=== PATIENT | male | born 1935 | race Caucasian/White ===

== ENCOUNTER 2016-10-22 08:29 | Outpatient (RCR) | payer MEDICARE, OTHER ==
--- OUTSIDE RECORDS SUMMARY | 2016-10-01 08:26 | XMS REPORT ---
Author Author Dayan Kowalski Organization [facility] Address [address] [place], [place] [id number] Care Team Providers Care Food Checker Name Role Phone Ailyn Kowalski PCP Unavailable Allergies and Adverse Reactions Name Reaction Notes NO KNOWN DRUG ALLERGIES Plan of Treatment Not available. 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 Vital Signs Date Time BP-Sys(mm[Hg] BP-Claudette(mm[Hg]) HR(bpm) RR(rpm) Temp WT HT HC BMI BSA BMI Percentile O2 Sat(%) 07/16/2016 9:10:00 AM 128 mmHg 72 mmHg 62 bpm 18 rpm 99 F 175 lbs 74 in 22.47 kg/m2 2.04 m2 97 % 01/02/2016 11:32:00 AM 136 mmHg 78 mmHg 66 bpm 18 rpm 98 F 175 lbs 74 in 22.4684 kg/m 2.0358 m 97 % Social History Name Description Comments Tobacco Former smoker denies alcohol use Caffeine Current every day Exercises regularly History of Procedures Date Ordered Description Order Status 01/02/2016 4:56 PM URINALYSIS AUTO W/O SCOPE Reviewed 01/03/2016 8:59 AM URINALYSIS AUTO W/O SCOPE Reviewed 06/27/2016 12:00 AM ASSAY OF PSA TOTAL Reviewed 07/16/2016 9:39 AM URINALYSIS AUTO W/O SCOPE Reviewed Results Summary Data and Description Results 01/02/2016 4:56 PM Clarity Ur CLEAR Color Ur ------ Glucose Ur-sCnc -VE Bilirub Ur Ql Strip -VE Ketones Ur Ql Strip -VE Sp Gr Ur Qn 1020 Hgb Ur Ql Strip -VE pH Ur-LsCnc 6.0 Prot Ur Ql Strip -VE Urobilinogen Ur-mCnc -VE Nitrite Ur Ql Strip - VE WBC Est Ur Ql Strip -VE 07/16/2016 9:39 AM Clarity Ur CLEAR Color Ur -------- Glucose Ur-sCnc -VE Bilirub Ur Ql Strip -VE Ketones Ur Ql Strip -VE Sp Gr Ur Qn 1015 Hgb Ur Ql Strip -VE pH Ur-LsCnc 5.0 Prot Ur Ql Strip -VE Urobilinogen Ur-mCnc -VE Nitrite Ur Ql Strip -VE WBC Est Ur Ql Strip -VE History Of Immunizations Not available. 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
[~2016-10-22 08:29] MED LIST: FLAX100031 PO; OMEP20CA6 PO; VIT1CAPS14 PO
== END 2016-11-11 11:48 | disposition home or self-care (01) ==
PROVIDERS: ATTEND Orthopaedic Surgery
DX: M25.552 Pain in left hip (principal)

== ENCOUNTER 2017-02-13 13:43 | Outpatient (RCR) | payer MEDICARE, OTHER ==
[2017-02-16] MEDS ORDERED: CEFD300C3 PO (16:05)
[2017-02-17] MEDS ORDERED: OMEP20CA12 PO (12:57)
[2017-02-17] MEDS ORDERED: HYDR-3730 PO (18:08)
[2017-02-17] MEDS ORDERED: LEVO500T2 PO (18:08)
[2017-02-18] MEDS ORDERED: CIPR-225 PO (09:26)
== END 2017-04-14 12:02 | disposition home or self-care (01) ==
PROVIDERS: ATTEND Family Medicine
DX: M53.3 Sacrococcygeal disorders, not elsewhere classified (principal)

== ENCOUNTER 2017-02-16 12:31 | Emergency (ER) | payer MEDICARE, OTHER ==
[~2017-02-16] VITALS: Ht 188 cm; Wt 80.3 kg
[2017-02-16 13:05] LABS: BASOPHILS % (AUTO) 0 % (0-10); EOSINOPHILS % (AUTO) 0 % (0-10); LYMPHOCYTES # (AUTO) 0.7 X 10^3 (1.0-4.0); LYMPHOCYTES % (AUTO) 6 % (12-44); MEAN CORPUSCULAR HEMOGLOBIN 30 PG (25-34); MEAN CORPUSCULAR HGB CONC 34 G/DL (32-36); MEAN CORPUSCULAR VOLUME 91 FL (80-99); MEAN PLATELET VOLUME 9.3 FL (7.4-10.4); MONOCYTES # (AUTO) 0.7 X 10^3 (0.0-1.0); MONOCYTES % (AUTO) 7 % (0-12); NEUTROPHILS # (AUTO) 9.8 X 10^3 (1.8-7.8); NEUTROPHILS % (AUTO) 87 % (42-75); PLATELET COUNT 190 10^3/uL (130-400); RED CELL DISTRIBUTION WIDTH 12.4 % (10.0-14.5); WHITE BLOOD COUNT 11.3 10^3/uL (4.3-11.0)
--- NOTE | 2017-02-16 13:06 | ED Abdominal Pain ---
General Stated Complaint: ABD PAIN Source of Information: Patient Exam Limitations: No Limitations History of Present Illness Time Seen By Provider: 13:03 Initial Comments The patient is an 81-year-old white male who has had several intervals of abdominal pain. The first of these was apparently November 2015. He then had other episodes a month ago or thereabouts and had workup in [place]. This apparently included a CT scan. The thought by Dr. Thurston his personal physician was that this may represent gallbladder disease. 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 The pain seems to lie in the right upper quadrant. There is no radiation to the shoulder or shoulder blade. He vomited once this morning. He is now over the pain. Severity/Quality: Moderate, Sharp, Stabbing Location: RUQ, Epigastric Radiation: No Radiation Allergies and Home Medications Allergies Coded Allergies: No Known Drug Allergies (Unverified , 12/06/15) Home Medications Flaxseed Oil 1,000 Mg Capsule, 1,000 MG PO BID, (Reported) Omeprazole 20 Mg Capsule.dr, 20 MG PO BID, (Reported) Vit C/Lynne AC/Lut/Copper/Znox 1 Each Capsule, 1 CAP PO BID, (Reported) Past Bhsohmf-Gpbece-Ybgvoj Hx Patient Social History Recent Foreign Travel: No Contact w/Someone Who Travel: No Surgeries HX Surgeries: Yes (hernia repair) Surgeries: Abdominal, Appendectomy, Orthopedic, Tonsillectomy Respiratory Hx Respiratory Disorders: No Cardiovascular Hx Cardiac Disorders: No Neurological Hx Neurological Disorders: No Reproductive System Hx Reproductive Disorders: No Genitourinary Hx Genitourinary Disorders: No Gastrointestinal Hx Gastrointestinal Disorders: Yes Gastrointestinal Disorders: Gastroesophageal Reflux Musculoskeletal Hx Musculoskeletal Disorders: No Endocrine Hx Endocrine Disorders: No HEENT HX ENT Disorders: Yes Hearing Impairment: Hard of Hearing Cancer Hx Cancer: No Psychosocial Hx Psychiatric Problems: No Integumentary HX Skin/Integumentary Disorder: No Blood Transfusions Hx Blood Disorders: No Family Medical History Significant Family History: No Pertinent Family Hx Physical Exam Vital Signs VS - Last 72 Hours, by Label 02/16/17 12:50 Temp 98.2 Pulse 52 Resp 18 B/P (MAP) 145/80 Pulse Ox 97 O2 Delivery Room Air Capillary Refill : General Appearance: WD/WN, no apparent distress HEENT: normal ENT inspection Neck: full range of motion Respiratory: chest non-tender, lungs clear, normal breath sounds, no respiratory distress, no accessory muscle use Cardiovascular: normal peripheral pulses, regular rate, rhythm, no edema, no gallop, no JVD, no murmur Gastrointestinal: other (tender to deep palpation over the area of the gallbladder.) Extremities: normal range of motion, non-tender, normal inspection, no pedal edema, no calf tenderness, normal capillary refill, pelvis stable Back: normal inspection, no CVA tenderness 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, no motor/sensory deficits, alert, normal mood/affect, oriented x 3 Skin: normal color, warm/dry Progress/Results/Core Measures Results/Orders Lab Results Laboratory Tests Test 02/16/17 12:55 Range/Units White Blood Count 11.3 H 4.3-11.0 10^3/uL Red Blood Count 4.70 4.35-5.85 10^6/uL Hemoglobin 14.3 13.3-17.7 G/DL Hematocrit 43 40-54 % Mean Corpuscular Volume 91 80-99 FL Mean Corpuscular Hemoglobin 30 25-34 PG Mean Corpuscular Hemoglobin Concent 34 32-36 G/DL Red Cell Distribution Width 12.4 10.0-14.5 % Platelet Count 190 130-400 10^3/uL Mean Platelet Volume 9.3 7.4-10.4 FL Neutrophils (%) (Auto) 87 H 42-75 % Lymphocytes (%) (Auto) 6 L 12-44 % Monocytes (%) (Auto) 7 0-12 % Eosinophils (%) (Auto) 0 0-10 % Basophils (%) (Auto) 0 0-10 % Neutrophils # (Auto) 9.8 H 1.8-7.8 X 10^3 Lymphocytes # (Auto) 0.7 L 1.0-4.0 X 10^3 Monocytes # (Auto) 0.7 0.0-1.0 X 10^3 Eosinophils # (Auto) 0.0 0.0-0.3 10^3/uL Basophils # (Auto) 0.0 0.0-0.1 10^3/uL Neutrophils % (Manual) 86 % Lymphocytes % (Manual) 3 % Monocytes % (Manual) 5 % Eosinophils % (Manual) 0 % Basophils % (Manual) 0 % Band Neutrophils 6 % Blood Morphology Comment NORMAL Sodium Level 137 135-145 MMOL/L Potassium Level 3.8 3.6-5.0 MMOL/L Chloride Level 105 98-107 MMOL/L Carbon Dioxide Level 22 21-32 MMOL/L Anion Gap 10 5-14 MMOL/L Blood Urea Nitrogen 17 7-18 MG/DL Creatinine 0.91 0.60-1.30 MG/DL Estimat Glomerular Filtration Rate > 60 BUN/Creatinine Ratio 19 Glucose Level 160 H 70-105 MG/DL Calcium Level 9.0 8.5-10.1 MG/DL Total Bilirubin 0.5 0.1-1.0 MG/DL Aspartate Amino Transf (AST/SGOT) 17 5-34 U/L Alanine Aminotransferase (ALT/SGPT) 19 0-55 U/L Alkaline Phosphatase 47 40-136 U/L Total Protein 6.6 6.4-8.2 G/DL Albumin 4.0 3.2-4.5 G/DL Lipase 20 8-78 U/L My Orders Orders - STEFANY KHALIL MD Cbc With Automated Diff (02/16/17 12:36) Comprehensive Metabolic Panel (02/16/17 12:36) Ua Culture If Indicated (02/16/17 12:36) Manual Differential (02/16/17 12:55) Lipase (02/16/17 13:07) Ns Iv 1000 Ml (Sodium Chloride 0.9%) (02/16/17 13:15) Ondansetron Injection (Zofran Injectio (02/16/17 13:15) Fentanyl Injection (Sublimaze Injection (02/16/17 13:15) Us Gallbladder [id number] (02/16/17 13:29) Medications Given in ED Current Medications Medications Dose Ordered Sig/Rodolfo Route Start Time Stop Time Status Last Admin Dose Admin Fentanyl Citrate 25 mcg Q1H PRN IVP 02/16/17 13:15 02/16/17 13:27 25 MCG Ondansetron HCl 8 mg ONCE ONCE IVP 02/16/17 13:15 02/16/17 13:16 DC 02/16/17 13:27 8 MG Vital Signs/I&O Vital Sign - Last 12Hours 02/16/17 12:50 Temp 98.2 Pulse 52 Resp 18 B/P (MAP) 145/80 Pulse Ox 97 O2 Delivery Room Air Departure Communication Progress Notes Sonogram report was positive for stones. [address] Munguia surgeon on-call. He recommended oral antibiotics , pain relief and clear liquid diet he will see him tomorrow to arrange Impression Impression: Primary Impression: acute cholecystitis Disposition: HOME, SELF-CARE Condition: Stable/Unchanged Departure-Patient Inst. Decision time for Depature: 15:58 Referrals: BARRY THURSTON MD (PCP/Family) Primary Care Physician Patient Instructions: Gallstones (DC) Add. Discharge Instructions: Take only clear liquid diet until after you have seen Dr. Munguia tomorrow. Call his office at [phone] in the morning to schedule an appointment for tomorrow afternoon. Take Omnicef twice daily as directed Take Lortab as directed if necessary for pain You have the 5 mg hydrocodone at home. This is perfect and you can take 1 every 4-6 hours as needed for pain Scripts Cefdinir (Cefdinir) 300 Mg Capsule 300 MG PO twice a day, #6 CAP Prov: STEFANY KHALIL MD 02/16/17 STEFANY KHALIL MD Feb 16, 2017 13:06
[2017-02-16] MEDS ORDERED: ONDANSETRON 4 MG/2 ML (SDV) Z0FRAN IVP ONE (13:15)
[2017-02-16] MEDS ORDERED: NS IV 1000 ML 1,000 ML IV SCH (13:15)
[2017-02-16] MEDS ORDERED: fentaNYL INJECTION 100 MCG/2 ML AMP IVP PRN (13:15)
[2017-02-16 13:21] LABS: NEUTROPHILS % (MANUAL) 86 %
[2017-02-16 13:22] LABS: BAND NEUTROPHILS 6 %; BASOPHILS % (MANUAL) 0 %; EOSINOPHILS % (MANUAL) 0 %; LYMPHOCYTES % (MANUAL) 3 %
[2017-02-16 13:25] LABS: ALANINE AMINOTRANSFERASE 19 U/L (0-55); ANION GAP 10 MMOL/L (5-14); ASPARTATE AMINO TRANSFERASE 17 U/L (5-34); BILIRUBIN,TOTAL 0.5 MG/DL (0.1-1.0); BLOOD UREA NITROGEN 17 MG/DL (7-18); BUN/CREATININE RATIO 19; CARBON DIOXIDE 22 MMOL/L (21-32); CHLORIDE 105 MMOL/L (98-107); CREATININE SERUM 0.91 MG/DL (0.60-1.30); GFR ESTIMATED > 60; GLUCOSE 160 MG/DL (70-105); POTASSIUM 3.8 MMOL/L (3.6-5.0); SODIUM 137 MMOL/L (135-145); TOTAL PROTEIN 6.6 G/DL (6.4-8.2)
--- NOTE | 2017-02-16 15:31 | Diagnostic Imaging Report ---
PROCEDURE: US gallbladder. TECHNIQUE: Multiple real-time grayscale images were obtained over the right upper quadrant in various projections. INDICATION: Right upper quadrant abdominal pain. FINDINGS: Liver parenchyma is homogeneous with normal echotexture. There are several calculi in the gallbladder. Gallbladder wall is not thickened. Common duct is not dilated. Right kidney appears normal. Pancreas is obscured by bowel gas. There is no ascites. IMPRESSION: Cholelithiasis. Dictated by: Dictated on workstation # [id number]
[2017-02-16] MEDS ORDERED: CEFD300C3 PO ×2 (16:05)
[2017-02-16 16:26] VITALS: BP 145/80
[2017-02-17] MEDS ORDERED: OMEP20CA12 PO ×2 (12:57)
[2017-02-17] MEDS ORDERED: LEVO500T2 PO ×2 (18:08)
[2017-02-17] MEDS ORDERED: HYDR-3730 PO ×2 (18:08)
== END 2017-02-16 16:26 | disposition home or self-care (01) ==
LOC: EDUNIT# 12:31 → ER 12:33
DX: K80.00 Calculus of gallbladder with acute cholecystitis without obstruction (principal)
CPT/HCPCS: 36415; 76705; 80053; 83690; 85007; 85027; 96361; 96374; 96375

== ENCOUNTER 2017-02-17 10:30 | Day surgery (SDC) | payer MEDICARE, OTHER ==
[~2017-02-17] VITALS: Ht 185.4 cm; Wt 78.3 kg
[~2017-02-17 10:30] MED LIST changes: +CEFD300C3 PO
[2017-02-17 10:50] VITALS: BP 112/67
[2017-02-17] MEDS ORDERED: ceFAZolin 1 GM/NS 50 ML IVPB IV ONE ×2 (11:00)
[2017-02-17] MEDS ORDERED: ONDANSETRON 4 MG/2 ML (SDV) Z0FRAN IV PRN (11:00)
[2017-02-17] MEDS ORDERED: CATHETER FLUSH 10 ML SYR IV PRN (11:00)
[2017-02-17] MEDS ORDERED: PIPERACILLIN/TAZOBACTAM 4.5 GM/NS100 ML IVPB IV NR ×2 (11:00)
[2017-02-17] MEDS ORDERED: LACTATED RINGERS 1,000 ML IV PRN (11:27)
[2017-02-17 12:00] VITALS: BP 99/63
[2017-02-17] MEDS: NS IV 1000 ML 1,000 ML IV SCH ×2 (12:07→21:11)
--- NOTE | 2017-02-17 12:54 | History & Physicial ---
History of Present Illness History of Present Illness Reason for visit/HPI This is an 81 year old male who was seen in the office this morning for complaints of RUQ abdominal pain. He was seen by us in November 2015 for idiopathic pancreatitis which resolved. Patient reports that he had a similar episode 3 weeks ago where he developed sharp RUQ abdominal pain as well as nausea and vomiting. He reports that this improved until yesterday when the pain was so severe that he presented to the ER and an Ultrasound was performed which showed gallstones. He reports that he was also having nausea and vomiting associated with the pain. He denied any diarrhea, constipation, reflux , as well as no fevers/chills. He then followed up with us this morning to pursue getting his gallbladder removed. Date of Admission I consulted on this patient on 02/17/17 12:49 Attending Physician Jordi Herr MD Admitting Physician Reema Neumann MD Consult Allergies and Home Medications Allergies Coded Allergies: No Known Drug Allergies (Unverified , 12/06/15) Home Medications Cefdinir 300 Mg Capsule, 300 MG PO twice a day, #6 Prescribed by: STEFANY KHALIL on 02/16/17 1605 Flaxseed Oil 1,000 Mg Capsule, 1,000 MG PO BID, (Reported) Omeprazole 20 Mg Capsule.dr, 20 MG PO BID, (Reported) Vit C/Lynne AC/Lut/Copper/Znox 1 Each Capsule, 1 CAP PO BID, (Reported) Past Hivduaq-Toctga-Wppfxg Hx Patient Social History Smoking Status: Former Smoker 2nd Hand Smoke Exposure: No Recent Foreign Travel: No Contact w/other who traveled: No Recent Hopitalizations: No Recent Infectious Disease Expo: No Surgeries HX Surgeries: Yes (hernia repair) Surgeries: Abdominal, Appendectomy, Orthopedic, Tonsillectomy Respiratory Hx Respiratory Disorders: No Cardiovascular Hx Cardiovascular Disorders: No Neurological Hx Neurological Disorders: No Reproductive System Hx Reproductive Disorders: No Genitourinary Hx Genitourinary Disorders: No Gastrointestinal Hx Gastrointestinal Disorders: Yes Gastrointestinal Disorders: Gastroesophageal Reflux Musculoskeletal Hx Musculoskeletal Disorders: No Endocrine Hx Endocrine Disorders: No HEENT HX ENT Disorders: Yes Hearing Impairment: Hard of Hearing Cancer Hx Cancer: No Psychosocial Hx Psychiatric Problems: No Integumentary HX Skin/Integumentary Disorder: No Blood Transfusions Hx Blood Disorders: No Family Medical History Significant Family History: No Pertinent Family Hx Family Hx: Cardiovascular disease 19 FATHER Dementia G8 SISTER Neoplasm 19 MOTHER (lymphoma) G8 SISTER (lymphoma) Constitutional: no symptoms reported EENTM: no symptoms reported Respiratory: no symptoms reported Cardiovascular: no symptoms reported Gastrointestinal: abdominal pain (RUQ), No constipation, No diarrhea, No heartburn, nausea, vomiting Genitourinary: no symptoms reported Musculoskeletal: no symptoms reported Skin: no symptoms reported Psychiatric/Neurological: No Symptoms Reported Physical Exam Vital Signs Capillary Refill : General Appearance: No Apparent Distress, WD/WN HEENT: PERRL/EOMI Neck: Full Range of Motion, Normal Inspection, Non Tender, Supple Respiratory: Chest Non Tender, Lungs Clear, Normal Breath Sounds, No Accessory Muscle Use, No Respiratory Distress Cardiovascular: Regular Rate, Rhythm, No Edema Gastrointestinal: Normal Bowel Sounds, No Organomegaly, No Pulsatile Mass, Soft , Tenderness (RUQ with palpation) Back: Normal Inspection, No CVA Tenderness, No Vertebral Tenderness Extremity: Normal Capillary Refill, Normal Inspection, Normal Range of Motion, Non Tender, No Calf Tenderness, No Pedal Edema Neurologic/Psychiatric: Alert, Oriented x3, Normal Mood/Affect Skin: Normal Color, Warm/Dry Assessment/Plan Assessment and Plan A 81 year old male with chronic calculus cholecystitis. IV fluids. IV pain and nausea medication. IV zosyn. NPO. Will schedule for Laparoscopic cholecystectomy today. Problems: Admission Diagnosis Chronic calculus cholecystitis Clinical Quality Measures DVT/VTE Risk/Contraindication: Risk Factor Score Per Nursin RFS Level Per Nursing on Admit: 2=Moderate Copy Copies To 1: JORDI HERR MD, DUSTIN L APRN Feb 17, 2017 12:54
[2017-02-17] MEDS ORDERED: OMEP20CA12 PO ×2 (12:57)
--- NOTE | 2017-02-17 13:02 | Progress Note-Pre Operative ---
Pre-Operative Progress Note H&P Reviewed The H&P was reviewed, patient examined and no changes noted. Date H&P Reviewed: Feb 17, 2017 Time H&P Reviewed: 13:01 Pre-Operative Diagnosis: Chronic Calculus Cholecystitis BROOKS PETERSON CUTTER HEAD SHARPENER Feb 17, 2017 13:02
[2017-02-17] MEDS ORDERED: BUP/EPI 0.5% 1:200,000 (SENSORCAINE) 30 ML VIAL ONE (13:57)
[2017-02-17] MEDS ORDERED: SUCCINYLCHOLINE INJ 100 MG/5 ML SYR ONE (14:30)
[2017-02-17] MEDS ORDERED: ONDANSETRON 4 MG/2 ML (SDV) Z0FRAN ONE (14:30)
[2017-02-17] MEDS ORDERED: LACTATED RINGERS 1,000 ML IV ONE ×2 (14:30→17:07)
[2017-02-17] MEDS ORDERED: proPOfol 200 MG/20 ML (DIPRIVAN) VIAL IV ONE (14:30)
[2017-02-17] MEDS ORDERED: ROCURONIUM 50 MG/5 ML (ZEMURON) VIAL IV ONE (14:30)
[2017-02-17] MEDS ORDERED: LIDOCAINE PF 2% 10 ML (XYLOCAINE) AMP ONE (14:30)
[2017-02-17] MEDS ORDERED: MIDAZOLAM 2 MG/2 ML (VERSED) VIAL ONE (14:31)
[2017-02-17] MEDS ORDERED: fentaNYL INJECTION 100 MCG/2 ML AMP ONE (14:31)
[2017-02-17] MEDS ORDERED: MEPERIDINE (DEMEROL) INJ 50 MG/ML ONE (15:32)
[2017-02-17] MEDS ORDERED: morphine INJ 10 MG/ML 1ML (SYR OR VIAL) ONE (15:32)
[2017-02-17] MEDS ORDERED: ceFAZolin INJECTION 1,000 MG in NS (IVPB) 50 ML IVP ONE (15:45)
[2017-02-17] MEDS: LACTATED RINGERS 1,000 ML IV SCH ×2 (15:45→17:15)
[2017-02-17] MEDS ORDERED: ceFAZolin 1,000 MG (ANCEF) VIAL ONE (16:49)
[2017-02-17] MEDS ORDERED: SEVOFLURANE (ULTANE) 15 ML INHAL SOLN ONE ×3 (16:54→20:09)
[2017-02-17] MEDS ORDERED: GLYCOPYRROLATE 0.2 MG/ML (ROBINUL) 2 ML VIAL ONE (17:53)
[2017-02-17] MEDS ORDERED: NEOSTIGMINE (BLOXIVERZ ) 1 MG/1ML 10 ML VIAL ONE (17:53)
--- NOTE | 2017-02-17 18:05 | Progress Note-Post Operative ---
Post-Operative Progess Note Surgeon (s)/Channeler Runner (s) Surgeon JORDI HERR MD Channeler Runner: ruperto robertson MORNING NANNY Pre-Operative Diagnosis Chronic Calculus Cholecystitis Post-Operative Diagnosis acute on chronic calculous cholecystitis. Post-Op Procedure Note Date of Procedure: Feb 17, 2017 Name of Procedure Performed: laparoscopic cholecystectomy Description of the Procedure: laparoscopic cholecystectomy Findings of the Procedure . Anesthesia Type GET Estimated blood loss (mL): minimal Specimen(s) collected/removed gallbladder JORDI HERR MD Feb 17, 2017 6:05 pm
[2017-02-17] MEDS ORDERED: HYDR-3730 PO ×2 (18:08)
[2017-02-17] MEDS ORDERED: LEVO500T2 PO ×2 (18:08)
--- NOTE | 2017-02-17 18:09 | Discharge Inst-Surgical ---
D/C Lap Instructions-CARMENZA New, Converted, or Re-Newed RX: RX on Chart Follow Up Appt in 2 weeks Activity as tolerated No driving for 24 hours No driving while on pain medications Incentive Spirometry use every 2 hours while awake Regular Diet Symptoms to Report: Fever over 101 degree F, Nausea/Vomiting Infection Signs and Symptoms to report: Increased redness, Foul odor of wound, Increased drainage Bathing instructions: May shower Operative Area Clean/Dry; Keep incision clean/dry If any problems/questions: Contact your physician or go to Emergency Room JORDI HERR MD Feb 17, 2017 6:09 pm
[2017-02-17] MEDS ORDERED: HYDROcodone/APAP 7.5 MG/325 MG (LORTAB, LORCET PLUS) TABLET PO PRN (18:15)
[2017-02-17] MEDS ORDERED: MEPERIDINE (DEMEROL) INJ 50 MG/ML IVP PRN (18:30)
[2017-02-17] MEDS ORDERED: morphine INJ 10 MG/ML 1ML (SYR OR VIAL) IVP PRN (18:30)
[2017-02-17] MEDS ORDERED: ONDANSETRON 4 MG/2 ML (SDV) Z0FRAN IVP PRN (18:30)
[2017-02-17] MEDS: fentaNYL INJECTION 100 MCG/2 ML AMP IV PRN (19:30)
[2017-02-17 19:47] VITALS: BP 124/81
[2017-02-17] MEDS: PIPERACILLIN/TAZOBACTAM 4.5 GM/NS100 ML IVPB IV SCH ×2 (20:26)
[2017-02-18] VITALS: BP 123/74
[2017-02-18] MEDS: fentaNYL INJECTION 100 MCG/2 ML AMP IV PRN (03:05)
[2017-02-18] MEDS: PIPERACILLIN/TAZOBACTAM 4.5 GM/NS100 ML IVPB IV SCH ×4 (03:05→08:00)
[2017-02-18 04:00] VITALS: BP 108/59
[2017-02-18 08:00] VITALS: BP 101/58
[2017-02-18] MEDS: NS IV 1000 ML 1,000 ML IV SCH (08:01)
[2017-02-18] MEDS ORDERED: PANTOPRAZOLE 40 MG/10 ML (PROTONIX) VIAL IV SCH (09:00)
[2017-02-18] MEDS ORDERED: CIPR-225 PO ×2 (09:26)
--- NOTE | 2017-02-18 13:05 | Anesthesia-General Post-Op ---
General Patient Condition Mental Status/LOC: Same as Preop Cardiovascular: Satisfactory Nausea/Vomiting: Absent Respiratory: Satisfactory Pain: Controlled Complications: Absent Post Op Complications Complications None Follow Up Care/Instructions Patient Instructions None needed. Anesthesia/Patient Condition Patient Condition Patient is doing well, no complaints, stable vital signs, no apparent adverse anesthesia problems. No complications reported per nursing. KATHRYN TOVAR CRNA Feb 18, 2017 13:04
[2017-02-18 13:30] VITALS: BP 101/58
--- NOTE | 2017-02-19 07:32 | OPERATIVE REPORT ---
DATE OF SERVICE: 02/17/2017 ATTENDING PRIMARY CARE PHYSICIAN: Reema Neumann MD PREOPERATIVE DIAGNOSIS: Symptomatic chronic calculous cholecystitis. POSTOPERATIVE DIAGNOSIS: Acute on chronic calculous cholecystitis. PROCEDURE PERFORMED: Laparoscopic cholecystectomy. SURGEON: Dr. Rogers SALESPERSON CHILDREN'S SHOES: WALLACE Ellison ANESTHESIA: General endotracheal. ESTIMATED BLOOD LOSS: Minimal. FINDINGS: Chronically inflamed gallbladder with omental adhesions. Acute inflammation of the appendix with multiple small gallstones. DISPOSITION: The patient tolerated procedure well. DESCRIPTION OF PROCEDURE: The patient is an 81-year-old male who has had a 2-week history of intermittent episodes of pain in the right upper abdominal quadrant with radiation towards the back. He is unsure if food makes this worse. This gentleman was seen in 11/2015 for pain, more in the epigastric region and was found to have an acute pancreatitis. Workup included CT scan as well as ultrasound which did not show any signs of choledocholithiasis or cholelithiasis. He also had a normal total bilirubin and only elevated pancreatic enzymes. He states that this pain is different. It is more in the right upper abdominal quadrant which has progressively worsened over time and is not persistent. An ultrasound was performed which did show inflammation of the gallbladder wall as well as multiple stones. The patient was brought to the operating room, laid supine on the table. After adequate IV pain and sedative medications and general endotracheal intubation, the abdomen was prepped and draped in standard surgical fashion. Marcaine, 0.5%, with epinephrine was then used to anesthetize the overlying skin in the left upper abdominal quadrant. A small transverse skin incision made using a 15-blade. An 0 silk suture was applied to the medial aspect of the incision for traction and a Veress needle inserted with a low opening pressure of 0 mmHg, and the abdomen was insufflated to 15 mmHg pressure. The Veress needle removed, then a 5 mm Xcel trocar placed followed by a 5 mm 45-degree angle laparoscope visualizing the peritoneal cavity. A four quadrant abdominal x-ray also was performed. There was fibrinopurulent exudative material on the gallbladder as well as extensive omental adhesions to the gallbladder consistent with acute on chronic cholecystitis. Under direct visualization, we then proceeded to place a supraumbilical 10 mm port after the skin and peritoneum were anesthetized using 0.5 Marcaine with epinephrine and a transverse skin incision made using a 15 blade. In a similar manner, a right upper abdominal quadrant 5 mm port was placed. The patient was then placed in reverse Trendelenburg position as well as laid right side up, left side down. The omental adhesions were taken off the fundus of the gallbladder, and the fundus retracted anteriorly and superiorly. We proceeded with dissection of the omentum, which is plastered to the fundus and body as well as the neck of the gallbladder using blunt dissection as well as electrocautery on the hook instrument. The hepatoduodenal ligament was identified and the hepatoduodenal ligament opened using electrocautery on the hook instrument as well as blunt dissection. The entire critical view of safety was identified including the triangle of Calot as well as the cystic duct and artery going into the gallbladder as well as the liver behind the proximal gallbladder. A timeout was then taken and the cystic duct and artery were then clipped proximally and distally and cut with EndoShears. The gallbladder was then dissected off of the liver bed using electrocautery and a hook instrument with visualization. Good hemostasis as well as no leaking ducts of lushka. The area was then copiously irrigated and suctioned out. The subphrenic spaces irrigated and suctioned as well. The gallbladder was removed through the 10 mm port site using an Endocatch bag. The 10 mm port site fascia and peritoneum were then closed under direct visualization using a Neno-Ree device and 0 Vicryl suture. The fascia and peritoneum with a 10 mm port were then closed under direct visualization using a Neno-Ree device and an 0 Vicryl suture. The abdomen was desufflated and the remaining ports removed. All skin incisions were closed using 4-0 Monocryl and running subcuticular stitches. Wounds were then cleaned and covered with Dermabond. The patient tolerated procedure well. We will admit him back to the floor and continue with two more IV doses of IV antibiotics as well as pain control with oral and IV pain medication. Once he is tolerating liquids and has good pain control with oral pain medication and is afebrile and ambulating well, we will discharge him home. Job ID: [id number] DocumentID: [id number] Dictated Date: 02/17/2017 17:59:17 Tapper Hand Date: 02/18/2017 21:16:42 Dictated By: MD ALVINA KINSEY
== END 2017-02-18 13:40 | disposition home or self-care (01) ==
LOC: 4THo 10:30 → 4TH 10:30 → 4THo 02-18 13:40
PROVIDERS: ATTEND Surgery Pediatric Surgery
DX: K80.10 Calculus of gallbladder with chronic cholecystitis without obstruction (principal); K21.9 Gastro-esophageal reflux disease without esophagitis; Z87.891 Personal history of nicotine dependence
CPT/HCPCS: 87081; 88304

== ENCOUNTER → 2017-09-15 | Outpatient (CLI) | payer MEDICARE, OTHER ==
[~2017-09-15] MED LIST changes: +CIPR-225 PO; +HYDR-3730 PO; +LEVO500T2 PO; +OMEP20CA12 PO
--- NOTE | 2017-09-15 13:32 | Diagnostic Imaging Report ---
PROCEDURE: MRI lumbar spine. TECHNIQUE: Multiplanar, multisequence MRI of the lumbar spine was performed without contrast. INDICATION: Back pain. FINDINGS: There is satisfactory alignment of the posterior spinal line. The vertebral body heights are preserved. There is disc desiccation at all levels with moderate disc height loss at L3/L4 and L4/L5 levels. No significant focal lesion is seen within the spine. There is, however, mild marrow edema along the endplates of L4/L5 and to lesser extent at L3/L4 compatible with Modic type 1 changes. The cauda equina and conus medullaris appear grossly unremarkable. T12/L1: There is a mild disc bulge. Minimal facet hypertrophy is seen. No spinal canal or foraminal stenosis is noted. L1/L2: There is a mild disc bulge and mild to moderate facet hypertrophy. No central canal, lateral recess or foraminal stenosis. L2/L3: There is a mild disc bulge and mild to moderate facet hypertrophy. No central canal stenosis. There is bilateral mild lateral recess stenosis. The foramina demonstrate no significant stenosis. L3/L4: There is a diffuse disc bulge and mild facet hypertrophy. No central canal stenosis. There is bilateral mild lateral recess stenosis. The foramina demonstrate mild stenosis, more prominent on the left side. L4/L5: There is a diffuse disc bulge and bilateral mild to moderate facet arthropathy. No central canal stenosis. There is bilateral moderate lateral recess stenosis abutting the descending L5 nerve roots. The foramina demonstrate mild to moderate stenosis on the right and moderate stenosis on the left side with a small osteophyte from the facet joint projecting into the left foramen abutting the nerve root seen. L5/S1: There is diffuse disc bulge and moderate facet hypertrophy. There is moderate lateral recess stenosis on the left and mild to moderate lateral recess stenosis on the right side. No central canal stenosis. The foramina demonstrate moderate stenosis on the left and mild stenosis on the right side. 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 No significant central canal stenosis at any level. 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 Other findings are described above. Dictated by: Dictated on workstation # [id number]
== END ==
LOC: RAD 11:23
PROVIDERS: ATTEND Physician Assistant
DX: M51.26 Other intervertebral disc displacement, lumbar region (principal); M51.36 Other intervertebral disc degeneration, lumbar region; M48.061 Spinal stenosis, lumbar region without neurogenic claudication
CPT/HCPCS: 72148

== ENCOUNTER 2017-10-15 09:15 | Outpatient (RCR) | payer MEDICARE, OTHER | END 2017-10-28 | disposition home or self-care (01) | PROVIDERS: ATTEND Orthopaedic Surgery | DX: M51.16 Intervertebral disc disorders with radiculopathy, lumbar region (principal) ==

== ENCOUNTER 2017-10-31 07:57 | Outpatient (RCR) | payer MEDICARE, OTHER ==
[2018-01-19] MEDS ORDERED: ONDA4TAB11 PO (15:10)
[2018-01-19] MEDS ORDERED: NAPR220C46 PO ×2 (15:10)
[2018-01-19] MEDS ORDERED: AMOX-358 PO (15:10)
[2018-01-19] MEDS ORDERED: MULT1TAB65 PO ×2 (15:10)
[2018-01-19] MEDS ORDERED: OMEP40CA36 PO (15:10)
[2018-01-19] MEDS ORDERED: OXYC-473 PO (15:10)
[2018-01-19] MEDS ORDERED: OMEP20CA12 PO ×2 (16:21)
== END 2018-01-26 16:13 | disposition home or self-care (01) ==
PROVIDERS: ATTEND Orthopaedic Surgery
DX: M51.16 Intervertebral disc disorders with radiculopathy, lumbar region (principal)

== ENCOUNTER 2018-01-19 11:51 | Inpatient (IN) | payer MEDICARE, OTHER ==
[~2018-01-19] VITALS: Ht 185.4 cm; Wt 78.3 kg
--- NOTE | 2018-01-19 14:45 | Physical Therapy Evaluation ---
PT Evaluation-General Medical Diagnosis Admission Date Jan 19, 2018 at 14:07 Medical Diagnosis: Weakness Onset Date: Jan 13, 2018 Therapy Diagnosis Therapy Diagnosis: generalized weakness/debility Height/Weight Height (Feet): 6 Height (Inches): 1.00 Weight (Pounds): 172 Weight (Ounces): 10.0 Precautions Precautions/Isolations: Standard Precautions Weight Bear Status Right Lower Extremity: Right Full Weight Bearing Left Lower Extremity: Left Full Weight Bearing Referral Physician: Crow Reason for Referral: Evaluation/Treatment Medical History Additional Medical History s/p cholecystectomy 1 yr ago Current History removal of remaining gallstones left in bile duct from surgery 1 yr ago Reviewed History: Yes Social History Home: Single Level Current Living Status: Spouse Entry Into Home: Stairs With Railing PT Steps Into Home: 3 Prior/Core FIM Prior Level of Function Functional [place] Measure 0=Not Assessed/NA 4=Minimal Assistance 1=Total Assistance 5=Supervision or Setup 2=Maximal Assistance 6=Modified [place] 3=Moderate Assistance 7=Complete [place] Bed Mobility: 7 Transfers (B,C,W/C) (FIM): 7 Gait: 7 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 He states he is very weak. Family present. Pain Numeric Pain Scale: 0-No Pain Location: No Pain Reported Objective Patient Orientation: Person, Time, Situation Problem Solving: Fair ROM/Strength ROM Lower Extremities bilateral LE WNL Strenght Lower Extremities right knee flexion/extension 3+/5; hip flexion 3+/5; DF/PF 3+/5; abd/add 3+/5 left knee flexion/extension 3+/5; hip flexion 3+/5; DF/PF 3+/5; abd/add 3+/5 Integumentary/Posture Integumentary refer to nursing notes Bowel Incontinence: No Bladder Incontinence: No Posture kyphotic Neuromuscular (Tone, Coordination, Reflexes) diminished coordination due to weakness Sensory Vision: Wears Glasses Hearing: Hearing Aid/Aides Sensation Right Lower Extremit: Intact Sensation Left Lower Extremity: Intact Transfers Functional [place] Measure 0=Not Assessed/NA 4=Minimal Assistance 1=Total Assistance 5=Supervision or Setup 2=Maximal Assistance 6=Modified [place] 3=Moderate Assistance 7=Complete IndependenceIRFPAI Quality Coding Scale 6 Independent with activity with or without an assistive device 5 Patient requires set up or clean up by helper. Patient completes activity by themselves 4 Supervision or touching assist (CGA). [place] provide cues , steadying assist 3 The helper provides less than half the effort to complete the activity 2 The helper provides more than half the effort to complete the activity 1 Dependent. The helper does all the effort to complete an activity 7 Patient refused to complete or attempt activity 9 The patient did not perform the activity before the current illness or injury 88 Not attempted due to Medical conditions or safety concerns Transfers (B, C, W/C) (FIM): 4 Scootin Rollin Roll Left to Right (QC): 5 Supine to/from Sit: 5 Sit to/from Stand: 4 Sit to Lying (QC): 5 Lying to Sitting/Side of Bed(Q: 5 Sit to Stand (QC): 4 Chair/Cmq-sj-Bknqz Xfer(QC): 4 Car Transfer (QC): 4 PT cotreat with OT secondary to patient fatigue level from travel and overall medical status. PT focused on lower body, transfers, balance while OT address ADL's and upper body mobility. Gait Does the Patient Walk?: Yes Mode of Locomotion: Walk Anticipated Mode of Locomotion: Walk Gait (FIM): 4 Distance (FIM): 3=150 ft Walk 10 feet (QC): 4 Walk 50 ft with 2 Turns(QC): 4 Walk 150 ft (QC): 4 Walking 10ft/uneven surface-QC: 4 Distance: 200' x 4 Gait Level of Assist: 4 Gait Persons Needed: 1 Gait Assistive Device: FWW Comments/Gait Description very slow, steady gait sequence with sitting recovery periods due to fatigue/ weakness Wheelchair Training Does the Pt Use a Wheelchair?: No Stairs Stairs (FIM): 1 #of Steps: 1 Level of Assist: 4 1 Step (curb) (QC): 4 4 Steps (QC): 88 Assistive Device: Walker 12 Steps (QC): 88 Balance Sitting Static: Fair Sitting Dynamic: Fair Standing Static: Fair Standing Dynamic: Fair Treatment PT cotreat with OT with PT focus on dynamic and static balance in sit and stand and ambulating on uneven terrain, while OT address hand placement for transfers , upper body alignment and ADL's. Assessment/Needs 82 y.o. male, will benefit from skilled PT to address functional strength and mobility to improve current LOF and to safely return to home at maximum LOF. Patient is limited due to weakness/debility requiring skilled therapy to ensure maximum recovery. Rehab Potential: Good PT Usp Goals Usp Goals PT Efficiency Manager Goals Time Frame: Feb 20, 2018 Transfers (B,C,W/C) (FIM): 6 Sit to Lying (QC): 6 Lying-Sitting on Side/Bed(QC): 6 Sit to Stand (QC): 6 Rollin Roll Left to Right (QC): 6 Chair/Xek-kp-Ajmva Xfer(QC): 6 Car Transfer (QC): 6 Does the Patient Walk: Yes Gait (FIM): 7 Gait distance (FIM): 3=150 ft Distance: 300' Walk 10 feet (QC): 6 Walk 10ft-Uneven Surface(QC): 6 Walk 50ft with 2 Turns (QC): 6 Walk 150 ft (QC): 6 Gait Level of Assist: 7 Gait Assistive Device: None, FWW Stairs (FIM): 5 # of Steps: 12 1 Step (curb) (QC): 5 4 Steps (QC): 5 12 Steps (QC): 5 Stairs Level Of Assist: 5 Picking up an Object (QC): 5 PT Plan Problem List Problem List: Activity Tolerance, Functional Strength, Safety, Balance, Gait, Transfer Treatment/Plan Treatment Plan: Continue Plan of Care Treatment Plan: Bed Mobility, Concurrent Therapy, Education, Functional Activity Heath, Functional Strength, Group Therapy, Gait, Safety, Therapeutic Exercise, Transfers Treatment Duration: Jan 13, 2018 Frequency: At least 5 of 7 days/Wk (IRF) Estimated Hrs Per Day: 1.5 hours per day Patient and/or Family Agrees t: Yes Safety Risks/Education Patient Education: Safety Issues Teaching Recipient: Patient, Family Teaching Methods: Discussion Response to Teaching: Verbalize Understanding Discharge Recommendations Therapy D/C Recommendations: Home w/ Family Support, Physical Therapy Home Care Time/GCodes Time In: 1410 Time Out: 1445 Total Billed Treatment Time: 25 (with OT eval [id number]) Total Billed Treatment 1 visit EVModC 10 min (9512-1059) FA 15 min (cotreat with OT 1430 -1445) JESSI KONG PT Jan 19, 2018 14:45
[2018-01-19] MEDS ORDERED: INFLUENZA TRIvalent 2017-2018 0.5 ML/45 MCG SYR IM ONE (15:00)
[2018-01-19] MEDS ORDERED: ONDA4TAB11 PO (15:10)
[2018-01-19] MEDS ORDERED: OMEP40CA36 PO (15:10)
[2018-01-19] MEDS ORDERED: NAPR220C46 PO ×2 (15:10)
[2018-01-19] MEDS ORDERED: AMOX-358 PO (15:10)
[2018-01-19] MEDS ORDERED: MULT1TAB65 PO ×2 (15:10)
[2018-01-19] MEDS ORDERED: OXYC-473 PO (15:10)
--- NOTE | 2018-01-19 15:37 | ST Cognitive Linguistic Eval ---
Speech Evaluation-General Medical Diagnosis Acute Pancreatis Onset Date: Jan 13, 2018 Therapy Diagnosis Therapy Diagnosis: Cognitive Linguistic Skills WNL Precautions Precautions/Isolations: Standard Precautions Referral Referring Physician: Dr. Victorino Maria Reason for Referral: Evaluation/Treatment Cognitive Evaluation Medical History Reviewed History: Yes Social History Current Living Status: Spouse Speech PLF-Current Status Prior Level of Function The patient denied prior challenges with his speech, language, or cognition stating, "I take care of Do at home." Do is the patient's . Subjective The patient was seated in a chair upon entrance. The patient greeted the clinician appropriately and was agreeable to participation in the cognitive evaluation. The patient was extremely pleasant and participated fully throughout the session. Language Eval: Auditory Comprehends Simple Yes/No Ques: Functional Indent/Objects Multiple Brown: Functional Ident/Pics in Multiple Brown: Functional Follows 1-Step Commands: Functional Follows Complex Directions: Functional Follows General Conversations: Functional The patient participated in several informal conversations and consistently responded appropriately to questions poised by the clinician. Language Eval: Verbal Language Completes Spontaneous Greeting: Functional Produces Auto, Serial Info: Functional Imitates Simple Words/Phrases: Functional Word Finding: Functional Requests Basic Needs: Functional States Basic Personal Info: Functional Expresses Complex Ideas: Functional Cognitive Patient Orientation The patient is independently oriented to month, day of week, date, and year. Per patient, "I wouldn't have known any of that last week, that's how sick I was !" Objective Cognitive Domain Attention: WNL Memory: WNL Problem Solving: Functional Objective Impression The patient demonstrated cognitive linguistic skills within normal limits and appropriate for safe completion of ADL's. Communication/Social Cognition Comprehension: 6 Expression: 6 Social Interaction: 6 Problem Solvin Memory: 6 Speech Patient Assess Expression of Ideas/Wants: Expression (4) Understanding [place] Content: Understands (4) Brief Interview-Mental Status: Yes Repetition of Three Words: Three (3) Temporal Orientation: Year: Correct (3) Temporal Orientation: Month: Accurate within 5 days(2) Temporal Orientation: Day: Correct (1) Recall : Wear to say "Sock": Yes, no cue required (2) Recall : Color: Yes, no cue required (2) Recall : Bed: Yes,after cueing (1) Speech-Plan Treatment Plan Speech Therapy Treatment Plan: Discontinue ST Evaluation, only. Frequency: Modified Program (IRF) Estimated Hrs Per Day: Other Rehab Potential: Good Safety Risks/Education Teaching Recipient: Patient Teaching Methods: Discussion Response to Teaching: Verbalize Understanding Education Topics Provided: Plan of Care, Results Time Speech Therapy Time In: 15:00 Speech Therapy Time Out: 15:20 Total Billed Time: 20 Billed Treatment Time 1, JOSE ESTRADA Jan 19, 2018 15:37
--- NOTE | 2018-01-19 16:18 | Physical Therapy Daily Note ---
PT Daily Note-Current Subjective Patient just complete with ST and agrees to continue with PT. Pain Numeric Pain Scale: 0-No Pain Location: No Pain Reported Mental Status Patient Orientation: Normal For Age Transfers Functional [place] Measure 0=Not Assessed/NA 4=Minimal Assistance 1=Total Assistance 5=Supervision or Setup 2=Maximal Assistance 6=Modified [place] 3=Moderate Assistance 7=Complete IndependenceIRFPAI Quality Coding Scale 6 Independent with activity with or without an assistive device 5 Patient requires set up or clean up by helper. Patient completes activity by themselves 4 Supervision or touching assist (CGA). [place] provide cues , steadying assist 3 The helper provides less than half the effort to complete the activity 2 The helper provides more than half the effort to complete the activity 1 Dependent. The helper does all the effort to complete an activity 7 Patient refused to complete or attempt activity 9 The patient did not perform the activity before the current illness or injury 88 Not attempted due to Medical conditions or safety concerns Transfers (B, C, W/C) (FIM): 4 Scootin Sit to/from Stand: 4 Sit to Stand (QC): 4 Car Transfer (QC): 4 Weight Bearing Right Lower Extremity: Right Full Weight Bearing Left Lower Extremity: Left Full Weight Bearing Gait Training Does the Patient Walk?: Yes Gait (FIM): 4 Distance (FIM): 3=150 ft Distance: 150' x 2 Walk 10 feet (QC): 4 Walk 50 ft with 2 Turns(QC): 4 Walk 150 ft (QC): 4 Gait Level of Assist: 4 Gait Assistive Device: FWW good body placement in FWW with improved stride length Exercises NuStep Minutes: 20 NuStep Workload: 2 Assessment PT and OT cotreat due to patient fatigue level due to travel and medical status. Patient tolerated exercise and functional mobility with use of FWW (PT focus). OT address upper body strengthening and ADL's during dynamic and static balance exercise to address core strengthening by PT. PT Mcfp Goals [employer] Goals PT Mcfp Goals Time Frame: Feb 20, 2018 Transfers (B,C,W/C) (FIM): 6 Sit to Lying (QC): 6 Lying-Sitting on Side/Bed(QC): 6 Sit to Stand (QC): 6 Rollin Roll Left to Right (QC): 6 Chair/Smq-sn-Pyrjz Xfer(QC): 6 Car Transfer (QC): 6 Does the Patient Walk: Yes Gait (FIM): 7 Gait distance (FIM): 3=150 ft Distance: 300' Walk 10 feet (QC): 6 Walk 10ft-Uneven Surface(QC): 6 Walk 50ft with 2 Turns (QC): 6 Walk 150 ft (QC): 6 Gait Level of Assist: 7 Gait Assistive Device: None, FWW Stairs (FIM): 5 # of Steps: 12 1 Step (curb) (QC): 5 4 Steps (QC): 5 12 Steps (QC): 5 Stairs Level Of Assist: 5 Picking up an Object (QC): 5 PT Plan Treatment/Plan Treatment Plan: Continue Plan of Care Treatment Plan: Bed Mobility, Concurrent Therapy, Education, Functional Activity Heath, Functional Strength, Group Therapy, Gait, Safety, Therapeutic Exercise, Transfers Treatment Duration: Jan 13, 2018 Frequency: At least 5 of 7 days/Wk (IRF) Estimated Hrs Per Day: 1.5 hours per day Patient and/or Family Agrees t: Yes Time/GCodes Time In: 1520 Time Out: 1605 Total Billed Treatment Time: 45 Total Billed Treatment 1 visit GT 8 min EX x 2 37 min ([id number] 7 min PT; [id number] cotreat with OT) JESSI KONG PT Jan 19, 2018 16:18
[2018-01-19] MEDS ORDERED: OMEP20CA12 PO ×2 (16:21)
--- NOTE | 2018-01-19 16:40 | Occupational Therapy Eval ---
OT Evaluation-General/PLF Medical Diagnosis Admission Date Jan 19, 2018 at 14:07 Medical Diagnosis: Weakness/atelectais Onset Date: Jan 13, 2018 Therapy Diagnosis Therapy Diagnosis: Decreased ADL skills Height/Weight Height (Feet): 6 Height (Inches): 1.00 Weight (Pounds): 172 Weight (Ounces): 10.0 Precautions Precautions/Isolations: Standard Precautions Weight Bear Status Weight Bearing Restriction: Weight Bearing/Tolerated Referral Physician: Crow Referral Reason: Activity Tolerance, Self Care, Evaluation/Treatment, Strengthening/ROM Medical History Pertinent Medical History: GERD Additional Medical History Gallbladder removal, pancreatitis, Macular degeneration. Current History Pt. became increasingly weak at home. Had series of stones removed. Reviewed History: Yes Social History Home: Single Level Current Living Status: Spouse Entry Into Home: Stairs With Railing Steps Into Home: 3 ADL-Prior Level of Function ADL PLOF Comments Pt. states that he was independent previous to this hospitalization. DME/Equipment: Bath Chair, Tub/Shower DME/Equipment Comments Pt. states that he has a walker but does not use it. Occupation: [employer] Current Status Subjective Pt. does not report pain, just weakness. States, "I'm as weak as a kitten." Appearance Pt. is agreeable to treatment. Pt. states that he has a shower at [facility] [place] previous to coming to this hospital. Mental Status/Objective Patient Orientation: Person, Place Current Glasses/Contacts: Yes Hearing Aids: Yes Hand Dominance: Right Upper Extremity ROM WFL Upper Extremity Strength Pt. demonstrates approximately 3/5 bilateral UE strength throughout. ADL-Treatment Functional [place] Measure 0=Not Assessed/NA 4=Minimal Assistance 1=Total Assistance 5=Supervision or Setup 2=Maximal Assistance 6=Modified [place] 3=Moderate Assistance 7=Complete IndependenceIRFPAI Quality Coding Scale 6 Independent with activity with or without an assistive device 5 Patient requires set up or clean up by helper. Patient completes activity by themselves 4 Supervision or touching assist (CGA). [place] provide cues , steadying assist 3 The helper provides less than half the effort to complete the activity 2 The helper provides more than half the effort to complete the activity 1 Dependent. The helper does all the effort to complete an activity 7 Patient refused to complete or attempt activity 9 The patient did not perform the activity before the current illness or injury 88 Not attempted due to Medical conditions or safety concerns Lower Body Dressing (FIM): 5 (Pt. demonstrates ability to doff/don slippers and socks with SBA. Pt. already fully dressed and bathed from [facility] Lower Body Dressing (QC): 4 On/Off Footwear (QC): 4 Transfers (B, C, W/C) (FIM): 4 (CGA to transfer and ambulate with walker.) Other Treatments PT and OT co-treated due to pt. fatigue level and transfer to this facility from [facility]. PT focused on mobility and LE strength training while OT facilitated ADL training, safety awareness, and UE strengthening. Pt. tolerated 17 minutes on armbike at min resistance and slow steady pace to increase overall UE strength. Pt. verbalized understanding of safety precautions and calling for help before getting out of bed. OT/PT educated pt. on rehab stay and goals. Pt. states that he would like to return home. Education OT Patient Education: Correct positioning, Exercise program, Modified ADL techniques, Progress toward Goal/Update tx plan, Purpose of tx/functional activities, Reviewed precautions, Rehab process, Transfer techniques Teaching Recipient: Patient Teaching Methods: Demonstration, Discussion Response to Teaching: Verbalize Understanding, Return Demonstration OT Short Term Goals Short Term Goals Time Frame: Jan 26, 2018 Eating(FIM): 5 Grooming(FIM): 5 Bathing(FIM): 4 Upper Body Dressing(FIM): 5 Lower Body Dressing(FIM): 5 Toileting(FIM): 5 Transfers (B,C,W/C) (FIM): 5 Toilet/Commode Transfer(FIM): 5 Shower Transfer(FIM): 4 Additional Short Term Goals: 1-Demonstrate ADL Tasks, 2-Verbalize Understanding , 3-ImproveStrength/Heath 1=Demonstrate adherence to instructed precautions during ADL tasks. 2=Patient will verbalize/demonstrate understanding of assistive devices/ modifications for ADL. 3=Patient will improve strength/tolerance for activity to enable patient to perform ADL's. OT Care Home Goals Care Home Goals Time Frame: Feb 02, 2018 Eating (FIM): 6 Eating (QC): 6 Groomin Oral Hygiene (QC): 6 Bathing(FIM): 5 Shower/Bathe Self (QC): 5 Upper Body Dressing(FIM): 6 Upper Body Dressing (QC): 6 Lower Body Dressing(FIM): 6 Lower Body Dressing (QC): 6 On/Off Footwear (QC): 6 Toileting(FIM): 6 Toileting Hygiene (QC): 6 Transfers (B,C,W/C) (FIM): 6 Toilet/Commode Transfer(FIM): 6 Toilet/Commode Transfer (QC): 6 Shower Transfer(FIM): 5 Additional Goals: 1-Demonstrate ADL Tasks, 2-Verbalize Understanding, 3- ImproveStrength/Heath 1=Demonstrate adherence to instructed precautions during ADL tasks. 2=Patient will verbalize/demonstrate understanding of assistive devices/ modifications for ADL. 3=Patient will improve strength/tolerance for activity to enable patient to perform ADL's. OT Education/Plan Problem List/Assessment Assessment: Decreased Activ Tolerance, Decreased UE Strength, Dependent Transfers, Impaired Funct Balance, Impaired I ADL's, Impaired Self-Care Skills Discharge Recommendations Plan/Recommendations: Continue POC Therapy D/C Recommendations: Home w/ Family Support, Occupational Therapy Home Care, Scheduled Assistance Target Placement Home with spouse and family. Pt. would likely benefit from home health for Occupational therapy training. Treatment Plan/Plan of Care Treatment,Training & Education: Yes Patient would benefit from OT for education, treatment and training to promote independence in ADL's, mobility, safety and/or upper extremity function for ADL' s. Plan of Care: ADL Retraining, Functional Mobility, UE Funct Exercise/Act Treatment Duration: Feb 02, 2018 Frequency: At least 5 of 7 days/Wk (IRF) Estimated Hrs Per Day: 1.5 hours per day Agreement: Yes Rehab Potential: Good Time/GCodes Start Time: 14:20 Stop Time: 16:25 Total Time Billed (hr/min): 90 Billed Treatment Time 1570-9542 1, EVM x 10minutes OT eval only [id number] ADL x 30minutes 3972-1915 Ex x 20minutes, FA x 30minutes ORLANDO MELARA OT Jan 19, 2018 16:40
[2018-01-19 18:00] VITALS: BP 128/74
[2018-01-19] MEDS: NAPROXEN 250 MG (NAPROSYN) TABLET PO SCH (21:49)
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
[2018-01-19] MEDS: AUGMENTIN 875 MG TAB (AMOXICILLIN/CLAVULANATE) PO SCH (23:55)
[2018-01-20 06:00] VITALS: BP 147/78
[2018-01-20] MEDS: PANTOPRAZOLE 40 MG (PROTONIX) TAB PO SCH (06:29)
[2018-01-20] MEDS: MULTIVIT W/MINERALS TAB (THERAGRAN M) PO SCH (06:30)
[2018-01-20] MEDS: AUGMENTIN 875 MG TAB (AMOXICILLIN/CLAVULANATE) PO SCH ×2 (08:34→16:47)
[2018-01-20] MEDS: NAPROXEN 250 MG (NAPROSYN) TABLET PO SCH ×2 (08:35→20:32)
--- NOTE | 2018-01-20 09:21 | PM&R Post Admission Assessment ---
Post Admission Physician Asses The preadmission screen agrees with the post admission assessment that the patient is a good candidate for inpatient rehabilitation. The patient will have a comprehensive program of inpatient rehabilitation with a goal of maximizing level of functional independence prior to discharge home with spouse. The patient will have PT/OT ninety minutes per day, each discipline, five days a week for gait, strengthening, conditioning, balance, ADLs, any patient/family/caregiver training as necessary. Speech therapy to do cognitive assessment and treat as indicated. Rehabilitation nursing to assist with bowel, bladder, skin, medication administration, pain management. Event Planning Manager to assist with discharge planning, community reentry. SCD's for DVT prophylaxis.Nutritional consult re low fat diet that the patients GI Physician has requested s/p ERCP He appears to be well motivated to participate in three hours of therapy a day. He should be able to tolerate three hours of therapy a day from a medical standpoint. He should benefit from the three hours of therapy a day. He has a reasonable discharge plan, reasonable discharge rehabilitation goals and a supportive family. He has various comorbidities that need to be closely monitored with medications and treatments adjusted on a daily basis as needed. These include: recurrent Gall stone with Blockage s/p Choecystectomy now s/p ERCP GERD Barriers to discharge for this patient who had been independent prior to this are for him to be modified independent to supervision for ADLs and mobility skills prior to discharge home with spouse, so as to lessen the burden of the caregivers. 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 Fall 2. Fracture 3. DVT 4. Pulmonary embolism 5. recurrent blocakage 6. Skin breakdown 7. Contractures 8. Poorly controlled pain 9. Urinary retention 10. UTI 11. Respiratory infection 12. Aspiration Estimated Length of Stay: 14 days Prognosis: Rehab prognosis appears good for goal of discharge home with spouse modified independent to supervision for ADLs and mobility skills. REDDY STERN MD Jan 20, 2018 09:21
--- NOTE | 2018-01-20 09:38 | PM & R (SOAP) Progress Note ---
Subjective Time Seen by Provider: 08:05 Subjective/Events-last exam Patient was seen in his room this AM Concerned about lack of appetite and need to be on lowfat diet s/p ERCP as per his GI Physicians orders-Diet changed and Nutritional consult ordered.The patient is min assist for transfers Review of Systems General: Fatigue, Appetite Neurological: Weakness Objective Exam Last Set of Vital Signs Vital Signs Date Time Temp Pulse Resp B/P (MAP) Pulse Ox O2 Delivery O2 Flow Rate FiO2 01/20/18 06:00 97.5 60 16 147/78 (101) 93 Room Air Capillary Refill : I&O Intake and Output 01/20/18 00:00 Intake Total 150 ml Output Total 400 ml Balance -250 ml Intake Oral 150 ml Output Urine Total 400 ml # Voids 1 Daily Weight Change No General: Alert, Oriented X3, Cooperative, No Acute Distress HEENT: Atraumatic, PERRLA, EOMI, Mucous Memb Moist/[place] Neck: Supple, No JVD Lungs: Clear to Auscultation Heart: Regular Rate Abdomen: Soft, No Tenderness Extremities: No Edema Neuro: Other (Generalized weakness presbycusis) Assessment/Plan Assessment general debil s/p ERCP for choledolithiasis with obstruction S/P cholecystectomy earlier this year Presbycusis Plan Continue PT/OT Change diet to Heart healthy (LOW FAT) Consult Filler And Trimmer Monitor PO intake and daytime somnolence Team Conference Tomorrow 01-21-18 REDDY STERN MD Jan 20, 2018 09:38
--- NOTE | 2018-01-20 11:14 | Occupational Ther Daily Note ---
OT Current Status-Daily Note Subjective Pt agreeable to treatment this am. No c/o pain. Mental Status/Objective Functional [place] Measure 0=Not Assessed/NA 4=Minimal Assistance 1=Total Assistance 5=Supervision or Setup 2=Maximal Assistance 6=Modified [place] 3=Moderate Assistance 7=Complete [place] ADL-Treatment Pt in restroom when therapist arrives. Pt able to complete toileting hygiene and clothing management with SBA. Sit to stand from toilet with SBA. Pt requests shower this morning. [place] clothing with SBA. Transfer to shower bench in walk in shower with SBA. Pt able to wash/dry all areas with SBA and increased time. Pt shaved with set up while in shower. Don pullover shirt with set up. Pt donned underwear and pants with SBA for standing balance during pant hike. Don slip on shoes with set up. Pt stood at sink to complete grooming tasks. Pt brushed teeth and combed hair with SBA. Increased time for ADL tasks. Functional [place] Measure 0=Not Assessed/NA 4=Minimal Assistance 1=Total Assistance 5=Supervision or Setup 2=Maximal Assistance 6=Modified [place] 3=Moderate Assistance 7=Complete IndependenceIRFPAI Quality Coding Scale 6 Independent with activity with or without an assistive device 5 Patient requires set up or clean up by helper. Patient completes activity by themselves 4 Supervision or touching assist (CGA). [place] provide cues , steadying assist 3 The helper provides less than half the effort to complete the activity 2 The helper provides more than half the effort to complete the activity 1 Dependent. The helper does all the effort to complete an activity 7 Patient refused to complete or attempt activity 9 The patient did not perform the activity before the current illness or injury 88 Not attempted due to Medical conditions or safety concerns Grooming (FIM): 5 Oral Hygiene (QC): 4 Bathing (FIM): 5 Shower/Bathe Self (QC): 4 Upper Body (FIM): 5 Upper Body Dressing (QC): 5 Lower Body Dressing (FIM): 5 Lower Body Dressing (QC): 4 On/Off Footwear (QC): 5 Toileting (FIM): 5 Toileting Hygiene (QC): 4 Toilet/Commode Transfer (FIM): 5 Toilet Transfer (QC): 4 Shower Transfer(FIM): 5 Other Treatment Pt completed bilateral UE exercises to increase strength needed for ADLs and transfers. Pt performed 3 exercises x15 reps with moderate resistance (red) theraband. Brief rest breaks between exercises. Pt sitting in chair with needs met after session. OT Short Term Goals Short Term Goals Time Frame: Jan 26, 2018 Eating(FIM): 5 Grooming(FIM): 5 Bathing(FIM): 4 Upper Body Dressing(FIM): 5 Lower Body Dressing(FIM): 5 Toileting(FIM): 5 Transfers (B,C,W/C) (FIM): 5 Toilet/Commode Transfer(FIM): 5 Shower Transfer(FIM): 4 Additional Short Term Goals: 1-Demonstrate ADL Tasks, 2-Verbalize Understanding , 3-ImproveStrength/Heath 1=Demonstrate adherence to instructed precautions during ADL tasks. 2=Patient will verbalize/demonstrate understanding of assistive devices/ modifications for ADL. 3=Patient will improve strength/tolerance for activity to enable patient to perform ADL's. OT Senior Care Goals Senior Care Goals Time Frame: Feb 02, 2018 Eating (FIM): 6 Eating (QC): 6 Groomin Oral Hygiene (QC): 6 Bathing(FIM): 5 Shower/Bathe Self (QC): 5 Upper Body Dressing(FIM): 6 Upper Body Dressing (QC): 6 Lower Body Dressing(FIM): 6 Lower Body Dressing (QC): 6 On/Off Footwear (QC): 6 Toileting(FIM): 6 Toileting Hygiene (QC): 6 Transfers (B,C,W/C) (FIM): 6 Toilet/Commode Transfer(FIM): 6 Toilet/Commode Transfer (QC): 6 Shower Transfer(FIM): 5 Additional Goals: 1-Demonstrate ADL Tasks, 2-Verbalize Understanding, 3- ImproveStrength/Heath 1=Demonstrate adherence to instructed precautions during ADL tasks. 2=Patient will verbalize/demonstrate understanding of assistive devices/ modifications for ADL. 3=Patient will improve strength/tolerance for activity to enable patient to perform ADL's. OT Education/Plan Discharge Recommendations Plan/Recommendations: Continue POC Treatment Plan/Plan of Care Patient would benefit from OT for education, treatment and training to promote independence in ADL's, mobility, safety and/or upper extremity function for ADL' s. Plan of Care: ADL Retraining, Functional Mobility, UE Funct Exercise/Act Treatment Duration: Feb 02, 2018 Frequency: At least 5 of 7 days/Wk (IRF) Estimated Hrs Per Day: 1.5 hours per day Agreement: Yes Rehab Potential: Good Time/GCodes Start Time: 09:00 Stop Time: 10:15 Total Time Billed (hr/min): 75 Billed Treatment Time 1 visit, ADLx4(60minutes), EX(15minutes) JOSE PARTIDA OT Jan 20, 2018 11:14
--- NOTE | 2018-01-20 11:27 | Physical Therapy Daily Note ---
PT Daily Note-Current Subjective Pt sitting in recliner upon arrival. Pt agrees to PT. Pt reports "I need to get stronger so I can take care of my ". Pain Location: No Pain Reported Mental Status Patient Orientation: Person, Place, Time, Situation Transfers Functional [place] Measure 0=Not Assessed/NA 4=Minimal Assistance 1=Total Assistance 5=Supervision or Setup 2=Maximal Assistance 6=Modified [place] 3=Moderate Assistance 7=Complete IndependenceIRFPAI Quality Coding Scale 6 Independent with activity with or without an assistive device 5 Patient requires set up or clean up by helper. Patient completes activity by themselves 4 Supervision or touching assist (CGA). [place] provide cues , steadying assist 3 The helper provides less than half the effort to complete the activity 2 The helper provides more than half the effort to complete the activity 1 Dependent. The helper does all the effort to complete an activity 7 Patient refused to complete or attempt activity 9 The patient did not perform the activity before the current illness or injury 88 Not attempted due to Medical conditions or safety concerns Scootin Sit to/from Stand: 6 Sit to Lying (QC): 6 Sit to Stand (QC): 6 Car Transfer (QC): 6 Weight Bearing Right Lower Extremity: Right Full Weight Bearing Left Lower Extremity: Left Full Weight Bearing Gait Training Does the Patient Walk?: Yes Distance (FIM): 3=150 ft Distance: 200' Walk 10 feet (QC): 6 Walk 50 ft with 2 Turns(QC): 6 Walk 150 ft (QC): 6 Gait Level of Assist: 6 Gait Persons Needed: 1 Gait Assistive Device: FWW Pt has slow but steady gait, no LOB. Pt wants to push self and doesn't fatigue easily. Wheelchair Training Does the Pt Use a Wheelchair?: No Exercises Supine Ex: Ankle pumps, Quad Set, Glut sets, Heel Slides, Straight leg raise, Hip abd/add Supine Reps: 20 NuStep Minutes: 20 NuStep Workload: 3 Treatments Pt transfers from recliner to standing using FWW at Mod I. Pt ambulates in hallway using FWW at Mod I. Pt completes Supine Ex on mat followed by NuStep for 20m at Workload 3. Pt completes car transfer and returns to room to rest Supine in bed at end of tx with all needs met. Assessment Pt continues to get stronger and balance improves. PT Short Term Goals Short Term Goals Transfers (B,C,W/C) (FIM): 5 PT Health And Safety Instructor Goals Health And Safety Instructor Goals PT Skilled Nursing Goals Time Frame: Feb 20, 2018 Transfers (B,C,W/C) (FIM): 6 Sit to Lying (QC): 6 Lying-Sitting on Side/Bed(QC): 6 Sit to Stand (QC): 6 Rollin Roll Left to Right (QC): 6 Chair/[id number]-[id number] Xfer(QC): 6 Car Transfer (QC): 6 Does the Patient Walk: Yes Gait (FIM): 7 Gait distance (FIM): 3=150 ft Distance: 300' Walk 10 feet (QC): 6 Walk 10ft-Uneven Surface(QC): 6 Walk 50ft with 2 Turns (QC): 6 Walk 150 ft (QC): 6 Gait Level of Assist: 7 Gait Assistive Device: None, FWW Stairs (FIM): 5 # of Steps: 12 1 Step (curb) (QC): 5 4 Steps (QC): 5 12 Steps (QC): 5 Stairs Level Of Assist: 5 Picking up an Object (QC): 5 PT Plan Problem List Problem List: Activity Tolerance Treatment/Plan Treatment Plan: Continue Plan of Care Treatment Plan: Bed Mobility, Concurrent Therapy, Education, Functional Activity Heath, Functional Strength, Group Therapy, Gait, Safety, Therapeutic Exercise, Transfers Treatment Duration: Jan 13, 2018 Frequency: At least 5 of 7 days/Wk (IRF) Estimated Hrs Per Day: 1.5 hours per day Patient and/or Family Agrees t: Yes Safety Risks/Education Patient Education: Gait Training, Transfer Techniques, Correct Positioning, Safety Issues Teaching Recipient: Patient Teaching Methods: Discussion Response to Teaching: Verbalize Understanding Time/GCodes Time In: 1015 Time Out: 1115 Total Billed Treatment Time: 60 Total Billed Treatment 1, GT (15m), EX x2 (30m) & FA (15m) MYKE CONTRERAS PTA Jan 20, 2018 11:27
--- NOTE | 2018-01-20 13:15 | Occupational Ther Daily Note ---
OT Current Status-Daily Note Subjective Pt in bed, agrees to treatment. Mental Status/Objective Functional [place] Measure 0=Not Assessed/NA 4=Minimal Assistance 1=Total Assistance 5=Supervision or Setup 2=Maximal Assistance 6=Modified [place] 3=Moderate Assistance 7=Complete [place] ADL-Treatment Functional [place] Measure 0=Not Assessed/NA 4=Minimal Assistance 1=Total Assistance 5=Supervision or Setup 2=Maximal Assistance 6=Modified [place] 3=Moderate Assistance 7=Complete IndependenceIRFPAI Quality Coding Scale 6 Independent with activity with or without an assistive device 5 Patient requires set up or clean up by helper. Patient completes activity by themselves 4 Supervision or touching assist (CGA). [place] provide cues , steadying assist 3 The helper provides less than half the effort to complete the activity 2 The helper provides more than half the effort to complete the activity 1 Dependent. The helper does all the effort to complete an activity 7 Patient refused to complete or attempt activity 9 The patient did not perform the activity before the current illness or injury 88 Not attempted due to Medical conditions or safety concerns Other Treatment Pt supine to sit with supervision. Don shoes with set up. Sit to stand with supervision. Gait to therapy gym with FWW. Arm bike [id number] to increase overall strength and activity tolerance needed for functional tasks. Pt completed activity with minimal resistance and steady pace. No rest breaks needed. Pt returned to room, sitting in chair with needs met after session. OT Short Term Goals Short Term Goals Time Frame: Jan 26, 2018 Eating(FIM): 5 Grooming(FIM): 5 Bathing(FIM): 4 Upper Body Dressing(FIM): 5 Lower Body Dressing(FIM): 5 Toileting(FIM): 5 Transfers (B,C,W/C) (FIM): 5 Toilet/Commode Transfer(FIM): 5 Shower Transfer(FIM): 4 Additional Short Term Goals: 1-Demonstrate ADL Tasks, 2-Verbalize Understanding , 3-ImproveStrength/Heath 1=Demonstrate adherence to instructed precautions during ADL tasks. 2=Patient will verbalize/demonstrate understanding of assistive devices/ modifications for ADL. 3=Patient will improve strength/tolerance for activity to enable patient to perform ADL's. OT Wool Shearer Goals [place] Goals Time Frame: Feb 02, 2018 Eating (FIM): 6 Eating (QC): 6 Groomin Oral Hygiene (QC): 6 Bathing(FIM): 5 Shower/Bathe Self (QC): 5 Upper Body Dressing(FIM): 6 Upper Body Dressing (QC): 6 Lower Body Dressing(FIM): 6 Lower Body Dressing (QC): 6 On/Off Footwear (QC): 6 Toileting(FIM): 6 Toileting Hygiene (QC): 6 Transfers (B,C,W/C) (FIM): 6 Toilet/Commode Transfer(FIM): 6 Toilet/Commode Transfer (QC): 6 Shower Transfer(FIM): 5 Additional Goals: 1-Demonstrate ADL Tasks, 2-Verbalize Understanding, 3- ImproveStrength/Heath 1=Demonstrate adherence to instructed precautions during ADL tasks. 2=Patient will verbalize/demonstrate understanding of assistive devices/ modifications for ADL. 3=Patient will improve strength/tolerance for activity to enable patient to perform ADL's. OT Education/Plan Discharge Recommendations Plan/Recommendations: Continue POC Treatment Plan/Plan of Care Patient would benefit from OT for education, treatment and training to promote independence in ADL's, mobility, safety and/or upper extremity function for ADL' s. Plan of Care: ADL Retraining, Functional Mobility, UE Funct Exercise/Act Treatment Duration: Feb 02, 2018 Frequency: At least 5 of 7 days/Wk (IRF) Estimated Hrs Per Day: 1.5 hours per day Agreement: Yes Rehab Potential: Good Time/GCodes Start Time: 11:45 Stop Time: 12:00 Total Time Billed (hr/min): 15 Billed Treatment Time 1 visit, EX(15minutes) JOSE PARTIDA OT Jan 20, 2018 13:15
--- NOTE | 2018-01-20 15:05 | Physical Therapy Daily Note ---
PT Daily Note-Current Subjective Patient reports he is feeling much better and his appetite is back. Pain Numeric Pain Scale: 0-No Pain Location: No Pain Reported Mental Status Patient Orientation: Normal For Age Transfers Functional [place] Measure 0=Not Assessed/NA 4=Minimal Assistance 1=Total Assistance 5=Supervision or Setup 2=Maximal Assistance 6=Modified [place] 3=Moderate Assistance 7=Complete IndependenceIRFPAI Quality Coding Scale 6 Independent with activity with or without an assistive device 5 Patient requires set up or clean up by helper. Patient completes activity by themselves 4 Supervision or touching assist (CGA). [place] provide cues , steadying assist 3 The helper provides less than half the effort to complete the activity 2 The helper provides more than half the effort to complete the activity 1 Dependent. The helper does all the effort to complete an activity 7 Patient refused to complete or attempt activity 9 The patient did not perform the activity before the current illness or injury 88 Not attempted due to Medical conditions or safety concerns Transfers (B, C, W/C) (FIM): 5 Scootin Rollin Roll Left to Right (QC): 5 Supine to/from Sit: 6 Sit to/from Stand: 5 Sit to Lying (QC): 5 Sit to Stand (QC): 5 Chair/[id number]-kn-Ltvrc Xfer(QC): 5 Bed to/from Chair: 5 Weight Bearing Right Lower Extremity: Right Full Weight Bearing Left Lower Extremity: Left Full Weight Bearing Gait Training Does the Patient Walk?: Yes Gait (FIM): 5 Distance (FIM): 3=150 ft Distance: 250' x 2 Walk 10 feet (QC): 5 Walk 50 ft with 2 Turns(QC): 5 Walk 150 ft (QC): 5 Gait Level of Assist: 5 Gait Assistive Device: FWW Patient ambulated with and without assistive device with steady, improved gait sequence. Exercises Standing: Heel/toe raises, Mini squats, Retro gait, Side steps, Unilateral stance Standing Reps: 15 (2 sets) Assessment Balance training with sidestepping, grape[place] and retro gait with PRESIDENT AND CMO. Patient improving with treatment plan. PT Short Term Goals Short Term Goals Transfers (B,C,W/C) (FIM): 5 PT Alf Goals Alf Goals PT Alf Goals Time Frame: Feb 20, 2018 Transfers (B,C,W/C) (FIM): 6 Sit to Lying (QC): 6 Lying-Sitting on Side/Bed(QC): 6 Sit to Stand (QC): 6 Rollin Roll Left to Right (QC): 6 Chair/Uqk-wc-Ievvj Xfer(QC): 6 Car Transfer (QC): 6 Does the Patient Walk: Yes Gait (FIM): 7 Gait distance (FIM): 3=150 ft Distance: 300' Walk 10 feet (QC): 6 Walk 10ft-Uneven Surface(QC): 6 Walk 50ft with 2 Turns (QC): 6 Walk 150 ft (QC): 6 Gait Level of Assist: 7 Gait Assistive Device: None, FWW Stairs (FIM): 5 # of Steps: 12 1 Step (curb) (QC): 5 4 Steps (QC): 5 12 Steps (QC): 5 Stairs Level Of Assist: 5 Picking up an Object (QC): 5 PT Plan Treatment/Plan Treatment Plan: Continue Plan of Care Treatment Plan: Bed Mobility, Concurrent Therapy, Education, Functional Activity Heath, Functional Strength, Group Therapy, Gait, Safety, Therapeutic Exercise, Transfers Treatment Duration: Jan 13, 2018 Frequency: At least 5 of 7 days/Wk (IRF) Estimated Hrs Per Day: 1.5 hours per day Patient and/or Family Agrees t: Yes Time/GCodes Time In: 1400 Time Out: 1430 Total Billed Treatment Time: 30 Total Billed Treatment 1 visit EX x 2 30 min JESSI KONG PT Jan 20, 2018 15:05
[2018-01-20 17:37] VITALS: BP 126/73
[2018-01-21 05:14] VITALS: BP 142/80
[2018-01-21] MEDS: AUGMENTIN 875 MG TAB (AMOXICILLIN/CLAVULANATE) PO SCH ×2 (06:05→17:18)
[2018-01-21] MEDS: PANTOPRAZOLE 40 MG (PROTONIX) TAB PO SCH (06:05)
[2018-01-21] MEDS: MULTIVIT W/MINERALS TAB (THERAGRAN M) PO SCH (06:05)
[2018-01-21 06:15] LABS: HEMOGLOBIN 13.2 G/DL (13.3-17.7); RED BLOOD COUNT 4.19 10^6/uL (4.35-5.85); RED CELL DISTRIBUTION WIDTH 13.4 % (10.0-14.5); WHITE BLOOD COUNT 7.4 10^3/uL (4.3-11.0)
[2018-01-21 06:41] LABS: ALANINE AMINOTRANSFERASE 120 U/L (0-55); ALBUMIN 3.3 GM/DL (3.2-4.5); ALKALINE PHOSPHATASE 85 U/L (40-136); BILIRUBIN,TOTAL 1.5 MG/DL (0.1-1.0); BUN/CREATININE RATIO 16; CALCIUM 8.7 MG/DL (8.5-10.1); CARBON DIOXIDE 23 MMOL/L (21-32); CHLORIDE 109 MMOL/L (98-107); CREATININE SERUM 0.79 MG/DL (0.60-1.30); GFR ESTIMATED > 60; GLUCOSE 96 MG/DL (70-105); POTASSIUM 4.1 MMOL/L (3.6-5.0); SODIUM 138 MMOL/L (135-145); TOTAL PROTEIN 5.6 GM/DL (6.4-8.2)
[2018-01-21] MEDS: NAPROXEN 250 MG (NAPROSYN) TABLET PO SCH ×2 (08:45→20:21)
--- NOTE | 2018-01-21 09:31 | PM & R (SOAP) Progress Note ---
Subjective Time Seen by Provider: 09:25 Subjective/Events-last exam Patient was seen in his room this AM Patient SBA for transfers Discussed case with RN Labs noted Objective Exam Last Set of Vital Signs Vital Signs Date Time Temp Pulse Resp B/P (MAP) Pulse Ox O2 Delivery O2 Flow Rate FiO2 01/21/18 05:14 97.5 65 18 142/80 (100) 97 Room Air Capillary Refill : I&O Intake and Output 01/21/18 00:00 Intake Total 1240 ml Output Total 1725 ml Balance -485 ml Intake Oral 1240 ml Output Urine Total 1725 ml # Voids 3 # Bowel Movements 1 General: Alert, Oriented X3, Cooperative, No Acute Distress HEENT: Atraumatic, PERRLA, EOMI, Mucous Memb Moist/[place] Neck: Supple, No JVD Lungs: Clear to Auscultation Heart: Regular Rate Abdomen: Soft, No Tenderness Extremities: No Edema Neuro: Other (Generalized weakness presbycusis) Results Lab Laboratory Tests 01/21/18 06:06: White Blood Count 7.4, Red Blood Count 4.19L, Hemoglobin 13.2L, Hematocrit 38L, Mean Corpuscular Volume 91, Mean Corpuscular Hemoglobin 32, Mean Corpuscular Hemoglobin Concent 35, Red Cell Distribution Width 13.4, Platelet Count 193, Mean Platelet Volume 10.0, Sodium Level 138, Potassium Level 4.1, Chloride Level 109H, Carbon Dioxide Level 23, Anion Gap 6, Blood Urea Nitrogen 13, Creatinine 0.79, Estimat Glomerular Filtration Rate > 60, BUN/Creatinine Ratio 16, Glucose Level 96, Calcium Level 8.7, Total Bilirubin 1.5H, Aspartate Amino Transf (AST/SGOT) 63H, Alanine Aminotransferase (ALT/SGPT) 120H, Alkaline Phosphatase 85, Total Protein 5.6L, Albumin 3.3, Thyroid Stimulating Hormone ( TSH) 1.55 Assessment/Plan Assessment general debil s/p ERCP for choledolithiasis with obstruction S/P cholecystectomy earlier this year Presbycusis Transaminitis s/p procedure and obstruction -trend Plan Continue PT/OT Change diet to Heart healthy (LOW FAT) Consult Icu Rn Monitor PO intake and daytime somnolence Team Conference later today -See report for full functional update and POC and ELOs Dr Huynh consulted as per daughters rrquest REDDY STERN MD Jan 21, 2018 09:31
--- NOTE | 2018-01-21 11:19 | Physical Therapy Daily Note ---
PT Daily Note-Current Subjective Pt laying supine in bed upon arrival. Pt agrees to PT since "I have to get better to take care of my ". Pain Location: No Pain Reported Mental Status Patient Orientation: Person, Place, Time, Situation Transfers Functional [place] Measure 0=Not Assessed/NA 4=Minimal Assistance 1=Total Assistance 5=Supervision or Setup 2=Maximal Assistance 6=Modified [place] 3=Moderate Assistance 7=Complete IndependenceIRFPAI Quality Coding Scale 6 Independent with activity with or without an assistive device 5 Patient requires set up or clean up by helper. Patient completes activity by themselves 4 Supervision or touching assist (CGA). [place] provide cues , steadying assist 3 The helper provides less than half the effort to complete the activity 2 The helper provides more than half the effort to complete the activity 1 Dependent. The helper does all the effort to complete an activity 7 Patient refused to complete or attempt activity 9 The patient did not perform the activity before the current illness or injury 88 Not attempted due to Medical conditions or safety concerns Scootin Rollin Roll Left to Right (QC): 6 Supine to/from Sit: 6 Sit to/from Stand: 6 Sit to Lying (QC): 6 Sit to Stand (QC): 6 Chair/Dsc-pj-Hokqa Xfer(QC): 6 Bed to/from Chair: 6 Weight Bearing Right Lower Extremity: Right Full Weight Bearing Left Lower Extremity: Left Full Weight Bearing Gait Training Does the Patient Walk?: Yes Distance (FIM): 3=150 ft Distance: 300' Walk 10 feet (QC): 6 Walk 50 ft with 2 Turns(QC): 6 Walk 150 ft (QC): 6 Gait Level of Assist: 6 Gait Persons Needed: 1 Gait Assistive Device: FWW Pt walks with a steady gait, no LOB. Pt has occasional shuffling of L foot especially as pt fatigues during ambulation. Wheelchair Training Does the Pt Use a Wheelchair?: No Exercises Supine Ex: Ankle pumps, Quad Set, Heel Slides, Straight leg raise, Hip abd/add Supine Reps: 20 Seated Therapy Exercises: Ankle pumps, Long arc quads, Hip flexion, Kicking activity Seated Reps: 15 Assessment Current Status: Good Progress Pt continues to get stronger and more independent with all tasks everyday. PT Short Term Goals Short Term Goals Transfers (B,C,W/C) (FIM): 5 PT Snf Goals Forklift Technician Goals PT Forklift Technician Goals Time Frame: Feb 20, 2018 Transfers (B,C,W/C) (FIM): 6 Sit to Lying (QC): 6 Lying-Sitting on Side/Bed(QC): 6 Sit to Stand (QC): 6 Rollin Roll Left to Right (QC): 6 Chair/Xcd-rq-Chbel Xfer(QC): 6 Car Transfer (QC): 6 Does the Patient Walk: Yes Gait (FIM): 7 Gait distance (FIM): 3=150 ft Distance: SEE PT GOALS Walk 10 feet (QC): 6 Walk 10ft-Uneven Surface(QC): 6 Walk 50ft with 2 Turns (QC): 6 Walk 150 ft (QC): 6 Gait Level of Assist: 7 Gait Assistive Device: None, FWW Stairs (FIM): 5 # of Steps: 12 1 Step (curb) (QC): 5 4 Steps (QC): 5 12 Steps (QC): 5 Stairs Level Of Assist: 5 Picking up an Object (QC): 5 PT Plan Problem List Problem List: Activity Tolerance Treatment/Plan Treatment Plan: Continue Plan of Care Treatment Plan: Bed Mobility, Concurrent Therapy, Education, Functional Activity Heath, Functional Strength, Group Therapy, Gait, Safety, Therapeutic Exercise, Transfers Treatment Duration: Jan 13, 2018 Frequency: At least 5 of 7 days/Wk (IRF) Estimated Hrs Per Day: 1.5 hours per day Patient and/or Family Agrees t: Yes Safety Risks/Education Patient Education: Gait Training, Correct Positioning, Safety Issues Teaching Recipient: Patient Teaching Methods: Discussion Response to Teaching: Verbalize Understanding Time/GCodes Time In: 945 Time Out: 1045 Total Billed Treatment Time: 60 Total Billed Treatment 1, GT x2 (30m) & EX x2 (30m) MYKE CONTRERAS SECURITY ROVER Jan 21, 2018 11:19
--- NOTE | 2018-01-21 11:25 | Occupational Ther Daily Note ---
OT Current Status-Daily Note Subjective Pt in bed, agrees to treatment. Mental Status/Objective Functional [place] Measure 0=Not Assessed/NA 4=Minimal Assistance 1=Total Assistance 5=Supervision or Setup 2=Maximal Assistance 6=Modified [place] 3=Moderate Assistance 7=Complete [place] ADL-Treatment Pt supine to sit with modified independence. Sit to stand with modified independence. Gait to restroom with FWW. Pt transferred to toilet with modified independence using grab bar. Pt able to complete toileting hygiene and clothing modified independence. Pt requests shower this morning. [place] clothing without assistance. Transfer to walk in shower with bench with supervision. Pt able to wash/dry all areas after set up assist to turn water on. Don undershirt and snap shirt with set up. Pt donned underwear and pants with set up. No LOB noted during standing for pant hike. Don socks with set up. Pt stood at sink to brush teeth and comb hair with modified independence. Functional [place] Measure 0=Not Assessed/NA 4=Minimal Assistance 1=Total Assistance 5=Supervision or Setup 2=Maximal Assistance 6=Modified [place] 3=Moderate Assistance 7=Complete IndependenceIRFPAI Quality Coding Scale 6 Independent with activity with or without an assistive device 5 Patient requires set up or clean up by helper. Patient completes activity by themselves 4 Supervision or touching assist (CGA). [place] provide cues , steadying assist 3 The helper provides less than half the effort to complete the activity 2 The helper provides more than half the effort to complete the activity 1 Dependent. The helper does all the effort to complete an activity 7 Patient refused to complete or attempt activity 9 The patient did not perform the activity before the current illness or injury 88 Not attempted due to Medical conditions or safety concerns Grooming (FIM): 6 Oral Hygiene (QC): 6 Bathing (FIM): 5 Shower/Bathe Self (QC): 5 Upper Body (FIM): 5 Upper Body Dressing (QC): 5 Lower Body Dressing (FIM): 5 Lower Body Dressing (QC): 5 On/Off Footwear (QC): 5 Toilet/Commode Transfer (FIM): 6 Toilet Transfer (QC): 6 Shower Transfer(FIM): 5 Other Treatment Pt completed bilateral UE exercises to increase strength needed for ADLs and transfers. Pt performed four exercises x15 reps with moderate resistance (red) theraband. Pt fatigues with activity and requires rest breaks between exercises. Pt sitting in chair with needs met after session. OT Short Term Goals Short Term Goals Time Frame: Jan 26, 2018 Eating(FIM): 5 Grooming(FIM): 5 Bathing(FIM): 4 Upper Body Dressing(FIM): 5 Lower Body Dressing(FIM): 5 Toileting(FIM): 5 Transfers (B,C,W/C) (FIM): 5 Toilet/Commode Transfer(FIM): 5 Shower Transfer(FIM): 4 Additional Short Term Goals: 1-Demonstrate ADL Tasks, 2-Verbalize Understanding , 3-ImproveStrength/Heath 1=Demonstrate adherence to instructed precautions during ADL tasks. 2=Patient will verbalize/demonstrate understanding of assistive devices/ modifications for ADL. 3=Patient will improve strength/tolerance for activity to enable patient to perform ADL's. OT Application Development Consultant Goals Application Development Consultant Goals Time Frame: Feb 02, 2018 Eating (FIM): 6 Eating (QC): 6 Groomin Oral Hygiene (QC): 6 Bathing(FIM): 5 Shower/Bathe Self (QC): 5 Upper Body Dressing(FIM): 6 Upper Body Dressing (QC): 6 Lower Body Dressing(FIM): 6 Lower Body Dressing (QC): 6 On/Off Footwear (QC): 6 Toileting(FIM): 6 Toileting Hygiene (QC): 6 Transfers (B,C,W/C) (FIM): 6 Toilet/Commode Transfer(FIM): 6 Toilet/Commode Transfer (QC): 6 Shower Transfer(FIM): 5 Additional Goals: 1-Demonstrate ADL Tasks, 2-Verbalize Understanding, 3- ImproveStrength/Heath 1=Demonstrate adherence to instructed precautions during ADL tasks. 2=Patient will verbalize/demonstrate understanding of assistive devices/ modifications for ADL. 3=Patient will improve strength/tolerance for activity to enable patient to perform ADL's. OT Education/Plan Discharge Recommendations Plan/Recommendations: Continue POC Treatment Plan/Plan of Care Patient would benefit from OT for education, treatment and training to promote independence in ADL's, mobility, safety and/or upper extremity function for ADL' s. Plan of Care: ADL Retraining, Functional Mobility, UE Funct Exercise/Act Treatment Duration: Feb 02, 2018 Frequency: At least 5 of 7 days/Wk (IRF) Estimated Hrs Per Day: 1.5 hours per day Agreement: Yes Rehab Potential: Good Time/GCodes Start Time: 08:00 Stop Time: 09:00 Total Time Billed (hr/min): 60 Billed Treatment Time 1 visit, ADLx3(45minutes), [id number]) JOSE PARTIDA OT Jan 21, 2018 11:25
--- NOTE | 2018-01-21 15:03 | Therapy Group Daily Note ---
Therapy Daily Group Note Exercises LE Seated Exercise, UE Exercise Other/Notes Pt ambulated with FWW to therapy gym for OT/PT group. Group consisted of introductions (name, place living, favorite place), socialization, seated UE/LE exercises and peer interaction activity with Jeopardy format. Pt was able to introduce self and actively listened to peers while they introduced themselves. Pt contributed to surrounding conversations and interacted appropriately with peers. Pt was able to answer trivia questions during peer interaction activity. Light resistance theraband exercises completed for UE/LE. After therapy, pt ambulated with FWW to room. All needs met in room. Start Time: 13:05 Stop Time: 14:10 Total Billed Treatment Time: 65 Total Billed Treatment 1-GRP SINTIA SANDRA Jan 21, 2018 15:03
[2018-01-21 17:27] VITALS: BP 106/60
[2018-01-22 05:09] VITALS: BP 127/75
[2018-01-22] MEDS: MULTIVIT W/MINERALS TAB (THERAGRAN M) PO SCH (06:11)
[2018-01-22] MEDS: PANTOPRAZOLE 40 MG (PROTONIX) TAB PO SCH (06:11)
[2018-01-22] MEDS: AUGMENTIN 875 MG TAB (AMOXICILLIN/CLAVULANATE) PO SCH ×2 (06:11→17:24)
--- NOTE | 2018-01-22 09:09 | PM & R (SOAP) Progress Note ---
Subjective Time Seen by Provider: 08:15 Subjective/Events-last exam Patient was seen in his room this AM Patient doing much better Patient modified Independent for transfers Objective Exam Last Set of Vital Signs Vital Signs Date Time Temp Pulse Resp B/P (MAP) Pulse Ox O2 Delivery O2 Flow Rate FiO2 01/22/18 05:09 97.3 61 18 127/75 (92) 95 Room Air Capillary Refill : I&O Intake and Output 01/22/18 00:00 Intake Total 1550 ml Output Total 1250 ml Balance 300 ml Intake Oral 1550 ml Output Urine Total 1250 ml # Voids 3 General: Alert, Oriented X3, Cooperative, No Acute Distress HEENT: Atraumatic, PERRLA, EOMI, Mucous Memb Moist/[place] Neck: Supple, No JVD Lungs: Clear to Auscultation Heart: Regular Rate Abdomen: Soft, No Tenderness Extremities: No Edema Neuro: Other (Generalized weakness presbycusis) Results Lab Laboratory Tests 01/21/18 06:06: White Blood Count 7.4, Red Blood Count 4.19L, Hemoglobin 13.2L, Hematocrit 38L, Mean Corpuscular Volume 91, Mean Corpuscular Hemoglobin 32, Mean Corpuscular Hemoglobin Concent 35, Red Cell Distribution Width 13.4, Platelet Count 193, Mean Platelet Volume 10.0, Sodium Level 138, Potassium Level 4.1, Chloride Level 109H, Carbon Dioxide Level 23, Anion Gap 6, Blood Urea Nitrogen 13, Creatinine 0.79, Estimat Glomerular Filtration Rate > 60, BUN/Creatinine Ratio 16, Glucose Level 96, Calcium Level 8.7, Total Bilirubin 1.5H, Aspartate Amino Transf (AST/SGOT) 63H, Alanine Aminotransferase (ALT/SGPT) 120H, Alkaline Phosphatase 85, Total Protein 5.6L, Albumin 3.3, Thyroid Stimulating Hormone ( TSH) 1.55 Assessment/Plan Assessment general debil s/p ERCP for choledolithiasis with obstruction S/P cholecystectomy earlier this year Presbycusis Transaminitis s/p procedure and obstruction -trend Plan Continue PT/OT Change diet to Heart healthy (LOW FAT) Consult Custom Harvester-done Monitor PO intake and daytime somnolence-all better Team Conference held yesterday -See report for full functional update and POC and ELOs Dr Huynh consulted as per [facility] rrquest Discharge set for 01-26-18 REDDY STERN MD Jan 22, 2018 09:09
--- NOTE | 2018-01-22 09:44 | Occupational Ther Daily Note ---
OT Current Status-Daily Note Subjective Pt in bed, agrees to treatment. Mental Status/Objective Functional [place] Measure 0=Not Assessed/NA 4=Minimal Assistance 1=Total Assistance 5=Supervision or Setup 2=Maximal Assistance 6=Modified [place] 3=Moderate Assistance 7=Complete [place] ADL-Treatment Pt supine to sit with modified independence. Sit to stand with modified independence. Pt retrieved clothing from counter using FWW for balance. To restroom with FWW. Pt doffed clothing without assistance. Transfer to walk in shower with modified independence. Pt able to wash/dry all areas after set up assistance to adjust water temperature. Don pullover shirt with modified independence. Pt donned underwear and pants with modified independence. Stood with good balance during pant hike. Dons socks and shoes with modified independence while seated. Toilet transfer completed with modified independence. Pt able to complete toileting hygiene and clothing management with modified independence. Grooming tasks completed standing at sink. Pt brushed teeth and combed hair with modified independence. Pt takes occasional rest breaks during ADL tasks. Functional [place] Measure 0=Not Assessed/NA 4=Minimal Assistance 1=Total Assistance 5=Supervision or Setup 2=Maximal Assistance 6=Modified [place] 3=Moderate Assistance 7=Complete IndependenceIRFPAI Quality Coding Scale 6 Independent with activity with or without an assistive device 5 Patient requires set up or clean up by helper. Patient completes activity by themselves 4 Supervision or touching assist (CGA). [place] provide cues , steadying assist 3 The helper provides less than half the effort to complete the activity 2 The helper provides more than half the effort to complete the activity 1 Dependent. The helper does all the effort to complete an activity 7 Patient refused to complete or attempt activity 9 The patient did not perform the activity before the current illness or injury 88 Not attempted due to Medical conditions or safety concerns Grooming (FIM): 6 Oral Hygiene (QC): 6 Bathing (FIM): 5 Shower/Bathe Self (QC): 5 Upper Body (FIM): 6 Upper Body Dressing (QC): 6 Lower Body Dressing (FIM): 6 Lower Body Dressing (QC): 6 On/Off Footwear (QC): 6 Toileting (FIM): 6 Toileting Hygiene (QC): 6 Toilet/Commode Transfer (FIM): 6 Toilet Transfer (QC): 6 Shower Transfer(FIM): 6 Other Treatment Gait to therapy gym with FWW, no LOB noted. Arm bike [id number] to increase overall strength and activity tolerance needed for functional tasks. Pt completed task with moderate resistance and steady pace. No rest breaks needed. Bilateral UE exercises completed to increase strength for ADLs and transfers. Pt performed shoulder flexion, forward press, biceps curls, and wrist flex/ext x15 reps with 2# dowel leonel. Rest breaks between exercises. Pt completed fine motor task with nuts and bolts with 2# weights in place to increase strength and coordination/manipulation skills. Pt sitting in gym visiting with spouse after session, PHYSICAL THERAPY DIRECTOR present. OT Short Term Goals Short Term Goals Time Frame: Jan 26, 2018 Eating(FIM): 5 Grooming(FIM): 5 Bathing(FIM): 4 Upper Body Dressing(FIM): 5 Lower Body Dressing(FIM): 5 Toileting(FIM): 5 Transfers (B,C,W/C) (FIM): 5 Toilet/Commode Transfer(FIM): 5 Shower Transfer(FIM): 4 Additional Short Term Goals: 1-Demonstrate ADL Tasks, 2-Verbalize Understanding , 3-ImproveStrength/Heath 1=Demonstrate adherence to instructed precautions during ADL tasks. 2=Patient will verbalize/demonstrate understanding of assistive devices/ modifications for ADL. 3=Patient will improve strength/tolerance for activity to enable patient to perform ADL's. OT Gasoline Attendant Goals Gasoline Attendant Goals Time Frame: Feb 02, 2018 Eating (FIM): 6 Eating (QC): 6 Groomin Oral Hygiene (QC): 6 Bathing(FIM): 5 Shower/Bathe Self (QC): 5 Upper Body Dressing(FIM): 6 Upper Body Dressing (QC): 6 Lower Body Dressing(FIM): 6 Lower Body Dressing (QC): 6 On/Off Footwear (QC): 6 Toileting(FIM): 6 Toileting Hygiene (QC): 6 Transfers (B,C,W/C) (FIM): 6 Toilet/Commode Transfer(FIM): 6 Toilet/Commode Transfer (QC): 6 Shower Transfer(FIM): 5 Additional Goals: 1-Demonstrate ADL Tasks, 2-Verbalize Understanding, 3- ImproveStrength/Heath 1=Demonstrate adherence to instructed precautions during ADL tasks. 2=Patient will verbalize/demonstrate understanding of assistive devices/ modifications for ADL. 3=Patient will improve strength/tolerance for activity to enable patient to perform ADL's. OT Education/Plan Discharge Recommendations Plan/Recommendations: Continue POC Treatment Plan/Plan of Care Patient would benefit from OT for education, treatment and training to promote independence in ADL's, mobility, safety and/or upper extremity function for ADL' s. Plan of Care: ADL Retraining, Functional Mobility, UE Funct Exercise/Act Treatment Duration: Feb 02, 2018 Frequency: At least 5 of 7 days/Wk (IRF) Estimated Hrs Per Day: 1.5 hours per day Agreement: Yes Rehab Potential: Good Time/GCodes Start Time: 08:00 Stop Time: 09:30 Total Time Billed (hr/min): 90 Billed Treatment Time 1 visit, ADLx3(45minutes), EXx3(45minutes) JOSE PARTIDA OT Jan 22, 2018 09:44
[2018-01-22] MEDS: NAPROXEN 250 MG (NAPROSYN) TABLET PO SCH ×2 (09:53→19:22)
--- NOTE | 2018-01-22 10:52 | Physical Therapy Daily Note ---
PT Daily Note-Current Subjective Pt sitting at EOB upon arrival. Pt agrees to PT. Pt excited to discharge Friday. Pain Location: No Pain Reported Mental Status Patient Orientation: Person, Place, Time, Situation Transfers Functional [place] Measure 0=Not Assessed/NA 4=Minimal Assistance 1=Total Assistance 5=Supervision or Setup 2=Maximal Assistance 6=Modified [place] 3=Moderate Assistance 7=Complete IndependenceIRFPAI Quality Coding Scale 6 Independent with activity with or without an assistive device 5 Patient requires set up or clean up by helper. Patient completes activity by themselves 4 Supervision or touching assist (CGA). [place] provide cues , steadying assist 3 The helper provides less than half the effort to complete the activity 2 The helper provides more than half the effort to complete the activity 1 Dependent. The helper does all the effort to complete an activity 7 Patient refused to complete or attempt activity 9 The patient did not perform the activity before the current illness or injury 88 Not attempted due to Medical conditions or safety concerns Scootin Sit to/from Stand: 6 Sit to Stand (QC): 6 Weight Bearing Right Lower Extremity: Right Full Weight Bearing Left Lower Extremity: Left Full Weight Bearing Gait Training Does the Patient Walk?: Yes Distance (FIM): 3=150 ft Distance: 450' Walk 10 feet (QC): 6 Walk 50 ft with 2 Turns(QC): 6 Walk 150 ft (QC): 6 Gait Level of Assist: 6 Gait Persons Needed: 1 Gait Assistive Device: Cane Single Point Pt started ambulating using FWW then progressed to SPC. Pt feels comfortable with SPC and walks with normalized gait. Wheelchair Training Does the Pt Use a Wheelchair?: No Exercises Standing: Hamstring curls, 3 way Ex=Flex, Abd, Ext, Marching Standing Reps: 20 Treatments Pt transfers from EOB to standing using FWW at Mod I. Pt uses restroom before leaving for PT. Pt ambulates in hallway using FWW to start tx then switches to SPC at [facility]-Mod I. Pt completes Standing Ex at //bars. Pt again walks in hallway using SPC at [facility]-Mod I. Pt returns to room at end of tx with all needs met. Assessment Current Status: Good Progress Pt's balance has improved as well as mobility and transfers. PT Short Term Goals Short Term Goals Transfers (B,C,W/C) (FIM): 5 PT Gunsmith Apprentice Goals Gunsmith Apprentice Goals PT Gunsmith Apprentice Goals Time Frame: Feb 20, 2018 Transfers (B,C,W/C) (FIM): 6 Sit to Lying (QC): 6 Lying-Sitting on Side/Bed(QC): 6 Sit to Stand (QC): 6 Rollin Roll Left to Right (QC): 6 Chair/Tum-sb-Axlet Xfer(QC): 6 Car Transfer (QC): 6 Does the Patient Walk: Yes Gait (FIM): 7 Gait distance (FIM): 3=150 ft Distance: SEE PT GOALS Walk 10 feet (QC): 6 Walk 10ft-Uneven Surface(QC): 6 Walk 50ft with 2 Turns (QC): 6 Walk 150 ft (QC): 6 Gait Level of Assist: 7 Gait Assistive Device: None, FWW Stairs (FIM): 5 # of Steps: 12 1 Step (curb) (QC): 5 4 Steps (QC): 5 12 Steps (QC): 5 Stairs Level Of Assist: 5 Picking up an Object (QC): 5 PT Plan Problem List Problem List: Activity Tolerance Treatment/Plan Treatment Plan: Continue Plan of Care Treatment Plan: Bed Mobility, Concurrent Therapy, Education, Functional Activity Heath, Functional Strength, Group Therapy, Gait, Safety, Therapeutic Exercise, Transfers Treatment Duration: Jan 13, 2018 Frequency: At least 5 of 7 days/Wk (IRF) Estimated Hrs Per Day: 1.5 hours per day Patient and/or Family Agrees t: Yes Safety Risks/Education Patient Education: Gait Training, Correct Positioning, Safety Issues Teaching Recipient: Patient Teaching Methods: Discussion Response to Teaching: Verbalize Understanding Time/GCodes Time In: 945 Time Out: 1045 Total Billed Treatment Time: 60 Total Billed Treatment 1, GT x2 (30m), FA (15m) & EX (15m) MYKE CONTRERAS PTA Jan 22, 2018 10:52
--- NOTE | 2018-01-22 15:06 | Physical Therapy Daily Note ---
PT Daily Note-Current Subjective Agreeable to PT. Pt reports he wants to walk with the cane. Transfers Functional [place] Measure 0=Not Assessed/NA 4=Minimal Assistance 1=Total Assistance 5=Supervision or Setup 2=Maximal Assistance 6=Modified [place] 3=Moderate Assistance 7=Complete IndependenceIRFPAI Quality Coding Scale 6 Independent with activity with or without an assistive device 5 Patient requires set up or clean up by helper. Patient completes activity by themselves 4 Supervision or touching assist (CGA). [place] provide cues , steadying assist 3 The helper provides less than half the effort to complete the activity 2 The helper provides more than half the effort to complete the activity 1 Dependent. The helper does all the effort to complete an activity 7 Patient refused to complete or attempt activity 9 The patient did not perform the activity before the current illness or injury 88 Not attempted due to Medical conditions or safety concerns Transfers (B, C, W/C) (FIM): 6 Weight Bearing Right Lower Extremity: Right Full Weight Bearing Left Lower Extremity: Left Full Weight Bearing Gait Training Does the Patient Walk?: Yes Gait (FIM): 5 Distance (FIM): 3=150 ft Gait Assistive Device: Cane Single Point Pt ambulated x >1000 ft with cane with SBA in hospital and to include up/down a 30 ft slope x 2 reps to work on eccentric control during gait, functional balance on the slope and increasing functional activity tolerances. Stair Training Stair Training: Handrails/: 1 handrail Stairs (FIM): 5 #of Steps: 12 Stairs: Pattern: Reciprocal Pt tends to catch right foot as he fatigues, 1 LOB on stairs with self correct. Neuromuscular Functional dynamic balance with cane to include curb step, uneven surface, stepping over and weaving. Pt able to complete with SB-CGA. Assessment Current Status: Good Progress Working on higher level balance and safety. Pt does tend to catch his toes on the right as he fatigues. He is doing well with the cane but do recommend SBA at this time. PT Short Term Goals Short Term Goals Transfers (B,C,W/C) (FIM): 5 (met) PT Applications Chemist Goals Applications Chemist Goals PT Applications Chemist Goals Time Frame: Feb 20, 2018 Transfers (B,C,W/C) (FIM): 6 (medt) Sit to Lying (QC): 6 (met) Lying-Sitting on Side/Bed(QC): 6 (met) Sit to Stand (QC): 6 (met) Rollin (met) Roll Left to Right (QC): 6 Chair/Glb-bw-Hqwzy Xfer(QC): 6 (met) Car Transfer (QC): 6 Does the Patient Walk: Yes Gait (FIM): 7 Gait distance (FIM): 3=150 ft Distance: SEE PT GOALS Walk 10 feet (QC): 6 Walk 10ft-Uneven Surface(QC): 6 Walk 50ft with 2 Turns (QC): 6 Walk 150 ft (QC): 6 Gait Level of Assist: 7 Gait Assistive Device: None, FWW Stairs (FIM): 5 # of Steps: 12 1 Step (curb) (QC): 5 4 Steps (QC): 5 12 Steps (QC): 5 Stairs Level Of Assist: 5 Picking up an Object (QC): 5 PT Plan Problem List Problem List: Activity Tolerance, Functional Strength, Safety, Balance Treatment/Plan Treatment Plan: Continue Plan of Care Treatment Plan: Bed Mobility, Concurrent Therapy, Education, Functional Activity Heath, Functional Strength, Group Therapy, Gait, Safety, Therapeutic Exercise, Transfers Treatment Duration: Jan 13, 2018 Frequency: At least 5 of 7 days/Wk (IRF) Estimated Hrs Per Day: 1.5 hours per day Patient and/or Family Agrees t: Yes Safety Risks/Education Patient Education: Transfer Techniques, Safety Issues Teaching Recipient: Patient Teaching Methods: Discussion Response to Teaching: Verbalize Understanding Time/GCodes Time In: 1400 Time Out: 1430 Total Billed Treatment Time: 30 Total Billed Treatment visit NM 10 GT 20 SINTIA SPEARS PT Jan 22, 2018 15:06
--- NOTE | 2018-01-22 15:48 | Individualized Plan of Care ---
Individualized Plan of Care Rehab Nursing IPOC Order Admission Date Jan 19, 2018 at 14:07 Current Orders Orders Ambulate TID (01/19/18 14:53) Sequential Compression Device 08,20 (01/19/18 14:53) Dvt/Vte Risk - Notifiy Physici 08 (01/19/18 14:53) Influenza Trivalent [id number] (Afluria (01/19/18 15:00) Patient Visit (01/19/18 ) Pt Eval Moderate Complexity (01/19/18 ) Functional Activities, Ea 15 (01/19/18 ) Patient Visit (01/19/18 ) Speech Sound Lang Comp (01/19/18 ) Admission Order(Inpt,Obs,Sdc) (01/19/18 15:28) Code/Resuscitation (01/19/18 15:28) Initiate Admission Nursing Pro .admission (01/19/18 15:28) Isolation Central Supply Req (01/19/18 15:28) Physical Therapy Rehab Orders (01/19/18 15:28) Occupational Therapy Rehab Ord (01/19/18 15:28) Speech Therapy Rehab Orders (01/19/18 15:28) Patient Visit (01/19/18 ) Exercise Therap, Ea 15 Min (01/19/18 ) Gait Training, Ea 15 Min (01/19/18 ) Special Room Service Request (01/19/18 16:41) Vital Signs: Routine (Ord) 08,16,00 (01/19/18 20:54) Customer Service Dispatcher-Inpt Rehab (01/19/18 20:54) Rehab Nursing Orders-Ipoc (01/19/18 20:54) Turn And Reposition Q2HR (01/19/18 20:54) Intake & Output 06,14,22 (01/19/18 20:54) Weekly Weight (Lbs) WEEK (01/19/18 20:54) Therapeutic Multivitamin Tab (Vitamins, (01/20/18 07:00) Naproxen Tablet (Naprosyn Tablet) (01/19/18 21:00) Pantoprazole Tablet (Protonix Tablet) (01/20/18 07:00) Oxycodone Immediate Rel Tablet (Oxyir Ta (01/19/18 21:00) Amoxicillin/Clavulanate Tablet (Augmenti (01/19/18 22:03) Heart Healthy (01/20/18 Lunch) Dietary Consult (01/20/18 09:10) Consult Physician (01/20/18 09:57) Patient Visit (01/20/18 ) Gait Training, Ea 15 Min (01/20/18 ) Exercise Therap, Ea 15 Min (01/20/18 ) Functional Activities, Ea 15 (01/20/18 ) Patient Visit (01/20/18 ) Exercise Therap, Ea 15 Min (01/20/18 ) Cbc No Diff (01/21/18 05:00) Comprehensive Metabolic Panel (01/21/18 05:00) Thyroid Stimulating Hormone (01/21/18 05:00) Patient Visit (01/21/18 ) Gait Training, Ea 15 Min (01/21/18 ) Exercise Therap, Ea 15 Min (01/21/18 ) Patient Visit (01/22/18 ) Ex Neuromuscular, Ea 15 Min (01/22/18 ) Gait Training, Ea 15 Min (01/22/18 ) Patient Visit (01/22/18 ) Gait Training, Ea 15 Min (01/22/18 ) Exercise Therap, Ea 15 Min (01/22/18 ) Functional Activities, Ea 15 (01/22/18 ) Rehab Nursing Orders: Diseage Management, Edu in Press Rel Techn, Hydration Management, Nutrition Management, Pain Management Other Nursing Orders: Monitor for post procedure constipation and urinary retention PT IPOC Problem List: Activity Tolerance, Functional Strength, Safety, Balance Treatment Plan: Continue Plan of Care Bed Mobility, Concurrent Therapy, Education, Functional Activity Heath, Functional Strength, Group Therapy, Gait, Safety, Therapeutic Exercise, Transfers Treatment Duration: Jan 13, 2018 Frequency: At least 5 of 7 days/Wk (IRF) Estimated Hrs Per Day: 1.5 hours per day OT IPOC Problems: Decreased Activ Tolerance, Decreased UE Strength, Dependent Transfers , Impaired Funct Balance, Impaired I ADL's, Impaired Self-Care Skills OT Treatment, Training and Edu: Yes Plan of Care: ADL Retraining, Functional Mobility, UE Funct Exercise/Act Treatment Duration: Feb 02, 2018 Frequency: At least 5 of 7 days/Wk (IRF) Estimated Hrs Per Day: 1.[address] IPOC Speech Therapy Treatment Plan: Discontinue ST Treatment Duration: Jan 22, 2018 Frequency: Modified Program (IRF) Estimated Hrs Per Day: Other Customer Service Dispatcher/Case Mgmt Customer Service Dispatcher/Case Managemen: Discharge Planning, Patient/Family Counseling Physician IPOC Medical Issues being managed closely and that require the 24 hour availability of a physician: Postprocdure fatique Somnolence Decreased appetite Medical Issues: Bowel/Bladder Function, DVT Prophylaxis, Falls Precautions, Infection Protection, Pain Management, Other (List) (as per above) Brief Synthesis of Preadmission Screen, Post-Admission Evaluation, and Therapy Evaluations: 82 yo male s/p ERCP due to post cholecystectomy remaining stone causing obstruction.Has general debil and easy faique and loack of appetite s/p procedure done at OSH all now improving rapidly 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
[2018-01-22 18:00] VITALS: BP 133/72
[2018-01-23 04:41] VITALS: BP 119/69
[2018-01-23] MEDS: PANTOPRAZOLE 40 MG (PROTONIX) TAB PO SCH (06:16)
[2018-01-23] MEDS: MULTIVIT W/MINERALS TAB (THERAGRAN M) PO SCH (06:16)
[2018-01-23] MEDS: AUGMENTIN 875 MG TAB (AMOXICILLIN/CLAVULANATE) PO SCH ×2 (06:16→17:39)
[2018-01-23] MEDS: NAPROXEN 250 MG (NAPROSYN) TABLET PO SCH ×2 (08:32→20:46)
--- NOTE | 2018-01-23 09:49 | PM & R (SOAP) Progress Note ---
Subjective Time Seen by Provider: 09:30 Subjective/Events-last exam Patient was seen in his rrom this AM Patient Modified Independent for transfers Current meds reviewed. Objective Exam Last Set of Vital Signs Vital Signs Date Time Temp Pulse Resp B/P (MAP) Pulse Ox O2 Delivery O2 Flow Rate FiO2 01/23/18 09:00 Room Air 01/23/18 04:41 98.3 53 18 119/69 (86) 97 Capillary Refill : I&O Intake and Output 01/23/18 00:00 Intake Total 1575 ml Output Total 850 ml Balance 725 ml Intake Oral 1575 ml Output Urine Total 850 ml # Voids 4 General: Alert, Oriented X3, Cooperative, No Acute Distress HEENT: Atraumatic, PERRLA, EOMI, Mucous Memb Moist/[place] Neck: Supple, No JVD Lungs: Clear to Auscultation Heart: Regular Rate Abdomen: Soft, No Tenderness Extremities: No Edema Neuro: Other (Generalized weakness presbycusis) Results Lab Laboratory Tests 01/21/18 06:06: White Blood Count 7.4, Red Blood Count 4.19L, Hemoglobin 13.2L, Hematocrit 38L, Mean Corpuscular Volume 91, Mean Corpuscular Hemoglobin 32, Mean Corpuscular Hemoglobin Concent 35, Red Cell Distribution Width 13.4, Platelet Count 193, Mean Platelet Volume 10.0, Sodium Level 138, Potassium Level 4.1, Chloride Level 109H, Carbon Dioxide Level 23, Anion Gap 6, Blood Urea Nitrogen 13, Creatinine 0.79, Estimat Glomerular Filtration Rate > 60, BUN/Creatinine Ratio 16, Glucose Level 96, Calcium Level 8.7, Total Bilirubin 1.5H, Aspartate Amino Transf (AST/SGOT) 63H, Alanine Aminotransferase (ALT/SGPT) 120H, Alkaline Phosphatase 85, Total Protein 5.6L, Albumin 3.3, Thyroid Stimulating Hormone ( TSH) 1.55 Assessment/Plan Assessment general debil s/p ERCP for choledolithiasis with obstruction S/P cholecystectomy earlier this year Presbycusis Transaminitis s/p procedure and obstruction -trend Plan Continue PT/OT Change diet to Heart healthy (LOW FAT) Consult Video Operator-done Monitor PO intake and daytime somnolence-all better Team Conference held 01-21-18 -See report for full functional update and POC and ELOs Dr Huynh consulted as per daughters request Discharge remians set for 4-2-18 REDDY STERN MD Jan 23, 2018 09:49
--- NOTE | 2018-01-23 11:46 | Occupational Ther Daily Note ---
OT Current Status-Daily Note Subjective Pt in bed, agrees to treatment. No c/o pain. Mental Status/Objective Functional [place] Measure 0=Not Assessed/NA 4=Minimal Assistance 1=Total Assistance 5=Supervision or Setup 2=Maximal Assistance 6=Modified [place] 3=Moderate Assistance 7=Complete [place] ADL-Treatment Pt states he has already showered and dressed this morning. Supine to sit with modified independence. Sit to stand with modified independence. Gait to restroom with FWW. Pt completed toilet transfer with modified independence. Toileting hygiene and clothing management with modified independence. Washed hands without assistance. Functional [place] Measure 0=Not Assessed/NA 4=Minimal Assistance 1=Total Assistance 5=Supervision or Setup 2=Maximal Assistance 6=Modified [place] 3=Moderate Assistance 7=Complete IndependenceIRFPAI Quality Coding Scale 6 Independent with activity with or without an assistive device 5 Patient requires set up or clean up by helper. Patient completes activity by themselves 4 Supervision or touching assist (CGA). [place] provide cues , steadying assist 3 The helper provides less than half the effort to complete the activity 2 The helper provides more than half the effort to complete the activity 1 Dependent. The helper does all the effort to complete an activity 7 Patient refused to complete or attempt activity 9 The patient did not perform the activity before the current illness or injury 88 Not attempted due to Medical conditions or safety concerns Toileting (FIM): 6 Toileting Hygiene (QC): 6 Toilet/Commode Transfer (FIM): 6 Toilet Transfer (QC): 6 Other Treatment Gait to therapy gym with cane, no LOB noted. ARm bike [id number] to increase overall strength and activity tolerance needed for functional tasks. Pt completed activity with moderate resistance and steady pace. One rest break taken during task. Pt completed bilateral UE exercises to increase strength for ADLs and transfers. Pt performed shoulder flexion, abduction, biceps curls, and triceps extension exercises x15 reps with 2# weight. Rest breaks between exercises. Graded clothespin activity with bilateral hands with 2# weights in place to increase UE strength and regulatory associate/pinch strength. Pt completed putty activity with bilateral hands to increase strength and coordination/ manipulation skills. Pt able to remove small beads from putty with increased time. Pt returned to room, in bed with needs met after session. OT Short Term Goals Short Term Goals Time Frame: Jan 26, 2018 Eating(FIM): 5 Grooming(FIM): 5 Bathing(FIM): 4 Upper Body Dressing(FIM): 5 Lower Body Dressing(FIM): 5 Toileting(FIM): 5 Transfers (B,C,W/C) (FIM): 5 (met) Toilet/Commode Transfer(FIM): 5 Shower Transfer(FIM): 4 Additional Short Term Goals: 1-Demonstrate ADL Tasks, 2-Verbalize Understanding , 3-ImproveStrength/Heath 1=Demonstrate adherence to instructed precautions during ADL tasks. 2=Patient will verbalize/demonstrate understanding of assistive devices/ modifications for ADL. 3=Patient will improve strength/tolerance for activity to enable patient to perform ADL's. OT Mcfp Goals Seo Analyst Goals Time Frame: Feb 02, 2018 Eating (FIM): 6 Eating (QC): 6 Groomin Oral Hygiene (QC): 6 Bathing(FIM): 5 Shower/Bathe Self (QC): 5 Upper Body Dressing(FIM): 6 Upper Body Dressing (QC): 6 Lower Body Dressing(FIM): 6 Lower Body Dressing (QC): 6 On/Off Footwear (QC): 6 Toileting(FIM): 6 Toileting Hygiene (QC): 6 Transfers (B,C,W/C) (FIM): 6 Toilet/Commode Transfer(FIM): 6 Toilet/Commode Transfer (QC): 6 Shower Transfer(FIM): 5 Additional Goals: 1-Demonstrate ADL Tasks, 2-Verbalize Understanding, 3- ImproveStrength/Heath 1=Demonstrate adherence to instructed precautions during ADL tasks. 2=Patient will verbalize/demonstrate understanding of assistive devices/ modifications for ADL. 3=Patient will improve strength/tolerance for activity to enable patient to perform ADL's. OT Education/Plan Discharge Recommendations Plan/Recommendations: Continue POC Treatment Plan/Plan of Care Patient would benefit from OT for education, treatment and training to promote independence in ADL's, mobility, safety and/or upper extremity function for ADL' s. Plan of Care: ADL Retraining, Functional Mobility, UE Funct Exercise/Act Treatment Duration: Feb 02, 2018 Frequency: At least 5 of 7 days/Wk (IRF) Estimated Hrs Per Day: 1.5 hours per day Agreement: Yes Rehab Potential: Good Time/GCodes Start Time: 08:00 Stop Time: 09:00 Total Time Billed (hr/min): 60 Billed Treatment Time 1 visit, ADL(10minutes), EXx3(50minutes) JOSE PARTIDA OT Jan 23, 2018 11:46
--- NOTE | 2018-01-23 11:57 | Progress Note ---
Subjective Date Seen by Provider: Jan 23, 2018 Time Seen by Provider: 11:00 Subjective/Events-last exam PT UP IN HALLWAY WITH PHYSICAL THERAPY, AMBULATING DOWN HALLWAY TO [facility]ER CENTER. HE REPORTS THAT HE IS FEELING GOOD AND READY FOR HOME. Review of Systems General: Fatigue, Malaise HEENT: No Head Aches Pulmonary: No Dyspnea, No Cough Cardiovascular: No: Chest Pain Gastrointestinal: No: Nausea, Abdominal Pain Neurological: Weakness, No: Confusion Objective Exam Last Set of Vital Signs Vital Signs Date Time Temp Pulse Resp B/P (MAP) Pulse Ox O2 Delivery O2 Flow Rate FiO2 01/23/18 09:00 Room Air 01/23/18 04:41 98.3 53 18 119/69 (86) 97 Capillary Refill : I&O Intake and Output 01/23/18 00:00 Intake Total 1575 ml Output Total 850 ml Balance 725 ml Intake Oral 1575 ml Output Urine Total 850 ml # Voids 4 General: Alert, Oriented X3, Cooperative, No Acute Distress HEENT: Atraumatic, PERRLA, EOMI, Mucous Memb Moist/[place] Neck: Supple, No JVD Lungs: Clear to Auscultation Heart: Regular Rate Abdomen: Soft, No Tenderness Extremities: No Edema Neuro: Other (Generalized weakness presbycusis) Psych/Mental Status: Mental Status NL, Mood NL Assessment/Plan Assessment/Plan Assess & Plan/Chief Complaint GENERALIZED WEAKNESS ESOPHAGEAL REFLUX PT ADMITTED TO INPT REHAB - STARTED WITH PT/OT/STRENGTHENING - CONTINUE TO MONITOR SYMPTOMS. GERD - CONTINUE WITH PPI ANTICIPATE ABOUT 5-7 DAYS OF INPT REHAB - THEN PT TO GO HOME WITH OUTPT THERAPY FOR FURTHER STRENGTHENING. - DISCHARGE TO HOME ON FRIDAY Clinical Quality Measures DVT/VTE Risk/Contraindication: Risk Factor Score Per Nursin RFS Level Per Nursing on Admit: 2=Moderate EVE DRIVER MD Jan 23, 2018 11:57
--- NOTE | 2018-01-23 12:10 | Physical Therapy Daily Note ---
PT Daily Note-Current Subjective Pt L sidelying in bed upon arrival. Pt agrees to PT. Mental Status Patient Orientation: Person, Place, Time, Situation Transfers Functional [place] Measure 0=Not Assessed/NA 4=Minimal Assistance 1=Total Assistance 5=Supervision or Setup 2=Maximal Assistance 6=Modified [place] 3=Moderate Assistance 7=Complete IndependenceIRFPAI Quality Coding Scale 6 Independent with activity with or without an assistive device 5 Patient requires set up or clean up by helper. Patient completes activity by themselves 4 Supervision or touching assist (CGA). [place] provide cues , steadying assist 3 The helper provides less than half the effort to complete the activity 2 The helper provides more than half the effort to complete the activity 1 Dependent. The helper does all the effort to complete an activity 7 Patient refused to complete or attempt activity 9 The patient did not perform the activity before the current illness or injury 88 Not attempted due to Medical conditions or safety concerns Scootin Rollin Roll Left to Right (QC): 6 Supine to/from Sit: 6 Sit to/from Stand: 6 Sit to Lying (QC): 6 Sit to Stand (QC): 6 Weight Bearing Right Lower Extremity: Right Full Weight Bearing Left Lower Extremity: Left Full Weight Bearing Gait Training Does the Patient Walk?: Yes Distance (FIM): 3=150 ft Distance: 500+' Walk 10 feet (QC): 6 Walk 50 ft with 2 Turns(QC): 6 Walk 150 ft (QC): 6 Gait Level of Assist: 6 Gait Persons Needed: 1 Gait Assistive Device: Cane Single Point Wheelchair Training Does the Pt Use a Wheelchair?: No Exercises NuStep Minutes: 15 NuStep Workload: 7 Treatments Pt transfers using SPC at Mod I. Pt ambulates in hallway and walks ramp for added practice using SPC at Mod I. Pt uses NuStep for 15m at Workload 7. Pt returns to room to use restroom and rest Supine in bed at end of tx with all needs met. Assessment Current Status: Good Progress Pt reports discomfort in L hip that has been ongoing but demonstrates weakness when ambulating. Pt has been treated for this condition but pt is slightly concerned that L hip gives out occasionally but without warning. PT Short Term Goals Short Term Goals Transfers (B,C,W/C) (FIM): 5 (met) PT Group Home Goals Group Home Goals PT Power System Electrical Engineer Goals Time Frame: Feb 20, 2018 Transfers (B,C,W/C) (FIM): 6 (medt) Sit to Lying (QC): 6 (met) Lying-Sitting on Side/Bed(QC): 6 (met) Sit to Stand (QC): 6 (met) Rollin (met) Roll Left to Right (QC): 6 Chair/Rst-rs-Ixyax Xfer(QC): 6 (met) Car Transfer (QC): 6 Does the Patient Walk: Yes Gait (FIM): 7 Gait distance (FIM): 3=150 ft Distance: SEE PT GOALS Walk 10 feet (QC): 6 Walk 10ft-Uneven Surface(QC): 6 Walk 50ft with 2 Turns (QC): 6 Walk 150 ft (QC): 6 Gait Level of Assist: 7 Gait Assistive Device: None, FWW Stairs (FIM): 5 # of Steps: 12 1 Step (curb) (QC): 5 4 Steps (QC): 5 12 Steps (QC): 5 Stairs Level Of Assist: 5 Picking up an Object (QC): 5 PT Plan Problem List Problem List: Activity Tolerance Treatment/Plan Treatment Plan: Continue Plan of Care Treatment Plan: Bed Mobility, Concurrent Therapy, Education, Functional Activity Heath, Functional Strength, Group Therapy, Gait, Safety, Therapeutic Exercise, Transfers Treatment Duration: Jan 13, 2018 Frequency: At least 5 of 7 days/Wk (IRF) Estimated Hrs Per Day: 1.5 hours per day Patient and/or Family Agrees t: Yes Safety Risks/Education Patient Education: Gait Training, Correct Positioning, Safety Issues Teaching Recipient: Patient Teaching Methods: Discussion Response to Teaching: Verbalize Understanding Time/GCodes Time In: 945 Time Out: 1045 Total Billed Treatment Time: 60 Total Billed Treatment 1, GT x2 (30m), FA (15m) & EX (15m) MYKE CONTRERAS PTA Jan 23, 2018 12:10
--- NOTE | 2018-01-23 12:46 | Occupational Ther Daily Note ---
OT Current Status-Daily Note Subjective No pain reported. Appearance Pt. agrees to treatment with OT. Mental Status/Objective Patient Orientation: Person, Place Functional [place] Measure 0=Not Assessed/NA 4=Minimal Assistance 1=Total Assistance 5=Supervision or Setup 2=Maximal Assistance 6=Modified [place] 3=Moderate Assistance 7=Complete [place] ADL-Treatment Functional [place] Measure 0=Not Assessed/NA 4=Minimal Assistance 1=Total Assistance 5=Supervision or Setup 2=Maximal Assistance 6=Modified [place] 3=Moderate Assistance 7=Complete IndependenceIRFPAI Quality Coding Scale 6 Independent with activity with or without an assistive device 5 Patient requires set up or clean up by helper. Patient completes activity by themselves 4 Supervision or touching assist (CGA). [place] provide cues , steadying assist 3 The helper provides less than half the effort to complete the activity 2 The helper provides more than half the effort to complete the activity 1 Dependent. The helper does all the effort to complete an activity 7 Patient refused to complete or attempt activity 9 The patient did not perform the activity before the current illness or injury 88 Not attempted due to Medical conditions or safety concerns Transfers (B, C, W/C) (FIM): 6 (Mod I with cane to ambulate to therapy gym. Pt. able to lay down and sit back up on therapy mat. All needs met back in room.) Other Treatment Pt. agrees to OT. Agreed to ambulate down to therapy gym to work on core strength. Pt. states that sometimes he "walks funny" and asked OT to watch. It was noted that when pt. lost concentration during ambulation, and turned around while walking to talk with OT, he did side step a bit. Pt. educated on importance of keeping focus and walking in a straight line. In gym pt. laid on therapy mat. Worked on overall trunk strength and core support with various exercises. Performed leg lifts, bridges, glute squeezes, and crunches. Pt then sat on side of mat and performed ball work with holding ball in hands and facilitation of pelvic tilts, abdominal squeezes, and trunk rotation. Pt. states that he is going to buy a ball like this to work with at home. All needs met back in room. Education OT Patient Education: Correct positioning, Exercise program, Modified ADL techniques, Progress toward Goal/Update tx plan, Purpose of tx/functional activities, Reviewed precautions, Rehab process, Transfer techniques Teaching Recipient: Patient Teaching Methods: Demonstration, Discussion Response to Teaching: Verbalize Understanding, Return Demonstration OT Short Term Goals Short Term Goals Time Frame: Jan 26, 2018 Eating(FIM): 5 Grooming(FIM): 5 Bathing(FIM): 4 Upper Body Dressing(FIM): 5 Lower Body Dressing(FIM): 5 Toileting(FIM): 5 Transfers (B,C,W/C) (FIM): 5 (met) Toilet/Commode Transfer(FIM): 5 Shower Transfer(FIM): 4 Additional Short Term Goals: 1-Demonstrate ADL Tasks, 2-Verbalize Understanding , 3-ImproveStrength/Heath 1=Demonstrate adherence to instructed precautions during ADL tasks. 2=Patient will verbalize/demonstrate understanding of assistive devices/ modifications for ADL. 3=Patient will improve strength/tolerance for activity to enable patient to perform ADL's. OT Galvanometer Assembler Goals Galvanometer Assembler Goals Time Frame: Feb 02, 2018 Eating (FIM): 6 Eating (QC): 6 Groomin Oral Hygiene (QC): 6 Bathing(FIM): 5 Shower/Bathe Self (QC): 5 Upper Body Dressing(FIM): 6 Upper Body Dressing (QC): 6 Lower Body Dressing(FIM): 6 Lower Body Dressing (QC): 6 On/Off Footwear (QC): 6 Toileting(FIM): 6 Toileting Hygiene (QC): 6 Transfers (B,C,W/C) (FIM): 6 Toilet/Commode Transfer(FIM): 6 Toilet/Commode Transfer (QC): 6 Shower Transfer(FIM): 5 Additional Goals: 1-Demonstrate ADL Tasks, 2-Verbalize Understanding, 3- ImproveStrength/Heath 1=Demonstrate adherence to instructed precautions during ADL tasks. 2=Patient will verbalize/demonstrate understanding of assistive devices/ modifications for ADL. 3=Patient will improve strength/tolerance for activity to enable patient to perform ADL's. OT Education/Plan Problem List/Assessment Assessment: Decreased Activ Tolerance Discharge Recommendations Plan/Recommendations: Continue POC Therapy D/C Recommendations: Home w/ Family Support Treatment Plan/Plan of Care Treatment,Training & Education: Yes Patient would benefit from OT for education, treatment and training to promote independence in ADL's, mobility, safety and/or upper extremity function for ADL' s. Plan of Care: ADL Retraining, Functional Mobility, UE Funct Exercise/Act Treatment Duration: Feb 02, 2018 Frequency: At least 5 of 7 days/Wk (IRF) Estimated Hrs Per Day: 1.5 hours per day Agreement: Yes Rehab Potential: Good Time/GCodes Start Time: 10:55 Stop Time: 11:25 Total Time Billed (hr/min): 30 Billed Treatment Time 1, FA x 2 ORLANDO MELARA OT Jan 23, 2018 12:46
--- NOTE | 2018-01-23 14:51 | Consultation ---
History of Present Illness History of Present Illness Patient Consulted On(james/time) 01/21/18 190 Date Seen by Provider: Jan 21, 2018 Time Seen by Provider: 19:00 Reason for Visit: WEAKNESS AFTER BILIARY OBSTRUCTION History of Present Illness PT IS AN 82 Y/O MALE WHO IS KNOWN TO ME HIS IS A PATIENT IN MY CLINIC. HE WAS ADMITTED TO THE [facility] - DIAGNOSED WITH BILIARY OBSTRUCTION - HAD REMOVAL OF THE OBSTRUCTING BILIARY STONE AND HE WAS DISCHARGED FROM THE HOSPITAL IN [facility]. Allergies and Home Medications Allergies Coded Allergies: No Known Drug Allergies (Unverified , 12/06/15) Home Medications Multivitamin 1 Each Tablet, 1 EACH PO DAILY, (Reported) Naproxen Sodium 220 Mg Capsule, 440 MG PO BID, (Reported) Omeprazole 20 Mg Capsule.dr, 20 MG PO DAILY, (Reported) Patient Home Medication List Home Medication List Reviewed: Yes Past Gndfgut-Xbyius-Nhpyqt Hx Patient Social History Alcohol Use: Denies Use Recreational Drug Use: No Smoking Status: Former Smoker Former Smoker, Quit: Feb 17, 1957 2nd Hand Smoke Exposure: No Recent Foreign Travel: No Contact w/Someone Who Travel: No Recent Infectious Disease Expo: No Recent Hopitalizations: No Immunizations Up To Date PED Vaccines UTD: No Seasonal Allergies Seasonal Allergies: No Surgeries History of Surgeries: Yes (hernia repair) Surgeries: Abdominal, Appendectomy, Orthopedic, Tonsillectomy Respiratory History of Respiratory Disorde: No Cardiovascular History of Cardiac Disorders: No Neurological History of Neurological Disord: No Reproductive System Hx Reproductive Disorders: No Genitourinary History of Genitourinary Disor: No Gastrointestinal History of Gastrointestinal Di: Yes (Stone left after choley, ERCP done on 01/15) Gastrointestinal Disorders: Gastroesophageal Reflux, Gall Bladder Disease Musculoskeletal History of Musculoskeletal Dis: No Endocrine History of Endocrine Disorders: No HEENT History of HEENT Disorders: Yes HEENT Disorders: Macular Degeneration Hearing Impairment: Hard of Hearing, Hearing Aide Right, Hearing Aide Left Cancer History of Cancer: No Psychosocial History of Psychiatric Problem: No Integumentary History of Skin or Integumenta: No Blood Transfusions History of Blood Disorders: No Reviewed Nursing Assessment Reviewed/Agree w Nursing PMH: Yes Family Medical History Significant Family History: Cancer, Hypertension Family Medial History: Cardiovascular disease 19 FATHER Dementia G8 SISTER Neoplasm 19 MOTHER (lymphoma) G8 SISTER (lymphoma) Review of Systems-General Constitutional: No chills, No fever, weakness EENTM: No hoarseness, No throat pain Respiratory: No cough, No dyspnea on exertion, No short of breath Cardiovascular: No chest pain, No edema, No palpitations Gastrointestinal: No abdominal pain, No constipation, No diarrhea, No nausea, No vomiting Genitourinary: no symptoms reported Musculoskeletal: No back pain Skin: no symptoms reported Psychiatric/Neurological: Denies Anxiety, Weakness (BUT IT IS IMPROVING) All Other Systems Reviewed Negative Unless Noted: Yes Physical Exam-General Problems Physical Exam Vital Signs Vital Signs - First Documented 01/19/18 18:00 Temp 98.0 Pulse 76 Resp 18 B/P (MAP) 128/74 (92) Pulse Ox 97 O2 Delivery Room Air Capillary Refill : General Appearance: WD/WN, no apparent distress Eyes: Bilateral Eye Normal Inspection, Bilateral Eye PERRL, Bilateral Eye EOMI HEENT: PERRL/EOMI, pharynx normal Neck: non-tender, supple Respiratory: chest non-tender, lungs clear, normal breath sounds, no respiratory distress Cardiovascular: regular rate, rhythm Gastrointestinal: normal bowel sounds, non tender, soft, no organomegaly, no pulsatile mass Rectal: deferred Back: normal inspection Extremities: normal range of motion, normal capillary refill Neurologic/Psychiatric: per diem clerk II-XII nml as tested, no motor/sensory deficits, alert, normal mood/affect, oriented x 3 Skin: warm/dry Lymphatic: no adenopathy Assessment/Plan Assessment/Plan Admission Diagnosis/Plan GENERALIZED WEAKNESS ESOPHAGEAL REFLUX PT ADMITTED TO INPT REHAB - STARTED WITH PT/OT/STRENGTHENING - CONTINUE TO MONITOR SYMPTOMS. GERD - CONTINUE WITH PPI ANTICIPATE ABOUT 5-7 DAYS OF INPT REHAB - THEN PT TO GO HOME WITH OUTPT THERAPY FOR FURTHER STRENGTHENING. Admission Status: Inpatient Order (span 2 midnights) Reason for Inpatient Admission: INPATIENT REHAB FOR STRENGTHENING Clinical Quality Measures DVT/VTE Risk/Contraindication: Risk Factor Score Per Nursin RFS Level Per Nursing on Admit: 2=Moderate EVE DRIVER MD Jan 23, 2018 14:51
--- NOTE | 2018-01-23 14:58 | Physical Therapy Daily Note ---
PT Daily Note-Current Subjective Patient agrees to PT. Pain Numeric Pain Scale: 0-No Pain Location: No Pain Reported Mental Status Patient Orientation: Normal For Age Transfers Functional [place] Measure 0=Not Assessed/NA 4=Minimal Assistance 1=Total Assistance 5=Supervision or Setup 2=Maximal Assistance 6=Modified [place] 3=Moderate Assistance 7=Complete IndependenceIRFPAI Quality Coding Scale 6 Independent with activity with or without an assistive device 5 Patient requires set up or clean up by helper. Patient completes activity by themselves 4 Supervision or touching assist (CGA). [place] provide cues , steadying assist 3 The helper provides less than half the effort to complete the activity 2 The helper provides more than half the effort to complete the activity 1 Dependent. The helper does all the effort to complete an activity 7 Patient refused to complete or attempt activity 9 The patient did not perform the activity before the current illness or injury 88 Not attempted due to Medical conditions or safety concerns Transfers (B, C, W/C) (FIM): 6 Scootin Rollin Roll Left to Right (QC): 6 Supine to/from Sit: 6 Sit to/from Stand: 6 Sit to Lying (QC): 6 Sit to Stand (QC): 6 Chair/Fbq-me-Feayx Xfer(QC): 6 Bed to/from Chair: 6 Car Transfer (QC): 6 Weight Bearing Right Lower Extremity: Right Full Weight Bearing Left Lower Extremity: Left Full Weight Bearing Gait Training Does the Patient Walk?: Yes Gait (FIM): 6 Distance (FIM): 3=150 ft Distance: 250' x 4 Walk 10 feet (QC): 6 Walk 50 ft with 2 Turns(QC): 6 Walk 150 ft (QC): 6 Gait Level of Assist: 6 Gait Assistive Device: Cane Single Point safe and functional Exercises Standing: Heel/toe raises, 3 way Ex=Flex, Abd, Ext, Mini squats Standing Reps: 15 (3 sets) NuStep Minutes: 10 NuStep Workload: 5 (to increase strength and improve functional mobility) Assessment Current Status: Excellent Progress PT Short Term Goals Short Term Goals Transfers (B,C,W/C) (FIM): 5 (met) PT Soaker Soda Worker Goals Soaker Soda Worker Goals PT Prison Goals Time Frame: Feb 20, 2018 Transfers (B,C,W/C) (FIM): 6 (medt) Sit to Lying (QC): 6 (met) Lying-Sitting on Side/Bed(QC): 6 (met) Sit to Stand (QC): 6 (met) Rollin (met) Roll Left to Right (QC): 6 Chair/Osi-uh-Hctqu Xfer(QC): 6 (met) Car Transfer (QC): 6 Does the Patient Walk: Yes Gait (FIM): 7 Gait distance (FIM): 3=150 ft Distance: SEE PT GOALS Walk 10 feet (QC): 6 Walk 10ft-Uneven Surface(QC): 6 Walk 50ft with 2 Turns (QC): 6 Walk 150 ft (QC): 6 Gait Level of Assist: 7 Gait Assistive Device: None, FWW Stairs (FIM): 5 # of Steps: 12 1 Step (curb) (QC): 5 4 Steps (QC): 5 12 Steps (QC): 5 Stairs Level Of Assist: 5 Picking up an Object (QC): 5 PT Plan Treatment/Plan Treatment Plan: Continue Plan of Care Treatment Plan: Bed Mobility, Concurrent Therapy, Education, Functional Activity Heath, Functional Strength, Group Therapy, Gait, Safety, Therapeutic Exercise, Transfers Treatment Duration: Feb 20, 2018 Frequency: At least 5 of 7 days/Wk (IRF) Estimated Hrs Per Day: 1.5 hours per day Patient and/or Family Agrees t: Yes Time/GCodes Time In: 1420 Time Out: 1450 Total Billed Treatment Time: 30 Total Billed Treatment 1 visit EX x 2 30 min JESSI KONG PT Jan 23, 2018 14:58
[2018-01-23 17:30] VITALS: BP 111/73
[2018-01-24 06:00] VITALS: BP 96/65
[2018-01-24] MEDS: PANTOPRAZOLE 40 MG (PROTONIX) TAB PO SCH (06:16)
[2018-01-24] MEDS: MULTIVIT W/MINERALS TAB (THERAGRAN M) PO SCH (06:16)
[2018-01-24] MEDS: AUGMENTIN 875 MG TAB (AMOXICILLIN/CLAVULANATE) PO SCH ×2 (06:16→16:46)
[2018-01-24] MEDS: NAPROXEN 250 MG (NAPROSYN) TABLET PO SCH ×2 (08:02→20:29)
--- NOTE | 2018-01-24 12:15 | Physical Therapy Daily Note ---
PT Daily Note-Current Subjective Agreeable to PT. No complaints. Going on a home pass tomorrow. Mental Status Patient Orientation: Person, Place, Time, Situation Transfers Functional [place] Measure 0=Not Assessed/NA 4=Minimal Assistance 1=Total Assistance 5=Supervision or Setup 2=Maximal Assistance 6=Modified [place] 3=Moderate Assistance 7=Complete IndependenceIRFPAI Quality Coding Scale 6 Independent with activity with or without an assistive device 5 Patient requires set up or clean up by helper. Patient completes activity by themselves 4 Supervision or touching assist (CGA). [place] provide cues , steadying assist 3 The helper provides less than half the effort to complete the activity 2 The helper provides more than half the effort to complete the activity 1 Dependent. The helper does all the effort to complete an activity 7 Patient refused to complete or attempt activity 9 The patient did not perform the activity before the current illness or injury 88 Not attempted due to Medical conditions or safety concerns Transfers (B, C, W/C) (FIM): 6 Weight Bearing Right Lower Extremity: Right Full Weight Bearing Left Lower Extremity: Left Full Weight Bearing Gait Training Pt walked to from the therapy gym with cane mod indep. Exercises NuStep Minutes: 10 NuStep Workload: 5 (for LE strength and functional act tolerance) Neuromuscular High level balance training with cane with SBA for all to include varied surfaces, stepping over, weaving, curbs and stairs. Worked on this for 15 minutes. No noted LOB or safety concerns. Assessment Current Status: Good Progress Pt to discharge on Friday and making excellent progress. PT Short Term Goals Short Term Goals Transfers (B,C,W/C) (FIM): 5 (met) PT Assisted Goals Oil Heater Installer Goals PT Assisted Goals Time Frame: Feb 20, 2018 Transfers (B,C,W/C) (FIM): 6 (medt) Sit to Lying (QC): 6 (met) Lying-Sitting on Side/Bed(QC): 6 (met) Sit to Stand (QC): 6 (met) Rollin Roll Left to Right (QC): 6 Chair/Bml-zo-Zofwq Xfer(QC): 6 (met) Car Transfer (QC): 6 Does the Patient Walk: Yes Gait (FIM): 7 Gait distance (FIM): 3=150 ft Distance: SEE PT GOALS Walk 10 feet (QC): 6 Walk 10ft-Uneven Surface(QC): 6 Walk 50ft with 2 Turns (QC): 6 Walk 150 ft (QC): 6 Gait Level of Assist: 7 Gait Assistive Device: None, FWW Stairs (FIM): 5 # of Steps: 12 1 Step (curb) (QC): 5 4 Steps (QC): 5 12 Steps (QC): 5 Stairs Level Of Assist: 5 Picking up an Object (QC): 5 PT Plan Problem List Problem List: Activity Tolerance, Functional Strength, Safety, Balance, Gait Treatment/Plan Treatment Plan: Continue Plan of Care Treatment Plan: Bed Mobility, Concurrent Therapy, Education, Functional Activity Heath, Functional Strength, Group Therapy, Gait, Safety, Therapeutic Exercise, Transfers Treatment Duration: Feb 20, 2018 Frequency: At least 5 of 7 days/Wk (IRF) Estimated Hrs Per Day: 1.5 hours per day Patient and/or Family Agrees t: Yes Safety Risks/Education Patient Education: Safety Issues Teaching Recipient: Patient Teaching Methods: Discussion Response to Teaching: Reinforcement Needed Time/GCodes Time In: 1130 Time Out: 1155 Total Billed Treatment Time: 25 Total Billed Treatment visit EX 10 NM 15 SINTIA SPEARS PT Jan 24, 2018 12:15
--- NOTE | 2018-01-24 12:42 | Progress Note-Standard ---
Standard Progress Note Progress Notes/Assess & Plan Date Seen 01/24/18 Time Seen by Provider: 12:15 Assess & Plan/Chief Complaint Patient doing well Planning for discharge on Friday Denies any pain Bowel regimen adequate No fever, vital signs stable, pleasant, eating lunch with his Regular rate and rhythm, clear to all sedation bilaterally No edema Assessment: Severe debility GERD Osteoarthritis Plan: Maintain inpatient rehabilitation protocol Monitor closely for falls RYAN PINEDA DO Jan 24, 2018 12:42
[2018-01-24 16:39] LABS: BASOPHILS % (AUTO) 0 % (0-10); EOSINOPHILS # (AUTO) 0.2 10^3/uL (0.0-0.3); EOSINOPHILS % (AUTO) 2 % (0-10); HEMATOCRIT 41 % (40-54); HEMOGLOBIN 13.6 G/DL (13.3-17.7); LYMPHOCYTES # (AUTO) 2.5 X 10^3 (1.0-4.0); LYMPHOCYTES % (AUTO) 32 % (12-44); MEAN CORPUSCULAR HEMOGLOBIN 31 PG (25-34); MEAN CORPUSCULAR HGB CONC 33 G/DL (32-36); MEAN CORPUSCULAR VOLUME 93 FL (80-99); MEAN PLATELET VOLUME 9.5 FL (7.4-10.4); MONOCYTES # (AUTO) 0.8 X 10^3 (0.0-1.0); MONOCYTES % (AUTO) 10 % (0-12); NEUTROPHILS # (AUTO) 4.5 X 10^3 (1.8-7.8); NEUTROPHILS % (AUTO) 56 % (42-75); PLATELET COUNT 258 10^3/uL (130-400); RED BLOOD COUNT 4.38 10^6/uL (4.35-5.85); RED CELL DISTRIBUTION WIDTH 13.8 % (10.0-14.5); WHITE BLOOD COUNT 7.9 10^3/uL (4.3-11.0)
[2018-01-24 16:40] LABS: SMEAR SCAN COMMENT NO
[2018-01-24 17:00] LABS: ALANINE AMINOTRANSFERASE 107 U/L (0-55); ALBUMIN 3.6 GM/DL (3.2-4.5); ALKALINE PHOSPHATASE 90 U/L (40-136); BILIRUBIN,TOTAL 0.9 MG/DL (0.1-1.0); BUN/CREATININE RATIO 26; CALCIUM 8.7 MG/DL (8.5-10.1); CARBON DIOXIDE 23 MMOL/L (21-32); CHLORIDE 106 MMOL/L (98-107); CREATININE SERUM 0.88 MG/DL (0.60-1.30); GFR ESTIMATED > 60; GLUCOSE 122 MG/DL (70-105); POTASSIUM 4.5 MMOL/L (3.6-5.0); SODIUM 136 MMOL/L (135-145); TOTAL PROTEIN 5.7 GM/DL (6.4-8.2)
--- NOTE | 2018-01-24 17:03 | Diagnostic Imaging Report ---
EXAM: Abdomen/KUB 1view. INDICATION: Recent ERCP. Nausea and vomiting. COMPARISON: None. FINDINGS: Cholecystectomy clips. Moderate amount of stool throughout the colon. Nonspecific bowel gas pattern. No obvious free intraperitoneal air on this supine only exam. No acute osseous findings. IMPRESSION: No acute radiographic findings in the abdomen. Dictated by: Dictated on workstation # [id number]
[2018-01-24 17:05] LABS: BASOPHILS % (MANUAL) 2 %; EOSINOPHILS % (MANUAL) 2 %; LYMPHOCYTES % (MANUAL) 23 %; MONOCYTES % (MANUAL) 10 %; NEUTROPHILS % (MANUAL) 57 %; RBC MORPH NORMAL; REACTIVE LYMPHOCYTES 6 %
[2018-01-24 17:13] VITALS: BP 116/71
[2018-01-24] MEDS: FAMOTIDINE 20 MG (PEPCID) TABLET PO SCH (17:46)
[2018-01-25 06:07] VITALS: BP 105/67
[2018-01-25] MEDS: MULTIVIT W/MINERALS TAB (THERAGRAN M) PO SCH (06:39)
[2018-01-25] MEDS: PANTOPRAZOLE 40 MG (PROTONIX) TAB PO SCH (06:39)
[2018-01-25] MEDS: AUGMENTIN 875 MG TAB (AMOXICILLIN/CLAVULANATE) PO SCH ×2 (06:39→18:03)
[2018-01-25] MEDS: FAMOTIDINE 20 MG (PEPCID) TABLET PO SCH (08:14)
[2018-01-25] MEDS: NAPROXEN 250 MG (NAPROSYN) TABLET PO SCH ×2 (08:14→20:03)
--- NOTE | 2018-01-25 11:50 | Progress Note-Standard ---
Standard Progress Note Progress Notes/Assess & Plan Date Seen 01/25/18 Time Seen by Provider: 11:43 Assess & Plan/Chief Complaint Patient doing well Planning for discharge on Friday Denies any pain Bowel regimen adequate Had episode of RUQ abdominal pain yesterday and Dr Munguia evaluated the patient and it has resolved No fever, vital signs stable, pleasant, eating lunch with his Regular rate and rhythm, clear to all sedation bilaterally No edema Assessment: Severe debility GERD Osteoarthritis Plan: Maintain inpatient rehabilitation protocol Monitor closely for falls Labs Laboratory Tests 01/24/18 16:32 RYAN PINEDA DO Jan 25, 2018 11:49
--- NOTE | 2018-01-25 15:52 | Consultation ---
History of Present Illness History of Present Illness Patient Consulted On(james/time) 01/25/18 15:47 Date Seen by Provider: Jan 25, 2018 Time Seen by Provider: 10:47 Reason for Visit: WEAKNESS AFTER BILIARY OBSTRUCTION History of Present Illness consult requested by Dr. Moreno for epigastric abdominal pain. Patient is an 82 year old male who has had previous cholecystectomy in January of 2017. Patient then recently was having ruq abdominal pain, nausea and vomiting. Patient was found to have retained gallstones in the CBD and had to undergo ERCP at [facility] in [place]. Patient was sent to [facility] for rehab and had been making good progress. Yesterday evening patient began having epigastric abdominal pain again. He was getting nauseated as well. Patient pain was about a 3-4 out of 10. No radiation of pain. Patient had lab work performed and abdominal kub without any abnormality. Patient states this last a little over couple hours and his symptoms resolved. Patient was concerned for his symptoms were similar to when he had the retained gallstones. Denies any nausea vomiting fever sweats chills shortness of breath or chest pain. Allergies and Home Medications Allergies Coded Allergies: No Known Drug Allergies (Unverified , 12/06/15) Home Medications Multivitamin 1 Each Tablet, 1 EACH PO DAILY, (Reported) Naproxen Sodium 220 Mg Capsule, 440 MG PO BID, (Reported) Omeprazole 20 Mg Capsule.dr, 20 MG PO DAILY, (Reported) Patient Home Medication List Home Medication List Reviewed: Yes Past Qaseavw-Ksemtt-Hlulvz Hx Patient Social History Alcohol Use: Denies Use Recreational Drug Use: No Smoking Status: Former Smoker Former Smoker, Quit: Feb 17, 1957 2nd Hand Smoke Exposure: No Recent Foreign Travel: No Contact w/Someone Who Travel: No Recent Infectious Disease Expo: No Recent Hopitalizations: No Physical Abuse Screen: No Sexual Abuse: No Immunizations Up To Date PED Vaccines UTD: No Seasonal Allergies Seasonal Allergies: No Surgeries History of Surgeries: Yes (hernia repair) Surgeries: Abdominal, Appendectomy, Gallbladder, Orthopedic, Tonsillectomy Respiratory History of Respiratory Disorde: No Cardiovascular History of Cardiac Disorders: No Neurological History of Neurological Disord: No Reproductive System Hx Reproductive Disorders: No Genitourinary History of Genitourinary Disor: No Gastrointestinal History of Gastrointestinal Di: Yes (Stone left after choley, ERCP done on 01/15) Gastrointestinal Disorders: Gastroesophageal Reflux, Gall Bladder Disease Musculoskeletal History of Musculoskeletal Dis: No Endocrine History of Endocrine Disorders: No HEENT History of HEENT Disorders: Yes HEENT Disorders: Macular Degeneration Hearing Impairment: Hard of Hearing, Hearing Aide Right, Hearing Aide Left Cancer History of Cancer: No Psychosocial History of Psychiatric Problem: No Integumentary History of Skin or Integumenta: No Blood Transfusions History of Blood Disorders: No Reviewed Nursing Assessment Reviewed/Agree w Nursing PMH: Yes Family Medical History Significant Family History: Cancer, Hypertension Family Medial History: Cardiovascular disease 19 FATHER Dementia G8 SISTER Neoplasm 19 MOTHER (lymphoma) G8 SISTER (lymphoma) Review of Systems-General Constitutional: no symptoms reported EENTM: no symptoms reported Cardiovascular: no symptoms reported Gastrointestinal: see HPI Genitourinary: no symptoms reported Musculoskeletal: no symptoms reported Skin: no symptoms reported Psychiatric/Neurological: No Symptoms Reported Physical Exam-General Problems Physical Exam Vital Signs Vital Signs - First Documented 01/19/18 18:00 Temp 98.0 Pulse 76 Resp 18 B/P (MAP) 128/74 (92) Pulse Ox 97 O2 Delivery Room Air Capillary Refill : General Appearance: no apparent distress HEENT: PERRL/EOMI, normal ENT inspection Neck: non-tender Respiratory: chest non-tender, no respiratory distress, no accessory muscle use Cardiovascular: regular rate, rhythm Gastrointestinal: non tender, soft, no organomegaly, no pulsatile mass Rectal: deferred Back: normal inspection, no CVA tenderness, no vertebral tenderness Extremities: normal range of motion, non-tender, normal inspection Neurologic/Psychiatric: hand lens polisher II-XII nml as tested, no motor/sensory deficits, alert, normal mood/affect, oriented x 3 Skin: normal color, warm/dry Lymphatic: no adenopathy Data Review Labs Laboratory Tests 01/24/18 16:32: White Blood Count 7.9, Red Blood Count 4.38, Hemoglobin 13.6, Hematocrit 41, Mean Corpuscular Volume 93, Mean Corpuscular Hemoglobin 31, Mean Corpuscular Hemoglobin Concent 33, Red Cell Distribution Width 13.8, Platelet Count 258, Mean Platelet Volume 9.5, Neutrophils (%) (Auto) 56, Lymphocytes (%) (Auto) 32, Monocytes (%) (Auto) 10, Eosinophils (%) (Auto) 2, Basophils (%) (Auto) 0, Neutrophils # (Auto) 4.5, Lymphocytes # (Auto) 2.5, Monocytes # (Auto) 0.8, Eosinophils # (Auto) 0.2, Basophils # (Auto) 0.0, Neutrophils % (Manual) 57, Lymphocytes % (Manual) 23, Monocytes % (Manual) 10, Eosinophils % (Manual) 2, Basophils % (Manual) 2, Reactive Lymphocytes 6, Blood Morphology Comment NORMAL , Sodium Level 136, Potassium Level 4.5, Chloride Level 106, Carbon Dioxide Level 23, Anion Gap 7, Blood Urea Nitrogen 23H, Creatinine 0.88, Estimat Glomerular Filtration Rate > 60, BUN/Creatinine Ratio 26, Glucose Level 122H, Calcium Level 8.7, Total Bilirubin 0.9, Aspartate Amino Transf (AST/SGOT) 46H, Alanine Aminotransferase (ALT/SGPT) 107H, Alkaline Phosphatase 90, Total Protein 5.7L, Albumin 3.6, Smear Scan NO Assessment/Plan Assessment/Plan Assessment/Plan GENERALIZED WEAKNESS EPIGASTRIC ABDOMINAL PAIN NAUSEA S/P ERCP with lithotripsy of CBD retained stone ESOPHAGEAL REFLUX PATIENT DOING WELL TODAY. ADDED PEPCID YESTERDAY AND HAD IMPROVEMENT, CAN USE ONCE DISCHARGED ON A PRN BASIS. SYMPTOMS OF EPIGASTRIC ABDOMINAL PAIN RESOLVED NO NEW COMPLAINTS, DIET TOLERATES Clinical Quality Measures DVT/VTE Risk/Contraindication: Risk Factor Score Per Nursin RFS Level Per Nursing on Admit: 2=Moderate TERESA MORALES DO Jan 25, 2018 15:52
[2018-01-25 18:05] VITALS: BP 124/75
[2018-01-26 05:09] VITALS: BP 117/75
[2018-01-26] MEDS: MULTIVIT W/MINERALS TAB (THERAGRAN M) PO SCH (06:41)
[2018-01-26] MEDS: PANTOPRAZOLE 40 MG (PROTONIX) TAB PO SCH (06:41)
[2018-01-26] MEDS: AUGMENTIN 875 MG TAB (AMOXICILLIN/CLAVULANATE) PO SCH (06:41)
[2018-01-26] MEDS: FAMOTIDINE 20 MG (PEPCID) TABLET PO SCH (08:26)
[2018-01-26] MEDS: NAPROXEN 250 MG (NAPROSYN) TABLET PO SCH (08:26)
--- NOTE | 2018-01-26 09:49 | D/C HH Face to Face Order ---
D/C Face to Face Orders Instructions for Patient Patient Instructions/FollowUp: Dr. Piedad Neumann Physician to follow Patient: Dr. Neumann Discharge Diet for Home: Cardiac Diet (Heart Healthy) Patient Data-Allergies,Ht & Wt Patient Allergies: Coded Allergies: No Known Drug Allergies (Unverified , 12/06/15) Height (Feet): 6 Height (Inches): 1.00 Weight (Pounds): 172 Weight (Ounces): 10.0 Home Health Need/Face to Face Date of Face to Face: Jan 26, 2018 Clinical Findings: Generalized weakness and fatigue I have seen Pt [id number]: Yes Discharged To: Home Diagnosis/Conditions: Debility post gallstone removal Problems/Diagnosis/Condition: Patient is Homebound due to: Muscle weakness Homebound Status Due to the above stated illness, injury or surgical procedure (medical condition or diagnosis) and associated clinical findings, the patient is homebound because of his/her inability to leave home except with aid of a supportive device and/or person AND leaving the home requires a considerable and taxing effort or is medically contraindicated. Pt req the following assistanc: [facility] Nursing Orders Home Health Services Order: Nursing Services, Kitchenhand-Evaluate & Treat, Physical Therapy-Evaluate & Treat RN for evaluation and monitoring of symptoms for retained gallstones Therapy Orders Therapy Orders: OT (must have SN or PT order), Physical Therapy Therapy Specific Orders: Eval assistive deivces, Teach enviro modifications/ safety, Gait training, Increase strength/endurance Certify Stmt I certify that this patient is under my care and that I, a nurse practitioner or a physician; a assistant women's rowing coach working with me, had a face to face encounter that - meets the physician face to face encounter requirements with this patient as dated. I personally scribed for REDDY STERN MD ([email or web address]) on 01/26/18 at 09:49. Electronically submitted by Alison Chung ([id number]). I personally scribed for REDDY STERN MD ([email or web address]) on 01/26/18 at 09:53. Electronically submitted by Alison Chung ([id number]). REDDY STERN MD Jan 26, 2018 09:49
--- NOTE | 2018-01-26 11:02 | Occupational Ther Daily Note ---
OT Current Status-Daily Note Subjective No pain reported. Appearance Pt. in bed fully dressed. States that he has already showered on his own. Mental Status/Objective Patient Orientation: Person, Place Functional [place] Measure 0=Not Assessed/NA 4=Minimal Assistance 1=Total Assistance 5=Supervision or Setup 2=Maximal Assistance 6=Modified [place] 3=Moderate Assistance 7=Complete [place] ADL-Treatment Functional [place] Measure 0=Not Assessed/NA 4=Minimal Assistance 1=Total Assistance 5=Supervision or Setup 2=Maximal Assistance 6=Modified [place] 3=Moderate Assistance 7=Complete IndependenceIRFPAI Quality Coding Scale 6 Independent with activity with or without an assistive device 5 Patient requires set up or clean up by helper. Patient completes activity by themselves 4 Supervision or touching assist (CGA). [place] provide cues , steadying assist 3 The helper provides less than half the effort to complete the activity 2 The helper provides more than half the effort to complete the activity 1 Dependent. The helper does all the effort to complete an activity 7 Patient refused to complete or attempt activity 9 The patient did not perform the activity before the current illness or injury 88 Not attempted due to Medical conditions or safety concerns Bathing (FIM): 6 (Pt. showered himself previous to OT coming in.) Shower/Bathe Self (QC): 6 Upper Body (FIM): 6 (per pt.) Upper Body Dressing (QC): 6 Lower Body Dressing (FIM): 6 (per pt.) Lower Body Dressing (QC): 6 On/Off Footwear (QC): 6 Transfers (B, C, W/C) (FIM): 6 (Mod I with cane.) Toilet/Commode Transfer (FIM): 6 Toilet Transfer (QC): 6 Other Treatment Pt. and OT talked about pt. continuing with strengthening at home and with wellness program. Pt. receptive to this. Pt. has already bathed and dressed self this morning with shower chair and grab bars. All needs met overall. Pt. states that he is ready to discharge. Education OT Patient Education: Progress toward Goal/Update tx plan, Purpose of tx/ functional activities, Reviewed precautions, Rehab process, Transfer techniques Teaching Recipient: Patient Teaching Methods: Demonstration Response to Teaching: Verbalize Understanding, Return Demonstration OT Short Term Goals Short Term Goals Time Frame: Jan 26, 2018 Eating(FIM): 5 Grooming(FIM): 5 Bathing(FIM): 4 Upper Body Dressing(FIM): 5 Lower Body Dressing(FIM): 5 Toileting(FIM): 5 Transfers (B,C,W/C) (FIM): 5 (met) Toilet/Commode Transfer(FIM): 5 Shower Transfer(FIM): 4 Additional Short Term Goals: 1-Demonstrate ADL Tasks, 2-Verbalize Understanding , 3-ImproveStrength/Heath 1=Demonstrate adherence to instructed precautions during ADL tasks. 2=Patient will verbalize/demonstrate understanding of assistive devices/ modifications for ADL. 3=Patient will improve strength/tolerance for activity to enable patient to perform ADL's. OT Custodial Goals Custodial Goals Time Frame: Feb 02, 2018 Eating (FIM): 6 Eating (QC): 6 Groomin Oral Hygiene (QC): 6 Bathing(FIM): 5 Shower/Bathe Self (QC): 5 Upper Body Dressing(FIM): 6 Upper Body Dressing (QC): 6 Lower Body Dressing(FIM): 6 Lower Body Dressing (QC): 6 On/Off Footwear (QC): 6 Toileting(FIM): 6 Toileting Hygiene (QC): 6 Transfers (B,C,W/C) (FIM): 6 Toilet/Commode Transfer(FIM): 6 Toilet/Commode Transfer (QC): 6 Shower Transfer(FIM): 5 Additional Goals: 1-Demonstrate ADL Tasks, 2-Verbalize Understanding, 3- ImproveStrength/Heath 1=Demonstrate adherence to instructed precautions during ADL tasks. 2=Patient will verbalize/demonstrate understanding of assistive devices/ modifications for ADL. 3=Patient will improve strength/tolerance for activity to enable patient to perform ADL's. OT Education/Plan Discharge Recommendations Plan/Recommendations: Discharge/Goals Met Therapy D/C Recommendations: Home w/ Family Support Treatment Plan/Plan of Care Treatment,Training & Education: Yes Patient would benefit from OT for education, treatment and training to promote independence in ADL's, mobility, safety and/or upper extremity function for ADL' s. Plan of Care: ADL Retraining, Functional Mobility, UE Funct Exercise/Act Treatment Duration: Feb 02, 2018 Frequency: At least 5 of 7 days/Wk (IRF) Estimated Hrs Per Day: 1.5 hours per day Agreement: Yes Rehab Potential: Good Time/GCodes Start Time: 09:30 Stop Time: 09:45 Total Time Billed (hr/min): 15 Billed Treatment Time 1, ADL x 15minutes ORLANDO MELARA OT Jan 26, 2018 11:02
--- NOTE | 2018-01-26 11:09 | Therapy Team Discharge Summary ---
Therapy Discharge Summary Discharge Recommendations Date of Discharge 01-26-18 Therapy D/C Recommendations: Home w/ Family Support Occupational Therapy Pt. has been seen by occupational therapy to increase overall strength and independence. Pt. discharging today. Pt. has met all goals. Discharge with family support. No equipment needed. No further OT warranted at this time. Decreased Activ Tolerance PT Sales Review Clerk Goals Residential Goals PT Residential Goals Time Frame: Feb 20, 2018 Transfers (B,C,W/C) (FIM): 6 (medt) Roll Left to Right (QC): 6 Sit to Lying (QC): 6 (met) Lying-Sitting on Side/Bed(QC): 6 (met) Sit to Stand (QC): 6 (met) Chair/Rlt-ft-Titeg Xfer(QC): 6 (met) Car Transfer (QC): 6 Does the Patient Walk: Yes Gait (FIM): 7 Gait distance (FIM): 3=150 ft Distance: SEE PT GOALS Walk 10 feet (QC): 6 Walk 10ft-Uneven Surface(QC): 6 Walk 50ft with 2 Turns (QC): 6 Walk 150 ft (QC): 6 Gait Level of Assist: 7 Gait Assistive Device: None, FWW Stairs (FIM): 5 # of Steps: 12 1 Step (curb) (QC): 5 4 Steps (QC): 5 12 Steps (QC): 5 Stairs Level Of Assist: 5 Picking up an Object (QC): 5 OT Residential Goals Residential Goals Time Frame: Feb 02, 2018 Eating (FIM): 6 (met) Eating (QC): 6 (met) Oral Hygiene (QC): 6 (met) Grooming(FIM): 6 (met) Bathing(FIM): 5 (met) Shower/Bathe Self (QC): 5 (met) Upper Body Dressing(FIM): 6 (met) Upper Body Dressing (QC): 6 (met) Lower Body Dressing(FIM): 6 (met) Lower Body Dressing (QC): 6 (met) On/Off Footwear (QC): 6 (met) Toileting(FIM): 6 (met) Toileting Hygiene (QC): 6 (met) Transfers (B,C,W/C) (FIM): 6 (met) Toilet/Commode Transfer(FIM): 6 (met) Toilet/Commode Transfer (QC): 6 (met) Shower Transfer(FIM): 5 (met) Additional Goals: 1-Demonstrate ADL Tasks, 2-Verbalize Understanding, 3- ImproveStrength/Heath 1=Demonstrate adherence to instructed precautions during ADL tasks. 2=Patient will verbalize/demonstrate understanding of assistive devices/ modifications for ADL. 3=Patient will improve strength/tolerance for activity to enable patient to perform ADL's. ORLANDO MELARA OT Jan 26, 2018 11:08
--- NOTE | 2018-01-26 11:09 | Physical Therapy Daily Note ---
PT Daily Note-Current Subjective Patient in bed pre tx, agrees to PT, no complaints of pain. Patient is leaving this facility today and will need to be [facility]ed and discharged. Appearance Patient sitting EOB post tx with nurse call, phone, tray, all needs met. Mental Status Patient Orientation: Person, Place, Situation Transfers Functional [place] Measure 0=Not Assessed/NA 4=Minimal Assistance 1=Total Assistance 5=Supervision or Setup 2=Maximal Assistance 6=Modified [place] 3=Moderate Assistance 7=Complete IndependenceIRFPAI Quality Coding Scale 6 Independent with activity with or without an assistive device 5 Patient requires set up or clean up by helper. Patient completes activity by themselves 4 Supervision or touching assist (CGA). [place] provide cues , steadying assist 3 The helper provides less than half the effort to complete the activity 2 The helper provides more than half the effort to complete the activity 1 Dependent. The helper does all the effort to complete an activity 7 Patient refused to complete or attempt activity 9 The patient did not perform the activity before the current illness or injury 88 Not attempted due to Medical conditions or safety concerns Transfers (B, C, W/C) (FIM): 6 Scootin Rollin Roll Left to Right (QC): 6 Supine to/from Sit: 6 Sit to/from Stand: 6 Sit to Lying (QC): 6 Sit to Stand (QC): 6 Chair/Mou-wa-Fsfmg Xfer(QC): 6 Bed to/from Chair: 6 Car Transfer (QC): 6 Patient performs bed mobility and transfers with mod I. Car transfer mod I. Weight Bearing Right Lower Extremity: Right Full Weight Bearing Left Lower Extremity: Left Full Weight Bearing Gait Training Gait (FIM): 6 Distance: 300', 150' Walk 10 feet (QC): 6 Walk 50 ft with 2 Turns(QC): 6 Walk 150 ft (QC): 6 Walking 10ft/uneven surface-QC: 6 Gait Assistive Device: Walker Center-Hold Patient can ambulate 300' with a single point cane with mod I, including 50' with at least 2 turns of 90 degrees and 10' over an uneven surface. Wheelchair Training Does the Pt Use a Wheelchair?: No Stair Training Stair Training: Handrails/: 1 handrail Stairs (FIM): 6 #of Steps: 12 1 Step (curb) (QC): 6 4 Steps (QC): 6 12 Steps (QC): 6 Stairs: Pattern: Reciprocal Level of Assist: 6 Patient can go up and down 12 steps using 1 handrail and a single point cane with mod I. Balance Picking up an Object (QC): 6 Treatments bed mobility and transfers, ambulation, stair training Assessment Current Status: Fair Progress Patient is mod I with mobility using a single point cane. PT Short Term Goals Short Term Goals Transfers (B,C,W/C) (FIM): 5 (met) PT Data Conversion Developer Goals Data Conversion Developer Goals PT Care Home Goals Time Frame: Feb 20, 2018 Transfers (B,C,W/C) (FIM): 6 (medt) Sit to Lying (QC): 6 (met) Lying-Sitting on Side/Bed(QC): 6 (met) Sit to Stand (QC): 6 (met) Rollin (met) Roll Left to Right (QC): 6 (met) Chair/Nqp-av-Aoisg Xfer(QC): 6 (met) Car Transfer (QC): 6 (met) Does the Patient Walk: Yes Gait (FIM): 7 Gait distance (FIM): 3=150 ft Distance: SEE PT GOALS Walk 10 feet (QC): 6 (met) Walk 10ft-Uneven Surface(QC): 6 (met) Walk 50ft with 2 Turns (QC): 6 (met) Walk 150 ft (QC): 6 (met) Gait Level of Assist: 7 Gait Assistive Device: None, FWW Stairs (FIM): 5 (met) # of Steps: 12 (met) 1 Step (curb) (QC): 5 (met) 4 Steps (QC): 5 (met) 12 Steps (QC): 5 (met) Stairs Level Of Assist: 5 (met) Picking up an Object (QC): 5 (met) PT Plan Problem List Problem List: Activity Tolerance, Functional Strength, Safety, Balance, Gait, Transfer Treatment/Plan Treatment Plan: Discontinue PT Treatment Plan: Bed Mobility, Concurrent Therapy, Education, Functional Activity Heath, Functional Strength, Group Therapy, Gait, Safety, Therapeutic Exercise, Transfers Treatment Duration: Feb 20, 2018 Frequency: At least 5 of 7 days/Wk (IRF) Estimated Hrs Per Day: 1.5 hours per day Patient and/or Family Agrees t: Yes Safety Risks/Education Patient Education: Gait Training, Transfer Techniques, Steps, Correct Positioning, Safety Issues Teaching Recipient: Patient Teaching Methods: Demonstration, Discussion Response to Teaching: Reinforcement Needed Time/GCodes Time In: 1045 Time Out: 1100 Total Billed Treatment Time: 15 Total Billed Treatment 1 visit GT 15' NEELAM COLE PT Jan 26, 2018 11:09
--- NOTE | 2018-01-26 11:14 | Therapy Team Discharge Summary ---
Therapy Discharge Summary Discharge Recommendations Date of Discharge Therapy D/C Recommendations: Home w/ Family Support Physical Therapy Patient came to rehab with weakness as his diagnosis. Upon admission patient performed bed mobility with SBA, transfers with CGA/[place], car transfer with CGA/ [place], ambulated 200' with a rolling walker with CGA/[place] (including 50' with at least 2 turns of 90 degrees and 10' over an uneven surface), and can go up and down 1 step using a rolling walker with CGA/[place]. Patient has been performing bed mobility and transfer training, balance and endurance training, functional strengthening, stair training, gait training, and education. Patient has made good progress and has met all of his manager long term care goals except for ambulation. Now , patient performs bed mobility and transfers with mod I, car transfer mod I, ambulates 300' with a single point cane with mod I (including 50' with at least 2 turns of 90 degrees and 10' over an uneven surface), can fiber picker an object from the floor with mod I, and can go up and down 12 steps using 1 handrail and a single point cane with mod I. Patient is discharging from this facility today and will be discharged from PT at this time. Occupational Therapy Decreased Activ Tolerance PT Mon[place]yper Goals Mon[place]yper Goals PT [place] Goals Time Frame: Feb 20, 2018 Transfers (B,C,W/C) (FIM): 6 (medt) Roll Left to Right (QC): 6 (met) Sit to Lying (QC): 6 (met) Lying-Sitting on Side/Bed(QC): 6 (met) Sit to Stand (QC): 6 (met) Chair/Pdg-ad-Dgemw Xfer(QC): 6 (met) Car Transfer (QC): 6 (met) Does the Patient Walk: Yes Gait (FIM): 7 Gait distance (FIM): 3=150 ft Distance: SEE PT GOALS Walk 10 feet (QC): 6 (met) Walk 10ft-Uneven Surface(QC): 6 (met) Walk 50ft with 2 Turns (QC): 6 (met) Walk 150 ft (QC): 6 (met) Gait Level of Assist: 7 Gait Assistive Device: None, FWW Stairs (FIM): 5 (met) # of Steps: 12 (met) 1 Step (curb) (QC): 5 (met) 4 Steps (QC): 5 (met) 12 Steps (QC): 5 (met) Stairs Level Of Assist: 5 (met) Picking up an Object (QC): 5 (met) OT Jail Goals [place] Goals Time Frame: Feb 02, 2018 Eating (FIM): 6 (met) Eating (QC): 6 (met) Oral Hygiene (QC): 6 (met) Grooming(FIM): 6 (met) Bathing(FIM): 5 (met) Shower/Bathe Self (QC): 5 (met) Upper Body Dressing(FIM): 6 (met) Upper Body Dressing (QC): 6 (met) Lower Body Dressing(FIM): 6 (met) Lower Body Dressing (QC): 6 (met) On/Off Footwear (QC): 6 (met) Toileting(FIM): 6 (met) Toileting Hygiene (QC): 6 (met) Transfers (B,C,W/C) (FIM): 6 (met) Toilet/Commode Transfer(FIM): 6 (met) Toilet/Commode Transfer (QC): 6 (met) Shower Transfer(FIM): 5 (met) Additional Goals: 1-Demonstrate ADL Tasks, 2-Verbalize Understanding, 3- ImproveStrength/Heath 1=Demonstrate adherence to instructed precautions during ADL tasks. 2=Patient will verbalize/demonstrate understanding of assistive devices/ modifications for ADL. 3=Patient will improve strength/tolerance for activity to enable patient to perform ADL's. NEELAM COLE PT Jan 26, 2018 11:14
[2018-01-26 14:16] VITALS: BP 117/75
--- NOTE | 2018-01-26 17:27 | PM & R (SOAP) Progress Note ---
Subjective Time Seen by Provider: 12:00 Subjective/Events-last exam Patient discharged to home today with f/u with PCP and HHC Has progressed well Appreciate Dr Varela note and orders Objective Exam Last Set of Vital Signs Vital Signs Date Time Temp Pulse Resp B/P (MAP) Pulse Ox O2 Delivery O2 Flow Rate FiO2 01/26/18 14:16 67 18 117/75 96 Room Air 01/26/18 05:09 96.8 Capillary Refill : I&O Intake and Output 01/26/18 00:00 Intake Total 400 ml Balance 400 ml Intake Oral 400 ml # Voids 3 General: Alert, Oriented X3, Cooperative, No Acute Distress HEENT: Atraumatic, PERRLA, EOMI, Mucous Memb Moist/[place] Neck: Supple, No JVD Lungs: Clear to Auscultation Heart: Regular Rate Abdomen: Soft, No Tenderness Extremities: No Edema Neuro: Other (Generalized weakness presbycusis) Psych/Mental Status: Mental Status NL, Mood NL Results Lab Laboratory Tests 01/24/18 16:32: White Blood Count 7.9, Red Blood Count 4.38, Hemoglobin 13.6, Hematocrit 41, Mean Corpuscular Volume 93, Mean Corpuscular Hemoglobin 31, Mean Corpuscular Hemoglobin Concent 33, Red Cell Distribution Width 13.8, Platelet Count 258, Mean Platelet Volume 9.5, Neutrophils (%) (Auto) 56, Lymphocytes (%) (Auto) 32, Monocytes (%) (Auto) 10, Eosinophils (%) (Auto) 2, Basophils (%) (Auto) 0, Neutrophils # (Auto) 4.5, Lymphocytes # (Auto) 2.5, Monocytes # (Auto) 0.8, Eosinophils # (Auto) 0.2, Basophils # (Auto) 0.0, Neutrophils % (Manual) 57, Lymphocytes % (Manual) 23, Monocytes % (Manual) 10, Eosinophils % (Manual) 2, Basophils % (Manual) 2, Reactive Lymphocytes 6, Blood Morphology Comment NORMAL , Sodium Level 136, Potassium Level 4.5, Chloride Level 106, Carbon Dioxide Level 23, Anion Gap 7, Blood Urea Nitrogen 23H, Creatinine 0.88, Estimat Glomerular Filtration Rate > 60, BUN/Creatinine Ratio 26, Glucose Level 122H, Calcium Level 8.7, Total Bilirubin 0.9, Aspartate Amino Transf (AST/SGOT) 46H, Alanine Aminotransferase (ALT/SGPT) 107H, Alkaline Phosphatase 90, Total Protein 5.7L, Albumin 3.6, Smear Scan NO Assessment/Plan Assessment general debil s/p ERCP for choledolithiasis with obstruction S/P cholecystectomy earlier this year Presbycusis Transaminitis s/p procedure and obstruction -trend Plan Patient discharged to home today with spouse and [facility] Curent labs noted LFTS trending downward F/U with PCP and GI See orders REDDY STERN MD Jan 26, 2018 17:27
== END 2018-01-26 18:01 | disposition home health service (06) | DRG 948 ==
PROVIDERS: ADMIT Physical Medicine & Rehabilitation; ATTEND Physical Medicine & Rehabilitation
DX: R53.1 Weakness (principal); R53.83 Other fatigue; Z48.815 Encounter for surgical aftercare following surgery on the digestive system; H91.13 Presbycusis, bilateral; R74.0 Nonspecific elevation of levels of transaminase and lactic acid dehydrogenase [LDH]; K21.9 Gastro-esophageal reflux disease without esophagitis; M19.90 Unspecified osteoarthritis, unspecified site; Z87.891 Personal history of nicotine dependence
CPT/HCPCS: 36415; 74018; 80053; 84443; 85007; 85027

== ENCOUNTER 2018-07-22 10:21 | Outpatient (RCR) | payer MEDICARE, OTHER ==
[~2018-07-22 10:21] MED LIST changes: +AMOX-358 PO; +MULT1TAB65 PO; +NAPR220C46 PO; +OMEP40CA36 PO; +ONDA4TAB11 PO; +OXYC-473 PO
== END 2018-07-27 07:39 | disposition home or self-care (01) ==
PROVIDERS: ATTEND Family Medicine
DX: R26.9 Unspecified abnormalities of gait and mobility (principal)

== ENCOUNTER 2018-08-04 08:18 | Outpatient (RCR) | payer MEDICARE, OTHER | END 2018-08-04 12:33 | disposition home or self-care (01) | PROVIDERS: ATTEND Family Medicine | DX: R26.9 Unspecified abnormalities of gait and mobility (principal) ==

== ENCOUNTER → 2019-03-24 | Outpatient (CLI) | payer MEDICARE, OTHER ==
[~2019-03-24] MED LIST changes: -NAPR220C46 PO; +NAPR220C61 PO
--- NOTE | 2019-03-24 12:21 | Diagnostic Imaging Report ---
PROCEDURE: US right lower extremity venous. TECHNIQUE: Multiple real-time grayscale images were obtained over the right lower extremity in various projections. Additional spectral analysis and color Doppler duplex images were also obtained. Date: March 24, 2019. Indication: 83-year-old male, right lower extremity pain. History of right knee arthroscopy one week ago. Comparison: None. Findings: The right common femoral vein, right superficial femoral vein, and right popliteal vein are all compressible with flow and response to augmentation. The visualized portions of the right greater saphenous vein and deep femoral vein are patent. The right posterior tibial and peroneal veins are patent. Impression: 1. Negative for right lower extremity deep venous thrombosis. Dictated by: Dictated on workstation # [id number]
== END ==
LOC: RAD 10:56
PROVIDERS: ATTEND Nurse Practitioner Family
DX: M79.604 Pain in right leg (principal); Z98.890 Other specified postprocedural states

== ENCOUNTER 2019-05-27 08:18 | Outpatient (RCR) | payer MEDICARE, OTHER ==
[~2019-05-27 08:18] MED LIST changes: -OMEP20CA12 PO; +OMEP20CA13 PO
== END 2019-06-01 14:48 | disposition home or self-care (01) ==
PROVIDERS: ATTEND Nurse Practitioner Family
DX: M17.11 Unilateral primary osteoarthritis, right knee (principal); Z98.890 Other specified postprocedural states

== ENCOUNTER 2020-01-05 13:54 | Outpatient (RCR) | payer MEDICARE, OTHER ==
[~2020-01-05 13:54] MED LIST changes: -OMEP20CA13 PO; +OMEP20CA18 PO; +OMEP40CA27 PO; -OMEP40CA36 PO
== END 2020-02-08 | disposition home or self-care (01) ==
PROVIDERS: ATTEND Family Medicine
DX: R53.1 Weakness (principal); R26.89 Other abnormalities of gait and mobility

== ENCOUNTER 2021-09-04 08:40 | Observation (INO) | payer MEDICARE, OTHER ==
[~2021-09-04] VITALS: Ht 182.9 cm; Wt 76.6 kg
[~2021-09-04 08:40] MED LIST changes: -MULT1TAB65 PO; +MULT1TAB66 PO; -OMEP40CA27 PO; +OMEP40CA6 PO
[2021-09-04 09:09] LABS: BASOPHILS % (AUTO) 1 % (0-10); EOSINOPHILS # (AUTO) 0.2 10^3/uL (0.0-0.3); EOSINOPHILS % (AUTO) 2 % (0-10); HEMATOCRIT 44 % (40-54); HEMOGLOBIN 14.8 g/dL (13.3-17.7); LYMPHOCYTES # (AUTO) 2.7 10^3/uL (1.0-4.0); LYMPHOCYTES % (AUTO) 32 % (12-44); MEAN CORPUSCULAR HEMOGLOBIN 31 pg (25-34); MEAN CORPUSCULAR HGB CONC 34 g/dL (32-36); MEAN CORPUSCULAR VOLUME 93 fL (80-99); MEAN PLATELET VOLUME 9.4 fL (9.0-12.2); MONOCYTES % (AUTO) 13 % (0-12); NEUTROPHILS # (AUTO) 4.4 10^3/uL (1.8-7.8); NEUTROPHILS % (AUTO) 52 % (42-75); PLATELET COUNT 214 10^3/uL (130-400); WHITE BLOOD COUNT 8.3 10^3/uL (4.3-11.0)
--- NOTE | 2021-09-04 09:12 | ED Chest Pain ---
General Chief Complaint: Chest Pain Stated Complaint: CP Source: patient, family Exam Limitations: no limitations History of Present Illness Date Seen by Provider: Sep 04, 2021 Time Seen by Provider: 08:50 Initial Comments Patient is an 85-year-old male who presents to the emergency department today with a chief complaint of substernal chest pain onset about 7:00 this morning as he was getting up to go about his daily chores. Patient states that he had pain that radiated into his left arm. He denies associated shortness of breath, nausea, sweating. He does state that he feels a little lightheaded and dizzy. He denies any recent illnesses such as fevers, chills, cough or congestion. No abdominal pain. He states he has "a little" discomfort at this time. Patient states that he has had this exertional chest pain coming and going for the last year since last winter. He attributed it to GERD, drinking coffee therefore he quit drinking coffee last winter but the symptoms have persisted. Today he came in because they lasted longer than normal. Patient has no prior history of hypertension or known coronary artery disease. He is not a diabetic. No recent changes in bowel or bladder. All other review of systems reviewed and negative except as stated. 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: No Allergies and Home Medications Allergies Coded Allergies: No Known Drug Allergies (Unverified , 12/06/15) Patient Home Medication List Home Medication List Reviewed: Yes Multivitamin (Daily Lynne) 1 Each Tablet, 1 EACH PO DAILY, (Reported) Entered as Reported by: EDUARD MCKEON on 01/19/18 1510 Omeprazole (Omeprazole) 20 Mg Capsule.dr, 20 MG PO DAILY, (Reported) Entered as Reported by: TANIA KULKARNI on 01/19/18 1621 Review of Systems Review of Systems Constitutional: see HPI EENTM: No Symptoms Reported Respiratory: No Symptoms Reported Cardiovascular: Chest Pain Gastrointestinal: No Symptoms Reported Genitourinary: No Symptoms Reported Musculoskeletal: no symptoms reported Skin: no symptoms reported Psychiatric/Neurological: Numbness (left arm) Endocrine: No Symptoms Reported All Other Systems Reviewed Negative Unless Noted: Yes Past Rujynfj-Gtdusr-Iwgbdv Hx Immunizations Up To Date PED Vaccines UTD: No Seasonal Allergies Seasonal Allergies: No Past Medical History Surgeries: Yes (hernia repair) Abdominal, Appendectomy, Gallbladder, Orthopedic, Tonsillectomy Respiratory: No Cardiac: No Neurological: No Reproductive Disorders: No Genitourinary: No Gastrointestinal: Yes (Stone left after choley, ERCP done on 01/15/18) Gastroesophageal Reflux, Gall Bladder Disease Musculoskeletal: No Endocrine: No HEENT: Yes Macular Degeneration Hearing Impairment: Hard of Hearing, Hearing Aide Right, Hearing Aide Left Cancer: No Psychosocial: No Integumentary: No Blood Disorders: No Family Medical History Cardiovascular disease 19 FATHER Dementia G8 SISTER Neoplasm 19 MOTHER (lymphoma) G8 SISTER (lymphoma) Cancer, Hypertension Physical Exam Vital Signs Vital Signs - First Documented 09/04/21 08:50 Temp 36.3 Pulse 56 Resp 18 B/P (MAP) 137/87 (104) Pulse Ox 97 Capillary Refill : Height, Weight, BMI Height: 6'1.00" Weight: 172lbs. 10.0oz. 78.700866sw; 22.8 BMI Method:Stated General Appearance: No Apparent Distress, WD/WN HEENT: PERRL/EOMI Neck: Normal Inspection Respiratory: Lungs Clear, Normal Breath Sounds, No Accessory Muscle Use, No Respiratory Distress Cardiovascular: Regular Rate, Rhythm Gastrointestinal: Normal Bowel Sounds, Non Tender, Soft Extremity: Normal Capillary Refill, Normal Inspection, Normal Range of Motion, No Pedal Edema Neurologic/Psychiatric: Alert, Oriented x3, No Motor/Sensory Deficits, Normal Mood/Affect Skin: Normal Color, Warm/Dry Progress/Results/Core Measures Results/Orders Lab Results Laboratory Tests Test 09/04/21 09:01 Range/Units White Blood Count 8.3 4.3-11.0 10^3/uL Red Blood Count 4.72 4.30-5.52 10^6/uL Hemoglobin 14.8 13.3-17.7 g/dL Hematocrit 44 40-54 % Mean Corpuscular Volume 93 80-99 fL Mean Corpuscular Hemoglobin 31 25-34 pg Mean Corpuscular Hemoglobin Concent 34 32-36 g/dL Red Cell Distribution Width 11.9 10.0-14.5 % Platelet Count 214 130-400 10^3/uL Mean Platelet Volume 9.4 9.0-12.2 fL Immature Granulocyte % (Auto) 1 % Neutrophils (%) (Auto) 52 42-75 % Lymphocytes (%) (Auto) 32 12-44 % Monocytes (%) (Auto) 13 H 0-12 % Eosinophils (%) (Auto) 2 0-10 % Basophils (%) (Auto) 1 0-10 % Neutrophils # (Auto) 4.4 1.8-7.8 10^3/uL Lymphocytes # (Auto) 2.7 1.0-4.0 10^3/uL Monocytes # (Auto) 1.0 0.0-1.0 10^3/uL Eosinophils # (Auto) 0.2 0.0-0.3 10^3/uL Basophils # (Auto) 0.0 0.0-0.1 10^3/uL Immature Granulocyte # (Auto) 0.1 0.0-0.1 10^3/uL Prothrombin Time 13.7 12.2-14.7 SEC INR Comment 1.0 0.8-1.4 Activated Partial Thromboplast Time 28 24-35 SEC Sodium Level 140 135-145 MMOL/L Potassium Level 4.4 3.6-5.0 MMOL/L Chloride Level 107 98-107 MMOL/L Carbon Dioxide Level 22 21-32 MMOL/L Anion Gap 11 5-14 MMOL/L Blood Urea Nitrogen 24 H 7-18 MG/DL Creatinine 0.90 0.60-1.30 MG/DL Estimat Glomerular Filtration Rate 80 BUN/Creatinine Ratio 27 Glucose Level 86 70-105 MG/DL Calcium Level 8.9 8.5-10.1 MG/DL Total Creatine Kinase 36 30-200 U/L Troponin I < 0.028 <0.028 NG/ML My Orders Orders - SHAYY HUBER MD Ed Iv/Invasive Line Start (09/04/21 09:02) Cbc With Automated Diff (09/04/21 09:02) Basic Metabolic Panel (09/04/21 09:02) Troponin I (09/04/21 09:02) Creatine Kinase (09/04/21:) Protime With Inr (09/04/21 09:02) Partial Thromboplastin Time (09/04/21 09:02) Ekg Tracing (09/04/21 09:02) Chest 1 View, Ap/Pa Only (09/04/21 09:) Aspirin Chewable Tablet (Baby Aspirin Ch (09/04/21 09:15) Ed Admission (Communication) (09/04/21 10:57) Medications Given in ED Vital Signs/I&O 09/04/21 08:50 Temp 36.3 Pulse 56 Resp 18 B/P (MAP) 137/87 (104) Pulse Ox 97 Admisison Planning May Need Admission (Planning): 10:02 Initial ECG Impression Date: Sep 04, 2021 Initial ECG Impression Time: 08:53 Initial ECG Rate: 06 Initial ECG Rhythm: Normal Sinus Initial ECG Intervals WA 149 QRS 144 QTc 420 Initial ECG Impression: Normal Comment right bundle branch block Diagnostic Imaging Diagonstic Imaging: Xray Plain Films/CT/US/NM/MRI: chest Comments [facility], [place] NAME: OLAYINKA ORTEGA [facility] REC#: [id number] PT STATUS: REG ER : 1935 PHYSICIAN: SHAYY HUBER MD ADMIT DATE: 09/04/21/ER Draft Date of Exam:09/04/21 CHEST 1 VIEW, AP/PA ONLY EXAMINATION: Portable erect AP chest at 9:17 AM INDICATION: Chest pain COMPARISON: 12/06/15. FINDINGS: The heart size is stable when compared to the prior exam. The lungs are clear. There is no evidence for failure, pneumonia or for a pleural effusion. The mediastinum is not widened. The osseous structures are intact. IMPRESSION: There is no evidence for active disease. Dictated on workstation # [id number] Dict: 09/04/21926 Trans: 09/04/21930 [facility] [id number] Interpreted by: NIKOLAS VICENTE MD Electronically signed by: Departure Communication (Admissions) Time/Spoke to Admitting Phy: 10:[address] Murdock Time/Spoke to Consulting Phy: 11:[address] Lara Impression Primary Impression: Unstable angina Disposition: ADMITTED INPATIENT Condition: Stable Admissions Decision to Admit Reason: Admit from ER (General) Decision to Admit/Date: Sep 04, 2021 Time/Decision to Admit Time: 11:02 Departure-Patient Inst. Referrals: BARRY THURSTON MD (PCP/Family) Primary Care Physician SHAYY HUBER MD Sep 04, 2021 09:11
[2021-09-04] MEDS ORDERED: ASPIRIN 81 MG CHEW (CHILDREN'S ASA) PO ONE (09:15)
[2021-09-04 09:21] LABS: CHLORIDE 107 MMOL/L (98-107); POTASSIUM 4.4 MMOL/L (3.6-5.0); SODIUM 140 MMOL/L (135-145)
[2021-09-04 09:22] LABS: PROTHROMBIN TIME PATIENT 13.7 SEC (12.2-14.7)
[2021-09-04 09:23] LABS: CALCIUM 8.9 MG/DL (8.5-10.1); GLUCOSE 86 MG/DL (70-105)
[2021-09-04 09:24] LABS: CARBON DIOXIDE 22 MMOL/L (21-32)
[2021-09-04 09:27] LABS: GFR ESTIMATED 80
[2021-09-04 09:28] LABS: BUN/CREATININE RATIO 27
[2021-09-04 09:30] LABS: CREATINE KINASE 36 U/L (30-200)
--- NOTE | 2021-09-04 09:32 | Diagnostic Imaging Report ---
EXAMINATION: Portable erect AP chest at 9:17 AM INDICATION: Chest pain COMPARISON: 12/06/15. FINDINGS: The heart size is stable when compared to the prior exam. The lungs are clear. There is no evidence for failure, pneumonia or for a pleural effusion. The mediastinum is not widened. The osseous structures are intact. IMPRESSION: There is no evidence for active disease. Dictated by: Dictated on workstation # [id number]
--- NOTE | 2021-09-04 11:11 | History & Physical-Hospitalist ---
History of Present Illness HPI/Chief Complaint Pt is an 85yoCM with a PMH of GERD who presented to the ER due to chest pain. He reports that he has been having intermittent chest pain for the past year. 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 Over the past year he has only been able to carry a half bucket of feed. He has had to limit due to chest pain. He reports that normally resolves with rest but this morning he woke up and was walking through his house and developed chest pain that did not resolve. He denies any radiation of pain though daughter who is at bedside states that he called her and said he was short of breath and had numbness radiating down his arm into his jaw. This is the worst his pain has been prompting him to seek evaluation in the emergency department. Source: patient Date Seen 09/04/21 Time Seen by a Provider: 11:04 Attending Physician Reema Diallo MD Referring Physician Date of Admission Home Medications & Allergies Home Medications Reviewed patient Home Medication Reconciliation performed by pharmacy medication reconciliations brain wave technician and/or nursing. Patients Allergies have been reviewed. Allergies Allergies Coded Allergies No Known Drug Allergies (Unverified12/06/15) Past Ajkmnxl-Gaguef-Grrbtc Hx Patient Social History Employed/Student: retired Tobacco Use?: No Smoking Status: Former Smoker Substance use?: No Alcohol Use?: No Pt feels they are or have been: No Immunizations Up To Date First/Initial COVID19 Vaccinat: JULY 2021 Tetanus Booster (TDap): Unknown PED Vaccines UTD: No Seasonal Allergies Seasonal Allergies: No Current Status Advance Directives: No Primary Language: South Korean Preferred Spoken Language: South Korean Past Medical History Surgeries: Abdominal, Appendectomy, Gallbladder, Orthopedic, Tonsillectomy Gastroesophageal Reflux, Gall Bladder Disease Macular Degeneration Hearing Impairment: Hard of Hearing, Hearing Aide Right, Hearing Aide Left Blood Disorders: No Family Medical History Reviewed Nursing Family Hx Cardiovascular disease 19 FATHER Dementia G8 SISTER Neoplasm 19 MOTHER (lymphoma) G8 SISTER (lymphoma) Cancer, Hypertension Review of Systems Constitutional: No chills, No fever EENTM: no symptoms reported Respiratory: No cough; dyspnea on exertion Cardiovascular: chest pain, edema (1 year ago, resolved when he quit drinking coffee); No Hx of Intervention, No palpitations, No syncope Gastrointestinal: No abdominal pain, No nausea, No vomiting Genitourinary: no symptoms reported Musculoskeletal: no symptoms reported Skin: no symptoms reported Psychiatric/Neurological: No Symptoms Reported Physical Exam Physical Exam Vital Signs Vital Signs - First Documented 09/04/21 08:50 Temp 36.3 Pulse 56 Resp 18 B/P (MAP) 137/87 (104) Pulse Ox 97 Capillary Refill : Less Than 3 Seconds Height, Weight, BMI Height: 6'1.00" Weight: 172lbs. 10.0oz. 78.183352pi; 23.00 BMI Method:Stated General Appearance: No Apparent Distress, WD/WN, Thin HEENT: PERRL/EOMI; No Scleral Icterus (L), No Scleral Icterus (R); Other (mask in place, obscuring oral exam) Neck: Normal Inspection, Supple Respiratory: Lungs Clear, No Accessory Muscle Use Cardiovascular: Regular Rate, Rhythm, No Murmur Gastrointestinal: Normal Bowel Sounds, Non Tender, Soft Extremity: Normal Capillary Refill, No Calf Tenderness, No Pedal Edema Neurologic/Psychiatric: Alert, Oriented x3, Normal Mood/Affect Skin: Normal Color, Warm/Dry Results Results/Procedures Labs Laboratory Tests 09/04/21 09:01 Patient resulted labs reviewed. Imaging: Reviewed Imaging Report Imaging [facility], [place] NAME: OLAYINKA ORTEGA [facility] REC#: [id number] PT STATUS: REG ER : 1935 PHYSICIAN: SHAYY HUBER MD ADMIT DATE: 09/04/21/ER Draft Date of Exam:09/04/21 CHEST 1 VIEW, AP/PA ONLY EXAMINATION: Portable erect AP chest at 9:17 AM INDICATION: Chest pain COMPARISON: 12/06/15. FINDINGS: The heart size is stable when compared to the prior exam. The lungs are clear. There is no evidence for failure, pneumonia or for a pleural effusion. The mediastinum is not widened. The osseous structures are intact. IMPRESSION: There is no evidence for active disease. Dictated on workstation # [id number] Dict: 09/04/2127 Trans: 09/04/21 0931 [facility] [id number] Interpreted by: NIKOLAS VICENTE MD Electronically signed by: Assessment/Plan Admission Diagnosis Chest pain Admission Status: Observation Reason for Inpatient Admission: see below Assessment and Plan Chest pain Concerning for angina based on symptoms EKG and troponin negative- trend Admit to observation for cardiac work up Telemetry Received ASA already, continue Cardiology consulted, appreciate recs Nitro prn chest pain DVT ppx; Lovenox Diagnosis/Problems Diagnosis/Problems (1) Chest pain Qualifiers: Chest pain type: unspecified Qualified Codes: R07.9 - Chest pain, unspecified Clinical Quality Measures AMI/AHF: ASA po Prior to arrival: FAITH Sandoval MD Sep 04, 2021 11:11
--- NOTE | 2021-09-04 11:42 | Consultation-Cardiology ---
HPI-Cardiology Cardiology Consultation: Date of Consultation 09/04/21 Time Seen by a Provider: 11:45 Date of Admission 09-04-21 Attending Physician Kelsie Murdock MD Admitting Physician Reema Neumann MD Consulting Physician Karine Lara MD HPI: Chief Complaint: Chest pain Mr. Jalloh is an 85 yr old male who is being admitted to ICU 6 from the ED with c/o CP. He reports he has had episodes of chest pain starting nearly a year ago. 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 He states he then began to have chest pain which would radiate across his chest and into his left arm causing numbness. No other associated symptoms. He states the discomfort would resolve after a few minutes of rest. He states he then reduced the amount in his feed buckets to half a bucket full. He reports this helped for awhile, but then he began to developed chest pressure once again. He reports he has it with any strenuous exertion or heavy lifting. He reports this morning he got up from bed and the chest pain started while walking across the floor. He states it radiated into his left arm with associated numbness. He states he rested, but the symptoms persisted longer than usual so he called his daughter. He denies any c/o SOB, palpitations, syncope, near syncope. He reports no recent leg swelling. No c/o n/v/d. No c/o fever or chills. He is currently pain free. Review of Systems-Cardiology Review of Systems Constitutional: No chills, No fever, No lightheadedness, No malaise Eyes: No vision change Ears/Nose/Throat: chronic hearing loss; No epistaxis, No recent hearing loss Respiratory: As described under HPI Cardiovascular: As described under HPI Gastrointestinal: constipation (occassional); No diarrhea, No nausea, No vomiting Genitourinary: No burning, No dysuria, No hematuria Musculoskeletal: joint pain (right knee) Skin: No rash on exposed areas, No ulcerations on exposed areas Psychiatric/Neurological: No anxiety, No depression, No seizure, No focal weakness, No syncope Hematologic: No bleeding abnormalities All Other Systems Reviewed Negative Unless Noted: Yes MIB-Siojzf-Kmwkzf Hx Patient Social History Employed/Student: retired Smoking Status: Former Smoker 2nd Hand Smoke Exposure: No Have you traveled recently?: No Alcohol Use?: No Pt feels they are or have been: No Past Medical History PMH As described under Assessment. Family Medical History Family Medical History: Reported family h/o father having carotid dz with stroke. He reports his brother had CAD. He reports his mother had lymphoma. Family History: 19 FATHER Cardiovascular disease 19 MOTHER Neoplasm (lymphoma) G8 SISTER Neoplasm (lymphoma) G8 SISTER Dementia Allergies and Home Medications Allergies Coded Allergies: No Known Drug Allergies (Unverified , 12/06/15) Patient Home Medication List Multivitamin (Daily Lynne) 1 Each Tablet, 1 EACH PO DAILY, (Reported) Entered as Reported by: EDUARD MCKEON on 01/19/18 1510 Omeprazole (Omeprazole) 20 Mg Capsule.dr, 20 MG PO DAILY, (Reported) Entered as Reported by: TANIA KULKARNI on 01/19/18 1621 Physical Exam-Cardiology Physical Exam Vital Signs/I&O 09/04/21 09/04/21 09/04/21 09/04/21 20:03 20:30 21:00 22:00 Pulse 56 58 61 Resp 19 21 B/P (MAP) 131/76 117/95 136/73 Pulse Ox 97 96 96 95 O2 Delivery Room Air Room Air Room Air Room Air 09/04/21 09/05/21 09/05/21 09/05/21 23:09 00:11 01:00 03:34 Pulse 68 60 Resp 20 B/P (MAP) 125/75 Pulse Ox 97 95 95 O2 Delivery Room Air Room Air Room Air 09/05/21 09/05/21 03:53 07:24 Pulse 75 Resp 20 B/P (MAP) 118/59 Pulse Ox 97 95 O2 Delivery Room Air Room Air 09/05/21 00:00 Intake Total 1100 ml Output Total 300 ml Balance 800 ml Capillary Refill : Less Than 3 Seconds Constitutional: AAO x 3, well-developed, well-nourished HEENT: PERRL, hard of hearing, oral hygience is good Neck: No carotid bruit; carotid pulses are 2 + bilaterally Respiratory: No accessory muscle use, No respiratory distress; chest expansion is symmetric, chest is bilaterally symmetric, lungs clear to auscultation Cardiovascular: regular rate-rhythm; No JVD; S1 and S2, systolic murmur Gastrointestinal: No tender; soft, round, audible bowel sounds Extremities: no lower extremity edema bilateral Neurologic/Psychiatric: grossly intact (moves all extremities) Skin: No rash on exposed areas, No ulcerations on exposed areas Data Review Labs Laboratory Tests 09/04/21 09:01: White Blood Count 8.3, Red Blood Count 4.72, Hemoglobin 14.8, Hematocrit 44, Mean Corpuscular Volume 93, Mean Corpuscular Hemoglobin 31, Mean Corpuscular Hemoglobin Concent 34, Red Cell Distribution Width 11.9, Platelet Count 214, Mean Platelet Volume 9.4, Immature Granulocyte % (Auto) 1, Neutrophils (%) (Auto) 52, Lymphocytes (%) (Auto) 32, Monocytes (%) (Auto) 13H, Eosinophils (%) (Auto) 2, Basophils (%) (Auto) 1, Neutrophils # (Auto) 4.4, Lymphocytes # (Auto) 2.7, Monocytes # (Auto) 1.0, Eosinophils # (Auto) 0.2, Basophils # (Auto) 0.0, Immature Granulocyte # (Auto) 0.1, Prothrombin Time 13.7, INR Comment 1.0, Activated Partial Thromboplast Time 28, Sodium Level 140, Potassium Level 4.4, Chloride Level 107, Carbon Dioxide Level 22, Anion Gap 11, Blood Urea Nitrogen 24H, Creatinine 0.90, Estimat Glomerular Filtration Rate 80, BUN/Creatinine Ratio 27, Glucose Level 86, Calcium Level 8.9, Total Creatine Kinase 36, Troponin I < 0.028 09/05/21 04:40: White Blood Count 9.4, Red Blood Count 4.42, Hemoglobin 14.0, Hematocrit 41, Mean Corpuscular Volume 93, Mean Corpuscular Hemoglobin 32, Mean Corpuscular Hemoglobin Concent 34, Red Cell Distribution Width 12.0, Platelet Count 174, Mean Platelet Volume 9.8, Immature Granulocyte % (Auto) 0, Neutrophils (%) (Auto) 75, Lymphocytes (%) (Auto) 14, Monocytes (%) (Auto) 9, Eosinophils (%) (Auto) 1, Basophils (%) (Auto) 0, Neutrophils # (Auto) 7.1, Lymphocytes # (Auto) 1.4, Monocytes # (Auto) 0.9, Eosinophils # (Auto) 0.1, Basophils # (Auto) 0.0, Immature Granulocyte # (Auto) 0.0, Sodium Level 134L, Potassium Level 4.3, Chloride Level 104, Carbon Dioxide Level 19L, Anion Gap 11, Blood Urea Nitrogen 17, Creatinine 0.77, Estimat Glomerular Filtration Rate 96, BUN/Creatinine Ratio 22, Glucose Level 104, Calcium Level 8.2L, Triglycerides Level 96, Cholesterol Level 127, LDL Cholesterol Direct 86, VLDL Cholesterol 19, HDL Cholesterol 42 Radiology NAME: OLAYINKA JALLOH MED REC#: [id number] PT STATUS: REG ER : 1935 PHYSICIAN: SHAYY HUBER MD ADMIT DATE: 09/04/21/ER Draft Date of Exam:09/04/21 CHEST 1 VIEW, AP/PA ONLY EXAMINATION: Portable erect AP chest at 9:17 AM INDICATION: Chest pain COMPARISON: 12/06/15. FINDINGS: The heart size is stable when compared to the prior exam. The lungs are clear. There is no evidence for failure, pneumonia or for a pleural effusion. The mediastinum is not widened. The osseous structures are intact. IMPRESSION: There is no evidence for active disease. Dictated on workstation # [id number] Dict: 09/04/21926 Trans: 09/04/21930 [facility] [id number] Interpreted by: NIKOLAS VICENTE MD Electronically signed by: ECG Impression ECG Initial ECG Rhythm: Normal Sinus A/P-Cardiology Assessment/Admission Diagnosis Progressive angina GERD Chronic QAWALANGIN Macular degneration Chronic right knee pain H/O cholecystectomy and umbilical hernia repair Family h/o CAD - father and brother Discussion and Recomendations Chest pain of undetermined etiology - symptoms suggestive of angina Symptoms suggestive of progressive angina. We advise cardiac cath. We have d iscussed the procedure, risks, benefits and potential complications of cardiac cath with possible ad hoc coronary intervention. He provides informed consent. Echocardiogram to eval structure and function ASA Not suitable candidate for BB d/t bradycardia Monitor lab closely Replace electrolytes as indicated We would like to thank medical services for this consult Further recs will be based on his hospital course Clinical Quality Measures AMI/AHF: ASA po Prior to arrival: ABHI Norman [facility] Sep 04, 2021 11:42
[2021-09-04] MEDS ORDERED: ONDANSETRON 4 MG/2 ML (SDV) Z0FRAN IVP PRN (11:45)
[2021-09-04] MEDS ORDERED: NITROGLYCERIN 0.4 MG SL TABS BTL 25'S SL PRN (11:45)
[2021-09-04] MEDS ORDERED: morphine INJ 4 MG/ML 1 ML (VIAL/SYRINGE) IV PRN (11:45)
[2021-09-04] MEDS ORDERED: PATIENT MAY USE OWN MEDS, ALL PO SCH ×2 (11:45→15:15)
[2021-09-04 11:56] VITALS: BP 135/78
[2021-09-04 12:00] VITALS: BP 151/77
[2021-09-04] MEDS ORDERED: LIDOCAINE 1% INJ 20 ML 20 ML VIAL ONE (13:26)
[2021-09-04] MEDS ORDERED: HEParin (CATH LAB) 2,000 ML IV ONE (13:26)
[2021-09-04] MEDS ORDERED: fentaNYL INJ 100 MCG/2 ML AMP ONE (13:32)
[2021-09-04] MEDS ORDERED: MIDAZOLAM 5 MG/5 ML (VERSED) VIAL ONE (13:32)
--- NOTE | 2021-09-04 13:41 | Consultation-Cardiology ---
HPI-Cardiology Cardiology Consultation: Date of Consultation 09/04/21 Time Seen by a Provider: 13:20 Date of Admission Attending Physician Kelsie Murdock MD Admitting Physician Reema Neumann MD Consulting Physician GALILEO GIBSON MD, MA, FACP, FACC, [facility], CCDS HPI: Chief Complaint: Chest pain Mr. Jalloh is an 85 yr old male who is being admitted to ICU 6 from the ED with c/o CP. He reports he has had episodes of chest pain starting nearly a year ago. 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 He states he then began to have chest pain which would radiate across his chest and into his left arm causing numbness. No other associated symptoms. He states the discomfort would resolve after a few minutes of rest. He states he then reduced the amount in his feed buckets to half a bucket full. He reports this helped for awhile, but then he began to developed chest pressure once again. He reports he has it with any strenuous exertion or heavy lifting. He reports this morning he got up from bed and the chest pain started while walking across the floor. He states it radiated into his left arm with associated numbness. He states he rested, but the symptoms persisted longer than usual so he called his daughter. He denies any c/o SOB, palpitations, syncope, near syncope. He reports no recent leg swelling. No c/o n/v/d. No c/o fever or chills. He is currently pain free. Review of Systems-Cardiology Review of Systems Constitutional: No chills, No fever, No lightheadedness, No malaise Eyes: No vision change Ears/Nose/Throat: chronic hearing loss; No epistaxis, No recent hearing loss Respiratory: As described under HPI Cardiovascular: As described under HPI Gastrointestinal: constipation (occassional); No diarrhea, No nausea, No vomiting Genitourinary: No burning, No dysuria, No hematuria Musculoskeletal: joint pain (right knee) Skin: No rash on exposed areas, No ulcerations on exposed areas Psychiatric/Neurological: No anxiety, No depression, No seizure, No focal weakness, No syncope Hematologic: No bleeding abnormalities All Other Systems Reviewed Negative Unless Noted: Yes [id number] Hx Patient Social History Employed/Student: retired Smoking Status: Former Smoker 2nd Hand Smoke Exposure: No Have you traveled recently?: No Alcohol Use?: No Pt feels they are or have been: No Past Medical History PMH As described under Assessment. Family Medical History Family Medical History: Reported family h/o father having carotid dz with stroke. He reports his brother had CAD. He reports his mother had lymphoma. Family History: Cardiovascular disease 19 FATHER Dementia G8 SISTER Neoplasm 19 MOTHER (lymphoma) G8 SISTER (lymphoma) Allergies and Home Medications Allergies Coded Allergies: No Known Drug Allergies (Unverified , 12/06/15) Patient Home Medication List Home Medication List Reviewed: Yes Multivitamin (Daily Ylnne) 1 Each Tablet, 1 EACH PO DAILY, (Reported) Entered as Reported by: EDUARD MCKEON on 01/19/18 1510 Omeprazole (Omeprazole) 20 Mg Capsule.dr, 20 MG PO DAILY, (Reported) Entered as Reported by: TANIA KULKARNI on 01/19/18 1621 Physical Exam-Cardiology Physical Exam Vital Signs/I&O 09/04/21 09/04/21 09/04/21 09/04/21 08:50 11:37 11:55 11:56 Temp 36.3 36.8 Pulse 56 54 53 56 Resp 18 16 18 B/P (MAP) 137/87 (104) 135/83 135/78 (97) Pulse Ox 97 97 99 O2 Delivery Room Air 09/04/21 09/04/21 09/04/21 12:00 12:13 12:47 Pulse 61 56 Resp 15 B/P (MAP) 151/77 (101) Pulse Ox 99 95 O2 Delivery Room Air Room Air Capillary Refill : Less Than 3 Seconds Constitutional: AAO x 3, well-developed, well-nourished HEENT: PERRL, hard of hearing, oral hygience is good Neck: No carotid bruit; carotid pulses are 2 + bilaterally Respiratory: No accessory muscle use, No respiratory distress; chest expansion is symmetric, chest is bilaterally symmetric, lungs clear to auscultation Cardiovascular: regular rate-rhythm; No JVD; S1 and S2, systolic murmur Gastrointestinal: No tender; soft, round, audible bowel sounds Extremities: no lower extremity edema bilateral Neurologic/Psychiatric: grossly intact (moves all extremities) Skin: No rash on exposed areas, No ulcerations on exposed areas Data Review Labs Laboratory Tests 09/04/21 09:01: White Blood Count 8.3, Red Blood Count 4.72, Hemoglobin 14.8, Hematocrit 44, Mean Corpuscular Volume 93, Mean Corpuscular Hemoglobin 31, Mean Corpuscular Hemoglobin Concent 34, Red Cell Distribution Width 11.9, Platelet Count 214, Mean Platelet Volume 9.4, Immature Granulocyte % (Auto) 1, Neutrophils (%) (Auto) 52, Lymphocytes (%) (Auto) 32, Monocytes (%) (Auto) 13H, Eosinophils (%) (Auto) 2, Basophils (%) (Auto) 1, Neutrophils # (Auto) 4.4, Lymphocytes # (Auto) 2.7, Monocytes # (Auto) 1.0, Eosinophils # (Auto) 0.2, Basophils # (Auto) 0.0, Immature Granulocyte # (Auto) 0.1, Prothrombin Time 13.7, INR Comment 1.0, Activated Partial Thromboplast Time 28, Sodium Level 140, Potassium Level 4.4, Chloride Level 107, Carbon Dioxide Level 22, Anion Gap 11, Blood Urea Nitrogen 24H, Creatinine 0.90, Estimat Glomerular Filtration Rate 80, BUN/Creatinine Ratio 27, Glucose Level 86, Calcium Level 8.9, Total Creatine Kinase 36, Troponin I < 0.028 A/P-Cardiology Assessment/Admission Diagnosis Unstable angina GERD Chronic [place] Macular degneration Chronic right knee pain H/O cholecystectomy and umbilical hernia repair Family h/o CAD - father and brother Discussion and Recomendations Chest pain of undetermined etiology - symptoms suggestive of angina Symptoms suggestive of progressive angina. We advise cardiac cath. We have discussed the procedure, risks, benefits and potential complications of cardiac cath with possible ad hoc coronary intervention. He provides informed consent. Echocardiogram to eval structure and function ASA Not suitable candidate for BB d/t bradycardia Monitor lab closely Replace electrolytes as indicated We would like to thank Medical services for this consult Further recs will be based on his hospital course Clinical Quality Measures AMI/AHF: ASA po Prior to arrival: GALILEO Del Valle MD FACP [facility] CCDS Sep 04, 2021 13:41
[2021-09-04] MEDS ORDERED: NS IV 1000 ML 1,000 ML ONE (13:50)
[2021-09-04] MEDS: NS IV 1000 ML 1,000 ML IV SCH ×4 (14:00→23:50)
[2021-09-04] MEDS ORDERED: EPTIFIBATIDE BOLUS 20 ML IV ONE (14:27)
[2021-09-04] MEDS ORDERED: HEParin 1000 UNIT/ML (10ML VIAL) FOR BOLUS ONE (14:27)
[2021-09-04] MEDS ORDERED: CLOPIDOGREL 300 MG (PLAVIX) TABLET PO ONE (15:04)
--- NOTE | 2021-09-04 15:19 | Cardiac Procedure Note-CS/ASA ---
Pre-Procedure Note Pre-Op Procedure Note H&P Reviewed The H&P was reviewed, patient examined and no changes noted. Date H&P Reviewed: Sep 04, 2021 Time H&P Reviewed: 14:00 Conscious Sedation Pre-Proced Time 14:00 ASA Score 3 For ASA 3 and 4: Consider anesthesia and medical clearance. Also, for patients with a history of failed moderate sedation consider anesthesia. Airway Lungs Heart ASA score ASA 1: a normal healthy patient ASA 2: a patient with a mild systemic disease (mid diabetes, controlled hypertension, obesity ASA 3: a patient with a severe systemic disease that limits activity (angina, COPD, prior Myocardial infarction) ASA 4: a patient with an incapacitating disease that is a constant threat to life (CHF, renal failure) ASA 5: a moribund patient not expected to survive 24 hrs. (ruptured aneurysm) ASA 6: a declared brain- patient whose organs are being harvested. For emergent operations, add the letter E after the classification Mallampati Classification Grade 2 Sedation Plan Analgesia, Amnesia, Plan communicated to team members, Discussed options with patient/fam, Discussed risks with patient/fam The patient is an appropriate candidate to undergo the planned procedure, sedation, and anesthesia. The patient immediately re-assessed prior to indication. GALILEO GIBSON MD FACP FAC CCDS Sep 04, 2021 15:19
[2021-09-04 15:30] VITALS: BP 166/77
[2021-09-04] MEDS ORDERED: amLODIPine 5 MG (NORVASC) TAB PO NR (15:45)
[2021-09-04] MEDS ORDERED: ATROPINE INJECTION 1 MG/10 ML SYR (ABBOTT) ONE (17:39)
--- NOTE | 2021-09-04 22:47 | CARDIAC CATHETERIZATION ---
DATE OF SERVICE: 09/04/2021 CARDIAC CATHETERIZATION AND CORONARY INTERVENTION REPORT The patient is an 85-year-old man who was admitted with unstable angina. Cardiac catheterization was carried out after having obtained informed consent for cardiac catheterization and possible ad hoc coronary intervention. DESCRIPTION OF PROCEDURE: He was brought to the cardiac catheterization laboratory. Right groin was prepared and draped in the usual sterile fashion. Lidocaine 1% was used for local anesthesia. Modified Seldinger technique was used to advance a 5-Bolivian sheath into the right femoral artery. A 5-Bolivian JL4 catheter was not resulting in good engagement. Torquing the catheter was difficult because of considerable tortuosity of the aortoiliac system. We exchanged the sheath over a long wire for a 6-Bolivian 45 cm sheath. We were then able to obtain angiography of the left coronary system with a 6-Bolivian JL3.5 catheter. This did not result in selective engagement, but provided good views of the left coronary system. We removed this catheter and then used a 5-Bolivian JR4 catheter to engage the right coronary artery. This was removed. We then used a 5-Bolivian pigtail catheter for left heart catheterization and left ventricular angiography. Subsequently, percutaneous intervention was carried out in the left anterior descending artery and it is described below. PERCUTANEOUS INTERVENTION TO THE LEFT ANTERIOR DESCENDING: We used a 6-Bolivian 3.75 EBU guide catheter to engage the left coronary system. We used a ChoICE extra support wire to cross the lesions in the mid and distal left anterior descending. We carried out balloon angioplasty of a 99% mid vessel stenosis with Trek 2.0 x 15 mm balloon. We also carried out balloon angioplasty of a distal 90% stenosis with the same balloon. The balloon was then removed and we then stented the distal lesion with star point 2.25 x 18 mm stent. This was deployed at 12 atmospheres. We stented the mid vessel lesion with star point 2.75 x 18 mm stent that was deployed at 19 atmospheres achieving a final stent lumen size of 3 mm diameter. Subsequent angiography revealed no significant residual stenosis at the sites of stent deployment. There is no stent overlap. There is a considerable segment of the left anterior descending between the distal part of the mid vessel stent and proximal part of the distal vessel stent. The very distal left anterior descending artery has approximately 50% stenosis that was not intervened on. At the end of the procedure, following removal of the angioplasty equipment, we exchanged the long sheath for a short 6-Bolivian sheath and sutured it in place to be removed on the floor. He tolerated the procedure well. HEMODYNAMICS: Left ventricular end-diastolic pressure following coronary angiography was 13 mmHg. There is no significant pressure gradient on pullback across the aortic valve. Ascending aortic pressure was 130/67 with a mean of 95 mmHg. CORONARY ANGIOGRAPHY: Diffuse coronary calcification is present and it involved all coronary vessels. Left main coronary artery does not exhibit significant obstructive disease. Left anterior descending artery had 99% mid vessel stenosis that was successfully stented with Starpoint 2.75 x 18 mm stent. The distal left anterior descending artery had 90% stenosis that was successfully stented with Starpoint 2.25 x 18 mm stent. The very distal left anterior descending artery has approximately 50% stenosis. The left circumflex and the right coronary arteries have diffuse mild to moderate plaque, but no significant focally obstructive coronary artery disease. LEFT VENTRICULAR ANGIOGRAPHY: Left ventricular angiography was carried out in the right anterior oblique projection. Global left ventricular systolic function is well preserved. Left ventricular ejection fraction is approximately 60%. CONCLUSIONS: 1. Coronary artery disease primarily consisting of 99% midvessel and 90% distal vessel stenosis in the left anterior descending. These were successfully stented with Starpoint 2.75 x 18 mm stent for the mid vessel and Starpoint 2.25 x 18 mm stent for the distal vessel. The rest of the coronary systems have diffuse moderate disease. 2. Left ventricular end-diastolic pressure 13 mmHg. 3. Well preserved global left ventricular systolic function with ejection fraction approximately 60%. DISCUSSION AND RECOMMENDATIONS: Dual antiplatelet therapy has been initiated and being continued. Statin therapy will be provided. Beta-neetu therapy will be provided if tolerated. He remains hospitalized for observation at this time. Job ID: [id number] DocumentID: [id number] Dictated Date: 09/04/2021 15:14:44 Commissions Analyst Date: 09/04/2021 22:01:39 Dictated By: GALILEO GIBSON MD, MA, FACP, FACC, MTDD
[2021-09-05 05:53] LABS: POTASSIUM 4.3 MMOL/L (3.6-5.0)
[2021-09-05 05:55] LABS: CALCIUM 8.2 MG/DL (8.5-10.1)
[2021-09-05 05:59] LABS: CREATININE SERUM 0.77 MG/DL (0.60-1.30)
[2021-09-05 07:05] LABS: BASOPHILS % (AUTO) 0 % (0-10); EOSINOPHILS # (AUTO) 0.1 10^3/uL (0.0-0.3); EOSINOPHILS % (AUTO) 1 % (0-10); HEMATOCRIT 41 % (40-54); LYMPHOCYTES # (AUTO) 1.4 10^3/uL (1.0-4.0); LYMPHOCYTES % (AUTO) 14 % (12-44); MEAN CORPUSCULAR HEMOGLOBIN 32 pg (25-34); MEAN CORPUSCULAR HGB CONC 34 g/dL (32-36); MEAN CORPUSCULAR VOLUME 93 fL (80-99); MEAN PLATELET VOLUME 9.8 fL (9.0-12.2); MONOCYTES # (AUTO) 0.9 10^3/uL (0.0-1.0); MONOCYTES % (AUTO) 9 % (0-12); NEUTROPHILS # (AUTO) 7.1 10^3/uL (1.8-7.8); NEUTROPHILS % (AUTO) 75 % (42-75); PLATELET COUNT 174 10^3/uL (130-400); WHITE BLOOD COUNT 9.4 10^3/uL (4.3-11.0)
[2021-09-05] MEDS ORDERED: ACETAMINOPHEN 325 MG TABLET PO PRN (07:45)
[2021-09-05] MEDS ORDERED: ATOR40TA PO (08:10)
[2021-09-05] MEDS ORDERED: AMLO-250 PO (08:10)
[2021-09-05] MEDS ORDERED: CLOP75TA28 PO (08:10)
[2021-09-05] MEDS ORDERED: ASPI81TA64 PO (08:10)
--- NOTE | 2021-09-05 08:54 | Discharge Inst-Simple/Standard ---
Discharge Inst-Standard Discharge Medications New, Converted or Re-Newed RX: Transmitted to Pharmacy Patient Instructions/Follow Up Plan of Care/Instructions/FU: Please continue to take your medications as written. Please follow up with your primary care doctor to follow up this hospital stay. Activity as Tolerated: Yes Discharge Diet: Cardiac Diet Return to The Hospital For: Chest pain, shortness of breath, abdominal pain, weakness, if you feel you are getting worse. FAITH EASTON MD Sep 05, 2021 08:53
[2021-09-05] MEDS ORDERED: ASPIRIN E.C. 81 MG (ECOTRIN) TAB PO SCH (09:00)
[2021-09-05] MEDS ORDERED: ASPIRIN 81 MG CHEW (CHILDREN'S ASA) PO SCH (09:00)
[2021-09-05] MEDS ORDERED: amLODIPine 5 MG (NORVASC) TAB PO SCH (09:00)
[2021-09-05] MEDS ORDERED: CLOPIDOGREL 75 MG (PLAVIX) TABLET PO SCH (09:00)
--- NOTE | 2021-09-05 09:00 | Progress Note - Cardiology ---
Cardiology SOAP Progress Note Subjective: Sitting up in the recliner at the bedside Family x2 at the bedside No c/o CP or SOB Objective: I&O/Vital Signs 09/04/21 09/04/21 09/04/21 09/05/21 21:00 22:00 23:09 00:11 Pulse 58 61 68 Resp 19 21 20 B/P (MAP) 117/95 136/73 125/75 Pulse Ox 96 95 97 95 O2 Delivery Room Air Room Air Room Air Room Air 09/05/21 09/05/21 09/05/21 09/05/21 01:00 03:34 03:53 07:24 Pulse 60 75 Resp 20 B/P (MAP) 118/59 Pulse Ox 95 97 95 O2 Delivery Room Air Room Air Room Air 09/05/21 07:49 Temp 36.3 09/05/21 00:00 Intake Total 1100 ml Output Total 300 ml Balance 800 ml Weight (Pounds): 172 Weight (Ounces): 10.0 Weight (Calculated Kilograms): [id number] Side: right Groin site without hematoma: Yes Condition: DP/PT pulses palpable, extremity w/d/p Bruising: mild bruising Constitutional: AAO x 3, well-developed, well-nourished Respiratory: No accessory muscle use, No respiratory distress; chest expansion is symmetric, chest is bilaterally symmetric, lungs clear to auscultation Cardiovascular: regular rate-rhythm; No JVD; S1 and S2, systolic murmur Gastrointestional: No tender; soft, round, audible bowel sounds Extremities: no lower extremity edema bilateral Neurologic/Psychiatric: grossly intact (moves all extremities) Skin: No rash on exposed areas, No ulcerations on exposed areas Results/Procedures: Labs Laboratory Tests 09/04/21 09:01: White Blood Count 8.3, Red Blood Count 4.72, Hemoglobin 14.8, Hematocrit 44, Mean Corpuscular Volume 93, Mean Corpuscular Hemoglobin 31, Mean Corpuscular Hemoglobin Concent 34, Red Cell Distribution Width 11.9, Platelet Count 214, Mean Platelet Volume 9.4, Immature Granulocyte % (Auto) 1, Neutrophils (%) (Auto) 52, Lymphocytes (%) (Auto) 32, Monocytes (%) (Auto) 13H, Eosinophils (%) (Auto) 2, Basophils (%) (Auto) 1, Neutrophils # (Auto) 4.4, Lymphocytes # (Auto) 2.7, Monocytes # (Auto) 1.0, Eosinophils # (Auto) 0.2, Basophils # (Auto) 0.0, Immature Granulocyte # (Auto) 0.1, Prothrombin Time 13.7, INR Comment 1.0, Activated Partial Thromboplast Time 28, Sodium Level 140, Potassium Level 4.4, Chloride Level 107, Carbon Dioxide Level 22, Anion Gap 11, Blood Urea Nitrogen 24H, Creatinine 0.90, Estimat Glomerular Filtration Rate 80, BUN/Creatinine Ratio 27, Glucose Level 86, Calcium Level 8.9, Total Creatine Kinase 36, Troponin I < 0.028 09/05/21 04:40: White Blood Count 9.4, Red Blood Count 4.42, Hemoglobin 14.0, Hematocrit 41, Mean Corpuscular Volume 93, Mean Corpuscular Hemoglobin 32, Mean Corpuscular Hemoglobin Concent 34, Red Cell Distribution Width 12.0, Platelet Count 174, Mean Platelet Volume 9.8, Immature Granulocyte % (Auto) 0, Neutrophils (%) (Auto) 75, Lymphocytes (%) (Auto) 14, Monocytes (%) (Auto) 9, Eosinophils (%) (Auto) 1, Basophils (%) (Auto) 0, Neutrophils # (Auto) 7.1, Lymphocytes # (Auto) 1.4, Monocytes # (Auto) 0.9, Eosinophils # (Auto) 0.1, Basophils # (Auto) 0.0, Immature Granulocyte # (Auto) 0.0, Sodium Level 134L, Potassium Level 4.3, Chloride Level 104, Carbon Dioxide Level 19L, Anion Gap 11, Blood Urea Nitrogen 17, Creatinine 0.77, Estimat Glomerular Filtration Rate 96, BUN/Creatinine Ratio 22, Glucose Level 104, Calcium Level 8.2L, Triglycerides Level 96, Cholesterol L evel 127, LDL Cholesterol Direct 86, VLDL Cholesterol 19, HDL Cholesterol 42 Laboratory Tests 09/04/21 09:01 09/05/21 04:40 A/P: Assessment: CAD - Cardiac cath of 09-04-21: Coronary artery disease primarily consisting of 99% midvessel and 90% distal vessel stenosis in the left anterior descending. These were successfully stented with star point 2.75 x 18 mm stent for the mid vessel and star point 2.25 x 18 mm stent for the distal vessel. The rest of the coronary systems have diffuse moderate disease. Left ventricular end-diastolic pressure 13 mmHg. Well preserved global left ventricular systolic function with ejection fraction approximately 60%. Unstable angina - resolved GERD Chronic [place] Macular degneration Chronic right knee pain H/O cholecystectomy and umbilical hernia repair Family h/o CAD - father and brother Plan: S/P cardiac cath with successful coronary intervention on 09-04-21 Ambulate in halls this morning Continue DAPT and statin Start low dose BB Stop amlodipine to allow BP room for BB Out pt f/u in a week Clinical Quality Measures AMI/AHF: ASA po Prior to arrival: ABHI Norman Sep 05, 2021 09:00
--- NOTE | 2021-09-05 09:00 | Discharge Summary ---
Diagnosis/Chief Complaint Date of Admission Sep 04, 2021 at 10:58 Date of Discharge Discharge Date: Sep 05, 2021 Admission Diagnosis Chest pain Primary Care Reema Thurston MD Discharge Diagnosis (1) Chest pain Discharge Summary Discharge Physical Exam Allergies: Coded Allergies: No Known Drug Allergies (Unverified , 12/06/15) Vitals & I&Os Vital Signs Date Time Temp Pulse Resp B/P (MAP) Pulse Ox O2 Delivery O2 Flow Rate FiO2 09/05/21 07:49 36.3 09/05/21 07:24 95 Room Air 09/05/21 03:53 75 20 118/59 General Appearance: No Apparent Distress, WD/WN Respiratory: Lungs Clear, No Respiratory Distress Cardiovascular: Regular Rate, Rhythm, No Murmur Neurologic/Psychiatric: Alert, Oriented x3 Hospital Course Patient is an 85-year-old male with past medical history of GERD who presented to the emergency department due to exertional chest pain. Symptoms were concerning for unstable angina and he was taken to the [facility] which revealed a 99% stenosis of the mid LAD and 90% distal stenosis. He underwent stent deployment and did very well. Echo revealed an EF of 60% with no valvular abnormalities. He was started on dual antiplatelet therapy and high intensity statin therapy. He was unable to tolerate beta-blockers due to bradycardia. He was discharged in stable improved condition to follow-up with his primary care doctor, Dr. Thurston. I did call and update Dr. Thurston regarding this hospital stay. Labs (last 24 hrs) Laboratory Tests 09/04/21 09:01: White Blood Count 8.3, Red Blood Count 4.72, Hemoglobin 14.8, Hematocrit 44, Mean Corpuscular Volume 93, Mean Corpuscular Hemoglobin 31, Mean Corpuscular Hemoglobin Concent 34, Red Cell Distribution Width 11.9, Platelet Count 214, Mean Platelet Volume 9.4, Immature Granulocyte % (Auto) 1, Neutrophils (%) (Auto) 52, Lymphocytes (%) (Auto) 32, Monocytes (%) (Auto) 13H, Eosinophils (%) (Auto) 2, Basophils (%) (Auto) 1, Neutrophils # (Auto) 4.4, Lymphocytes # (Auto) 2.7, Monocytes # (Auto) 1.0, Eosinophils # (Auto) 0.2, Basophils # (Auto) 0.0, Immature Granulocyte # (Auto) 0.1, Prothrombin Time 13.7, INR Comment 1.0, Activated Partial Thromboplast Time 28, Sodium Level 140, Potassium Level 4.4, Chloride Level 107, Carbon Dioxide Level 22, Anion Gap 11, Blood Urea Nitrogen 24H, Creatinine 0.90, Estimat Glomerular Filtration Rate 80, BUN/Creatinine Ratio 27, Glucose Level 86, Calcium Level 8.9, Total Creatine Kinase 36, Troponin I < 0.028 09/05/21 04:40: White Blood Count 9.4, Red Blood Count 4.42, Hemoglobin 14.0, Hematocrit 41, Mean Corpuscular Volume 93, Mean Corpuscular Hemoglobin 32, Mean Corpuscular Hemoglobin Concent 34, Red Cell Distribution Width 12.0, Platelet Count 174, Mean Platelet Volume 9.8, Immature Granulocyte % (Auto) 0, Neutrophils (%) (Auto) 75, Lymphocytes (%) (Auto) 14, Monocytes (%) (Auto) 9, Eosinophils (%) (Auto) 1, Basophils (%) (Auto) 0, Neutrophils # (Auto) 7.1, Lymphocytes # (Auto) 1.4, Monocytes # (Auto) 0.9, Eosinophils # (Auto) 0.1, Basophils # (Auto) 0.0, Immature Granulocyte # (Auto) 0.0, Sodium Level 134L, Potassium Level 4.3, Chloride Level 104, Carbon Dioxide Level 19L, Anion Gap 11, Blood Urea Nitrogen 17, Creatinine 0.77, Estimat Glomerular Filtration Rate 96, BUN/Creatinine Ratio 22, Glucose Level 104, Calcium Level 8.2L, Triglycerides Level 96, Cholesterol Level 127, LDL Cholesterol Direct 86, VLDL Cholesterol 19, HDL Cholesterol 42 Patient resulted labs reviewed. Pending Labs Laboratory Tests 09/05/21 04:40: White Blood Count 9.4, Red Blood Count 4.42, Hemoglobin 14.0, Hematocrit 41, Mean Corpuscular Volume 93, Mean Corpuscular Hemoglobin 32, Mean Corpuscular Hemoglobin Concent 34, Red Cell Distribution Width 12.0, Platelet Count 174, Mean Platelet Volume 9.8, Immature Granulocyte % (Auto) 0, Neutrophils (%) (Auto) 75, Lymphocytes (%) (Auto) 14, Monocytes (%) (Auto) 9, Eosinophils (%) (Auto) 1, Basophils (%) (Auto) 0, Neutrophils # (Auto) 7.1, Lymphocytes # (Auto) 1.4, Monocytes # (Auto) 0.9, Eosinophils # (Auto) 0.1, Basophils # (Auto) 0.0, Immature Granulocyte # (Auto) 0.0, Sodium Level 134, Potassium Level 4.3, Chloride Level 104, Carbon Dioxide Level 19, Anion Gap 11, Blood Urea Nitrogen 17, Creatinine 0.77, Estimat Glomerular Filtration Rate 96, BUN/Creatinine Ratio 22, Glucose Level 104, Calcium Level 8.2, Triglycerides Level 96, Cholesterol Level 127, LDL Cholesterol Direct 86, VLDL Cholesterol 19, HDL Cholesterol 42 Imaging: Reviewed Imaging Report Discussion & Recommendations Discharge Planning: >30 minutes discharge planning Discharge Home Medications: Active Scripts Active Children's Aspirin (Aspirin) 81 Mg Tab.chew 81 Mg PO DAILY Amlodipine Besylate 5 Mg Tablet 5 Mg PO DAILY Lipitor (Atorvastatin Calcium) 40 Mg Tablet 40 Mg PO HS Clopidogrel (Clopidogrel Bisulfate) 75 Mg Tablet 75 Mg PO DAILY Reported Omeprazole 20 Mg Capsule.dr 20 Mg PO DAILY Daily Lynne (Multivitamin) 1 Each Tablet 1 Each PO DAILY Instructions to patient/family Please see electronic discharge instructions given to patient. Clinical Quality Measures AMI/AHF: ASA po Prior to arrival: No Copy Copies To 1: REEMA THURSTON MD Problem Qualifiers (1) Chest pain: Chest pain type: unspecified Qualified Codes: R07.9 - Chest pain, unspecified FAITH EASTON MD Sep 05, 2021 09:00
[2021-09-05] MEDS ORDERED: meTOprolol TARTRATE 25 MG (LOPRESSOR) TABLET PO ONE (09:15)
[2021-09-05] MEDS ORDERED: METO-333 PO (10:15)
--- NOTE | 2021-09-05 12:24 | Progress Note - Cardiology ---
Cardiology SOAP Progress Note Subjective: No cp or palp or syncope Shortness of breath has improved No n/v/d Some gen weakness, improving Objective: I&O/Vital Signs 09/05/21 09/05/21 09/05/21 09/05/21 01:00 03:34 03:53 07:00 Pulse 60 75 53 Resp 20 B/P (MAP) 118/59 Pulse Ox 95 97 O2 Delivery Room Air Room Air 09/05/21 09/05/21 09/05/21 09/05/21 07:24 07:49 08:00 08:00 Temp 36.3 Pulse 51 Resp 25 B/P (MAP) 98/70 Pulse Ox 95 96 98 O2 Delivery Room Air Room Air Room Air 09/05/21 00:00 Intake Total 1100 ml Output Total 300 ml Balance 800 ml Weight (Pounds): 172 Weight (Ounces): 10.0 Weight (Calculated Kilograms): 78.820279 Side: right Groin site without hematoma: Yes Condition: DP/PT pulses palpable, extremity w/d/p Bruising: mild bruising Constitutional: AAO x 3, well-developed, well-nourished Respiratory: No accessory muscle use, No respiratory distress; chest expansion is symmetric, chest is bilaterally symmetric, lungs clear to auscultation Cardiovascular: regular rate-rhythm; No JVD; S1 and S2, systolic murmur Gastrointestional: No tender; soft, round, audible bowel sounds Extremities: no lower extremity edema bilateral Neurologic/Psychiatric: grossly intact (moves all extremities) Skin: No rash on exposed areas, No ulcerations on exposed areas Results/Procedures: Labs Laboratory Tests 09/05/21 04:40: White Blood Count 9.4, Red Blood Count 4.42, Hemoglobin 14.0, Hematocrit 41, Mean Corpuscular Volume 93, Mean Corpuscular Hemoglobin 32, Mean Corpuscular Hemoglobin Concent 34, Red Cell Distribution Width 12.0, Platelet Count 174, Mean Platelet Volume 9.8, Immature Granulocyte % (Auto) 0, Neutrophils (%) (Auto) 75, Lymphocytes (%) (Auto) 14, Monocytes (%) (Auto) 9, Eosinophils (%) (Auto) 1, Basophils (%) (Auto) 0, Neutrophils # (Auto) 7.1, Lymphocytes # (Auto) 1.4, Monocytes # (Auto) 0.9, Eosinophils # (Auto) 0.1, Basophils # (Auto) 0.0, Immature Granulocyte # (Auto) 0.0, Sodium Level 134L, Potassium Level 4.3, Chloride Level 104, Carbon Dioxide Level 19L, Anion Gap 11, Blood Urea Nitrogen 17, Creatinine 0.77, Estimat Glomerular Filtration Rate 96, BUN/Creatinine Ratio 22, Glucose Level 104, Calcium Level 8.2L, Triglycerides Level 96, Cholesterol Level 127, LDL Cholesterol Direct 86, VLDL Cholesterol 19, HDL Cholesterol 42 Laboratory Tests 09/04/21 09:01 09/05/21 04:40 A/P: Assessment: CAD - Cardiac cath of 09-04-21: Coronary artery disease primarily consisting of 99% midvessel and 90% distal vessel stenosis in the left anterior descending. These were successfully stented with star point 2.75 x 18 mm stent for the mid vessel and star point 2.25 x 18 mm stent for the distal vessel. The rest of the coronary systems have diffuse moderate disease. Left ventricular end-diastolic pressure 13 mmHg. Well preserved global left ventricular systolic function with ejection fraction approximately 60%. Unstable angina - resolved GERD Chronic [place] Macular degneration Chronic right knee pain H/O cholecystectomy and umbilical hernia repair Family h/o CAD - father and brother Plan: S/P cardiac cath with successful coronary intervention on 09-04-21 Ambulate in halls this morning Continue DAPT and statin Start low dose BB Stop amlodipine to allow BP room for BB Out pt f/u in a week I discussed the findings of cath and the interventions undertaken in detail with the patient and his family. Questions answered in detail Compliance advised with meds and with outpt f/u Clinical Quality Measures AMI/AHF: ASA po Prior to arrival: GALILEO Del Valle MD FACP FAC CCDS Sep 05, 2021 12:24
[2021-09-05] MEDS ORDERED: meTOprolol TARTRATE 25 MG (LOPRESSOR) TABLET PO SCH (21:00)
== END 2021-09-05 11:25 | disposition home or self-care (01) ==
LOC: EDUNIT# 08:40 → ER 08:42 → ICU 10:58
PROVIDERS: ADMIT Family Medicine; ATTEND Family Medicine
DX: I25.110 Atherosclerotic heart disease of native coronary artery with unstable angina pectoris (principal); K21.9 Gastro-esophageal reflux disease without esophagitis; H35.30 Unspecified macular degeneration; G89.29 Other chronic pain; M25.561 Pain in right knee; H91.90 Unspecified hearing loss, unspecified ear; I45.10 Unspecified right bundle-branch block; Z79.899 Other long term (current) drug therapy; Z87.891 Personal history of nicotine dependence; Z90.49 Acquired absence of other specified parts of digestive tract
CPT/HCPCS: 71045; 80048 ×2; 80061; 82550; 84484; 85025 ×2; 85610; 85730; 93005 ×2; 93306; 93458; 99284; C1725; C1769; C1874; C1887; C1894 ×3; C9600; 36415

== ENCOUNTER 2021-10-17 10:12 | Outpatient (RCR) | payer MEDICARE, OTHER ==
[~2021-10-17 10:12] MED LIST changes: +AMLO-250 PO; +ASPI81TA64 PO; +ATOR40TA PO; +CLOP75TA28 PO; +METO-333 PO
== END 2021-10-26 | disposition home or self-care (01) ==
PROVIDERS: ATTEND Orthopaedic Surgery
DX: M17.11 Unilateral primary osteoarthritis, right knee (principal)

== ENCOUNTER 2021-11-20 12:49 | Outpatient (RCR) | payer MEDICARE, OTHER | END 2021-11-26 | disposition home or self-care (01) | PROVIDERS: ATTEND Orthopaedic Surgery | DX: M17.11 Unilateral primary osteoarthritis, right knee (principal) ==

== ENCOUNTER 2022-05-27 14:42 | Emergency (ER) | payer MEDICARE, OTHER ==
[~2022-05-27] VITALS: Ht 187.9 cm; Wt 77.0 kg
[~2022-05-27 14:42] MED LIST changes: +CEPH500T PO; +PANT40TA52 PO; +TMSL.4C PO
[2022-05-27] MEDS ORDERED: NS IV 500 ML 500 ML IV SCH (15:00)
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
[2022-05-27 15:23] LABS: BASOPHILS % (AUTO) 0 % (0-10); EOSINOPHILS # (AUTO) 0.1 10^3/uL (0.0-0.3); EOSINOPHILS % (AUTO) 1 % (0-10); HEMATOCRIT 41 % (40-54); HEMOGLOBIN 13.6 g/dL (13.3-17.7); LYMPHOCYTES # (AUTO) 0.8 X 10^3 (1.0-4.0); LYMPHOCYTES % (AUTO) 10 % (12-44); MEAN CORPUSCULAR HEMOGLOBIN 31 pg (25-34); MEAN CORPUSCULAR HGB CONC 33 g/dL (32-36); MEAN CORPUSCULAR VOLUME 92 fL (80-99); MEAN PLATELET VOLUME 9.1 fL (9.0-12.2); MONOCYTES # (AUTO) 0.9 X 10^3 (0.0-1.0); MONOCYTES % (AUTO) 11 % (0-12); NEUTROPHILS # (AUTO) 6.2 X 10^3 (1.8-7.8); NEUTROPHILS % (AUTO) 78 % (42-75); PLATELET COUNT 151 10^3/uL (130-400)
[2022-05-27 15:42] LABS: BILIRUBIN,URINE NEGATIVE (NEGATIVE); CLARITY,URINE CLEAR; COLOR,URINE YELLOW; GLUCOSE, URINE (UA) NEGATIVE (NEGATIVE); KETONES,URINE TRACE (NEGATIVE); LEUKOCYTE ESTERASE ,URINE NEGATIVE (NEGATIVE); NITRITE,URINE NEGATIVE (NEGATIVE); PH,URINE 6.5 (5-9); PROTEIN,URINE NEGATIVE (NEGATIVE)
[2022-05-27 15:50] LABS: BACTERIA,URINE NEGATIVE /HPF
[2022-05-27 15:51] LABS: AMORPHOUS SEDIMENT,UR RARE AMOR URATES /LPF
[2022-05-27 15:52] LABS: BUN/CREATININE RATIO 16; CALCIUM 9.1 MG/DL (8.5-10.1); CARBON DIOXIDE 23 MMOL/L (21-32); CHLORIDE 103 MMOL/L (98-107); CREATININE SERUM 0.93 MG/DL (0.60-1.30); GFR ESTIMATED 80; GLUCOSE 100 MG/DL (70-105); POTASSIUM 4.1 MMOL/L (3.6-5.0); SODIUM 137 MMOL/L (135-145)
[2022-05-27 17:05] VITALS: BP 123/73
== END 2022-05-27 17:04 | disposition other institution (70) ==
LOC: EDUNIT# 14:42 → ER 14:43
DX: R53.1 Weakness (principal); R31.29 Other microscopic hematuria; Z86.16 Personal history of COVID-19; Z86.79 Personal history of other diseases of the circulatory system; Z95.811 Presence of heart assist device; Z95.5 Presence of coronary angioplasty implant and graft
CPT/HCPCS: 36415; 80048; 81000; 84484; 85025; 93005

== ENCOUNTER 2022-05-27 16:21 | Inpatient (IN) | payer MEDICARE, OTHER ==
[~2022-05-27] VITALS: Ht 188 cm; Wt 76.5 kg
[2022-05-27] MEDS ORDERED: LOPERAMIDE 2 MG (IMODIUM) TABLET PO PRN (17:15)
[2022-05-27] MEDS ORDERED: ALPRAZolam 0.25 MG (XANAX) TAB PO PRN (17:15)
[2022-05-27] MEDS ORDERED: MELATONIN 3 MG TABLET PO PRN (17:15)
[2022-05-27] MEDS ORDERED: BISACODYL 10 MG SUPP (DULCOLAX) PR PRN (17:15)
[2022-05-27] MEDS ORDERED: DOCUSATE SODIUM 100 MG (COLACE) CAP PO PRN (17:15)
[2022-05-27] MEDS ORDERED: FLEET ENEMA ADULT 1 EA BTL PR PRN (17:15)
[2022-05-27] MEDS ORDERED: CALCIUM CARBONATE 500 MG (TUMS) TAB.CHEW PO PRN (17:15)
[2022-05-27] MEDS ORDERED: guaiFENesin/CODEINE (ROBITUSSIN AC) 10ML UDC PO PRN (17:15)
[2022-05-27] MEDS ORDERED: ONDANSETRON 4 MG (ZOFRAN) ORAL DISSOLVE TAB PO PRN (17:15)
[2022-05-27] MEDS ORDERED: LACTULOSE SYRUP 10GM/15ML (ENULOSE) 30ML UDC PO PRN (17:15)
[2022-05-27] MEDS ORDERED: diphenhydrAMINE 25 MG TAB (BENADRYL) PO PRN (17:15)
[2022-05-27 17:37] VITALS: BP 127/68
--- NOTE | 2022-05-27 18:45 | PM&R Post Admission Assessment ---
PM&R Date of Visit: May 27, 2022 Time of Visit: 19:00 History of Present Illness Chief complaint: Debility History of present illness: This is an 86-year-old male known to inpatient rehab from prior admission who presents from the ER upon request patient and family due to severe weakness of his legs and unable to ambulate. 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 Upon exam there is no evidence of any type of neurologic deficit but generalized weakness is noted. The decision was made to admit to inpatient rehab for aggressive therapy in order to return back to independent living. Prior level of functioning is living independently without use of assistive devices. Daughters at the bed side. Past Fafbiat-Xoesbq-Lqmpnw Hx Past Med/Social Hx: Reviewed Nursing Past Med/Soc Hx, Reviewed and Corrections made Patient Social History Marrital Status: Employed/Student: retired Alcohol Use: Denies Use Smoking Status: Former Smoker Former Smoker, Quit: Feb 17, 1957 2nd Hand Smoke Exposure: No Recent Hopitalizations: No Immunizations Up To Date Pediatric: No Seasonal Allergies Seasonal Allergies: No Past Medical History Surgeries: Abdominal, Appendectomy, Gallbladder, Orthopedic, Tonsillectomy Cardiac: Coronary Artery Disease Reproductive: No Gastrointestinal: Gastroesophageal Reflux, Gall Bladder Disease HEENT: Macular Degeneration Hearing Impairment: Hard of Hearing, Hearing Aide Right, Hearing Aide Left History of Blood Disorders: No Family History Cardiovascular disease 19 FATHER Dementia G8 SISTER Neoplasm 19 MOTHER (lymphoma) G8 SISTER (lymphoma) Cancer, Hypertension Occupation: [employer] PM&R Allergy/Meds/Data Review Allergies Coded Allergies: No Known Drug Allergies (Unverified , 12/06/15) Home Medications Scheduled Aspirin (Children's Aspirin), 81 MG PO DAILY Atorvastatin Calcium (Lipitor), 40 MG PO HS Cephalexin (Cephalexin), 500 MG PO BID Clopidogrel Bisulfate (Clopidogrel), 75 MG PO DAILY Metoprolol Tartrate (Metoprolol Tartrate), 12.5 MG PO BID Multivitamin (Daily Lynne), 1 EACH PO DAILY, (Reported) Pantoprazole Sodium (Pantoprazole Sodium), 40 MG PO DAILY, (Reported) Tamsulosin HCl (Flomax), 0.4 MG PO DAILY@1800 Current Medications Current Medications Reviewed Review of Systems Constitutional: see HPI, dizziness, malaise, weakness EENTM: no symptoms reported Respiratory: no symptoms reported Cardiovascular: no symptoms reported Gastrointestinal: no symptoms reported Genitourinary: no symptoms reported Musculoskeletal: no symptoms reported Skin: no symptoms reported Psychiatric/Neurological: No Symptoms Reported All Other Systems Reviewed Negative Unless Noted: Yes Physical Exam Physical Exam Vital Signs Vital Signs - First Documented 05/27/22 17:37 Temp 37.6 Pulse 79 Resp 18 B/P (MAP) 127/68 (87) Pulse Ox 94 O2 Delivery Room Air Capillary Refill : Height, Weight, BMI Height: 6'1.00" Weight: 172lbs. 10.0oz. 78.199045yg; 21.78 BMI Method:Stated General Appearance: No Apparent Distress, WD/WN, Chronically ill Eyes: Bilateral Eye Normal Inspection, Bilateral Eye PERRL HEENT: PERRL/EOMI, Normal ENT Inspection, Pharynx Normal Neck: Full Range of Motion, Normal Inspection, Non Tender, Supple, Carotid Bruit Respiratory: Chest Non Tender, Lungs Clear, Normal Breath Sounds, No Accessory Muscle Use, No Respiratory Distress Cardiovascular: Regular Rate, Rhythm, No Edema, No Gallop, No JVD, No Murmur, Normal Peripheral Pulses Gastrointestinal: Normal Bowel Sounds, No Organomegaly, No Pulsatile Mass, Non Tender, Soft Back: Normal Inspection, No CVA Tenderness, No Vertebral Tenderness Extremity: Normal Capillary Refill, Normal Inspection, Normal Range of Motion, Non Tender, No Calf Tenderness, No Pedal Edema Neurologic/Psychiatric: Alert, Oriented x3, Normal Mood/Affect, 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-XII Norm as Tested, Abnormal Gait, Motor Weakness (legs 3/5 arms 4/5) Skin: Normal Color, Warm/Dry Lymphatic: No Adenopathy PM&R Medical Assessment & Plan REHAB/MEDICAL ASSESSMENT AND PLAN: REHAB IMPAIRMENT GROUP: Debility ETIOLOGIC DIAGNOSIS: Debility The comorbidities that impact the patients function and/or functional outcome by: advanced age, lives alone, CAD, fall at home REHAB PLAN: The patient is being admitted to our comprehensive inpatient rehabilitation facility and can tolerate the intensity of service consisting of at least: 180 minutes of therapy a day, 5 out of 7 days a week Rehab treatment will consist of: PT OT will focus on regaining function in order to regain independence in order to return back to independent living with use of assistive devices The patient/family has a good understanding of our discharge process and will benefit from an interdisciplinary inpatient rehabilitation program. The patient has potential to make improvement and is in need of at least two of the following multidisciplinary therapies including but not limited to physical, occupational, speech, and prosthetics and orthotics. Additionally the patient will need services from respiratory, nutritional services, wound care, psychology, etc. (Customize this to each patient). Given the patients complex condition and risk of further medical complications, rehabilitation services cannot be safely or effectively provided at a lower level of care such as a snf facility. BARRIERS TO DISCHARGE: Lives alone and falls ESTIMATED LOS: 7 days DISPOSITION: Home alone RELEVANT CHANGES SINCE PREADMISSION SCREENING: I have compared the patients medical and functional status at the time of the preadmission screening and there are: no changes PROGNOSIS: Good REHABILITATION GOALS: 1. PT OT will focus on regaining function in order to regain independence in order to return back to independent living with use of assistive devices All the above goals were reviewed with the patient and he/she is in agreement. By signing this document, I acknowledge that I have personally performed a full physical examination on this patient within 24 hours of admission to this inpatient rehabilitation facility and have determined the patient to be able to tolerate the above course of treatment at an intensive level for a reasonable period of time. I will be completing a detailed individualized Plan of Care for this patient by day #4 of the patients stay based upon the Preadmission Screen, the Post-Admission Evaluation, and the therapy evaluations. Admission Dx/Comorbidities: (1) Debility Status: Acute ICD Codes: R53.81 - Other malaise (2) Generalized weakness Status: Acute ICD Codes: R53.1 - Weakness (3) Weakness generalized Status: Acute ICD Codes: R53.1 - Weakness (4) CAD (coronary artery disease) ICD Codes: I25.10 - Atherosclerotic heart disease of [place] coronary artery without angina pectoris Assessment/Plan Assessment and Plan Assess & Plan/Chief Complaint Assessment: Debility CAD Prior UTI Fall at home Advanced age Plan: IRF protocol Monitor pain Home RYAN Durán DO May 27, 2022 18:45
[2022-05-27] MEDS: SENNA W/DOCUSATE (SENOKOT S) TABLET PO SCH (19:48)
[2022-05-27] MEDS: polyethylene glycoL POWDER 17 GM (MIRALAX) PACK PO SCH (19:48)
[2022-05-27] MEDS: DOCUSATE SODIUM 100 MG (COLACE) CAP PO SCH (19:48)
[2022-05-27 20:00] VITALS: BP 103/58
[2022-05-28 05:40] LABS: BASOPHILS % (AUTO) 0 % (0-10); EOSINOPHILS % (AUTO) 0 % (0-10); HEMATOCRIT 39 % (40-54); HEMOGLOBIN 13.1 g/dL (13.3-17.7); LYMPHOCYTES # (AUTO) 1.1 10^3/uL (1.0-4.0); LYMPHOCYTES % (AUTO) 16 % (12-44); MEAN CORPUSCULAR HEMOGLOBIN 31 pg (25-34); MEAN CORPUSCULAR HGB CONC 34 g/dL (32-36); MEAN CORPUSCULAR VOLUME 92 fL (80-99); MEAN PLATELET VOLUME 9.2 fL (9.0-12.2); MONOCYTES % (AUTO) 14 % (0-12); NEUTROPHILS # (AUTO) 4.7 10^3/uL (1.8-7.8); NEUTROPHILS % (AUTO) 69 % (42-75); PLATELET COUNT 149 10^3/uL (130-400); WHITE BLOOD COUNT 6.9 10^3/uL (4.3-11.0)
[2022-05-28 05:46] LABS: ALBUMIN 3.6 GM/DL (3.2-4.5)
[2022-05-28 05:47] LABS: POTASSIUM 4.2 MMOL/L (3.6-5.0)
[2022-05-28 05:48] LABS: CALCIUM 8.6 MG/DL (8.5-10.1)
[2022-05-28 05:49] LABS: TOTAL PROTEIN 5.9 GM/DL (6.4-8.2)
[2022-05-28 05:53] LABS: CREATININE SERUM 0.84 MG/DL (0.60-1.30)
[2022-05-28 07:36] VITALS: BP 130/72
[2022-05-28] MEDS: CLOPIDOGREL 75 MG (PLAVIX) TABLET PO SCH (07:53)
[2022-05-28] MEDS: DOCUSATE SODIUM 100 MG (COLACE) CAP PO SCH ×2 (07:53→19:56)
[2022-05-28] MEDS: polyethylene glycoL POWDER 17 GM (MIRALAX) PACK PO SCH ×2 (07:53→19:56)
[2022-05-28] MEDS: ASPIRIN 81 MG CHEW (CHILDREN'S ASA) PO SCH (07:53)
[2022-05-28] MEDS: PANTOPRAZOLE 40 MG (PROTONIX) TAB PO SCH (07:53)
[2022-05-28] MEDS: SENNA W/DOCUSATE (SENOKOT S) TABLET PO SCH ×2 (07:54→19:56)
--- NOTE | 2022-05-28 09:04 | Occupational Therapy Eval ---
OT Evaluation-General/PLF Medical Diagnosis Admission Date May 27, 2022 at 16:57 Medical Diagnosis: Debility Onset Date: May 27, 2022 Therapy Diagnosis Therapy Diagnosis: reduced adl status Height/Weight Height (Feet): 6 Height (Inches): 1.00 Weight (Pounds): 172 Weight (Ounces): 10.0 Precautions Precautions/Isolations: Fall Prevention, Standard Precautions Referral Physician: Tiffanie Referral Reason: Evaluation/Treatment Medical History Pertinent Medical History: CAD, GERD, Macular Degenertion Current History Pt presented to ER with c/o severe weakness and inability to ambulate. Per patient, he lives alone in a 2 story home. He does not use the 2nd floor; all needs met on main level. He was indep with adls and was able to do some light cooking and laundry. His daughter assists with grocery shopping and he has a assisted living housekeeper 2x/month for cleaning. He uses a walking stick or cane during the day and a walker only at night. 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 Reviewed History: Yes Social History Home: Multilevel Current Living Status: Alone ADL-Prior Level of Function SCALE: Activities may be completed with or without assistive devices. 5-Eogidtibqp-ouhiroy completes the activity by him/herself with no assistance from a helper. 5-Set-up or Clean-up Assistance-helper sets up or cleans up; patient completes activity. [place] assists only prior to or following the activity. 4-Supervision or Touching Assistance-helper provides verbal cues and/or touching/steadying and/or contact guard assistance as patient completes activity. Assistance may be provided throughout the activity or intermittently. 3-Partial/Moderate Assistance-helper does LESS THAN HALF the effort. [place] lifts, holds or supports trunk or limbs, but provides less than half the effort. 2-Substantial/Maximal Assistance-helper does MORE THAN HALF the effort. [place] lifts or holds trunk or limbs and provides more than half the effort. 0-Lvezuvrxf-pdemhg does ALL the effort. Patient does none of the effort to complete the activity. Or, the assistance of 2 or more helpers is required for the patient to complete the activity. If activity was not attempted, code reason: 7-Patient Refused. 9-Not Applicable-not attempted and the patient did not perform the activity before the current illness, exacerbation or injury. 10-Not Attempted due to Environmental Limitations-(lack of equipment, weather restraints, etc.). 88-Not Attempted due to Medical Conditions or Safety Concerns. Self Care: Independent Functional Cognition: Independent DME/Equipment: Bath Chair, Grab Bars, Tub/Shower Drive Self: Yes OT Current Status Subjective Pt reports chronic pain in R hip and L knee, rates pain as 1/10. Pt believes that he will be going home today. He reports that no communication on expectations of rehab were explained to him. Co-treat with PT secondary to poor mobility, high fall risk, limited activity tolerance, poor standing tolerance and due to need of 2 skilled clinicians to progress indep and safety with adls and functional transfers. Appearance Pt left sitting in w/c with physical therapy present at OT departure. 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 Sponge bath and dressing tasks performed seated on EOB. Fair sitting balance. Occasional retropulsion and listing L, needing verbal and tactile cues to correct. Poor multitasking skills, requires several cues to continue through task. Max a x2 to stand from low bed and main tain balance as he removed unilateral UE support to wash pedro luis area and buttocks. As fatigue increases, pt sinks further into flexion. Poor standing tolerance. He was able to reach down to ankle in sitting, requires assist to wash feet. Mod a to don button up shirt as pt needed assist to bring shirt around back of torso and thread LUE. Pt reports that he usually rests his foot on bed frame, thus OT placed stool under foot to help in reducing reach. Pt still unable to comlete task and required Max a to thread BLE's into underwear and pants secondary to impaired flexibility, balance, and endurance. Dependent to don socks/shoes secondary to fatigue. Other Treatments Initially, pt requires max a x2 to stand from low surface. With bed height increased, pt able to stand with min-mod a x1. poor standing tolerance and posture, several cues to adjust. As session continued, pt able to stand from w/c height with mod a x1. He ambulated within gym (see physical therapy note for distance amount) with min-mod a and use of walker. Awkward gait as pt initially walking on toes with shuffling type gait. Post cues, he takes overly large steps. Slight knee buckling notable in L knee during gait. While standing in parallel bars, pt reached in all planes with BUE's (alternating one hand on bar at a time). With fatigue, pt begins to sink further into flexion. Cues on upright posture. Able to self correct but unable to sustain throughout activity. Pt only able to tolerate standing for ~1-2 minutes before needing to sit and rest. Education OT Patient Education: Correct positioning, Energy conservation, Modified ADL techniques, Progress toward Goal/Update tx plan, Purpose of tx/functional activities, Reviewed precautions, Rehab process, Safety issues, Transfer techniques, W/C management Teaching Recipient: Patient, Family Teaching Methods: Demonstration, Discussion Response to Teaching: Verbalize Understanding, Return Demonstration, Reinforcement Needed OT Short Term Goals Short Term Goals Time Frame: Jun 07, 2022 Eatin Oral hygiene: 5 Toileting hygiene: 3 Shower/bathe self: 3 Upper body dressin Lower body dressin Putting on/taking off footwear: 3 OT Alf Goals Night Guard Goals Time Frame: Jun 21, 2022 Eating (QC): 6 Oral Hygiene (QC): 6 Toileting Hygiene (QC): 6 Shower/Bathe Self (QC): 5 Upper Body Dressing (QC): 5 Lower Body Dressing (QC): 5 On/Off Footwear (QC): 5 1=Demonstrate adherence to instructed precautions during ADL tasks. 2=Patient will verbalize/demonstrate understanding of assistive devices/modifications for ADL. 3=Patient will improve strength/tolerance for activity to enable patient to perform ADL's. OT Education/Plan Problem List/Assessment Assessment: Decreased Activ Tolerance, Decreased Safety Aware, Decreased UE Strength, Dependent Transfers, Impaired Bed Mobility, Impaired Cognition, Impaired Funct Balance, Impaired I ADL's, Impaired Self-Care Skills Discharge Recommendations Plan/Recommendations: Continue POC Therapy Discharge Recommendati: Post Acute OT Treatment Plan/Plan of Care Treatment,Training & Education: Yes Patient would benefit from OT for education, treatment and training to promote independence in ADL's, mobility, safety and/or upper extremity function for ADL's. Plan of Care: ADL Retraining, Cognitive Retraining, Functional Mobility, Group Exercise/Act as Ind, UE Funct Exercise/Act Treatment Duration: Jun 21, 2022 Frequency: At least 5 of 7 days/Wk (IRF) Estimated Hrs Per Day: 1.5 hours per day (75-90 min/day) Agreement: Yes Rehab Potential: Fair Time/GCodes Start Time: 07:40 Stop Time: 09:05 Total Time Billed (hr/min): 75 Billed Treatment Time 1 visit EVM (20 min) ADL x3 (40 min) FA (15 min) OT eval: 3304-5920 (20 min) PT eval: 3725-0848 Co-treat: 2255-6807 (55 min) Cate Walls OT May 28, 2022 09:04
--- NOTE | 2022-05-28 09:11 | Physical Therapy Evaluation ---
PT Evaluation-General Medical Diagnosis Admission Date May 27, 2022 at 16:57 Medical Diagnosis: debility Onset Date: Jun 04, 2022 Therapy Diagnosis Therapy Diagnosis: impaired mobility, endurance, balance, strength Height/Weight Height (Feet): 6 Height (Inches): 1.00 Weight (Pounds): 172 Weight (Ounces): 10.0 Precautions Precautions/Isolations: Fall Prevention, Standard Precautions Referral Physician: Devika Moreno DO Reason for Referral: Evaluation/Treatment Medical History Pertinent Medical History: CAD, GERD, Macular Degenertion Additional Medical History Past Medical History Surgeries: Abdominal, Appendectomy, Gallbladder, Orthopedic, Tonsillectomy Cardiac: Coronary Artery Disease Reproductive: No Gastrointestinal: Gastroesophageal Reflux, Gall Bladder Disease HEENT: Macular Degeneration Hearing Impairment: Hard of Hearing, Hearing Aide Right, Hearing Aide Left History of Blood Disorders: No Reviewed History: Yes Social History Home: Multilevel (doesn't go upstairs) Current Living Status: Alone Entry Into Home: Stairs With Railing PT Steps Into Home: 2 Prior Prior Level of Function SCALE: Activities may be completed with or without assistive devices. 0-Ukzupxyenm-myvsdpb completes the activity by him/herself with no assistance from a helper. 5-Set-up or Clean-up Assistance-helper sets up or cleans up; patient completes activity. [place] assists only prior to or following the activity. 4-Supervision or Touching Assistance-helper provides verbal cues and/or touching/steadying and/or contact guard assistance as patient completes activity. Assistance may be provided throughout the activity or intermittently. 3-Partial/Moderate Assistance-helper does LESS THAN HALF the effort. [place] lifts, holds or supports trunk or limbs, but provides less than half the effort. 2-Substantial/Maximal Assistance-helper does MORE THAN HALF the effort. [place] lifts or holds trunk or limbs and provides more than half the effort. 2-Zinwdxnlu-azpvaa does ALL the effort. Patient does none of the effort to complete the activity. Or, the assistance of 2 or more helpers is required for the patient to complete the activity. If activity was not attempted, code reason: 7-Patient Refused. 9-Not Applicable-not attempted and the patient did not perform the activity before the current illness, exacerbation or injury. 10-Not Attempted due to Environmental Limitations-(lack of equipment, weather restraints, etc.). 88-Not Attempted due to Medical Conditions or Safety Concerns. Bed Mobility: 6 Transfers (B,C,W/C): 6 Gait: 6 Stairs: 6 Indoor Mobility (Ambulation): Independent Stairs: Independent uses a SPC and uses a walker only at night PT Evaluation-Current Subjective Patient in bed pre tx, agrees to PT, has unrated pain in left hip. Will be co- treating with OT due to poor patient mobility, strength, endurance, severe debil ity, coordinate UE and LE with activity, safety and reduce risk of falls. Pt/Family Goals to be independent at home Objective Patient Orientation: Person, Place, Situation ROM/Strength ROM Lower Extremities WNL Strength Lower Extremities grossly 4+/5 BLE Neuromuscular (Tone, Coordination, Reflexes) Patient seems to have intact peripheral vision but has difficulty tracking in general due to lack of attention. Sensory Vision: Hearing: Impaired Sensation Right Lower Extremit: Intact Sensation Left Lower Extremity: Intact Transfers Roll Left & Right (QC): 6 Sit to Lying (QC): 4 Lying to Sitting/Side of Bed(Q: 4 Sit to Stand (QC): 3 Chair/Mzu-id-Fopvo Xfer(QC): 3 Toilet Transfer (QC): 3 Car Transfer (QC): 3 Patient performs rolling with independence, supine <-> sit SBA, sit <-> stand and transfers mod assist, car transfer mod assist. Needs cues for positioning and safety, patient retropulsive with standing almost all the time Gait Does the Patient Walk?: Yes Mode of Locomotion: Walk Anticipated Mode of Locomotion: Walk Walk 10 feet (QC): 3 Walk 50 ft with 2 Turns(QC): 88 Walk 150 ft (QC): 88 Walking 10ft/uneven surface-QC: 88 Distance: 15' Gait Assistive Device: FWW Comments/Gait Description Patient can ambulate 15' with a rolling walker with min assist, WC follow, patient has a slumped posture, flexed at the knees and hips, poor foot clearance, tends to lean forward and bear weight on toes, almost parkinson's- like. Wheelchair Training Wheel 50 ft with 2 turns (QC): 3 Wheel 150 ft (QC): 3 Stairs 1 Step (curb) (QC): 88 4 Steps (QC): 88 12 Steps (QC): 88 Balance Sitting Static: Fair Sitting Dynamic: Fair Standing Static: Poor Standing Dynamic: Poor Picking up an Object (QC): 88 Treatment Standing in parallel bars reaching for cones, dressing bathing. PT performed bed mobility and transfers, ambulation, WC mobility, standing and positioning during reaching activity and dressing and bathing, OT performed dressing, bathing, reaching activity, UE positioning and safety during activity. Assessment/Needs Patient in restroom post tx on toilet for BM, instructed to call nurse when done. Patient has impaired mobility, strength, endurance, balance. Patient's BP was 111/64 pre tx, HR was 74 bpm. Rehab Potential: Fair PT Short Term Goals Short Term Goals Time Frame: Jun 04, 2022 Roll Left & Right: 6 Sit to lyin Lying to sitting on side of be: 6 Sit to stand: 3 Chair/xaj-un-xwcdf transfer: 4 (CGA) Walk 10 feet: 4 (CGA) Walk 50 feet with two turns: 4 (CGA) PT Sas Developer Goals Sas Developer Goals PT Alf Goals Time Frame: Jun 18, 2022 Roll Left & Right (QC): 6 Sit to Lying (QC): 6 Lying-Sitting on Side/Bed(QC): 6 Sit to Stand (QC): 4 (SBA) Chair/Htw-xu-Htdea Xfer(QC): 4 (SBA) Toilet Transfer (QC): 4 (SBA) Car Transfer (QC): 4 (SBA) Does the Patient Walk: Yes Walk 10 feet (QC): 4 (SBA) Walk 50ft with 2 Turns (QC): 4 (SBA) Walk 150 ft (QC): 4 (SBA) Walking 10ft on Uneven Surface: 4 (SBA) 1 Step (curb) (QC): 4 (CGA) 4 Steps (QC): 4 (CGA) 12 Steps (QC): 88 Picking up an Object (QC): 4 (SBA with manager math) Wheel 50 feet with 2 turns (QC: 9 Wheel 150 feet: 9 PT Plan Problem List Problem List: Activity Tolerance, Functional Strength, Safety, Balance, Gait, Transfer, Bed Mobility, ROM Treatment/Plan Treatment Plan: Continue Plan of Care Treatment Plan: Bed Mobility, Education, Functional Activity Heath, Functional Strength, Group Therapy, Gait, Safety, Therapeutic Exercise, Transfers Treatment Duration: Jun 18, 2022 Frequency: At least 5 of 7 days/Wk (IRF) Estimated Hrs Per Day: 1.5 hours per day Patient and/or Family Agrees t: Yes Safety Risks/Education Patient Education: Gait Training, Transfer Techniques, Correct Positioning, Safety Issues Teaching Recipient: Patient Teaching Methods: Demonstration, Discussion Response to Teaching: Reinforcement Needed Discharge Recommendations Plan Patient will perform bed mobility and transfer training, balance and endurance training, functional strengthening, stair training, gait training, and education, to improve functional mobility and independence at home. Therapy Discharge Recommendati: Scheduled Assistance, Home & Family, Post Acute PT Time/GCodes Time In: 799 Time Out: 814 Total Billed Treatment Time: 75 Total Billed Treatment 1 visit EVM 10' FA 65' PT eval from [id number], co-treated from [id number] NEELAM COLE PT May 28, 2022 09:11
--- NOTE | 2022-05-28 10:13 | ST Cognitive Linguistic Eval ---
Speech Evaluation-General Medical Diagnosis Debility Onset Date: May 27, 2022 Therapy Diagnosis Therapy Diagnosis: Suspected Mild Cognitive Impairment, Age Appropriate Precautions Precautions: Fall Precautions/Isolations: Fall Prevention, Standard Precautions Referral Referring Physician: Dr. Moreno Reason for Referral: Evaluation/Treatment Medical History Pertinent Medical History: CAD, GERD, Macular Degenertion Current History The patient is an 86 year-old male with a past medical history significant for C AD, gastroesophageal reflux, macular degeneration, and hard of hearing (bilateral hearing aides), who presented to inpatient rehabilitation with a diagnosis of debility. Reviewed History: Yes Social History Current Living Status: Alone Speech PLF-Current Status Prior Level of Function The patient denied recent changes or concerns to his cognition, speech, language, or swallowing. 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 The patient greeted the clinician appropriately and was agreeable to participation in the cognitive linguistic assessment. The patient appears hard of hearing (and this information was confirmed with the prior chart review). The patient requires elevated volume for comprehension and often requires repetition of instructions. Additionally, frequent redirection is provided as the patient will discuss tangential topics with the clinician. Language Eval: Auditory Comprehends Simple Yes/No Ques: Functional Indent/Objects Multiple Brown: Functional Ident/Pics in Multiple Brown: Functional Follows 1-Step Commands: Functional (With provided repetition.) Follows General Conversations: Functional (With repetition (hearing deficit versus attention). ) Language Eval: Verbal Language Completes Spontaneous Greeting: Functional Produces Auto, Serial Info: Functional Imitates Simple Words/Phrases: Functional Word Finding: Functional Requests Basic Needs: Functional States Basic Personal Info: Functional Language Evaluation: Reading Follows Simple Written Direct: Functional Language Evaluation: Writing Writes to Simple Dictation: Functional Cognitive Patient Orientation The patient was oriented to self, location, month, day of the week, date and year. Per patient, "Yes, today's voting day. I need to be out voting!" Objective Cognitive Domain Attention: Moderate Memory: Mild Problem Solving: Functional Composite Severity Rating: Mild Clock Drawing Severity Rating: WNL Objective Formal/Standardized Tests [facility] Mental Status Examination (UMS) Results The patient demonstrated a result of +27/30 on the SLUMS correlating to a result of "normal" neurocognitive function per the provided scoring protocol. Oral Motor/Speech Production The patient does not display dysarthria or apraxia of speech at this time. The patient remains 100% intelligible in known and unknown contexts. Impression The patient demonstrated intact neurocognitive skills per SLUMS (cognitive screen). Regardless of the patient's score within normal limits, speech pathology suspected possible deficits in the areas of memory and attention, as frequent redirection and cueing was required throughout the assessment. Per patient, he is currently functioning at his cognitive baseline. The clinician provided information regarding speech pathology services and possible goals which could be addressed. At this time, the patient politely stated, "I would like to focus on my physical strength." The patient states he would like to discharge today. 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 Treatment Plan Speech Therapy Treatment Plan: Discontinue ST (Per patient request.) Treatment Duration: May 28, 2022 Frequency: 1 time per week Estimated Hrs Per Day: .5 hour per day Rehab Potential: Fair Safety Risks/Education Teaching Recipient: Patient Teaching Methods: Discussion Response to Teaching: Reinforcement Needed Education Topics Provided: Results of SLUMS, Discussion of Skilled Speech Pathology Services Discharge Recommendations Intermittent Supervision, Home & Family Time Speech Therapy Time In: 09:32 Speech Therapy Time Out: 10:02 Total Billed Time: 30 Billed Treatment Time 1, CHELSEA TAY [facility]IZ[facility] ST May 28, 2022 10:12
--- NOTE | 2022-05-28 12:47 | Progress Note ---
JEMAL BEAN 05/28/22 1247: Progress Note SUBJECTIVE CC: Generalized weakness HPI: Hiral Jalloh (Martin) admitted on 05/27/2022 with an admitting diagnosis of Debility. The patient was brought to the ER by family because of generalized weakness. Prior to this episode the patient lives at home independently with only the use of a walking stick. Patient has stated he has the goal of working on his balance so he can get back home to work. The daughter of the patient claims that these generalized weakness episodes happen once or twice a year whenever he gets sick, and says that one day he will be completely healthy and then he will become weak very suddenly. The patient currently is in no pain, and said the only thing that hurts him is left hip pain from a bull running into him several years ago. PMH: Acute Pancreatitis CAD Unstable Angina Chest pain UTI leading to Sepsis Debility Weakness Hospitalized in October for Covid Stent placement in August of 2021 GERD Gallbladder Disease ERCP in December of 2017 for stone in gallbladder Macular Degeneration Bilateral hearing loss, uses hearing aids PSH: Abdominal hernia repair Appendectomy Cholecystectomy Orthopedic Tonsillectomy ALL: No known drug allergy. No seasonal allergies. MEDS: Tamsulosin HCL 0.4mg daily @ 1800 Protonix Tablet 40mg daily PO Plavix tablet 75mg daily PO Baby aspirin 81mg daily PO Lipitor tablet 40mg HS PO SH: No alcohol, tobacco, or substance abuse FH: Father had cardiovascular disease. Mother had lymphoma. Sister has a history of lymphoma and HTN ROS: No nausea or vomiting. No constipation. Last stool was yesterday. OBJECTIVE Exam: Vitals: Temp- 37.4C. BP 130/72. Pulse 65. RR 16. O2 93 on RA Cardiovascular: Normal rate and rhythm. No murmurs, rubs, or gallops Pulmonary: Clear to auscultation bilaterally. No use of accessory muscles to breath Abdominal: Patient did not endorse any nausea or vomiting. No pain to palpation of all quadrants. Patient did have voluntary guarding to the epigastric area upon initial palpation. When palpated a second time no guarding was appreciated. Labs/Imaging Hgb- 13.1 Hct- 39 RBC- 4.22 CO2- 20 Total Protein- 5.9 ASSESMENT AND PLAN Generalized Weakness Work daily with PT Ensure patient is eating enough food- claimed to have no appetite in the ER CAD and Unstable Angina Continue plavix, lipitor, and aspirin therapy Obtain EKG UTI Leading to Sepsis Monitor temperature Obtain UA if temperature is elevated Continue to monitor for progress before determining discharge date DEVIKA PINEDA DO 05/28/222055: Supervisory-Addendum Brief Verification & Attestation Participated in pt care: history, MDM, physical Personally performed: exam, history, MDM, supervision of care Care discussed with: Medical Student Procedures: n/a Results interpretation: Verified all documentation Verification and Attestation of Medical Student E/M Service A medical student performed and documented this service in my presence. I reviewed and verified all information documented by the medical student and made modifications to such information, when appropriate. I personally performed the physical exam and medical decision making. Devika Pineda, May 28, 2022,20:56 JEMAL BEAN May 28, 2022 12:47 DEVIKA PINEDA DO May 28, 2022 20:56
[2022-05-28] MEDS: TAMSULOSIN 0.4 MG (FLOMAX) CAP PO SCH (17:38)
[2022-05-28 20:00] VITALS: BP 109/60
--- NOTE | 2022-05-28 20:41 | PM&R Progress Note ---
Subjective HPI/CC On Admission Date Seen by Provider: May 28, 2022 Time Seen by Provider: 10:00 Subjective/Events-last exam 05/28/2022: Doing better No test result confirms an infection This appears to be a gradual decline in function due to advanced age No falls No pain Increased strength in legs noted Review of Systems General: Fatigue, Malaise Musculoskeletal: leg pain Objective Exam Vital Signs Vital Signs Date Time Temp Pulse Resp B/P (MAP) Pulse Ox O2 Delivery O2 Flow Rate FiO2 05/28/22 09:00 Room Air 05/28/22 07:36 37.4 65 16 130/72 (91) 93 Capillary Refill : General Appearance: No Apparent Distress, WD/WN, Chronically ill HEENT: PERRL/EOMI, Normal ENT Inspection, Pharynx Normal Neck: Full Range of Motion, Normal Inspection, Non Tender, Supple, Carotid Bruit Respiratory: Chest Non Tender, Lungs Clear, Normal Breath Sounds, No Accessory Muscle Use, No Respiratory Distress Cardiovascular: Regular Rate, Rhythm, No Edema, No Gallop, No JVD, No Murmur, Normal Peripheral Pulses Gastrointestinal: Normal Bowel Sounds, No Organomegaly, No Pulsatile Mass, Non Tender, Soft Back: Normal Inspection, No CVA Tenderness, No Vertebral Tenderness Extremity: Normal Capillary Refill, Normal Inspection, Normal Range of Motion, Non Tender, No Calf Tenderness, No Pedal Edema Neurologic/Psychiatric: Alert, Oriented x3, Normal Mood/Affect, lead cargoman II-XII Norm as Tested, Abnormal Gait, Motor Weakness (legs 3/5 arms 4/5) Skin: Normal Color, Warm/Dry Lymphatic: No Adenopathy Results/Procedures Lab Laboratory Tests 05/28/22 05:21 Patient resulted labs reviewed. FIM Transfers Therapy Code Descriptions/Definitions Functional [place] Measure: 0=Not Assessed/NA 4=Minimal Assistance 1=Total Assistance 5=Supervision or Setup 2=Maximal Assistance 6=Modified [place] 3=Moderate Assistance 7=Complete IndependenceSCALE: Activities may be completed with or without assistive devices. 6-Dlsixarmgt-rkhkueu completes the activity by him/herself with no assistance from a helper. 5-Set-up or Clean-up Assistance-helper sets up or cleans up; patient completes activity. [place] assists only prior to or following the activity. 4-Supervision or Touching Assistance-helper provides verbal cues and/or touching/steadying and/or contact guard assistance as patient completes activity. Assistance may be provided throughout the activity or intermittently. 3-Partial/Moderate Assistance-helper does LESS THAN HALF the effort. [place] lifts, holds or supports trunk or limbs, but provides less than half the effort. 2-Substantial/Maximal Assistance-helper does MORE THAN HALF the effort. [place] lifts or holds trunk or limbs and provides more than half the effort. 6-Qfdscsyum-shtcvk does ALL the effort. Patient does none of the effort to complete the activity. Or, the assistance of 2 or more helpers is required for the patient to complete the activity. If activity was not attempted, code reason: 7-Patient Refused. 9-Not Applicable-not attempted and the patient did not perform the activity before the current illness, exacerbation or injury. 10-Not Attempted due to Environmental Limitations-(lack of equipment, weather restraints, etc.). 88-Not Attempted due to Medical Conditions or Safety Concerns. Roll Left to Right (QC): 6 Sit to Lying (QC): 4 Sit to Stand (QC): 3 Chair/Qjn-rs-Domqe Xfer(QC): 3 Car Transfer (QC): 3 Gait Training Does the Patient Walk?: Yes Walk 10 feet (QC): 3 Walk 50 ft with 2 Turns(QC): 88 Walk 150 ft (QC): 88 Walking 10ft/uneven surface-QC: 88 Gait Assistive Device: FWW Wheelchair Training Does the Pt Use a Wheelchair?: No Wheel 50 ft with 2 turns (QC): 3 Wheel 150 ft (QC): 3 Stair Training 1 Step (curb) (QC): 88 4 Steps (QC): 88 12 Steps (QC): 88 Balance Picking up an Object (QC): 88 ADL-Treatment Eating (QC): 5 Oral Hygiene (QC): 4 (per clinical judgement at seated level) Shower/Bathe Self (QC): 1 Upper Body Dressing (QC): 3 (mod) Lower Body Dressing (QC): 1 On/Off Footwear (QC): 1 Toileting Hygiene (QC): 2 Assessment/Plan Assessment and Plan Assess & Plan/Chief Complaint Assessment: Debility CAD Prior UTI Fall at home Advanced age Plan: IRF protocol Monitor pain Home meds 05/28/2022: Continue therapy Increase ambulation (1) Debility Status: Acute (2) Generalized weakness Status: Acute (3) Weakness generalized Status: Acute (4) CAD (coronary artery disease) RYAN PINEDA DO May 28, 2022 20:41
--- NOTE | 2022-05-28 20:46 | Individualized Plan of Care ---
Individualized Plan of Care Rehab Nursing IPOC Order Admission Date May 27, 2022 at 16:57 Current Orders Orders Admission Order(Inpt,Obs,Sdc) (05/27/22 17:11) Vital Signs: Per Unit Policy ( 08,16,00 (05/27/22 17:11) Benjamin Cassidy (05/27/22 17:11) Sequential Compression Device (05/27/22 17:11) Transcription-Inpt Rehab Con (05/27/22 17:11) Rehab Nursing Orders-Ipoc (05/27/22 17:11) Physical Therapy Rehab Orders (05/27/22 17:11) Occupational Therapy Rehab Ord (05/27/22 17:11) Speech Therapy Rehab Orders (05/27/22 17:11) Cbc With Automated Diff (05/28/22 06:00) Comprehensive Metabolic Panel (05/28/22 06:00) Precautions (Aru) (05/27/22 17:11) Weekly Weight WEEK (05/27/22 17:11) Rehab-Intensity Of Therapy (05/27/22 17:11) Initiate Admission Nursing Pro .admission (05/27/22 17:11) Alprazolam Tablet (Xanax Tablet) (05/27/22 17:15) Calcium Carbonate Chew Tablet (Antacid C (05/27/22 17:15) Diphenhydramine Tablet (Benadryl Tablet) (05/27/22 17:15) Docusate Sodium Capsule (Colace Capsule) (05/27/22 21:00) Docusate Sodium Capsule (Colace Capsule) (05/27/22 17:15) Bisacodyl Suppository (Dulcolax Supposit (05/27/22 17:15) Lactulose Oral Solution (Enulose Oral So (05/27/22 17:15) Na Phos/Na Biphos Enema (Fleet Enema Gerald (05/27/22 17:15) Guaifenesin/Codeine Syrup (Robitussin Ac (05/27/22 17:15) Loperamide Tablet (Imodium Tablet) (05/27/22 17:15) Melatonin Tablet (Melatonin Tablet) (05/27/22 17:15) Polyethylene Glycol Powder Pkt (Miralax (05/27/22 21:00) Ondansetron Oral Dissolve Tab (Zofran (05/27/22 17:15) Senna S Tablet (Senokot S Tablet) (05/27/22 21:00) Acetaminophen Tablet/Caplet (Tylenol T (05/27/22 17:15) Code/Resuscitation (05/27/22 17:12) Ambulate 08,12,20 (05/27/22 17:12) Sequential Compression Device ONCE (05/27/22 17:12) Initiate Admission Nursing Pro .admission (05/27/22 17:12) Isolation Central Supply Req (05/27/22 17:12) General/Regular (05/27/22 Dinner) Aspirin Chewable Tablet (Baby Aspirin Ch (05/28/22 09:00) Atorvastatin Tablet (Lipitor Tablet) (05/27/22 21:00) Clopidogrel Tablet (Plavix Tablet) (05/28/22 09:00) Pantoprazole Tablet (Protonix Tablet) (05/28/22 09:00) Tamsulosin Capsule (Flomax Capsule) (05/28/22 18:00) Procalcitonin (Pct) (05/28/22 05:59) Patient Visit (05/28/22 ) Speech Sound Lang Comp (05/28/22 ) Treat. Speech/Lang/Voice (05/28/22 ) Patient Visit (05/28/22 ) Pt Eval Moderate Complexity (05/28/22 ) Functional Activities, Ea 15 (05/28/22 ) Rehab Nursing Orders: Ongoing Assess. of Cognitive Status, Ongoing Assess. of Function Status, Bladder Management, Bladder Scan, Bladder Training, Bowel Management, Bowel Training, Disease Management & Educaiton, DVT Prophylaxis, Fall Prevention, Fluid/Electrolyte/Nutrition Mgmt, Infection Prevention, Medication Management & Education, Management of Risks & Complications, Nutrition Management, Pain Management, Patient/Family Support, Safety Management Intensity of Therapy to be met Patient to be seen: Min.3h per day/5 of 7d PT IPOC Problem List: Activity Tolerance, Functional Strength, Safety, Balance, Gait, Transfer, Bed Mobility, ROM Treatment Plan: Continue Plan of Care Bed Mobility, Education, Functional Activity Heath, Functional Strength, Group Therapy, Gait, Safety, Therapeutic Exercise, Transfers Treatment Duration: Jun 18, 2022 Frequency: At least 5 of 7 days/Wk (IRF) Estimated Hrs Per Day: 1.5 hours per day OT IPOC Problems: Decreased Activ Tolerance, Decreased Safety Aware, Decreased UE Strength, Dependent Transfers, Impaired Bed Mobility, Impaired Cognition, Impaired Funct Balance, Impaired I ADL's, Impaired Self-Care Skills OT Treatment, Training and Edu: Yes Plan of Care: ADL Retraining, Cognitive Retraining, Functional Mobility, Group Exercise/Act as Ind, UE Funct Exercise/Act Treatment Duration: Jun 21, 2022 Frequency: At least 5 of 7 days/Wk (IRF) Estimated Hrs Per Day: 1.5 hours per day (75-90 min/day) ST IPOC Speech Therapy Treatment Plan: Discontinue ST (Per patient request.) Treatment Duration: May 28, 2022 Frequency: 1 time per week Estimated Hrs Per Day: .5 hour per day Transcription/Case Mgmt Transcription/Case Managemen: Discharge Planning Dietitian/Camera Machinist Dietitian/Camera Machinist to monitor nutritional status and make changes and/or recommendations as needed and work with speech pathology on dietary upgrades as the occur. Physician IPOC Medical Issues being managed closely and that require the 24 hour availability of a physician: Recent fall with subsequent leg weakness in an advanced age patient will require close monitoring for any decompensation and work on gaining strength Medical Issues: Bowel/Bladder Function, DVT Prophylaxis, Falls Precautions, Fluid/Electrolyte/Nutrition Balance, Infection Protection, Pain Management, Weight Bearing Precautions Brief Synthesis of Preadmission Screen, Post-Admission Evaluation, and Therapy Evaluations: PT OT will focus on regaining function in order to return back to independent living while gaining strength and increased use of assistive devices Medical Prognosis: Good Anticipated Length of Stay: 7 days RYAN PINEDA DO May 28, 2022 20:46
--- NOTE | 2022-05-29 06:06 | PM&R Progress Note ---
Subjective HPI/CC On Admission Date Seen by Provider: May 29, 2022 Time Seen by Provider: 09:00 Subjective/Events-last exam 05/29/2022: Doing better No pain Legs are improved No falls BM+ 05/28/2022: Doing better No test result confirms an infection This appears to be a gradual decline in function due to advanced age No falls No pain Increased strength in legs noted Review of Systems General: Fatigue, Malaise Objective Exam Vital Signs Vital Signs Date Time Temp Pulse Resp B/P (MAP) Pulse Ox O2 Delivery O2 Flow Rate FiO2 05/29/22 09:01 Room Air 05/29/22 07:40 36.9 84 16 96/63 (23) 92 Capillary Refill : General Appearance: No Apparent Distress, WD/WN, Chronically ill HEENT: PERRL/EOMI, Normal ENT Inspection, Pharynx Normal Neck: Full Range of Motion, Normal Inspection, Non Tender, Supple, Carotid Bruit Respiratory: Chest Non Tender, Lungs Clear, Normal Breath Sounds, No Accessory Muscle Use, No Respiratory Distress Cardiovascular: Regular Rate, Rhythm, No Edema, No Gallop, No JVD, No Murmur, Normal Peripheral Pulses Gastrointestinal: Normal Bowel Sounds, No Organomegaly, No Pulsatile Mass, Non Tender, Soft Back: Normal Inspection, No CVA Tenderness, No Vertebral Tenderness Extremity: Normal Capillary Refill, Normal Inspection, Normal Range of Motion, Non Tender, No Calf Tenderness, No Pedal Edema Neurologic/Psychiatric: Alert, Oriented x3, Normal Mood/Affect, cleaning custodian II-XII Norm as Tested, Abnormal Gait, Motor Weakness (legs 3/5 arms 4/5) Skin: Normal Color, Warm/Dry Lymphatic: No Adenopathy Results/Procedures Lab Patient resulted labs reviewed. FIM Transfers Therapy Code Descriptions/Definitions Functional [place] Measure: 0=Not Assessed/NA 4=Minimal Assistance 1=Total Assistance 5=Supervision or Setup 2=Maximal Assistance 6=Modified [place] 3=Moderate Assistance 7=Complete IndependenceSCALE: Activities may be completed with or without assistive devices. 4-Gxfekvlwqn-hfmjtwd completes the activity by him/herself with no assistance from a helper. 5-Set-up or Clean-up Assistance-helper sets up or cleans up; patient completes activity. [place] assists only prior to or following the activity. 4-Supervision or Touching Assistance-helper provides verbal cues and/or touching/steadying and/or contact guard assistance as patient completes activity. Assistance may be provided throughout the activity or intermittently. 3-Partial/Moderate Assistance-helper does LESS THAN HALF the effort. [place] lifts, holds or supports trunk or limbs, but provides less than half the effort. 2-Substantial/Maximal Assistance-helper does MORE THAN HALF the effort. [place] l ifts or holds trunk or limbs and provides more than half the effort. 5-Xufxqwmmx-wcadjx does ALL the effort. Patient does none of the effort to complete the activity. Or, the assistance of 2 or more helpers is required for the patient to complete the activity. If activity was not attempted, code reason: 7-Patient Refused. 9-Not Applicable-not attempted and the patient did not perform the activity before the current illness, exacerbation or injury. 10-Not Attempted due to Environmental Limitations-(lack of equipment, weather restraints, etc.). 88-Not Attempted due to Medical Conditions or Safety Concerns. Roll Left to Right (QC): 6 Sit to Lying (QC): 4 Sit to Stand (QC): 3 Chair/Mou-ab-Eyhpx Xfer(QC): 3 Car Transfer (QC): 3 Gait Training Does the Patient Walk?: Yes Walk 10 feet (QC): 3 Walk 50 ft with 2 Turns(QC): 88 Walk 150 ft (QC): 88 Walking 10ft/uneven surface-QC: 88 Gait Assistive Device: FWW Wheelchair Training Does the Pt Use a Wheelchair?: No Wheel 50 ft with 2 turns (QC): 3 Wheel 150 ft (QC): 3 Stair Training 1 Step (curb) (QC): 88 4 Steps (QC): 88 12 Steps (QC): 88 Balance Picking up an Object (QC): 88 ADL-Treatment Eating (QC): 5 Oral Hygiene (QC): 4 (per clinical judgement at seated level) Shower/Bathe Self (QC): 1 Upper Body Dressing (QC): 3 (mod) Lower Body Dressing (QC): 1 On/Off Footwear (QC): 1 Toileting Hygiene (QC): 2 Assessment/Plan Assessment and Plan Assess & Plan/Chief Complaint Assessment: Debility CAD Prior UTI Fall at home Advanced age Plan: IRF protocol Monitor pain Home meds 05/28/2022: Continue therapy Increase ambulation 05/29/2022: Monitor weakness Improved status (1) Debility Status: Acute (2) Generalized weakness Status: Acute (3) Weakness generalized Status: Acute (4) CAD (coronary artery disease) RYAN PINEDA DO May 29, 2022 06:06
[2022-05-29 07:40] VITALS: BP 96/63
[2022-05-29] MEDS: ASPIRIN 81 MG CHEW (CHILDREN'S ASA) PO SCH (07:55)
[2022-05-29] MEDS: PANTOPRAZOLE 40 MG (PROTONIX) TAB PO SCH (07:55)
[2022-05-29] MEDS: CLOPIDOGREL 75 MG (PLAVIX) TABLET PO SCH (07:55)
[2022-05-29] MEDS: DOCUSATE SODIUM 100 MG (COLACE) CAP PO SCH ×2 (07:58→19:22)
[2022-05-29] MEDS: SENNA W/DOCUSATE (SENOKOT S) TABLET PO SCH ×2 (07:59→19:22)
[2022-05-29] MEDS: polyethylene glycoL POWDER 17 GM (MIRALAX) PACK PO SCH ×2 (07:59→19:22)
--- NOTE | 2022-05-29 09:17 | Occupational Ther Daily Note ---
OT Current Status-Daily Note Subjective Pt really wanting to go home. Denies pain Co-treat with PT for part of treatment ([id number]) secondary to impaired mobility, high fall risk, decreased endurance and due to need of 2 skilled clinicians to progress indep and safety with adls and functional mobility Appearance Pt left sitting on side of therapy mat with physical therapy present at OT departure. Mental Status/Objective Patient Orientation: Person, Place ADL-Treatment Therapy Code Descriptions/Definitions Functional [place] Measure: 0=Not Assessed/NA 4=Minimal Assistance 1=Total Assistance 5=Supervision or Setup 2=Maximal Assistance 6=Modified [place] 3=Moderate Assistance 7=Complete IndependenceSCALE: Activities may be completed with or without assistive devices. 3-Lofioszidl-hohwvsz completes the activity by him/herself with no assistance from a helper. 5-Set-up or Clean-up Assistance-helper sets up or cleans up; patient completes activity. [place] assists only prior to or following the activity. 4-Supervision or Touching Assistance-helper provides verbal cues and/or touching/steadying and/or contact guard assistance as patient completes activity. Assistance may be provided throughout the activity or intermittently. 3-Partial/Moderate Assistance-helper does LESS THAN HALF the effort. [place] lifts, holds or supports trunk or limbs, but provides less than half the effort. 2-Substantial/Maximal Assistance-helper does MORE THAN HALF the effort. [place] lifts or holds trunk or limbs and provides more than half the effort. 1-Imvvitopa-scgnwo does ALL the effort. Patient does none of the effort to complete the activity. Or, the assistance of 2 or more helpers is required for the patient to complete the activity. If activity was not attempted, code reason: 7-Patient Refused. 9-Not Applicable-not attempted and the patient did not perform the activity before the current illness, exacerbation or injury. 10-Not Attempted due to Environmental Limitations-(lack of equipment, weather restraints, etc.). 88-Not Attempted due to Medical Conditions or Safety Concerns. Eating (QC): 6 Oral Hygiene (QC): 6 (at seated level) Shower/Bathe Self (QC): 4 Upper Body Dressing (QC): 3 Lower Body Dressing (QC): 4 On/Off Footwear: 4 (depedent with zhane hose, SBA to don shoes) Toileting Hygiene (QC): 4 Toilet Transfer (QC): 4 Great improvements seen in transfers, gait, and functional adls this date. Shower performed; majority completed in sitting. Close supervision for safety as he stood to wash pedro luis area/buttocks. Feet washed by placing washcloth on floor and rubbing foot against soapy cloth. Improved tolerance notable during task this session. Clothing donned seated in w/c. Daughter assists with bringing button up shirt around back of torso and threading LUE through sleeve. OT educated daughter and patient on compensatory techniques such as buttoning shirt first and donning overhead like a T-shirt. Will attempt next session. Improved reach exhibited when threading BLE's into underwear/pants. CGA for safety as he stood to pull clothing up to waist. Grooming tasks (shaving, oral care, face washing, hair combing) performed at w/c level. Significant time to complete but no physical assistance required. Pt is forgetful and will often repeat statements made throughout treatment. Other Treatment Pt ambulated to therapy gym with CGA-Min a and use of walker. Improved gait notable but does continue to need cues for posture as Pt has tendency to sink knees into flexion with prolonged standing. Pt completed multiple sit<>stands without use of UE's to push off from with SBA-CGA. He was able to demonstrate ability to get into quadraped and tall kneeling with focus on improving strength, balance, and skills needed to get up from the floor if a fall occurs. Great improvements with all functional task when compared to previous date. Education OT Patient Education: Correct positioning, Energy conservation, Modified ADL techniques, Progress toward Goal/Update tx plan, Purpose of tx/functional activities, Rehab process, Safety issues, Transfer techniques, W/C management Teaching Recipient: Patient, Family Teaching Methods: Demonstration, Discussion Response to Teaching: Verbalize Understanding, Return Demonstration, Reinforcement Needed OT Short Term Goals Short Term Goals Time Frame: Jun 07, 2022 Eatin Oral hygiene: 5 Toileting hygiene: 3 Shower/bathe self: 3 Upper body dressin Lower body dressin Putting on/taking off footwear: 3 OT Balance Truing Inspector Goals Custodial Goals Time Frame: Jun 21, 2022 Eating (QC): 6 Oral Hygiene (QC): 6 Toileting Hygiene (QC): 6 Shower/Bathe Self (QC): 5 Upper Body Dressing (QC): 5 Lower Body Dressing (QC): 5 On/Off Footwear (QC): 5 1=Demonstrate adherence to instructed precautions during ADL tasks. 2=Patient will verbalize/demonstrate understanding of assistive devices/modifications for ADL. 3=Patient will improve strength/tolerance for activity to enable patient to perform ADL's. OT Education/Plan Problem List/Assessment Assessment: Decreased Safety Aware, Decreased UE Strength, Impaired Cognition, Impaired Funct Balance, Impaired I ADL's, Impaired Self-Care Skills Discharge Recommendations Plan/Recommendations: Continue POC Treatment Plan/Plan of Care Treatment,Training & Education: Yes Patient would benefit from OT for education, treatment and training to promote independence in ADL's, mobility, safety and/or upper extremity function for ADL's. Plan of Care: ADL Retraining, Cognitive Retraining, Functional Mobility, Group Exercise/Act as Ind, UE Funct Exercise/Act Treatment Duration: Jun 21, 2022 Frequency: At least 5 of 7 days/Wk (IRF) Estimated Hrs Per Day: 1.5 hours per day (75-90 min/day) Agreement: Yes Rehab Potential: Fair Time/GCodes Start Time: 07:40 Stop Time: 09:10 Total Time Billed (hr/min): 90 Billed Treatment Time 1 visit ADL x5 (70 min) FA (20 min) Cate Walls OT May 29, 2022 09:17
--- NOTE | 2022-05-29 09:32 | Physical Therapy Daily Note ---
PT Daily Note-Current Subjective Pt. agreeable to OT PT co Rx. Pt. shares his history of falls as well as this recent episode of weakness etc. Dtr present and also shares. Pain Location: No Pain Reported Mental Status Patient Orientation: Normal For Age Transfers SCALE: Activities may be completed with or without assistive devices. 9-Vrcgwinhai-qbnklmg completes the activity by him/herself with no assistance from a helper. 5-Set-up or Clean-up Assistance-helper sets up or cleans up; patient completes activity. [place] assists only prior to or following the activity. 4-Supervision or Touching Assistance-helper provides verbal cues and/or touching/steadying and/or contact guard assistance as patient completes activity. Assistance may be provided throughout the activity or intermittently. 3-Partial/Moderate Assistance-helper does LESS THAN HALF the effort. [place] lifts, holds or supports trunk or limbs, but provides less than half the effort. 2-Substantial/Maximal Assistance-helper does MORE THAN HALF the effort. [place] lifts or holds trunk or limbs and provides more than half the effort. 5-Dzkeztibk-lbvutk does ALL the effort. Patient does none of the effort to complete the activity. Or, the assistance of 2 or more helpers is required for the patient to complete the activity. If activity was not attempted, code reason: 7-Patient Refused. 9-Not Applicable-not attempted and the patient did not perform the activity before the current illness, exacerbation or injury. 10-Not Attempted due to Environmental Limitations-(lack of equipment, weather restraints, etc.). 88-Not Attempted due to Medical Conditions or Safety Concerns. Roll Left & Right (QC): 6 Sit to Lying (QC): 6 Lying to Sitting/Side of Bed(Q: 6 Sit to Stand (QC): 6 Chair/Vod-ub-Eolsw Xfer(QC): 5 Toilet Transfer (QC): 6 emphasis this Rx on safe approach to chair and bed as pt. turns many steps ahead of destination and walks backwards to chair. good progress with TRFs Gait Training Does the Patient Walk?: Yes Walk 10 feet (QC): 4 Walk 50 ft with 2 Turns(QC): 4 Walk 150 ft (QC): 4 Gait Persons Needed: 1 Gait Assistive Device: Cane Single Point pt. ambulated 150 ft with FWW CGA, 25 ft at handrail in cummings CGA, 50 ft and 165 ft with SPC CGA, no LOB , pt. likes to use walking stick in right hand, we may have family bring this, good even step length and good heel strike noted, pt giving full effort Wheelchair Training Does the Pt Use a Wheelchair?: Yes Wheel 50 ft with 2 turns (QC): 5 Wheel 150 ft (QC): 5 Type of Wheelchair: Manual Exercises Supine Ex: Bridging, Rolling, Straight leg raise, Hip abd/add Supine Reps: 10 Treatments PT OT co Rx secondary to pts recent history of extreme weakness and debility. pt. today demonstrating great progress. Pt was seen for showering, dressing, shave at sink all with good balance , no incident, gait with FWW, gait at rail, and ultimately gait with SPC as he progressed well. nueromuscular balance challenges derived from JERRY as well as other testing and challenges with no LOB , in quadruped indep, in tall kneeling with balance challenges and perturbatio ns , no LOB, Assessment Current Status: Good Progress Co Rx will not be needed after this Rx as pt. has made significant progress in strength and balance PT Short Term Goals Short Term Goals Time Frame: Jun 04, 2022 Roll Left & Right: 6 Sit to lyin Lying to sitting on side of be: 6 Sit to stand: 3 Chair/fcp-qf-yzfdz transfer: 4 (CGA) Walk 10 feet: 4 (CGA) Walk 50 feet with two turns: 4 (CGA) PT Retirement Goals Retirement Goals PT Retirement Goals Time Frame: Jun 18, 2022 Roll Left & Right (QC): 6 Sit to Lying (QC): 6 Lying-Sitting on Side/Bed(QC): 6 Sit to Stand (QC): 4 (SBA) Chair/Hdv-oz-Umyce Xfer(QC): 4 (SBA) Toilet Transfer (QC): 4 (SBA) Car Transfer (QC): 4 (SBA) Does the Patient Walk: Yes Walk 10 feet (QC): 4 (SBA) Walk 50ft with 2 Turns (QC): 4 (SBA) Walk 150 ft (QC): 4 (SBA) Walking 10ft on Uneven Surface: 4 (SBA) 1 Step (curb) (QC): 4 (CGA) 4 Steps (QC): 4 (CGA) 12 Steps (QC): 88 Picking up an Object (QC): 4 (SBA with mid level project manager) Wheel 50 feet with 2 turns (QC: 9 Wheel 150 feet: 9 PT Plan Treatment/Plan Treatment Plan: Continue Plan of Care Treatment Plan: Bed Mobility, Education, Functional Activity Heath, Functional Strength, Group Therapy, Gait, Safety, Therapeutic Exercise, Transfers Treatment Duration: Jun 18, 2022 Frequency: At least 5 of 7 days/Wk (IRF) Estimated Hrs Per Day: 1.5 hours per day Patient and/or Family Agrees t: Yes Safety Risks/Education Patient Education: Gait Training, Transfer Techniques, Correct Positioning, Disease Process, Safety Issues Teaching Recipient: Patient Teaching Methods: Demonstration, Discussion Response to Teaching: Verbalize Understanding, Return Demonstration, Reinforcement Needed Time/GCodes Time In: 800 Time Out: 930 Total Billed Treatment Time: 90 Total Billed Treatment 1,GT25m,FA45m,NM20m DOTTY HICKMAN FLOOR SWEEPER May 29, 2022 09:32
[2022-05-29] MEDS: TAMSULOSIN 0.4 MG (FLOMAX) CAP PO SCH (18:25)
[2022-05-29 20:03] VITALS: BP 128/58
--- NOTE | 2022-05-30 05:48 | PM&R Progress Note ---
Subjective HPI/CC On Admission Date Seen by Provider: May 30, 2022 Subjective/Events-last exam 05/30/2022: Doing well Improved leg strength No falls 05/29/2022: Doing better No pain Legs are improved No falls BM+ 05/28/2022: Doing better No test result confirms an infection This appears to be a gradual decline in function due to advanced age No falls No pain Increased strength in legs noted Review of Systems General: Fatigue, Malaise Objective Exam Vital Signs Vital Signs Date Time Temp Pulse Resp B/P (MAP) Pulse Ox O2 Delivery O2 Flow Rate FiO2 05/30/22 08:33 Room Air 05/30/22 07:54 36.9 81 16 102/62 (75) 93 Capillary Refill : General Appearance: No Apparent Distress, WD/WN, Chronically ill HEENT: PERRL/EOMI, Normal ENT Inspection, Pharynx Normal Neck: Full Range of Motion, Normal Inspection, Non Tender, Supple, Carotid Bruit Respiratory: Chest Non Tender, Lungs Clear, Normal Breath Sounds, No Accessory Muscle Use, No Respiratory Distress Cardiovascular: Regular Rate, Rhythm, No Edema, No Gallop, No JVD, No Murmur, Normal Peripheral Pulses Gastrointestinal: Normal Bowel Sounds, No Organomegaly, No Pulsatile Mass, Non Tender, Soft Back: Normal Inspection, No CVA Tenderness, No Vertebral Tenderness Extremity: Normal Capillary Refill, Normal Inspection, Normal Range of Motion, Non Tender, No Calf Tenderness, No Pedal Edema Neurologic/Psychiatric: Alert, Oriented x3, Normal Mood/Affect, rendering equipment tender II-XII Norm as Tested, Abnormal Gait, Motor Weakness (legs 3/5 arms 4/5) Skin: Normal Color, Warm/Dry Lymphatic: No Adenopathy Results/Procedures Lab Patient resulted labs reviewed. FIM Transfers Therapy Code Descriptions/Definitions Functional [place] Measure: 0=Not Assessed/NA 4=Minimal Assistance 1=Total Assistance 5=Supervision or Setup 2=Maximal Assistance 6=Modified [place] 3=Moderate Assistance 7=Complete IndependenceSCALE: Activities may be completed with or without assistive devices. 6-Rszejblriu-voabjsr completes the activity by him/herself with no assistance from a helper. 5-Set-up or Clean-up Assistance-helper sets up or cleans up; patient completes activity. [place] assists only prior to or following the activity. 4-Supervision or Touching Assistance-helper provides verbal cues and/or touching /steadying and/or contact guard assistance as patient completes activity. Assistance may be provided throughout the activity or intermittently. 3-Partial/Moderate Assistance-helper does LESS THAN HALF the effort. [place] lifts, holds or supports trunk or limbs, but provides less than half the effort. 2-Substantial/Maximal Assistance-helper does MORE THAN HALF the effort. [place] lifts or holds trunk or limbs and provides more than half the effort. 1-Qjsyyivzc-ztaieb does ALL the effort. Patient does none of the effort to complete the activity. Or, the assistance of 2 or more helpers is required for the patient to complete the activity. If activity was not attempted, code reason: 7-Patient Refused. 9-Not Applicable-not attempted and the patient did not perform the activity before the current illness, exacerbation or injury. 10-Not Attempted due to Environmental Limitations-(lack of equipment, weather restraints, etc.). 88-Not Attempted due to Medical Conditions or Safety Concerns. Roll Left to Right (QC): 6 Sit to Lying (QC): 6 Sit to Stand (QC): 6 Chair/Ktk-px-Mcwqr Xfer(QC): 5 Car Transfer (QC): 3 Gait Training Does the Patient Walk?: Yes Walk 10 feet (QC): 4 Walk 50 ft with 2 Turns(QC): 4 Walk 150 ft (QC): 4 Walking 10ft/uneven surface-QC: 88 Gait Persons Needed: 1 Gait Assistive Device: Cane Single Point Wheelchair Training Does the Pt Use a Wheelchair?: Yes Wheel 50 ft with 2 turns (QC): 5 Wheel 150 ft (QC): 5 Type of Wheelchair: Manual Stair Training 1 Step (curb) (QC): 88 4 Steps (QC): 88 12 Steps (QC): 88 Balance Picking up an Object (QC): 88 ADL-Treatment Eating (QC): 6 Oral Hygiene (QC): 6 (at seated level) Shower/Bathe Self (QC): 4 Upper Body Dressing (QC): 3 Lower Body Dressing (QC): 4 On/Off Footwear (QC): 4 (depedent with zhane hose, SBA to don shoes) Toileting Hygiene (QC): 4 Toilet Transfer (QC): 4 Assessment/Plan Assessment and Plan Assess & Plan/Chief Complaint Assessment: Debility CAD Prior UTI Fall at home Advanced age Plan: IRF protocol Monitor pain Home meds 05/28/2022: Continue therapy Increase ambulation 05/29/2022: Monitor weakness Improved status 05/30/2022: Improved (1) Debility Status: Acute (2) Generalized weakness Status: Acute (3) Weakness generalized Status: Acute (4) CAD (coronary artery disease) RYAN PINEDA DO May 30, 2022 05:48
[2022-05-30 07:54] VITALS: BP 102/62
[2022-05-30] MEDS: CLOPIDOGREL 75 MG (PLAVIX) TABLET PO SCH (08:35)
[2022-05-30] MEDS: polyethylene glycoL POWDER 17 GM (MIRALAX) PACK PO SCH ×2 (08:36→20:33)
[2022-05-30] MEDS: PANTOPRAZOLE 40 MG (PROTONIX) TAB PO SCH (08:36)
[2022-05-30] MEDS: DOCUSATE SODIUM 100 MG (COLACE) CAP PO SCH ×2 (08:36→20:34)
[2022-05-30] MEDS: ASPIRIN 81 MG CHEW (CHILDREN'S ASA) PO SCH (08:36)
[2022-05-30] MEDS: SENNA W/DOCUSATE (SENOKOT S) TABLET PO SCH ×2 (08:36→20:32)
--- NOTE | 2022-05-30 09:21 | Occupational Ther Daily Note ---
OT Current Status-Daily Note Subjective Pt denies pain. Very talkative, requires cues to continue through task as pt is easily distracted. Appearance Pt left sitting in recliner, all needs within reach, physical therapist walking into room. Mental Status/Objective Patient Orientation: Person, Place, Situation ADL-Treatment Therapy Code Descriptions/Definitions Functional [place] Measure: 0=Not Assessed/NA 4=Minimal Assistance 1=Total Assistance 5=Supervision or Setup 2=Maximal Assistance 6=Modified [place] 3=Moderate Assistance 7=Complete IndependenceSCALE: Activities may be completed with or without assistive devices. 8-Pnnrwxrspb-viexqyl completes the activity by him/herself with no assistance from a helper. 5-Set-up or Clean-up Assistance-helper sets up or cleans up; patient completes activity. [place] assists only prior to or following the activity. 4-Supervision or Touching Assistance-helper provides verbal cues and/or touching/steadying and/or contact guard assistance as patient completes activity. Assistance may be provided throughout the activity or intermittently. 3-Partial/Moderate Assistance-helper does LESS THAN HALF the effort. [place] lifts, holds or supports trunk or limbs, but provides less than half the effort. 2-Substantial/Maximal Assistance-helper does MORE THAN HALF the effort. [place] lifts or holds trunk or limbs and provides more than half the effort. 1-Szzjcyvoa-yaqspb does ALL the effort. Patient does none of the effort to complete the activity. Or, the assistance of 2 or more helpers is required for the patient to complete the activity. If activity was not attempted, code reason: 7-Patient Refused. 9-Not Applicable-not attempted and the patient did not perform the activity before the current illness, exacerbation or injury. 10-Not Attempted due to Environmental Limitations-(lack of equipment, weather restraints, etc.). 88-Not Attempted due to Medical Conditions or Safety Concerns. Eating (QC): 6 Oral Hygiene (QC): 4 (at standing level) Upper Body Dressing (QC): 5 Lower Body Dressing (QC): 5 On/Off Footwear: 5 Toileting Hygiene (QC): 6 Toilet Transfer (QC): 4 Pt ambulated to/from bathroom with SBA-CGA and use of walker. He stood to complete grooming tasks and partial sponge bath (Upper body and pedro luis area only). Close supervision and intermittent cues for upright posture, especially with prolonged standing. He sat to don clothing. Able to don overhead shirt and button up shirt without assistance this date. Supervision for balance safety as he stood to pull LB clothing up to waist. No unsteadiness exhibited. Pt is very talkative and often gets distracted, poor multitasking skills. Several reminders to continue through activity. Other Treatment Pt's interests ([place]) drove selection of activity. Activity performed 1/2 in standing and 1/2 in sitting. Focus on improving standing posture, balance, functional reaching, attention, memory and problem solving skills needed for functional tasks. OT had Pt explain directions to therapist. Pt having difficulty expressing rules, thus needing therapist/patient to return to written instructions for clarification. Mod cues for posture as standing time increases. No LOB when reaching slightly out of ANDRE. Education OT Patient Education: Correct positioning, Energy conservation, Modified ADL techniques, Progress toward Goal/Update tx plan, Purpose of tx/functional activities, Safety issues Teaching Recipient: Patient, Family Teaching Methods: Demonstration, Discussion Response to Teaching: Verbalize Understanding, Return Demonstration, Reinforcement Needed OT Short Term Goals Short Term Goals Time Frame: Jun 07, 2022 Eatin Oral hygiene: 5 Toileting hygiene: 3 Shower/bathe self: 3 Upper body dressin Lower body dressin Putting on/taking off footwear: 3 OT Alf Goals Refinery Operator Assistant Goals Time Frame: Jun 21, 2022 Eating (QC): 6 Oral Hygiene (QC): 6 Toileting Hygiene (QC): 6 Shower/Bathe Self (QC): 5 Upper Body Dressing (QC): 5 Lower Body Dressing (QC): 5 On/Off Footwear (QC): 5 1=Demonstrate adherence to instructed precautions during ADL tasks. 2=Patient will verbalize/demonstrate understanding of assistive devices/modifications for ADL. 3=Patient will improve strength/tolerance for activity to enable patient to perform ADL's. OT Education/Plan Problem List/Assessment Assessment: Decreased Activ Tolerance, Decreased Safety Aware, Decreased UE Strength, Impaired Cognition, Impaired Funct Balance, Impaired I ADL's, Impaired Self-Care Skills Discharge Recommendations Plan/Recommendations: Continue POC Treatment Plan/Plan of Care Treatment,Training & Education: Yes Patient would benefit from OT for education, treatment and training to promote independence in ADL's, mobility, safety and/or upper extremity function for ADL's. Plan of Care: ADL Retraining, Cognitive Retraining, Functional Mobility, Group Exercise/Act as Ind, UE Funct Exercise/Act Treatment Duration: Jun 21, 2022 Frequency: At least 5 of 7 days/Wk (IRF) Estimated Hrs Per Day: 1.5 hours per day (75-90 min/day) Agreement: Yes Rehab Potential: Fair Time/GCodes Start Time: 07:30 Stop Time: 09:00 Total Time Billed (hr/min): 90 Billed Treatment Time 1 visit ADL x4 (55 min) FA x2 (35 min) Cate Walls OT May 30, 2022 09:21
--- NOTE | 2022-05-30 10:04 | Physical Therapy Daily Note ---
PT Daily Note-Current Subjective Pt. agrees to Rx, Pt. has the boots on he usually wears at home and has the walking stick he like to use as well. Pt. c/o his right knee is hurting and notices this whle he is walking Pain Numeric Pain Scale: 4 Location: Right Location Body Site: Knee Pain Description: Stabbing Mental Status Patient Orientation: Normal For Age Transfers SCALE: Activities may be completed with or without assistive devices. 5-Rtltfkzpvh-zjfhtnk completes the activity by him/herself with no assistance from a helper. 5-Set-up or Clean-up Assistance-helper sets up or cleans up; patient completes activity. [place] assists only prior to or following the activity. 4-Supervision or Touching Assistance-helper provides verbal cues and/or touching/steadying and/or contact guard assistance as patient completes activity. Assistance may be provided throughout the activity or intermittently. 3-Partial/Moderate Assistance-helper does LESS THAN HALF the effort. [place] lifts, holds or supports trunk or limbs, but provides less than half the effort. 2-Substantial/Maximal Assistance-helper does MORE THAN HALF the effort. [place] lifts or holds trunk or limbs and provides more than half the effort. 4-Mjfpujqxe-inkqco does ALL the effort. Patient does none of the effort to complete the activity. Or, the assistance of 2 or more helpers is required for the patient to complete the activity. If activity was not attempted, code reason: 7-Patient Refused. 9-Not Applicable-not attempted and the patient did not perform the activity before the current illness, exacerbation or injury. 10-Not Attempted due to Environmental Limitations-(lack of equipment, weather restraints, etc.). 88-Not Attempted due to Medical Conditions or Safety Concerns. Roll Left & Right (QC): 6 Sit to Lying (QC): 6 Lying to Sitting/Side of Bed(Q: 6 Sit to Stand (QC): 6 Chair/Pmu-zh-Jkkci Xfer(QC): 6 Gait Training Does the Patient Walk?: Yes Walk 10 feet (QC): 4 Walk 50 ft with 2 Turns(QC): 4 Walk 150 ft (QC): 4 Gait Persons Needed: 1 Gait Assistive Device: Cane Single Point (tall walking stick) pt. ambulated with walking stick he has used at home , stick approx 5 ft 10 in, experimented using it in left hand as pts right knee is weak and painful at times, pt could not coordinate this comfortably and switched back Exercises NuStep Minutes: 8 NuStep Workload: 2 Neuromuscular balance challenges in stance for altern step in place at stairs with and without holding rail. 360 turns, twists etc Assessment Current Status: Good Progress PT Short Term Goals Short Term Goals Time Frame: Jun 04, 2022 Roll Left & Right: 6 Sit to lyin Lying to sitting on side of be: 6 Sit to stand: 3 Chair/hmr-ev-gcfts transfer: 4 (CGA) Walk 10 feet: 4 (CGA) Walk 50 feet with two turns: 4 (CGA) PT Fpc Goals [place]asc[place] Molder Goals PT Mascara Molder Goals Time Frame: Jun 18, 2022 Roll Left & Right (QC): 6 Sit to Lying (QC): 6 Lying-Sitting on Side/Bed(QC): 6 Sit to Stand (QC): 4 (SBA) Chair/Gzg-gf-Nxyfe Xfer(QC): 4 (SBA) Toilet Transfer (QC): 4 (SBA) Car Transfer (QC): 4 (SBA) Does the Patient Walk: Yes Walk 10 feet (QC): 4 (SBA) Walk 50ft with 2 Turns (QC): 4 (SBA) Walk 150 ft (QC): 4 (SBA) Walking 10ft on Uneven Surface: 4 (SBA) 1 Step (curb) (QC): 4 (CGA) 4 Steps (QC): 4 (CGA) 12 Steps (QC): 88 Picking up an Object (QC): 4 (SBA with range rider) Wheel 50 feet with 2 turns (QC: 9 Wheel 150 feet: 9 PT Plan Treatment/Plan Treatment Plan: Continue Plan of Care Treatment Plan: Bed Mobility, Education, Functional Activity Heath, Functional Strength, Group Therapy, Gait, Safety, Therapeutic Exercise, Transfers Treatment Duration: Jun 18, 2022 Frequency: At least 5 of 7 days/Wk (IRF) Estimated Hrs Per Day: 1.5 hours per day Patient and/or Family Agrees t: Yes Safety Risks/Education Patient Education: Gait Training, Correct Positioning, Disease Process, Safety Issues Teaching Recipient: Patient Teaching Methods: Demonstration, Discussion Response to Teaching: Verbalize Understanding, Return Demonstration, Reinforce ment Needed Time/GCodes Time In: 915 Time Out: 1000 Total Billed Treatment Time: 45 Total Billed Treatment 1,NM15m,GT15m,EX15m DOTTY HICKMAN KILN DRAWER May 30, 2022 10:04
--- NOTE | 2022-05-30 12:09 | Physical Therapy Daily Note ---
PT Daily Note-Current Subjective Pt. agrees to Rx. " I just want to go home" " you want to know what my biggest fear is? I just dont ever want to go to a jail". Pt. states at end of Rx that he feels his legs getting tired and needs to rest "they need to be stronger" Pain Location: No Pain Reported Mental Status Patient Orientation: Normal For Age Transfers SCALE: Activities may be completed with or without assistive devices. 9-Nqbyzkugfv-kzcaxgt completes the activity by him/herself with no assistance from a helper. 5-Set-up or Clean-up Assistance-helper sets up or cleans up; patient completes activity. [place] assists only prior to or following the activity. 4-Supervision or Touching Assistance-helper provides verbal cues and/or touching/steadying and/or contact guard assistance as patient completes activity. Assistance may be provided throughout the activity or intermittently. 3-Partial/Moderate Assistance-helper does LESS THAN HALF the effort. [place] lifts, holds or supports trunk or limbs, but provides less than half the effort. 2-Substantial/Maximal Assistance-helper does MORE THAN HALF the effort. [place] lifts or holds trunk or limbs and provides more than half the effort. 0-Uuibkusxn-qsatwc does ALL the effort. Patient does none of the effort to complete the activity. Or, the assistance of 2 or more helpers is required for the patient to complete the activity. If activity was not attempted, code reason: 7-Patient Refused. 9-Not Applicable-not attempted and the patient did not perform the activity before the current illness, exacerbation or injury. 10-Not Attempted due to Environmental Limitations-(lack of equipment, weather restraints, etc.). 88-Not Attempted due to Medical Conditions or Safety Concerns. Roll Left & Right (QC): 6 Sit to Lying (QC): 6 Lying to Sitting/Side of Bed(Q: 6 Sit to Stand (QC): 6 Chair/Dyf-bn-Mnfdg Xfer(QC): 6 Toilet Transfer (QC): 6 worked again on safe approach to chair as pt turns and backs in crouched position a few feet from the chair Gait Training Does the Patient Walk?: Yes Gait Assistive Device: Cane Single Point (tall walking stick) 250 ft x 2 with stick, CGA, no LOB, side step left and right and retro approx 20 ft x2 ea, no LOB, very slow CGA Exercises Seated Therapy Exercises: Ankle pumps, Sit to stand, Long arc quads, Shoulder Abd, Hip abd/add Seated Reps: 15 Treatments gait, TRFs, safety Assessment Current Status: Good Progress PT Short Term Goals Short Term Goals Time Frame: Jun 04, 2022 Roll Left & Right: 6 Sit to lyin Lying to sitting on side of be: 6 Sit to stand: 3 Chair/ytc-fn-qphmu transfer: 4 (CGA) Walk 10 feet: 4 (CGA) Walk 50 feet with two turns: 4 (CGA) PT Structural Steel Detailer Goals Structural Steel Detailer Goals PT Structural Steel Detailer Goals Time Frame: Jun 18, 2022 Roll Left & Right (QC): 6 Sit to Lying (QC): 6 Lying-Sitting on Side/Bed(QC): 6 Sit to Stand (QC): 4 (SBA) Chair/Ygq-ok-Pizub Xfer(QC): 4 (SBA) Toilet Transfer (QC): 4 (SBA) Car Transfer (QC): 4 (SBA) Does the Patient Walk: Yes Walk 10 feet (QC): 4 (SBA) Walk 50ft with 2 Turns (QC): 4 (SBA) Walk 150 ft (QC): 4 (SBA) Walking 10ft on Uneven Surface: 4 (SBA) 1 Step (curb) (QC): 4 (CGA) 4 Steps (QC): 4 (CGA) 12 Steps (QC): 88 Picking up an Object (QC): 4 (SBA with fisher trot line) Wheel 50 feet with 2 turns (QC: 9 Wheel 150 feet: 9 PT Plan Treatment/Plan Treatment Plan: Continue Plan of Care Treatment Plan: Bed Mobility, Education, Functional Activity Heath, Functional Strength, Group Therapy, Gait, Safety, Therapeutic Exercise, Transfers Treatment Duration: Jun 18, 2022 Frequency: At least 5 of 7 days/Wk (IRF) Estimated Hrs Per Day: 1.5 hours per day Patient and/or Family Agrees t: Yes Safety Risks/Education Patient Education: Gait Training, Transfer Techniques, Correct Positioning, Disease Process, Safety Issues Teaching Recipient: Patient Teaching Methods: Demonstration, Discussion Response to Teaching: Verbalize Understanding, Return Demonstration, Reinforcement Needed Time/GCodes Time In: 1130 Time Out: 1215 Total Billed Treatment Time: 45 Total Billed Treatment 1,FA20m,GT25m LUEBBER, DOTTY A COST RECOVERY TECHNICIAN May 30, 2022 12:09
[2022-05-30] MEDS: TAMSULOSIN 0.4 MG (FLOMAX) CAP PO SCH (17:02)
[2022-05-30 20:12] VITALS: BP 126/69
--- NOTE | 2022-05-31 06:35 | PM&R Progress Note ---
Subjective HPI/CC On Admission Date Seen by Provider: May 31, 2022 Time Seen by Provider: 12:30 Subjective/Events-last exam 05/31/2022: Pt is doing really well Family wants a day pass tomorrow to celebrate the fourth year of his passing Overall functioning very well 05/30/2022: Doing well Improved leg strength No falls 05/29/2022: Doing better No pain Legs are improved No falls BM+ 05/28/2022: Doing better No test result confirms an infection This appears to be a gradual decline in function due to advanced age No falls No pain Increased strength in legs noted Review of Systems General: Fatigue, Malaise Objective Exam Vital Signs Vital Signs Date Time Temp Pulse Resp B/P (MAP) Pulse Ox O2 Delivery O2 Flow Rate FiO2 05/31/22 09:14 Room Air 05/31/22 07:46 37.2 83 16 113/64 (80) 95 Capillary Refill : General Appearance: No Apparent Distress, WD/WN, Chronically ill HEENT: PERRL/EOMI, Normal ENT Inspection, Pharynx Normal Neck: Full Range of Motion, Normal Inspection, Non Tender, Supple, Carotid Bruit Respiratory: Chest Non Tender, Lungs Clear, Normal Breath Sounds, No Accessory Muscle Use, No Respiratory Distress Cardiovascular: Regular Rate, Rhythm, No Edema, No Gallop, No JVD, No Murmur, Normal Peripheral Pulses Gastrointestinal: Normal Bowel Sounds, No Organomegaly, No Pulsatile Mass, Non Tender, Soft Back: Normal Inspection, No CVA Tenderness, No Vertebral Tenderness Extremity: Normal Capillary Refill, Normal Inspection, Normal Range of Motion, Non Tender, No Calf Tenderness, No Pedal Edema Neurologic/Psychiatric: Alert, Oriented x3, Normal Mood/Affect, bread jockey II-XII Norm as Tested, Abnormal Gait, Motor Weakness (legs 3/5 arms 4/5) Skin: Normal Color, Warm/Dry Lymphatic: No Adenopathy Results/Procedures Lab Patient resulted labs reviewed. FIM Transfers Therapy Code Descriptions/Definitions Functional [place] Measure: 0=Not Assessed/NA 4=Minimal Assistance 1=Total Assistance 5=Supervision or Setup 2=Maximal Assistance 6=Modified [place] 3=Moderate Assistance 7=Complete IndependenceSCALE: Activities may be completed with or without assistive devices. 2-Vueidjwgqt-jrvjxsp completes the activity by him/herself with no assistance from a helper. 5-Set-up or Clean-up Assistance-helper sets up or cleans up; patient completes activity. [place] assists only prior to or following the activity. 4-Supervision or Touching Assistance-helper provides verbal cues and/or touching/steadying and/or contact guard assistance as patient completes activity. Assistance may be provided throughout the activity or intermittently. 3-Partial/Moderate Assistance-helper does LESS THAN HALF the effort. [place] lifts, holds or supports trunk or limbs, but provides less than half the effort. 2-Substantial/Maximal Assistance-helper does MORE THAN HALF the effort. [place] lifts or holds trunk or limbs and provides more than half the effort. 4-Bhkcsdrsj-djffob does ALL the effort. Patient does none of the effort to complete the activity. Or, the assistance of 2 or more helpers is required for the patient to complete the activity. If activity was not attempted, code reason: 7-Patient Refused. 9-Not Applicable-not attempted and the patient did not perform the activity before the current illness, exacerbation or injury. 10-Not Attempted due to Environmental Limitations-(lack of equipment, weather restraints, etc.). 88-Not Attempted due to Medical Conditions or Safety Concerns. Roll Left to Right (QC): 6 Sit to Lying (QC): 6 Sit to Stand (QC): 6 Chair/Bqs-br-Hlkfg Xfer(QC): 6 Car Transfer (QC): 3 Gait Training Does the Patient Walk?: Yes Walk 10 feet (QC): 4 Walk 50 ft with 2 Turns(QC): 4 Walk 150 ft (QC): 4 Walking 10ft/uneven surface-QC: 88 Gait Persons Needed: 1 Gait Assistive Device: Cane Single Point (tall walking stick) Wheelchair Training Does the Pt Use a Wheelchair?: Yes Wheel 50 ft with 2 turns (QC): 5 Wheel 150 ft (QC): 5 Type of Wheelchair: Manual Stair Training 1 Step (curb) (QC): 88 4 Steps (QC): 88 12 Steps (QC): 88 Balance Picking up an Object (QC): 88 ADL-Treatment Eating (QC): 6 Oral Hygiene (QC): 4 (at standing level) Shower/Bathe Self (QC): 4 Upper Body Dressing (QC): 5 Lower Body Dressing (QC): 5 On/Off Footwear (QC): 5 Toileting Hygiene (QC): 6 Toilet Transfer (QC): 4 Assessment/Plan Assessment and Plan Assess & Plan/Chief Complaint Assessment: Debility CAD Prior UTI Fall at home Advanced age Plan: IRF protocol Monitor pain Home meds 05/28/2022: Continue therapy Increase ambulation 05/29/2022: Monitor weakness Improved status 05/30/2022: Improved 05/31/2022: Continue aggressive therapy (1) Debility Status: Acute (2) Generalized weakness Status: Acute (3) Weakness generalized Status: Acute (4) CAD (coronary artery disease) RYAN PINEDA DO May 31, 2022 06:34
[2022-05-31 07:46] VITALS: BP 113/64
[2022-05-31] MEDS: ASPIRIN 81 MG CHEW (CHILDREN'S ASA) PO SCH (09:20)
[2022-05-31] MEDS: CLOPIDOGREL 75 MG (PLAVIX) TABLET PO SCH (09:20)
[2022-05-31] MEDS: DOCUSATE SODIUM 100 MG (COLACE) CAP PO SCH ×2 (09:20→20:16)
[2022-05-31] MEDS: SENNA W/DOCUSATE (SENOKOT S) TABLET PO SCH ×2 (09:20→20:16)
[2022-05-31] MEDS: PANTOPRAZOLE 40 MG (PROTONIX) TAB PO SCH (09:20)
[2022-05-31] MEDS: polyethylene glycoL POWDER 17 GM (MIRALAX) PACK PO SCH ×2 (09:20→20:17)
--- NOTE | 2022-05-31 10:03 | Occupational Ther Daily Note ---
OT Current Status-Daily Note Subjective Pt reports increased fatigue this session when compared to previous date. Appearance Pt returned to sitting in chair, all needs within reach at OT departure. Mental Status/Objective Patient Orientation: Person, Place ADL-Treatment Therapy Code Descriptions/Definitions Functional [place] Measure: 0=Not Assessed/NA 4=Minimal Assistance 1=Total Assistance 5=Supervision or Setup 2=Maximal Assistance 6=Modified [place] 3=Moderate Assistance 7=Complete IndependenceSCALE: Activities may be completed with or without assistive devices. 7-Pnnnyucezl-clqronf completes the activity by him/herself with no assistance from a helper. 5-Set-up or Clean-up Assistance-helper sets up or cleans up; patient completes activity. [place] assists only prior to or following the activity. 4-Supervision or Touching Assistance-helper provides verbal cues and/or touching/steadying and/or contact guard assistance as patient completes activity. Assistance may be provided throughout the activity or intermittently. 3-Partial/Moderate Assistance-helper does LESS THAN HALF the effort. [place] lifts, holds or supports trunk or limbs, but provides less than half the effort. 2-Substantial/Maximal Assistance-helper does MORE THAN HALF the effort. [place] lifts or holds trunk or limbs and provides more than half the effort. 0-[place]-meqlzg does ALL the effort. Patient does none of the effort to complete the activity. Or, the assistance of 2 or more helpers is required for the patient to complete the activity. If activity was not attempted, code reason: 7-Patient Refused. 9-Not Applicable-not attempted and the patient did not perform the activity before the current illness, exacerbation or injury. 10-Not Attempted due to Environmental Limitations-(lack of equipment, weather restraints, etc.). 88-Not Attempted due to Medical Conditions or Safety Concerns. Shower/Bathe Self (QC): 4 Upper Body Dressing (QC): 5 Lower Body Dressing (QC): 5 On/Off Footwear: 5 Toileting Hygiene (QC): 6 Toilet Transfer (QC): 4 Shower completed, majority completed in sitting. Supervision for safety as he stood to wash pedro luis area/buttocks, no unsteadiness observed. Pt able to reach all body parts without assistance. Post shower, he reports fatigue and requests to defer grooming activities. Clothing donned seated in chair. Extra time and effort exhibited when bringing button up shirt around back of torso, but no assist needed. Reminder that if pt is feeling more fatigued or having increased difficulty, he can don shirt overhead like a t-shirt. Dependent to don zhane hose, pt able to don socks/shoes post set up. Slight increase in rest breaks needed this date due to increased fatigue. Education OT Patient Education: Energy conservation, Modified ADL techniques, Progress toward Goal/Update tx plan, Purpose of tx/functional activities, Safety issues, Transfer techniques Teaching Recipient: Patient Teaching Methods: Demonstration, Discussion Response to Teaching: Verbalize Understanding, Return Demonstration, Reinforcement Needed OT Short Term Goals Short Term Goals Time Frame: Jun 07, 2022 Eatin Oral hygiene: 5 Toileting hygiene: 3 Shower/bathe self: 3 Upper body dressin Lower body dressin Putting on/taking off footwear: 3 OT Puppy Sitter Goals Puppy Sitter Goals Time Frame: Jun 21, 2022 Eating (QC): 6 Oral Hygiene (QC): 6 Toileting Hygiene (QC): 6 Shower/Bathe Self (QC): 5 Upper Body Dressing (QC): 5 Lower Body Dressing (QC): 5 On/Off Footwear (QC): 5 1=Demonstrate adherence to instructed precautions during ADL tasks. 2=Patient will verbalize/demonstrate understanding of assistive devices/modifications for ADL. 3=Patient will improve strength/tolerance for activity to enable patient to perform ADL's. OT Education/Plan Problem List/Assessment Assessment: Decreased Activ Tolerance, Decreased Safety Aware, Decreased UE Strength, Impaired Cognition, Impaired Funct Balance, Impaired I ADL's, Impaired Self-Care Skills Discharge Recommendations Plan/Recommendations: Continue POC Treatment Plan/Plan of Care Treatment,Training & Education: Yes Patient would benefit from OT for education, treatment and training to promote independence in ADL's, mobility, safety and/or upper extremity function for ADL's. Plan of Care: ADL Retraining, Cognitive Retraining, Functional Mobility, Group Exercise/Act as Ind, UE Funct Exercise/Act Treatment Duration: Jun 21, 2022 Frequency: At least 5 of 7 days/Wk (IRF) Estimated Hrs Per Day: 1.5 hours per day (75-90 min/day) Agreement: Yes Rehab Potential: Fair Time/GCodes Start Time: 08:10 Stop Time: 09:00 Total Time Billed (hr/min): 50 Billed Treatment Time 1 visit ADL x3 (50 min) Cate Walls OT May 31, 2022 10:03
--- NOTE | 2022-05-31 10:04 | Physical Therapy Daily Note ---
PT Daily Note-Current Subjective Pt. agrees to Rx, states "you know my grand daughter pointed out that I have lost muscle...what do I do about that" as pt. uses dumb bells while sitting in recliner Pain Location: No Pain Reported Mental Status Patient Orientation: Normal For Age Transfers SCALE: Activities may be completed with or without assistive devices. 5-Vdcjzjuzyr-rhvdhio completes the activity by him/herself with no assistance from a helper. 5-Set-up or Clean-up Assistance-helper sets up or cleans up; patient completes activity. [place] assists only prior to or following the activity. 4-Supervision or Touching Assistance-helper provides verbal cues and/or touching/steadying and/or contact guard assistance as patient completes activity. Assistance may be provided throughout the activity or intermittently. 3-Partial/Moderate Assistance-helper does LESS THAN HALF the effort. [place] lifts, holds or supports trunk or limbs, but provides less than half the effort. 2-Substantial/Maximal Assistance-helper does MORE THAN HALF the effort. [place] lifts or holds trunk or limbs and provides more than half the effort. 5-Cvmaecjpg-mroxqk does ALL the effort. Patient does none of the effort to complete the activity. Or, the assistance of 2 or more helpers is required for the patient to complete the activity. If activity was not attempted, code reason: 7-Patient Refused. 9-Not Applicable-not attempted and the patient did not perform the activity before the current illness, exacerbation or injury. 10-Not Attempted due to Environmental Limitations-(lack of equipment, weather restraints, etc.). 88-Not Attempted due to Medical Conditions or Safety Concerns. Roll Left & Right (QC): 6 Sit to Lying (QC): 6 Lying to Sitting/Side of Bed(Q: 6 Sit to Stand (QC): 6 Chair/Vwz-mx-Hgrzx Xfer(QC): 6 pt. TRFd x 2 from sitting to floor to sidelying to quadruped and crawled to mat table TRFing to sitting on table indep Gait Training Does the Patient Walk?: Yes Walk 10 feet (QC): 4 Walk 50 ft with 2 Turns(QC): 4 Walk 150 ft (QC): 4 Walking 10ft/uneven surface-QC: 4 Gait Persons Needed: 1 Gait Assistive Device: FWW FWW 500ft, 200 ft CGA to SBA Stair Training Stair Training: Handrails/: 2 handrails #of Steps: 8 4 Steps (QC): 4 12 Steps (QC): 4 Stairs: Pattern: Reciprocal Exercises NuStep Minutes: 10 NuStep Workload: 2 Treatments gait with FWW and review of walking stick vs FWW in case he was weaker and using it in the house etc for safety Assessment Current Status: Good Progress pt. demonstrated safe use of FWW , no LOB, SBA and safe floor TRFs x 2 trials PT Short Term Goals Short Term Goals Time Frame: Jun 04, 2022 Roll Left & Right: 6 Sit to lyin Lying to sitting on side of be: 6 Sit to stand: 3 Chair/vtn-nz-xeobk transfer: 4 (CGA) Walk 10 feet: 4 (CGA) Walk 50 feet with two turns: 4 (CGA) PT Prison Goals Prison Goals PT Prison Goals Time Frame: Jun 18, 2022 Roll Left & Right (QC): 6 Sit to Lying (QC): 6 Lying-Sitting on Side/Bed(QC): 6 Sit to Stand (QC): 4 (SBA) Chair/Mxc-zr-Vsmcm Xfer(QC): 4 (SBA) Toilet Transfer (QC): 4 (SBA) Car Transfer (QC): 4 (SBA) Does the Patient Walk: Yes Walk 10 feet (QC): 4 (SBA) Walk 50ft with 2 Turns (QC): 4 (SBA) Walk 150 ft (QC): 4 (SBA) Walking 10ft on Uneven Surface: 4 (SBA) 1 Step (curb) (QC): 4 (CGA) 4 Steps (QC): 4 (CGA) 12 Steps (QC): 88 Picking up an Object (QC): 4 (SBA with chip washer) Wheel 50 feet with 2 turns (QC: 9 Wheel 150 feet: 9 PT Plan Treatment/Plan Treatment Plan: Continue Plan of Care Treatment Plan: Bed Mobility, Education, Functional Activity Heath, Functional Strength, Group Therapy, Gait, Safety, Therapeutic Exercise, Transfers Treatment Duration: Jun 18, 2022 Frequency: At least 5 of 7 days/Wk (IRF) Estimated Hrs Per Day: 1.5 hours per day Patient and/or Family Agrees t: Yes Safety Risks/Education Patient Education: Gait Training, Transfer Techniques, Steps, Correct Positioning, Disease Process, Safety Issues Teaching Recipient: Patient Teaching Methods: Demonstration, Discussion Response to Teaching: Verbalize Understanding, Return Demonstration, Reinforcement Needed Time/GCodes Time In: 900 Time Out: 1000 Total Billed Treatment Time: 60 Total Billed Treatment 1,FA25m,EX15m,GT20m DOTTY HICKMAN JIGSAWYER May 31, 2022 10:04
--- NOTE | 2022-05-31 10:39 | Occupational Ther Daily Note ---
OT Current Status-Daily Note Subjective Pt appears to be feeling more energized than when seen earlier this am. Appearance Pt left sitting in chair, all needs within reach. ADL-Treatment Therapy Code Descriptions/Definitions Functional [place] Measure: 0=Not Assessed/NA 4=Minimal Assistance 1=Total Assistance 5=Supervision or Setup 2=Maximal Assistance 6=Modified [place] 3=Moderate Assistance 7=Complete IndependenceSCALE: Activities may be completed with or without assistive devices. 6-Pcgjjghblh-tgzzvao completes the activity by him/herself with no assistance from a helper. 5-Set-up or Clean-up Assistance-helper sets up or cleans up; patient completes activity. [place] assists only prior to or following the activity. 4-Supervision or Touching Assistance-helper provides verbal cues and/or touching/steadying and/or contact guard assistance as patient completes activity. Assistance may be provided throughout the activity or intermittently. 3-Partial/Moderate Assistance-helper does LESS THAN HALF the effort. [place] lifts, holds or supports trunk or limbs, but provides less than half the effort. 2-Substantial/Maximal Assistance-helper does MORE THAN HALF the effort. [place] lifts or holds trunk or limbs and provides more than half the effort. 2-Hqxavcdzg-ykumsr does ALL the effort. Patient does none of the effort to complete the activity. Or, the assistance of 2 or more helpers is required for the patient to complete the activity. If activity was not attempted, code reason: 7-Patient Refused. 9-Not Applicable-not attempted and the patient did not perform the activity before the current illness, exacerbation or injury. 10-Not Attempted due to Environmental Limitations-(lack of equipment, weather restraints, etc.). 88-Not Attempted due to Medical Conditions or Safety Concerns. Other Treatment Pt's daughter brought in 5# dumbbells that she wanted him to learn exercises for. Goal to increase strength and endurance needed for functional tasks. Pt unable to tolerate 5#'s at this time, thus all exercises performed with 3#'. He was able to complete all movements through full range. Min visual cues for improved technique. Short rests breaks needed. 1x10 all planes. Education OT Patient Education: Correct positioning, Exercise program, Purpose of tx/functional activities, Safety issues Teaching Recipient: Patient Teaching Methods: Demonstration, Discussion Response to Teaching: Verbalize Understanding, Return Demonstration, Reinforcement Needed OT Short Term Goals Short Term Goals Time Frame: Jun 07, 2022 Eatin Oral hygiene: 5 Toileting hygiene: 3 Shower/bathe self: 3 Upper body dressin Lower body dressin Putting on/taking off footwear: 3 OT Fpc Goals Fpc Goals Time Frame: Jun 21, 2022 Eating (QC): 6 Oral Hygiene (QC): 6 Toileting Hygiene (QC): 6 Shower/Bathe Self (QC): 5 Upper Body Dressing (QC): 5 Lower Body Dressing (QC): 5 On/Off Footwear (QC): 5 1=Demonstrate adherence to instructed precautions during ADL tasks. 2=Patient will verbalize/demonstrate understanding of assistive devices/modifications for ADL. 3=Patient will improve strength/tolerance for activity to enable patient to perform ADL's. OT Education/Plan Problem List/Assessment Assessment: Decreased Activ Tolerance, Decreased Safety Aware, Decreased UE Strength, Impaired Cognition, Impaired Funct Balance, Impaired I ADL's, Impaired Self-Care Skills Discharge Recommendations Plan/Recommendations: Continue POC Treatment Plan/Plan of Care Treatment,Training & Education: Yes Patient would benefit from OT for education, treatment and training to promote independence in ADL's, mobility, safety and/or upper extremity function for ADL's. Plan of Care: ADL Retraining, Cognitive Retraining, Functional Mobility, Group Exercise/Act as Ind, UE Funct Exercise/Act Treatment Duration: Jun 21, 2022 Frequency: At least 5 of 7 days/Wk (IRF) Estimated Hrs Per Day: 1.5 hours per day (75-90 min/day) Agreement: Yes Rehab Potential: Fair Time/GCodes Start Time: 10:18 Stop Time: 10:35 Total Time Billed (hr/min): 17 Billed Treatment Time 1 visit EX Cate Walls OT May 31, 2022 10:39
--- NOTE | 2022-05-31 14:32 | Therapy Group Daily Note ---
Therapy Daily Group Note Patient Education Topic Home Safety Exercises Sit to/from Stand Session Ratio (pt:therapist): 4:1 Goal of Session: Education on ARU Expectations, Home Safety Strategies Goal Met for this Session: Yes Pt Benefit of Group: Contributions to Others, F/U Use of Strategies @Home, Increased Functional Safety, Socialization Other/Notes Pt participated in group PT OT session this date . Pt. ambulated from room to gym and back as well as from seat to activity board during group. Pt. introduced self and shared appropriately with group . Education regarding purpose and goals of ARU were explained, Home safety spanning many different topic was covered with pts sharing their strategies for home safety. Pts participated in memory activity matching images from memory. Pt. in room in chair after Rx mg at hand, needs met Start Time: 13:00 Stop Time: 14:15 Total Billed Treatment Time: 75 Total Billed Treatment 1,GRP DOTTY HICKMAN SENIOR CLERK May 31, 2022 14:32
[2022-05-31] MEDS: TAMSULOSIN 0.4 MG (FLOMAX) CAP PO SCH (18:03)
[2022-05-31 20:26] VITALS: BP 121/59
--- NOTE | 2022-06-01 07:02 | PM&R Progress Note ---
Subjective HPI/CC On Admission Date Seen by Provider: Jun 01, 2022 Time Seen by Provider: 11:00 Subjective/Events-last exam 06/01/2022: Going for a day past today to celebrate the fourth anniversary of his 's No pain is reported Ambulating well 05/31/2022: Pt is doing really well Family wants a day pass tomorrow to celebrate the fourth year of his passing Overall functioning very well 05/30/2022: Doing well Improved leg strength No falls 05/29/2022: Doing better No pain Legs are improved No falls BM+ 05/28/2022: Doing better No test result confirms an infection This appears to be a gradual decline in function due to advanced age No falls No pain Increased strength in legs noted Review of Systems General: Fatigue, Malaise Objective Exam Vital Signs Vital Signs Date Time Temp Pulse Resp B/P (MAP) Pulse Ox O2 Delivery O2 Flow Rate FiO2 06/01/22 09:00 Room Air 06/01/22 07:30 36.9 75 18 115/65 (82) 96 Capillary Refill : General Appearance: No Apparent Distress, WD/WN, Chronically ill HEENT: PERRL/EOMI, Normal ENT Inspection, Pharynx Normal Neck: Full Range of Motion, Normal Inspection, Non Tender, Supple, Carotid Bruit Respiratory: Chest Non Tender, Lungs Clear, Normal Breath Sounds, No Accessory Muscle Use, No Respiratory Distress Cardiovascular: Regular Rate, Rhythm, No Edema, No Gallop, No JVD, No Murmur, Normal Peripheral Pulses Gastrointestinal: Normal Bowel Sounds, No Organomegaly, No Pulsatile Mass, Non Tender, Soft Back: Normal Inspection, No CVA Tenderness, No Vertebral Tenderness Extremity: Normal Capillary Refill, Normal Inspection, Normal Range of Motion, Non Tender, No Calf Tenderness, No Pedal Edema Neurologic/Psychiatric: Alert, Oriented x3, Normal Mood/Affect, news specialist II-XII Norm as Tested, Abnormal Gait, Motor Weakness (legs 3/5 arms 4/5) Skin: Normal Color, Warm/Dry Lymphatic: No Adenopathy Results/Procedures Lab Patient resulted labs reviewed. FIM Transfers Therapy Code Descriptions/Definitions Functional [place] Measure: 0=Not Assessed/NA 4=Minimal Assistance 1=Total Assistance 5=Supervision or Setup 2=Maximal Assistance 6=Modified [place] 3=Moderate Assistance 7=Complete IndependenceSCALE: Activities may be completed with or without assistive devices. 1-Jfwcmjymxx-ijvbmoy completes the activity by him/herself with no assistance from a helper. 5-Set-up or Clean-up Assistance-helper sets up or cleans up; patient completes activity. [place] assists only prior to or following the activity. 4-Supervision or Touching Assistance-helper provides verbal cues and/or touching/steadying and/or contact guard assistance as patient completes activity. Assistance may be provided throughout the activity or intermittently. 3-Partial/Moderate Assistance-helper does LESS THAN HALF the effort. [place] lifts, holds or supports trunk or limbs, but provides less than half the effort. 2-Substantial/Maximal Assistance-helper does MORE THAN HALF the effort. [place] lifts or holds trunk or limbs and provides more than half the effort. 5-Rzgobxexb-rgfwox does ALL the effort. Patient does none of the effort to complete the activity. Or, the assistance of 2 or more helpers is required for the patient to complete the activity. If activity was not attempted, code reason: 7-Patient Refused. 9-Not Applicable-not attempted and the patient did not perform the activity before the current illness, exacerbation or injury. 10-Not Attempted due to Environmental Limitations-(lack of equipment, weather restraints, etc.). 88-Not Attempted due to Medical Conditions or Safety Concerns. Roll Left to Right (QC): 6 Sit to Lying (QC): 6 Sit to Stand (QC): 6 Chair/Bej-mj-Bckcl Xfer(QC): 6 Car Transfer (QC): 3 Gait Training Does the Patient Walk?: Yes Walk 10 feet (QC): 4 Walk 50 ft with 2 Turns(QC): 4 Walk 150 ft (QC): 4 Walking 10ft/uneven surface-QC: 4 Gait Persons Needed: 1 Gait Assistive Device: FWW Wheelchair Training Does the Pt Use a Wheelchair?: Yes Wheel 50 ft with 2 turns (QC): 5 Wheel 150 ft (QC): 5 Type of Wheelchair: Manual Stair Training Stair Training: Handrails/: 2 handrails #of Steps: 8 1 Step (curb) (QC): 88 4 Steps (QC): 4 12 Steps (QC): 4 Stairs: Pattern: Reciprocal Balance Picking up an Object (QC): 88 ADL-Treatment Eating (QC): 6 Oral Hygiene (QC): 4 (at standing level) Shower/Bathe Self (QC): 4 Upper Body Dressing (QC): 5 Lower Body Dressing (QC): 5 On/Off Footwear (QC): 5 Toileting Hygiene (QC): 6 Toilet Transfer (QC): 4 Assessment/Plan Assessment and Plan Assess & Plan/Chief Complaint Assessment: Debility CAD Prior UTI Fall at home Advanced age Plan: IRF protocol Monitor pain Home meds 05/28/2022: Continue therapy Increase ambulation 05/29/2022: Monitor weakness Improved status 05/30/2022: Improved 05/31/2022: Continue aggressive therapy 06/01/2022: Supportive care Increase independence (1) Debility Status: Acute (2) Generalized weakness Status: Acute (3) Weakness generalized Status: Acute (4) CAD (coronary artery disease) RYAN PINEDA DO Jun 01, 2022 07:01
[2022-06-01 07:30] VITALS: BP 115/65
[2022-06-01] MEDS: CLOPIDOGREL 75 MG (PLAVIX) TABLET PO SCH (08:33)
[2022-06-01] MEDS: PANTOPRAZOLE 40 MG (PROTONIX) TAB PO SCH (08:33)
[2022-06-01] MEDS: DOCUSATE SODIUM 100 MG (COLACE) CAP PO SCH ×2 (08:34→21:01)
[2022-06-01] MEDS: SENNA W/DOCUSATE (SENOKOT S) TABLET PO SCH ×2 (08:34→21:01)
[2022-06-01] MEDS: ASPIRIN 81 MG CHEW (CHILDREN'S ASA) PO SCH (08:34)
[2022-06-01] MEDS: polyethylene glycoL POWDER 17 GM (MIRALAX) PACK PO SCH ×2 (09:00→21:01)
--- NOTE | 2022-06-01 11:23 | Occupational Ther Daily Note ---
OT Current Status-Daily Note Subjective Pt seen in room, up in recliner, agreeable to OT. No pain mentioned. Appearance Alert, cooperative Mental Status/Objective Patient Orientation: Person, Place, Time, Situation ADL-Treatment Pt planning on going on pass with family at noon so wanted to shower and get ready. Sit to stand from recliner with SBA, walked SBA with FWW to bathroom. Toilet transfer on and off tall toilet with SBA, using grab bar. Cue to use walker to get close to toilet for transfer. Managed doffing slipper socks and briefs with SBA, SBA when standing to manage clothing. SBA to transfer in and out of shower, on and off shower bench. Setup for bathing, with pt using shower bench, grab bars, hand held shower. SBA when standing to wash pedro luis and bottom as well as when standing to dry. Pt walked to recliner to dress. Able to don briefs and jeans, belt with setup and SBA when standing to pull pants up or put in belt. Setup to don shirt and t shirt, including buttoning sleeves. Help to put on TEDs but he put on regular socks and boots with setup. Stood at sink SBA to brush teeth, shave, comb hair, with cues for walker placement. No LOB during g rooming. All ADLs took longer than usual but no LOB observed. Therapy Code Descriptions/Definitions Functional [place] Measure: 0=Not Assessed/NA 4=Minimal Assistance 1=Total Assistance 5=Supervision or Setup 2=Maximal Assistance 6=Modified [place] 3=Moderate Assistance 7=Complete IndependenceSCALE: Activities may be completed with or without assistive devices. 2-Qepilwpheg-aeyyuja completes the activity by him/herself with no assistance from a helper. 5-Set-up or Clean-up Assistance-helper sets up or cleans up; patient completes activity. [place] assists only prior to or following the activity. 4-Supervision or Touching Assistance-helper provides verbal cues and/or touching/steadying and/or contact guard assistance as patient completes activity. Assistance may be provided throughout the activity or intermittently. 3-Partial/Moderate Assistance-helper does LESS THAN HALF the effort. Walker lifts, holds or supports trunk or limbs, but provides less than half the effort. 2-Substantial/Maximal Assistance-helper does MORE THAN HALF the effort. Walker lifts or holds trunk or limbs and provides more than half the effort. 8-Nomsbqfqk-innpvu does ALL the effort. Patient does none of the effort to complete the activity. Or, the assistance of 2 or more helpers is required for the patient to complete the activity. If activity was not attempted, code reason: 7-Patient Refused. 9-Not Applicable-not attempted and the patient did not perform the activity before the current illness, exacerbation or injury. 10-Not Attempted due to Environmental Limitations-(lack of equipment, weather restraints, etc.). 88-Not Attempted due to Medical Conditions or Safety Concerns. Oral Hygiene (QC): 5 Shower/Bathe Self (QC): 4 Upper Body Dressing (QC): 5 Lower Body Dressing (QC): 4 On/Off Footwear: 3 (Help with TEDs but he did regular socks and boots) Toileting Hygiene (QC): 4 Toilet Transfer (QC): 4 Other Treatment Pt completed 10 reps bilat UE exercise with 3# weight, working on shoulders and elbows, as needed for transfers and for ADLs. Pt left up in recliner with call light present, all needs met. Education OT Patient Education: Exercise program, Progress toward Goal/Update tx plan, Purpose of tx/functional activities, Safety issues Teaching Recipient: Patient Teaching Methods: Demonstration, Discussion Response to Teaching: Return Demonstration, Reinforcement Needed OT Short Term Goals Short Term Goals Time Frame: Jun 07, 2022 Eatin Oral hygiene: 5 Toileting hygiene: 3 Shower/bathe self: 3 Upper body dressin Lower body dressin Putting on/taking off footwear: 3 OT Snf Goals Yeast Stacker Goals Time Frame: Jun 21, 2022 Eating (QC): 6 Oral Hygiene (QC): 6 Toileting Hygiene (QC): 6 Shower/Bathe Self (QC): 5 Upper Body Dressing (QC): 5 Lower Body Dressing (QC): 5 On/Off Footwear (QC): 5 1=Demonstrate adherence to instructed precautions during ADL tasks. 2=Patient will verbalize/demonstrate understanding of assistive devices/modifications for ADL. 3=Patient will improve strength/tolerance for activity to enable patient to perform ADL's. OT Education/Plan Discharge Recommendations Plan/Recommendations: Continue POC Treatment Plan/Plan of Care Patient would benefit from OT for education, treatment and training to promote independence in ADL's, mobility, safety and/or upper extremity function for ADL's. Plan of Care: ADL Retraining, Cognitive Retraining, Functional Mobility, Group Exercise/Act as Ind, UE Funct Exercise/Act Treatment Duration: Jun 21, 2022 Frequency: At least 5 of 7 days/Wk (IRF) Estimated Hrs Per Day: 1.5 hours per day (75-90 min/day) Agreement: Yes Rehab Potential: Fair Time/GCodes Start Time: 08:30 Stop Time: 10:00 Total Time Billed (hr/min): 90 Billed Treatment Time Visit, 80 minutes ADL, 10 minutes exercise TETO JOHN OT Jun 01, 2022 11:23
--- NOTE | 2022-06-01 11:47 | Physical Therapy Daily Note ---
PT Daily Note-Current Subjective Pt sitting in recliner upon arrival. Pt agrees to PT. Pt's grandson & granddaughter in law arrive during session. Pain Location: No Pain Reported Mental Status Patient Orientation: Person, Place, Time, Situation Transfers SCALE: Activities may be completed with or without assistive devices. 6-Rswigcpksf-rmluoil completes the activity by him/herself with no assistance from a helper. 5-Set-up or Clean-up Assistance-helper sets up or cleans up; patient completes activity. [place] assists only prior to or following the activity. 4-Supervision or Touching Assistance-helper provides verbal cues and/or touching/steadying and/or contact guard assistance as patient completes activity. Assistance may be provided throughout the activity or intermittently. 3-Partial/Moderate Assistance-helper does LESS THAN HALF the effort. [place] lifts, holds or supports trunk or limbs, but provides less than half the effort. 2-Substantial/Maximal Assistance-helper does MORE THAN HALF the effort. [place] lifts or holds trunk or limbs and provides more than half the effort. 3-Bbheytfgd-zboaza does ALL the effort. Patient does none of the effort to complete the activity. Or, the assistance of 2 or more helpers is required for the patient to complete the activity. If activity was not attempted, code reason: 7-Patient Refused. 9-Not Applicable-not attempted and the patient did not perform the activity before the current illness, exacerbation or injury. 10-Not Attempted due to Environmental Limitations-(lack of equipment, weather restraints, etc.). 88-Not Attempted due to Medical Conditions or Safety Concerns. Sit to Stand (QC): 6 Weight Bearing Full Weight Bearing Full Weight Bearing Gait Training Does the Patient Walk?: Yes Distance: 300' x4 Walk 10 feet (QC): 6 Walk 50 ft with 2 Turns(QC): 6 Walk 150 ft (QC): 5 Gait Assistive Device: Cane Single Point Stair Training Stair Training: Handrails/: 1 handrail, uses cane #of Steps: 4 1 Step (curb) (QC): 5 4 Steps (QC): 5 Stairs: Pattern: Reciprocal Exercises Standing: Hip Abduction, Hamstring curls, Heel/toe raises, 3 way Ex=Flex, Abd, Ext, Marching, Mini squats Standing Reps: 20 NuStep Minutes: 20 NuStep Workload: 4 Treatments TF to standing, declines need for BR. Pt amb. in hallway then takes RB before using NuStep. Pt amb. in hallway and returns to Therapy Gym. Pt takes RB then completes Standing Ex at //bars with a couple RB. Pt completes set of stairs before amb. in hallway and sits in Therapy Commons to eat with family for lunch. All needs met. Assessment Current Status: Good Progress Pt has improved making gains with LE strength, mobility and activity tolerance. PT Short Term Goals Short Term Goals Time Frame: Jun 04, 2022 Roll Left & Right: 6 Sit to lyin Lying to sitting on side of be: 6 Sit to stand: 3 Chair/svp-gc-kqtad transfer: 4 (CGA) Walk 10 feet: 4 (CGA) Walk 50 feet with two turns: 4 (CGA) PT Instructor Extension Work Goals Instructor Extension Work Goals PT Instructor Extension Work Goals Time Frame: Jun 18, 2022 Roll Left & Right (QC): 6 Sit to Lying (QC): 6 Lying-Sitting on Side/Bed(QC): 6 Sit to Stand (QC): 4 (SBA) Chair/Uvn-ma-Giios Xfer(QC): 4 (SBA) Toilet Transfer (QC): 4 (SBA) Car Transfer (QC): 4 (SBA) Does the Patient Walk: Yes Walk 10 feet (QC): 4 (SBA) Walk 50ft with 2 Turns (QC): 4 (SBA) Walk 150 ft (QC): 4 (SBA) Walking 10ft on Uneven Surface: 4 (SBA) 1 Step (curb) (QC): 4 (CGA) 4 Steps (QC): 4 (CGA) 12 Steps (QC): 88 Picking up an Object (QC): 4 (SBA with cashier payments received) Wheel 50 feet with 2 turns (QC: 9 Wheel 150 feet: 9 PT Plan Problem List Problem List: Activity Tolerance Treatment/Plan Treatment Plan: Continue Plan of Care Treatment Plan: Bed Mobility, Education, Functional Activity Heath, Functional Strength, Group Therapy, Gait, Safety, Therapeutic Exercise, Transfers Treatment Duration: Jun 18, 2022 Frequency: At least 5 of 7 days/Wk (IRF) Estimated Hrs Per Day: 1.5 hours per day Patient and/or Family Agrees t: Yes Safety Risks/Education Patient Education: Steps, Correct Positioning Teaching Recipient: Patient Teaching Methods: Discussion Response to Teaching: Verbalize Understanding Time/GCodes Time In: 1010 Time Out: 1140 Total Billed Treatment Time: 90 Total Billed Treatment 1, GT x2 (30m), EX x3 (45m) & FA (15m) MYKE CONTRERAS LINEN AIDE Jun 01, 2022 11:47
[2022-06-01 20:00] VITALS: BP 106/64
[2022-06-01] MEDS: TAMSULOSIN 0.4 MG (FLOMAX) CAP PO SCH (21:01)
--- NOTE | 2022-06-02 06:43 | PM&R Progress Note ---
Subjective HPI/CC On Admission Date Seen by Provider: Jun 02, 2022 Time Seen by Provider: 12:00 Subjective/Events-last exam 06/02/2022: Doing well Family visits No pain reported 06/01/2022: Going for a day past today to celebrate the fourth anniversary of his 's No pain is reported Ambulating well 05/31/2022: Pt is doing really well Family wants a day pass tomorrow to celebrate the fourth year of his passing Overall functioning very well 05/30/2022: Doing well Improved leg strength No falls 05/29/2022: Doing better No pain Legs are improved No falls BM+ 05/28/2022: Doing better No test result confirms an infection This appears to be a gradual decline in function due to advanced age No falls No pain Increased strength in legs noted Review of Systems General: Fatigue, Malaise Objective Exam Vital Signs Vital Signs Date Time Temp Pulse Resp B/P (MAP) Pulse Ox O2 Delivery O2 Flow Rate FiO2 06/02/22 21:00 Room Air 06/02/22 20:00 36.8 67 20 121/58 (79) 96 Capillary Refill : General Appearance: No Apparent Distress, WD/WN, Chronically ill HEENT: PERRL/EOMI, Normal ENT Inspection, Pharynx Normal Neck: Full Range of Motion, Normal Inspection, Non Tender, Supple, Carotid Bruit Respiratory: Chest Non Tender, Lungs Clear, Normal Breath Sounds, No Accessory Muscle Use, No Respiratory Distress Cardiovascular: Regular Rate, Rhythm, No Edema, No Gallop, No JVD, No Murmur, Normal Peripheral Pulses Gastrointestinal: Normal Bowel Sounds, No Organomegaly, No Pulsatile Mass, Non Tender, Soft Back: Normal Inspection, No CVA Tenderness, No Vertebral Tenderness Extremity: Normal Capillary Refill, Normal Inspection, Normal Range of Motion, Non Tender, No Calf Tenderness, No Pedal Edema Neurologic/Psychiatric: Alert, Oriented x3, Normal Mood/Affect, scale operator II-XII Norm as Tested, Abnormal Gait, Motor Weakness (legs 3/5 arms 4/5) Skin: Normal Color, Warm/Dry Lymphatic: No Adenopathy Results/Procedures Lab Patient resulted labs reviewed. FIM Transfers Therapy Code Descriptions/Definitions Functional [place] Measure: 0=Not Assessed/NA 4=Minimal Assistance 1=Total Assistance 5=Supervision or Setup 2=Maximal Assistance 6=Modified [place] 3=Moderate Assistance 7=Complete IndependenceSCALE: Activities may be completed with or without assistive devices. 9-[place] completes the activity by him/herself with no assistance from a helper. 5-Set-up or Clean-up Assistance-helper sets up or cleans up; patient completes activity. [place] assists only prior to or following the activity. 4-Supervision or Touching Assistance-helper provides verbal cues and/or touching /steadying and/or contact guard assistance as patient completes activity. Assistance may be provided throughout the activity or intermittently. 3-Partial/Moderate Assistance-helper does LESS THAN HALF the effort. [place] lifts, holds or supports trunk or limbs, but provides less than half the effort. 2-Substantial/Maximal Assistance-helper does MORE THAN HALF the effort. [place] lifts or holds trunk or limbs and provides more than half the effort. 8-Smcawtonf-pwxfuo does ALL the effort. Patient does none of the effort to complete the activity. Or, the assistance of 2 or more helpers is required for the patient to complete the activity. If activity was not attempted, code reason: 7-Patient Refused. 9-Not Applicable-not attempted and the patient did not perform the activity before the current illness, exacerbation or injury. 10-Not Attempted due to Environmental Limitations-(lack of equipment, weather restraints, etc.). 88-Not Attempted due to Medical Conditions or Safety Concerns. Roll Left to Right (QC): 6 Sit to Lying (QC): 6 Sit to Stand (QC): 6 Chair/Exa-bk-Uarmj Xfer(QC): 6 Car Transfer (QC): 3 Gait Training Does the Patient Walk?: Yes Distance: 300' x4 Walk 10 feet (QC): 6 Walk 50 ft with 2 Turns(QC): 6 Walk 150 ft (QC): 5 Walking 10ft/uneven surface-QC: 4 Gait Persons Needed: 1 Gait Assistive Device: Cane Single Point Wheelchair Training Does the Pt Use a Wheelchair?: Yes Wheel 50 ft with 2 turns (QC): 5 Wheel 150 ft (QC): 5 Type of Wheelchair: Manual Stair Training Stair Training: Handrails/: 1 handrail, uses cane #of Steps: 4 1 Step (curb) (QC): 5 4 Steps (QC): 5 12 Steps (QC): 4 Stairs: Pattern: Reciprocal Balance Picking up an Object (QC): 88 ADL-Treatment Eating (QC): 6 Oral Hygiene (QC): 5 Shower/Bathe Self (QC): 4 Upper Body Dressing (QC): 5 Lower Body Dressing (QC): 4 On/Off Footwear (QC): 3 (Help with TEDs but he did regular socks and boots) Toileting Hygiene (QC): 4 Toilet Transfer (QC): 4 Assessment/Plan Assessment and Plan Assess & Plan/Chief Complaint Assessment: Debility CAD Prior UTI Fall at home Advanced age Plan: IRF protocol Monitor pain Home meds 05/28/2022: Continue therapy Increase ambulation 05/29/2022: Monitor weakness Improved status 05/30/2022: Improved 05/31/2022: Continue aggressive therapy 06/01/2022: Supportive care Increase independence 06/02/2022: (1) Debility Status: Acute (2) Generalized weakness Status: Acute (3) Weakness generalized Status: Acute (4) CAD (coronary artery disease) RYAN PINEDA DO Jun 02, 2022 06:43
[2022-06-02 07:30] VITALS: BP 119/67
[2022-06-02] MEDS: PANTOPRAZOLE 40 MG (PROTONIX) TAB PO SCH (10:36)
[2022-06-02] MEDS: ASPIRIN 81 MG CHEW (CHILDREN'S ASA) PO SCH (10:36)
[2022-06-02] MEDS: CLOPIDOGREL 75 MG (PLAVIX) TABLET PO SCH (10:36)
[2022-06-02] MEDS: ACETAMINOPHEN 325 MG TABLET PO PRN (15:59)
[2022-06-02] MEDS: TAMSULOSIN 0.4 MG (FLOMAX) CAP PO SCH (18:05)
[2022-06-02] MEDS: DOCUSATE SODIUM 100 MG (COLACE) CAP PO SCH ×2 (18:45→21:52)
[2022-06-02] MEDS: SENNA W/DOCUSATE (SENOKOT S) TABLET PO SCH ×2 (18:45→21:52)
[2022-06-02] MEDS: polyethylene glycoL POWDER 17 GM (MIRALAX) PACK PO SCH ×2 (18:45→21:52)
[2022-06-02 20:00] VITALS: BP 121/58
[2022-06-03 05:27] LABS: BASOPHILS % (AUTO) 1 % (0-10); EOSINOPHILS # (AUTO) 0.2 10^3/uL (0.0-0.3); EOSINOPHILS % (AUTO) 4 % (0-10); HEMATOCRIT 38 % (40-54); HEMOGLOBIN 12.9 g/dL (13.3-17.7); LYMPHOCYTES # (AUTO) 1.5 10^3/uL (1.0-4.0); LYMPHOCYTES % (AUTO) 27 % (12-44); MEAN CORPUSCULAR HEMOGLOBIN 31 pg (25-34); MEAN CORPUSCULAR HGB CONC 34 g/dL (32-36); MEAN CORPUSCULAR VOLUME 91 fL (80-99); MEAN PLATELET VOLUME 9.4 fL (9.0-12.2); MONOCYTES # (AUTO) 0.6 10^3/uL (0.0-1.0); MONOCYTES % (AUTO) 11 % (0-12); NEUTROPHILS # (AUTO) 3.3 10^3/uL (1.8-7.8); NEUTROPHILS % (AUTO) 58 % (42-75); PLATELET COUNT 161 10^3/uL (130-400); WHITE BLOOD COUNT 5.7 10^3/uL (4.3-11.0)
[2022-06-03 05:36] LABS: ALBUMIN 3.2 GM/DL (3.2-4.5); POTASSIUM 4.2 MMOL/L (3.6-5.0)
[2022-06-03 05:37] LABS: CALCIUM 8.4 MG/DL (8.5-10.1)
[2022-06-03 05:38] LABS: TOTAL PROTEIN 5.5 GM/DL (6.4-8.2)
[2022-06-03 05:40] LABS: BILIRUBIN,TOTAL 0.5 MG/DL (0.1-1.0)
[2022-06-03 05:42] LABS: CREATININE SERUM 0.88 MG/DL (0.60-1.30)
--- NOTE | 2022-06-03 05:58 | PM&R Progress Note ---
Subjective HPI/CC On Admission Date Seen by Provider: Jun 03, 2022 Time Seen by Provider: 08:30 Subjective/Events-last exam 06/03/2022: Pt is doing well Working with therapy No other concerns Monitoring closely 06/02/2022: Doing well Family visits No pain reported 06/01/2022: Going for a day past today to celebrate the fourth anniversary of his 's No pain is reported Ambulating well 05/31/2022: Pt is doing really well Family wants a day pass tomorrow to celebrate the fourth year of his passing Overall functioning very well 05/30/2022: Doing well Improved leg strength No falls 05/29/2022: Doing better No pain Legs are improved No falls BM+ 05/28/2022: Doing better No test result confirms an infection This appears to be a gradual decline in function due to advanced age No falls No pain Increased strength in legs noted Review of Systems General: Fatigue, Malaise Objective Exam Vital Signs Vital Signs Date Time Temp Pulse Resp B/P (MAP) Pulse Ox O2 Delivery O2 Flow Rate FiO2 06/03/22 09:00 Room Air 06/03/22 07:51 37.0 68 20 121/65 (83) 94 Capillary Refill : General Appearance: No Apparent Distress, WD/WN, Chronically ill HEENT: PERRL/EOMI, Normal ENT Inspection, Pharynx Normal Neck: Full Range of Motion, Normal Inspection, Non Tender, Supple, Carotid Bruit Respiratory: Chest Non Tender, Lungs Clear, Normal Breath Sounds, No Accessory Muscle Use, No Respiratory Distress Cardiovascular: Regular Rate, Rhythm, No Edema, No Gallop, No JVD, No Murmur, Normal Peripheral Pulses Gastrointestinal: Normal Bowel Sounds, No Organomegaly, No Pulsatile Mass, Non Tender, Soft Back: Normal Inspection, No CVA Tenderness, No Vertebral Tenderness Extremity: Normal Capillary Refill, Normal Inspection, Normal Range of Motion, Non Tender, No Calf Tenderness, No Pedal Edema Neurologic/Psychiatric: Alert, Oriented x3, Normal Mood/Affect, beck operator II-XII Norm as Tested, Abnormal Gait, Motor Weakness (legs 3/5 arms 4/5) Skin: Normal Color, Warm/Dry Lymphatic: No Adenopathy Results/Procedures Lab Laboratory Tests 06/03/22 05:08 Patient resulted labs reviewed. FIM Transfers Therapy Code Descriptions/Definitions Functional [place] Measure: 0=Not Assessed/NA 4=Minimal Assistance 1=Total Assistance 5=Supervision or Setup 2=Maximal Assistance 6=Modified [place] 3=Moderate Assistance 7=Complete IndependenceSCALE: Activities may be completed with or without assistive devices. 3-Jocbehlewb-rubhxkm completes the activity by him/herself with no assistance from a helper. 5-Set-up or Clean-up Assistance-helper sets up or cleans up; patient completes activity. [place] assists only prior to or following the activity. 4-Supervision or Touching Assistance-helper provides verbal cues and/or touching/steadying and/or contact guard assistance as patient completes activit y. Assistance may be provided throughout the activity or intermittently. 3-Partial/Moderate Assistance-helper does LESS THAN HALF the effort. [place] lifts, holds or supports trunk or limbs, but provides less than half the effort. 2-Substantial/Maximal Assistance-helper does MORE THAN HALF the effort. [place] lifts or holds trunk or limbs and provides more than half the effort. 0-Yyvdidjtl-rzsrtc does ALL the effort. Patient does none of the effort to complete the activity. Or, the assistance of 2 or more helpers is required for the patient to complete the activity. If activity was not attempted, code reason: 7-Patient Refused. 9-Not Applicable-not attempted and the patient did not perform the activity before the current illness, exacerbation or injury. 10-Not Attempted due to Environmental Limitations-(lack of equipment, weather restraints, etc.). 88-Not Attempted due to Medical Conditions or Safety Concerns. Roll Left to Right (QC): 6 Sit to Lying (QC): 6 Sit to Stand (QC): 6 Chair/Qju-de-Hyozs Xfer(QC): 6 Car Transfer (QC): 3 Gait Training Does the Patient Walk?: Yes Distance: 300' x4 Walk 10 feet (QC): 6 Walk 50 ft with 2 Turns(QC): 6 Walk 150 ft (QC): 5 Walking 10ft/uneven surface-QC: 4 Gait Persons Needed: 1 Gait Assistive Device: Cane Single Point Wheelchair Training Does the Pt Use a Wheelchair?: Yes Wheel 50 ft with 2 turns (QC): 5 Wheel 150 ft (QC): 5 Type of Wheelchair: Manual Stair Training Stair Training: Handrails/: 1 handrail, uses cane #of Steps: 4 1 Step (curb) (QC): 5 4 Steps (QC): 5 12 Steps (QC): 4 Stairs: Pattern: Reciprocal Balance Picking up an Object (QC): 88 ADL-Treatment Eating (QC): 6 Oral Hygiene (QC): 5 Shower/Bathe Self (QC): 4 Upper Body Dressing (QC): 5 Lower Body Dressing (QC): 4 On/Off Footwear (QC): 3 (Help with TEDs but he did regular socks and boots) Toileting Hygiene (QC): 4 Toilet Transfer (QC): 4 Assessment/Plan Assessment and Plan Assess & Plan/Chief Complaint Assessment: Debility CAD Prior UTI Fall at home Advanced age Plan: IRF protocol Monitor pain Home meds 05/28/2022: Continue therapy Increase ambulation 05/29/2022: Monitor weakness Improved status 05/30/2022: Improved 05/31/2022: Continue aggressive therapy 06/01/2022: Supportive care Increase independence 06/02/2022: Increase independence 06/03/2022: Monitor closely (1) Debility Status: Acute (2) Generalized weakness Status: Acute (3) Weakness generalized Status: Acute (4) CAD (coronary artery disease) RYAN PINEDA DO Jun 03, 2022 05:58
[2022-06-03 07:51] VITALS: BP 121/65
[2022-06-03] MEDS: CLOPIDOGREL 75 MG (PLAVIX) TABLET PO SCH (07:57)
[2022-06-03] MEDS: ASPIRIN 81 MG CHEW (CHILDREN'S ASA) PO SCH (07:57)
[2022-06-03] MEDS: DOCUSATE SODIUM 100 MG (COLACE) CAP PO SCH ×3 (07:57→21:04)
[2022-06-03] MEDS: PANTOPRAZOLE 40 MG (PROTONIX) TAB PO SCH (07:57)
--- NOTE | 2022-06-03 08:52 | Physical Therapy Daily Note ---
PT Daily Note-Current Subjective Patient in recliner pre tx, agrees to PT, has no complaints of pain. Patient only has a gown on, gets dressed with assist. Appearance Patient in recliner post tx with nurse call, phone, tray, all needs met. Mental Status Patient Orientation: Person, Place, Situation Transfers SCALE: Activities may be completed with or without assistive devices. 4-Hoabzsrnsz-frmezvm completes the activity by him/herself with no assistance from a helper. 5-Set-up or Clean-up Assistance-helper sets up or cleans up; patient completes activity. [place] assists only prior to or following the activity. 4-Supervision or Touching Assistance-helper provides verbal cues and/or touching/steadying and/or contact guard assistance as patient completes acti vity. Assistance may be provided throughout the activity or intermittently. 3-Partial/Moderate Assistance-helper does LESS THAN HALF the effort. [place] lifts, holds or supports trunk or limbs, but provides less than half the effort. 2-Substantial/Maximal Assistance-helper does MORE THAN HALF the effort. [place] lifts or holds trunk or limbs and provides more than half the effort. 7-Hpbmxbegu-zuxirs does ALL the effort. Patient does none of the effort to complete the activity. Or, the assistance of 2 or more helpers is required for the patient to complete the activity. If activity was not attempted, code reason: 7-Patient Refused. 9-Not Applicable-not attempted and the patient did not perform the activity before the current illness, exacerbation or injury. 10-Not Attempted due to Environmental Limitations-(lack of equipment, weather restraints, etc.). 88-Not Attempted due to Medical Conditions or Safety Concerns. Sit to Stand (QC): 4 Chair/Vsk-fs-Pahbi Xfer(QC): 4 Weight Bearing Full Weight Bearing Full Weight Bearing Gait Training Distance: 300', 120' Walk 10 feet (QC): 4 Walk 50 ft with 2 Turns(QC): 4 Walk 150 ft (QC): 4 Gait Persons Needed: 1 Patient uses a walking stick, CGA, tends to shuffle, needs cues to take bigger steps, gets distracted easily, extremely slow ambulation Exercises sit to stand from therapy table 2 sets of 10 NuStep Minutes: 15 NuStep Workload: 4 Assessment Current Status: Fair Progress Patient may benefit from using a rolling walker instead of a walking stick at this time PT Short Term Goals Short Term Goals Time Frame: Jun 04, 2022 Roll Left & Right: 6 Sit to lyin Lying to sitting on side of be: 6 Sit to stand: 3 Chair/jpa-lb-qslgz transfer: 4 (CGA) Walk 10 feet: 4 (CGA) Walk 50 feet with two turns: 4 (CGA) PT On Awake Counselor Goals Care Home Goals PT On Awake Counselor Goals Time Frame: Jun 18, 2022 Roll Left & Right (QC): 6 Sit to Lying (QC): 6 Lying-Sitting on Side/Bed(QC): 6 Sit to Stand (QC): 4 (SBA) Chair/Lpd-as-Hzfle Xfer(QC): 4 (SBA) Toilet Transfer (QC): 4 (SBA) Car Transfer (QC): 4 (SBA) Does the Patient Walk: Yes Walk 10 feet (QC): 4 (SBA) Walk 50ft with 2 Turns (QC): 4 (SBA) Walk 150 ft (QC): 4 (SBA) Walking 10ft on Uneven Surface: 4 (SBA) 1 Step (curb) (QC): 4 (CGA) 4 Steps (QC): 4 (CGA) 12 Steps (QC): 88 Picking up an Object (QC): 4 (SBA with district home economics agent) Wheel 50 feet with 2 turns (QC: 9 Wheel 150 feet: 9 PT Plan Problem List Problem List: Activity Tolerance, Functional Strength, Safety, Balance, Gait, Transfer, Bed Mobility, ROM Treatment/Plan Treatment Plan: Continue Plan of Care Treatment Plan: Bed Mobility, Education, Functional Activity Heath, Functional Strength, Group Therapy, Gait, Safety, Therapeutic Exercise, Transfers Treatment Duration: Jun 18, 2022 Frequency: At least 5 of 7 days/Wk (IRF) Estimated Hrs Per Day: 1.5 hours per day Patient and/or Family Agrees t: Yes Safety Risks/Education Patient Education: Gait Training, Transfer Techniques, Correct Positioning, Safety Issues Teaching Recipient: Patient Teaching Methods: Demonstration, Discussion Response to Teaching: Reinforcement Needed Time/GCodes Time In: 0800 Time Out: 0900 Total Billed Treatment Time: 60 Total Billed Treatment 1 visit EX 30' FA 30' NEELAM COLE PT Jun 03, 2022 08:52
[2022-06-03] MEDS: polyethylene glycoL POWDER 17 GM (MIRALAX) PACK PO SCH ×2 (09:00→21:04)
[2022-06-03] MEDS: SENNA W/DOCUSATE (SENOKOT S) TABLET PO SCH ×2 (09:00→21:04)
--- NOTE | 2022-06-03 10:25 | Occupational Ther Daily Note ---
OT Current Status-Daily Note Subjective Pt reports he had sciatic pain over the weekend but that it has dissipated. Appearance Pt left sitting in recliner, all needs within reach at OT departure. Mental Status/Objective Patient Orientation: Person, Place, Situation ADL-Treatment Therapy Code Descriptions/Definitions Functional [place] Measure: 0=Not Assessed/NA 4=Minimal Assistance 1=Total Assistance 5=Supervision or Setup 2=Maximal Assistance 6=Modified [place] 3=Moderate Assistance 7=Complete IndependenceSCALE: Activities may be completed with or without assistive devices. 5-Ckykrwclfl-rokfghj completes the activity by him/herself with no assistance from a helper. 5-Set-up or Clean-up Assistance-helper sets up or cleans up; patient completes activity. [place] assists only prior to or following the activity. 4-Supervision or Touching Assistance-helper provides verbal cues and/or touching/steadying and/or contact guard assistance as patient completes activity. Assistance may be provided throughout the activity or intermittently. 3-Partial/Moderate Assistance-helper does LESS THAN HALF the effort. [place] lifts, holds or supports trunk or limbs, but provides less than half the effort. 2-Substantial/Maximal Assistance-helper does MORE THAN HALF the effort. [place] lifts or holds trunk or limbs and provides more than half the effort. 5-Iyflgkbpb-nojbpp does ALL the effort. Patient does none of the effort to complete the activity. Or, the assistance of 2 or more helpers is required for the patient to complete the activity. If activity was not attempted, code reason: 7-Patient Refused. 9-Not Applicable-not attempted and the patient did not perform the activity before the current illness, exacerbation or injury. 10-Not Attempted due to Environmental Limitations-(lack of equipment, weather restraints, etc.). 88-Not Attempted due to Medical Conditions or Safety Concerns. Oral Hygiene (QC): 6 Shower/Bathe Self (QC): 5 Upper Body Dressing (QC): 5 Lower Body Dressing (QC): 5 On/Off Footwear: 5 Toileting Hygiene (QC): 6 Toilet Transfer (QC): 4 Pt requests shower. Majority of activity completed in sitting. Pt able to reach all body parts without assistance. No unsteadiness observed as he stood to wash pedro luis area/buttocks. Improved tolerance notable this date. Clothing donned seated on shower bench. Set up assist only. Dependent to don zhane hose, pt able to don socks/shoes post set up. Min cues for safety as he transferred in/out of shower. Other Treatment Pt's interests (Obed) drove selection of activity. Activity performed 1/2 in standing and 1/2 in sitting. Focus on improving standing posture, balance, functional reaching, attention, memory and problem solving skills needed for functional tasks. Improved standing tolerance and balance yet still requires min cues for upright posture with prolonged standing. No LOB when reaching slightly out of ANDRE. Education OT Patient Education: Correct positioning, Progress toward Goal/Update tx plan, Purpose of tx/functional activities, Safety issues, Transfer techniques Teaching Recipient: Patient Teaching Methods: Discussion Response to Teaching: Verbalize Understanding, Return Demonstration OT Short Term Goals Short Term Goals Time Frame: Jun 07, 2022 Eatin Oral hygiene: 5 Toileting hygiene: 3 Shower/bathe self: 3 Upper body dressin Lower body dressin Putting on/taking off footwear: 3 OT Aboriginal Liaison Officer Goals Half-Way Goals Time Frame: Jun 21, 2022 Eating (QC): 6 Oral Hygiene (QC): 6 Toileting Hygiene (QC): 6 Shower/Bathe Self (QC): 5 Upper Body Dressing (QC): 5 Lower Body Dressing (QC): 5 On/Off Footwear (QC): 5 1=Demonstrate adherence to instructed precautions during ADL tasks. 2=Patient will verbalize/demonstrate understanding of assistive devices/modifications for ADL. 3=Patient will improve strength/tolerance for activity to enable patient to perform ADL's. OT Education/Plan Problem List/Assessment Assessment: Decreased Activ Tolerance, Decreased Safety Aware, Decreased UE Strength, Impaired Cognition, Impaired Funct Balance, Impaired I ADL's Discharge Recommendations Plan/Recommendations: Continue POC Treatment Plan/Plan of Care Treatment,Training & Education: Yes Patient would benefit from OT for education, treatment and training to promote independence in ADL's, mobility, safety and/or upper extremity function for ADL's. Plan of Care: ADL Retraining, Cognitive Retraining, Functional Mobility, Group Exercise/Act as Ind, UE Funct Exercise/Act Treatment Duration: Jun 21, 2022 Frequency: At least 5 of 7 days/Wk (IRF) Estimated Hrs Per Day: 1.5 hours per day (75-90 min/day) Agreement: Yes Rehab Potential: Fair Time/GCodes Start Time: 09:00 Stop Time: 10:30 Total Time Billed (hr/min): 90 Billed Treatment Time 1 visit ADL x4 (60 min) FA x2 (30 min) Cate Walls OT Jun 03, 2022 10:25
--- NOTE | 2022-06-03 14:39 | Physical Therapy Daily Note ---
PT Daily Note-Current Subjective Patient agrees to PT. This patient is very well known to this PT. Mental Status Patient Orientation: Normal For Age Transfers SCALE: Activities may be completed with or without assistive devices. 2-Lmsvfzqyaj-rlwnnyu completes the activity by him/herself with no assistance from a helper. 5-Set-up or Clean-up Assistance-helper sets up or cleans up; patient completes activity. [place] assists only prior to or following the activity. 4-Supervision or Touching Assistance-helper provides verbal cues and/or touching/steadying and/or contact guard assistance as patient completes activity. Assistance may be provided throughout the activity or intermittently. 3-Partial/Moderate Assistance-helper does LESS THAN HALF the effort. [place] lifts, holds or supports trunk or limbs, but provides less than half the effort. 2-Substantial/Maximal Assistance-helper does MORE THAN HALF the effort. [place] lifts or holds trunk or limbs and provides more than half the effort. 0-Zjcntojsr-esuvlt does ALL the effort. Patient does none of the effort to complete the activity. Or, the assistance of 2 or more helpers is required for the patient to complete the activity. If activity was not attempted, code reason: 7-Patient Refused. 9-Not Applicable-not attempted and the patient did not perform the activity before the current illness, exacerbation or injury. 10-Not Attempted due to Environmental Limitations-(lack of equipment, weather restraints, etc.). 88-Not Attempted due to Medical Conditions or Safety Concerns. Sit to Stand (QC): 6 Weight Bearing Full Weight Bearing Full Weight Bearing Gait Training Distance: 500' x 2 Walk 10 feet (QC): 4 Walk 50 ft with 2 Turns(QC): 4 Walk 150 ft (QC): 4 Gait Assistive Device: FWW flexed knee posture with gait sequence/functional gait sequence Exercises NuStep Minutes: 10 NuStep Workload: 5 (to improve strength bilateral LE) Assessment Current Status: Excellent Progress Patient is SBA for safety only with demonstration of functional gait sequence with FWW use. Patient desires to return to home [facility]. PT to continue to increase activity as tolerated by patient. PT Short Term Goals Short Term Goals Time Frame: Jun 04, 2022 Roll Left & Right: 6 Sit to lyin Lying to sitting on side of be: 6 Sit to stand: 3 Chair/ymx-ix-yrtwk transfer: 4 (CGA) Walk 10 feet: 4 (CGA) Walk 50 feet with two turns: 4 (CGA) PT Detention Goals Detention Goals PT Detention Goals Time Frame: Jun 18, 2022 Roll Left & Right (QC): 6 Sit to Lying (QC): 6 Lying-Sitting on Side/Bed(QC): 6 Sit to Stand (QC): 4 (SBA) Chair/Oij-yx-Zvgnb Xfer(QC): 4 (SBA) Toilet Transfer (QC): 4 (SBA) Car Transfer (QC): 4 (SBA) Does the Patient Walk: Yes Walk 10 feet (QC): 4 (SBA) Walk 50ft with 2 Turns (QC): 4 (SBA) Walk 150 ft (QC): 4 (SBA) Walking 10ft on Uneven Surface: 4 (SBA) 1 Step (curb) (QC): 4 (CGA) 4 Steps (QC): 4 (CGA) 12 Steps (QC): 88 Picking up an Object (QC): 4 (SBA with [place] operator) Wheel 50 feet with 2 turns (QC: 9 Wheel 150 feet: 9 PT Plan Treatment/Plan Treatment Plan: Continue Plan of Care Treatment Plan: Bed Mobility, Education, Functional Activity Heath, Functional Strength, Group Therapy, Gait, Safety, Therapeutic Exercise, Transfers Treatment Duration: Jun 18, 2022 Frequency: At least 5 of 7 days/Wk (IRF) Estimated Hrs Per Day: 1.5 hours per day Patient and/or Family Agrees t: Yes Time/GCodes Time In: 1408 Time Out: 1438 Total Billed Treatment Time: 30 Total Billed Treatment 1 visit EX 10 min FA 20 min JESSI KONG PT Jun 03, 2022 14:39
[2022-06-03] MEDS: TAMSULOSIN 0.4 MG (FLOMAX) CAP PO SCH (18:14)
[2022-06-03 20:00] VITALS: BP 114/65
--- NOTE | 2022-06-04 05:57 | PM&R Progress Note ---
Subjective HPI/CC On Admission Date Seen by Provider: Jun 04, 2022 Time Seen by Provider: 12:30 Subjective/Events-last exam 06/04/2022: No complaints reported Working out with therapy Supportive care will continue 06/03/2022: Pt is doing well Working with therapy No other concerns Monitoring closely 06/02/2022: Doing well Family visits No pain reported 06/01/2022: Going for a day past today to celebrate the fourth anniversary of his 's No pain is reported Ambulating well 05/31/2022: Pt is doing really well Family wants a day pass tomorrow to celebrate the fourth year of his passing Overall functioning very well 05/30/2022: Doing well Improved leg strength No falls 05/29/2022: Doing better No pain Legs are improved No falls BM+ 05/28/2022: Doing better No test result confirms an infection This appears to be a gradual decline in function due to advanced age No falls No pain Increased strength in legs noted Review of Systems General: Fatigue, Malaise Objective Exam Vital Signs Vital Signs Date Time Temp Pulse Resp B/P (MAP) Pulse Ox O2 Delivery O2 Flow Rate FiO2 06/04/22 19:30 36.9 65 18 102/63 (76) 97 Room Air Capillary Refill : General Appearance: No Apparent Distress, WD/WN, Chronically ill HEENT: PERRL/EOMI, Normal ENT Inspection, Pharynx Normal Neck: Full Range of Motion, Normal Inspection, Non Tender, Supple, Carotid Bruit Respiratory: Chest Non Tender, Lungs Clear, Normal Breath Sounds, No Accessory Muscle Use, No Respiratory Distress Cardiovascular: Regular Rate, Rhythm, No Edema, No Gallop, No JVD, No Murmur, Normal Peripheral Pulses Gastrointestinal: Normal Bowel Sounds, No Organomegaly, No Pulsatile Mass, Non Tender, Soft Back: Normal Inspection, No CVA Tenderness, No Vertebral Tenderness Extremity: Normal Capillary Refill, Normal Inspection, Normal Range of Motion, Non Tender, No Calf Tenderness, No Pedal Edema Neurologic/Psychiatric: Alert, Oriented x3, Normal Mood/Affect, assistant county attorney II-XII Norm as Tested, Abnormal Gait, Motor Weakness (legs 3/5 arms 4/5) Skin: Normal Color, Warm/Dry Lymphatic: No Adenopathy Results/Procedures Lab Patient resulted labs reviewed. FIM Transfers Therapy Code Descriptions/Definitions Functional [place] Measure: 0=Not Assessed/NA 4=Minimal Assistance 1=Total Assistance 5=Supervision or Setup 2=Maximal Assistance 6=Modified [place] 3=Moderate Assistance 7=Complete IndependenceSCALE: Activities may be completed with or without assistive devices. 4-Wyzluekbnp-apqfvhd completes the activity by him/herself with no assistance from a helper. 5-Set-up or Clean-up Assistance-helper sets up or cleans up; patient completes activity. [place] assists only prior to or following the activity. 4-Supervision or Touching Assistance-helper provides verbal cues and/or touching/steadying and/or contact guard assistance as patient completes activity. Assistance may be provided throughout the activity or intermittently. 3-Partial/Moderate Assistance-helper does LESS THAN HALF the effort. [place] lif ts, holds or supports trunk or limbs, but provides less than half the effort. 2-Substantial/Maximal Assistance-helper does MORE THAN HALF the effort. [place] lifts or holds trunk or limbs and provides more than half the effort. 3-Zixnedjcp-qydvjw does ALL the effort. Patient does none of the effort to complete the activity. Or, the assistance of 2 or more helpers is required for the patient to complete the activity. If activity was not attempted, code reason: 7-Patient Refused. 9-Not Applicable-not attempted and the patient did not perform the activity before the current illness, exacerbation or injury. 10-Not Attempted due to Environmental Limitations-(lack of equipment, weather restraints, etc.). 88-Not Attempted due to Medical Conditions or Safety Concerns. Roll Left to Right (QC): 6 Sit to Lying (QC): 6 Sit to Stand (QC): 6 Chair/Bkd-ks-Uzrsp Xfer(QC): 4 Car Transfer (QC): 3 Gait Training Does the Patient Walk?: Yes Distance: 500' x 2 Walk 10 feet (QC): 4 Walk 50 ft with 2 Turns(QC): 4 Walk 150 ft (QC): 4 Walking 10ft/uneven surface-QC: 4 Gait Persons Needed: 1 Gait Assistive Device: FWW Wheelchair Training Does the Pt Use a Wheelchair?: Yes Wheel 50 ft with 2 turns (QC): 5 Wheel 150 ft (QC): 5 Type of Wheelchair: Manual Stair Training Stair Training: Handrails/: 1 handrail, uses cane #of Steps: 4 1 Step (curb) (QC): 5 4 Steps (QC): 5 12 Steps (QC): 4 Stairs: Pattern: Reciprocal Balance Picking up an Object (QC): 88 ADL-Treatment Eating (QC): 6 Oral Hygiene (QC): 6 Shower/Bathe Self (QC): 5 Upper Body Dressing (QC): 5 Lower Body Dressing (QC): 5 On/Off Footwear (QC): 5 Toileting Hygiene (QC): 6 Toilet Transfer (QC): 4 Assessment/Plan Assessment and Plan Assess & Plan/Chief Complaint Assessment: Debility CAD Prior UTI Fall at home Advanced age Plan: IRF protocol Monitor pain Home meds 05/28/2022: Continue therapy Increase ambulation 05/29/2022: Monitor weakness Improved status 05/30/2022: Improved 05/31/2022: Continue aggressive therapy 06/01/2022: Supportive care Increase independence 06/02/2022: Increase independence 06/03/2022: Monitor closely 06/04/2022: Supportive care (1) Debility Status: Acute (2) Generalized weakness Status: Acute (3) Weakness generalized Status: Acute (4) CAD (coronary artery disease) RYAN PINEDA DO Jun 04, 2022 05:57
[2022-06-04 07:31] VITALS: BP 122/70
[2022-06-04] MEDS: PANTOPRAZOLE 40 MG (PROTONIX) TAB PO SCH ×2 (07:31→08:49)
[2022-06-04] MEDS: ASPIRIN 81 MG CHEW (CHILDREN'S ASA) PO SCH ×2 (07:31→08:49)
[2022-06-04] MEDS: CLOPIDOGREL 75 MG (PLAVIX) TABLET PO SCH (08:49)
--- NOTE | 2022-06-04 08:49 | Physical Therapy Daily Note ---
PT Daily Note-Current Subjective Patient in recliner pre tx, agrees to PT, has no complaints of pain. Appearance Patient in recliner post tx with nurse call, phone, tray, all needs met. Mental Status Patient Orientation: Person, Place, Situation Transfers SCALE: Activities may be completed with or without assistive devices. 0-Boitxgomku-zqtkykc completes the activity by him/herself with no assistance from a helper. 5-Set-up or Clean-up Assistance-helper sets up or cleans up; patient completes activity. [place] assists only prior to or following the activity. 4-Supervision or Touching Assistance-helper provides verbal cues and/or amarilis dimitris/steadying and/or contact guard assistance as patient completes activity. Assistance may be provided throughout the activity or intermittently. 3-Partial/Moderate Assistance-helper does LESS THAN HALF the effort. [place] lifts, holds or supports trunk or limbs, but provides less than half the effort. 2-Substantial/Maximal Assistance-helper does MORE THAN HALF the effort. [place] lifts or holds trunk or limbs and provides more than half the effort. 6-Cmsjdaitv-zdrdda does ALL the effort. Patient does none of the effort to complete the activity. Or, the assistance of 2 or more helpers is required for the patient to complete the activity. If activity was not attempted, code reason: 7-Patient Refused. 9-Not Applicable-not attempted and the patient did not perform the activity before the current illness, exacerbation or injury. 10-Not Attempted due to Environmental Limitations-(lack of equipment, weather restraints, etc.). 88-Not Attempted due to Medical Conditions or Safety Concerns. Sit to Stand (QC): 4 Chair/Faz-wq-Fkusf Xfer(QC): 4 Patient needs dressed, has assist with pants and shirt, puts on his own socks and boots. Patient states he needs to have a BM, goes to the restroom and does it without assist. During tx patient performs a floor transfer with CGA, needs a couple of cues for proper positioning. Weight Bearing Full Weight Bearing Full Weight Bearing Gait Training Distance: 300', 200' Walk 10 feet (QC): 4 Walk 50 ft with 2 Turns(QC): 4 Walk 150 ft (QC): 4 Gait Persons Needed: 1 Patient insisted on using his walking stick, he is a little unsteady with this, he performs better using a rolling walker. Patient has a tendency to drag his heels and he says he does this due to his fear of falling, patient tends to shuffle and needs cues to take bigger steps. Stair Training Stair Training: Handrails/: 2 handrails #of Steps: 4 1 Step (curb) (QC): 4 4 Steps (QC): 4 Stairs: Pattern: Step to CGA, cues for step-to stepping on stairs Exercises NuStep Minutes: 15 NuStep Workload: 5 Treatments transfers, ambulation, stair training, functional strengthening Assessment Current Status: Fair Progress needs encouragement to use rolling walker instead of walking stick PT Short Term Goals Short Term Goals Time Frame: Jun 04, 2022 Roll Left & Right: 6 Sit to lyin Lying to sitting on side of be: 6 Sit to stand: 3 Chair/asw-fl-buqcc transfer: 4 (CGA) Walk 10 feet: 4 (CGA) Walk 50 feet with two turns: 4 (CGA) PT Snf Goals Quality Tester Goals PT Snf Goals Time Frame: Jun 18, 2022 Roll Left & Right (QC): 6 Sit to Lying (QC): 6 Lying-Sitting on Side/Bed(QC): 6 Sit to Stand (QC): 4 (SBA) Chair/Fuj-no-Uktuq Xfer(QC): 4 (SBA) Toilet Transfer (QC): 4 (SBA) Car Transfer (QC): 4 (SBA) Does the Patient Walk: Yes Walk 10 feet (QC): 4 (SBA) Walk 50ft with 2 Turns (QC): 4 (SBA) Walk 150 ft (QC): 4 (SBA) Walking 10ft on Uneven Surface: 4 (SBA) 1 Step (curb) (QC): 4 (CGA) 4 Steps (QC): 4 (CGA) 12 Steps (QC): 88 Picking up an Object (QC): 4 (SBA with recreation facility attendant) Wheel 50 feet with 2 turns (QC: 9 Wheel 150 feet: 9 PT Plan Problem List Problem List: Activity Tolerance, Functional Strength, Safety, Balance, Gait, Transfer, Bed Mobility, ROM Treatment/Plan Treatment Plan: Continue Plan of Care Treatment Plan: Bed Mobility, Education, Functional Activity Heath, Functional Strength, Group Therapy, Gait, Safety, Therapeutic Exercise, Transfers Treatment Duration: Jun 18, 2022 Frequency: At least 5 of 7 days/Wk (IRF) Estimated Hrs Per Day: 1.5 hours per day Patient and/or Family Agrees t: Yes Safety Risks/Education Patient Education: Gait Training, Transfer Techniques, Steps, Correct Positioning, Safety Issues Teaching Recipient: Patient Teaching Methods: Demonstration, Discussion Response to Teaching: Reinforcement Needed Time/GCodes Time In: 0800 Time Out: 0900 Total Billed Treatment Time: 60 Total Billed Treatment 1 visit EX 15' FA 45' NEELAM COLE PT Jun 04, 2022 08:49
[2022-06-04] MEDS: polyethylene glycoL POWDER 17 GM (MIRALAX) PACK PO SCH ×2 (08:57→20:19)
[2022-06-04] MEDS: DOCUSATE SODIUM 100 MG (COLACE) CAP PO SCH ×2 (08:57→20:19)
[2022-06-04] MEDS: SENNA W/DOCUSATE (SENOKOT S) TABLET PO SCH ×2 (08:57→20:19)
--- NOTE | 2022-06-04 10:28 | Occupational Ther Daily Note ---
OT Current Status-Daily Note Subjective Pt denies pain, requests to shave. Appearance Pt returned to sitting in recliner, all needs within reach. Mental Status/Objective Patient Orientation: Person, Place, Situation ADL-Treatment Therapy Code Descriptions/Definitions Functional [place] Measure: 0=Not Assessed/NA 4=Minimal Assistance 1=Total Assistance 5=Supervision or Setup 2=Maximal Assistance 6=Modified [place] 3=Moderate Assistance 7=Complete IndependenceSCALE: Activities may be completed with or without assistive devices. 9-Ehmmwigybv-paaojmo completes the activity by him/herself with no assistance from a helper. 5-Set-up or Clean-up Assistance-helper sets up or cleans up; patient completes activity. [place] assists only prior to or following the activity. 4-Supervision or Touching Assistance-helper provides verbal cues and/or touching/steadying and/or contact guard assistance as patient completes activity. Assistance may be provided throughout the activity or intermittently. 3-Partial/Moderate Assistance-helper does LESS THAN HALF the effort. [place] lifts, holds or supports trunk or limbs, but provides less than half the effort. 2-Substantial/Maximal Assistance-helper does MORE THAN HALF the effort. [place] lifts or holds trunk or limbs and provides more than half the effort. 4-Soyifuqhe-rrpzfc does ALL the effort. Patient does none of the effort to complete the activity. Or, the assistance of 2 or more helpers is required for the patient to complete the activity. If activity was not attempted, code reason: 7-Patient Refused. 9-Not Applicable-not attempted and the patient did not perform the activity before the current illness, exacerbation or injury. 10-Not Attempted due to Environmental Limitations-(lack of equipment, weather restraints, etc.). 88-Not Attempted due to Medical Conditions or Safety Concerns. Oral Hygiene (QC): 6 Upper Body Dressing (QC): 6 On/Off Footwear: 6 Toileting Hygiene (QC): 6 Toilet Transfer (QC): 6 Pt requests to shave at OT arrival. He was already dressed but doffed and re- donned shirt after shaving task; indep with task. He stood for >20 minutes to complete shaving, oral care, hair combing, and face washing. No LOB, appears to tolerate well. No cues needed for upright posture this date. He donned shoes without assist. Other Treatment OT instructed pt on novel card game with emphasis on improving memory, attention, problem solving and functional reaching. Activity completed in sophy hayes, no unsteadiness observed. Post instruction, max cues needed. Poor short term memory, thus needing step by step cues on recall of rules, strategic game play, and problem solving. Activity terminated early secondary to difficulty. Pt participated in UE exercises with 4# dowel leonel. Focus on improving strength and endurance needed for functional tasks. Initially, pt with poor motor planning/coordination needing tactile/physical cues for correct technique. Improves with reps. All movements performed through full range. 1x10 all planes. Short rest breaks needed after 2 exercises. Pt ambulated ~300 feet with walker and SBA. With increased distance, pt begins to shuffle feet. Cues for foot clearance. Pt then hikes knee up to 90 degrees. Cues for correction. Pt able to tolerate for short time before returning back to shuffling type gait. Education OT Patient Education: Correct positioning, Exercise program, Modified ADL techniques, Progress toward Goal/Update tx plan, Purpose of tx/functional activities, Safety issues Teaching Recipient: Patient Teaching Methods: Demonstration, Discussion Response to Teaching: Verbalize Understanding, Return Demonstration, Reinfo rcement Needed OT Short Term Goals Short Term Goals Time Frame: Jun 07, 2022 Eatin Oral hygiene: 5 Toileting hygiene: 3 Shower/bathe self: 3 Upper body dressin Lower body dressin Putting on/taking off footwear: 3 OT Biometrics Analyst Goals Biometrics Analyst Goals Time Frame: Jun 21, 2022 Eating (QC): 6 Oral Hygiene (QC): 6 Toileting Hygiene (QC): 6 Shower/Bathe Self (QC): 5 Upper Body Dressing (QC): 5 Lower Body Dressing (QC): 5 On/Off Footwear (QC): 5 1=Demonstrate adherence to instructed precautions during ADL tasks. 2=Patient will verbalize/demonstrate understanding of assistive devices/modifications for ADL. 3=Patient will improve strength/tolerance for activity to enable patient to perform ADL's. OT Education/Plan Problem List/Assessment Assessment: Decreased Activ Tolerance, Decreased Safety Aware, Decreased UE Strength, Impaired Funct Balance, Impaired I ADL's Discharge Recommendations Plan/Recommendations: Continue POC Treatment Plan/Plan of Care Treatment,Training & Education: Yes Patient would benefit from OT for education, treatment and training to promote independence in ADL's, mobility, safety and/or upper extremity function for ADL's. Plan of Care: ADL Retraining, Cognitive Retraining, Functional Mobility, Group Exercise/Act as Ind, UE Funct Exercise/Act Treatment Duration: Jun 21, 2022 Frequency: At least 5 of 7 days/Wk (IRF) Estimated Hrs Per Day: 1.5 hours per day (75-90 min/day) Agreement: Yes Rehab Potential: Fair Time/GCodes Start Time: 09:00 Stop Time: 10:30 Total Time Billed (hr/min): 90 Billed Treatment Time 1 visit ADL x2 (30 min) EX x2 (35 min) FA x2 (25 min) Cate Walls OT Jun 04, 2022 10:28
--- NOTE | 2022-06-04 14:00 | Physical Therapy Daily Note ---
PT Daily Note-Current Subjective Patient sitting in chair upon PT arrival, agreeable to treatment. Patient reports his right knee usually causes him pain, however rates pain currently at 0/10. Transfers SCALE: Activities may be completed with or without assistive devices. 7-Goprxzlnjc-wxyanbu completes the activity by him/herself with no assistance from a helper. 5-Set-up or Clean-up Assistance-helper sets up or cleans up; patient completes activity. [place] assists only prior to or following the activity. 4-Supervision or Touching Assistance-helper provides verbal cues and/or touching/steadying and/or contact guard assistance as patient completes activity. Assistance may be provided throughout the activity or intermittently. 3-Partial/Moderate Assistance-helper does LESS THAN HALF the effort. [place] lift s, holds or supports trunk or limbs, but provides less than half the effort. 2-Substantial/Maximal Assistance-helper does MORE THAN HALF the effort. [place] lifts or holds trunk or limbs and provides more than half the effort. 9-Fwhvfkzsq-igmqik does ALL the effort. Patient does none of the effort to complete the activity. Or, the assistance of 2 or more helpers is required for the patient to complete the activity. If activity was not attempted, code reason: 7-Patient Refused. 9-Not Applicable-not attempted and the patient did not perform the activity before the current illness, exacerbation or injury. 10-Not Attempted due to Environmental Limitations-(lack of equipment, weather restraints, etc.). 88-Not Attempted due to Medical Conditions or Safety Concerns. Sit to Stand (QC): 6 Chair/Lwl-my-Joxds Xfer(QC): 6 Weight Bearing Full Weight Bearing Full Weight Bearing Gait Training Does the Patient Walk?: Yes Distance: 400 Walk 10 feet (QC): 4 Walk 50 ft with 2 Turns(QC): 4 Walk 150 ft (QC): 4 Gait Assistive Device: FWW Exercises NuStep Minutes: 10 NuStep Workload: 4 Assessment Patient tolerated treatment well. Requires SBA for gait, and I with all observed transfers. Patient ambulates 400 feet with FWW, with SBA and verbal cues for safety, progression, posture and balance. Patient in chair post treatment with all needs met, nursing notified, call light in hand. PT Short Term Goals Short Term Goals Time Frame: Jun 04, 2022 Roll Left & Right: 6 Sit to lyin Lying to sitting on side of be: 6 Sit to stand: 3 Chair/oui-ne-gazjv transfer: 4 (CGA) Walk 10 feet: 4 (CGA) Walk 50 feet with two turns: 4 (CGA) PT Snf Goals Stave Block Roller Goals PT Snf Goals Time Frame: Jun 18, 2022 Roll Left & Right (QC): 6 Sit to Lying (QC): 6 Lying-Sitting on Side/Bed(QC): 6 Sit to Stand (QC): 4 (SBA) Chair/Myg-ba-Rykcs Xfer(QC): 4 (SBA) Toilet Transfer (QC): 4 (SBA) Car Transfer (QC): 4 (SBA) Does the Patient Walk: Yes Walk 10 feet (QC): 4 (SBA) Walk 50ft with 2 Turns (QC): 4 (SBA) Walk 150 ft (QC): 4 (SBA) Walking 10ft on Uneven Surface: 4 (SBA) 1 Step (curb) (QC): 4 (CGA) 4 Steps (QC): 4 (CGA) 12 Steps (QC): 88 Picking up an Object (QC): 4 (SBA with rust proofer) Wheel 50 feet with 2 turns (QC: 9 Wheel 150 feet: 9 PT Plan Treatment/Plan Treatment Plan: Continue Plan of Care Treatment Plan: Bed Mobility, Education, Functional Activity Heath, Functional Strength, Group Therapy, Gait, Safety, Therapeutic Exercise, Transfers Treatment Duration: Jun 18, 2022 Frequency: At least 5 of 7 days/Wk (IRF) Estimated Hrs Per Day: 1.5 hours per day Patient and/or Family Agrees t: Yes Safety Risks/Education Patient Education: Gait Training, Issued Written HEP Teaching Methods: Demonstration, Discussion Response to Teaching: Verbalize Understanding, Return Demonstration Time/GCodes Time In: 1330 Time Out: 1400 Total Billed Treatment Time: 30 Total Billed Treatment Visit, Gait, Ex WANDY CONNOR PT Jun 04, 2022 14:00
[2022-06-04] MEDS: TAMSULOSIN 0.4 MG (FLOMAX) CAP PO SCH (18:23)
[2022-06-04 19:30] VITALS: BP 102/63
--- NOTE | 2022-06-05 06:40 | PM&R Progress Note ---
Subjective HPI/CC On Admission Date Seen by Provider: Jun 05, 2022 Time Seen by Provider: 09:00 Subjective/Events-last exam 06/05/2022: No major issues Walking with a walking stick now 06/04/2022: No complaints reported Working out with therapy Supportive care will continue 06/03/2022: Pt is doing well Working with therapy No other concerns Monitoring closely 06/02/2022: Doing well Family visits No pain reported 06/01/2022: Going for a day past today to celebrate the fourth anniversary of his 's No pain is reported Ambulating well 05/31/2022: Pt is doing really well Family wants a day pass tomorrow to celebrate the fourth year of his passing Overall functioning very well 05/30/2022: Doing well Improved leg strength No falls 05/29/2022: Doing better No pain Legs are improved No falls BM+ 05/28/2022: Doing better No test result confirms an infection This appears to be a gradual decline in function due to advanced age No falls No pain Increased strength in legs noted Review of Systems General: Fatigue, Malaise Objective Exam Vital Signs Vital Signs Date Time Temp Pulse Resp B/P (MAP) Pulse Ox O2 Delivery O2 Flow Rate FiO2 06/05/22 20:17 37.0 60 16 108/59 (75) 97 Room Air Capillary Refill : General Appearance: No Apparent Distress, WD/WN, Chronically ill HEENT: PERRL/EOMI, Normal ENT Inspection, Pharynx Normal Neck: Full Range of Motion, Normal Inspection, Non Tender, Supple, Carotid Bruit Respiratory: Chest Non Tender, Lungs Clear, Normal Breath Sounds, No Accessory Muscle Use, No Respiratory Distress Cardiovascular: Regular Rate, Rhythm, No Edema, No Gallop, No JVD, No Murmur, Normal Peripheral Pulses Gastrointestinal: Normal Bowel Sounds, No Organomegaly, No Pulsatile Mass, Non Tender, Soft Back: Normal Inspection, No CVA Tenderness, No Vertebral Tenderness Extremity: Normal Capillary Refill, Normal Inspection, Normal Range of Motion, Non Tender, No Calf Tenderness, No Pedal Edema Neurologic/Psychiatric: Alert, Oriented x3, Normal Mood/Affect, sales mgr II-XII Norm as Tested, Abnormal Gait, Motor Weakness (legs 3/5 arms 4/5) Skin: Normal Color, Warm/Dry Lymphatic: No Adenopathy Results/Procedures Lab Patient resulted labs reviewed. FIM Transfers Therapy Code Descriptions/Definitions Functional [place] Measure: 0=Not Assessed/NA 4=Minimal Assistance 1=Total Assistance 5=Supervision or Setup 2=Maximal Assistance 6=Modified [place] 3=Moderate Assistance 7=Complete IndependenceSCALE: Activities may be completed with or without assistive devices. 3-Zxfysxlhro-fzhhtcb completes the activity by him/herself with no assistance from a helper. 5-Set-up or Clean-up Assistance-helper sets up or cleans up; patient completes activity. [place] assists only prior to or following the activity. 4-Supervision or Touching Assistance-helper provides verbal cues and/or touching/steadying and/or contact guard assistance as patient completes activity. Assistance may be provided throughout the activity or intermittently. 3-Partial/Moderate Assistance-helper does LESS THAN HALF the effort. [place] lifts, holds or supports trunk or limbs, but provides less than half the effort. 2-Substantial/Maximal Assistance-helper does MORE THAN HALF the effort. [place] lifts or holds trunk or limbs and provides more than half the effort. 3-Tvqiptins-excmar does ALL the effort. Patient does none of the effort to complete the activity. Or, the assistance of 2 or more helpers is required for the patient to complete the activity. If activity was not attempted, code reason: 7-Patient Refused. 9-Not Applicable-not attempted and the patient did not perform the activity before the current illness, exacerbation or injury. 10-Not Attempted due to Environmental Limitations-(lack of equipment, weather restraints, etc.). 88-Not Attempted due to Medical Conditions or Safety Concerns. Roll Left to Right (QC): 6 Sit to Lying (QC): 6 Sit to Stand (QC): 6 Chair/Rbq-bl-Jzycm Xfer(QC): 6 Car Transfer (QC): 3 Gait Training Does the Patient Walk?: Yes Distance: 400 Walk 10 feet (QC): 4 Walk 50 ft with 2 Turns(QC): 4 Walk 150 ft (QC): 4 Walking 10ft/uneven surface-QC: 4 Gait Persons Needed: 1 Gait Assistive Device: FWW Wheelchair Training Does the Pt Use a Wheelchair?: Yes Wheel 50 ft with 2 turns (QC): 5 Wheel 150 ft (QC): 5 Type of Wheelchair: Manual Stair Training Stair Training: Handrails/: 2 handrails #of Steps: 4 1 Step (curb) (QC): 4 4 Steps (QC): 4 12 Steps (QC): 4 Stairs: Pattern: Step to Balance Picking up an Object (QC): 88 ADL-Treatment Eating (QC): 6 Oral Hygiene (QC): 6 Shower/Bathe Self (QC): 5 Upper Body Dressing (QC): 6 Lower Body Dressing (QC): 5 On/Off Footwear (QC): 6 Toileting Hygiene (QC): 6 Toilet Transfer (QC): 6 Assessment/Plan Assessment and Plan Assess & Plan/Chief Complaint Assessment: Debility CAD Prior UTI Fall at home Advanced age Plan: IRF protocol Monitor pain Home meds 05/28/2022: Continue therapy Increase ambulation 05/29/2022: Monitor weakness Improved status 05/30/2022: Improved 05/31/2022: Continue aggressive therapy 06/01/2022: Supportive care Increase independence 06/02/2022: Increase independence 06/03/2022: Monitor closely 06/04/2022: Supportive care 06/05/2022: No issues (1) Debility Status: Acute (2) Generalized weakness Status: Acute (3) Weakness generalized Status: Acute (4) CAD (coronary artery disease) RYAN PINEDA DO Jun 05, 2022 06:40
[2022-06-05 07:58] VITALS: BP 104/59
--- NOTE | 2022-06-05 08:55 | Occupational Ther Daily Note ---
OT Current Status-Daily Note Subjective Pt denies pain. "I think my muscles are working again, I feel stronger today." Appearance Pt left sitting in recliner, all needs within reach. Mental Status/Objective Patient Orientation: Person, Place, Situation ADL-Treatment Therapy Code Descriptions/Definitions Functional [place] Measure: 0=Not Assessed/NA 4=Minimal Assistance 1=Total Assistance 5=Supervision or Setup 2=Maximal Assistance 6=Modified [place] 3=Moderate Assistance 7=Complete IndependenceSCALE: Activities may be completed with or without assistive devices. 0-Gnirwtzzaq-lfltxgw completes the activity by him/herself with no assistance from a helper. 5-Set-up or Clean-up Assistance-helper sets up or cleans up; patient completes activity. [place] assists only prior to or following the activity. 4-Supervision or Touching Assistance-helper provides verbal cues and/or touching/steadying and/or contact guard assistance as patient completes activity. Assistance may be provided throughout the activity or intermittently. 3-Partial/Moderate Assistance-helper does LESS THAN HALF the effort. [place] lifts, holds or supports trunk or limbs, but provides less than half the effort. 2-Substantial/Maximal Assistance-helper does MORE THAN HALF the effort. [place] lifts or holds trunk or limbs and provides more than half the effort. 9-Zwjjbyayx-lwrmnk does ALL the effort. Patient does none of the effort to complete the activity. Or, the assistance of 2 or more helpers is required for the patient to complete the activity. If activity was not attempted, code reason: 7-Patient Refused. 9-Not Applicable-not attempted and the patient did not perform the activity before the current illness, exacerbation or injury. 10-Not Attempted due to Environmental Limitations-(lack of equipment, weather restraints, etc.). 88-Not Attempted due to Medical Conditions or Safety Concerns. Eating (QC): 6 Oral Hygiene (QC): 6 Shower/Bathe Self (QC): 5 Upper Body Dressing (QC): 6 Lower Body Dressing (QC): 6 On/Off Footwear: 5 (Set up for zhane hose only) Toileting Hygiene (QC): 6 Toilet Transfer (QC): 6 Shower performed; majority completed in sitting. Pt able to reach all body parts independently. No unsteadiness observed when standing to wash ped[place]uis area/buttocks. Clothing donned seated on shower bench. No physical assistance required. Set up for zhane hose only. Good tolerance notable this date. Other Treatment Pt participated in UE exercises with 3# dumbbell. Focus on improving strength and endurance needed for functional tasks. Good tolerance; all movement completed through full range. Improved coordination noted this date. Min visual cues for improved technique. 1x10 all planes. Education OT Patient Education: Correct positioning, Exercise program, Progress toward Goal/Update tx plan, Purpose of tx/functional activities Teaching Recipient: Patient Teaching Methods: Demonstration, Discussion Response to Teaching: Verbalize Understanding, Return Demonstration OT Short Term Goals Short Term Goals Time Frame: Jun 07, 2022 Eatin Oral hygiene: 5 Toileting hygiene: 3 Shower/bathe self: 3 Upper body dressin Lower body dressin Putting on/taking off footwear: 3 OT [facility] Goals Picker/Puller Goals Time Frame: Jun 21, 2022 Eating (QC): 6 Oral Hygiene (QC): 6 Toileting Hygiene (QC): 6 Shower/Bathe Self (QC): 5 Upper Body Dressing (QC): 5 Lower Body Dressing (QC): 5 On/Off Footwear (QC): 5 1=Demonstrate adherence to instructed precautions during ADL tasks. 2=Patient will verbalize/demonstrate understanding of assistive devices/modifica tions for ADL. 3=Patient will improve strength/tolerance for activity to enable patient to perform ADL's. OT Education/Plan Problem List/Assessment Assessment: Decreased UE Strength, Impaired Cognition, Impaired Funct Balance, Impaired I ADL's Discharge Recommendations Plan/Recommendations: Continue POC Therapy Discharge Recommendati: Post Acute OT (Home health OT) Treatment Plan/Plan of Care Treatment,Training & Education: Yes Patient would benefit from OT for education, treatment and training to promote independence in ADL's, mobility, safety and/or upper extremity function for ADL's. Plan of Care: ADL Retraining, Cognitive Retraining, Functional Mobility, Group Exercise/Act as Ind, UE Funct Exercise/Act Treatment Duration: Jun 21, 2022 Frequency: At least 5 of 7 days/Wk (IRF) Estimated Hrs Per Day: 1.5 hours per day (75-90 min/day) Agreement: Yes Rehab Potential: Fair Time/GCodes Start Time: 07:40 Stop Time: 09:00 Total Time Billed (hr/min): 80 Billed Treatment Time 1 visit ADL x4 (60 min) EX (20 min) Cate Walls OT Jun 05, 2022 08:55
--- NOTE | 2022-06-05 10:02 | Physical Therapy Daily Note ---
PT Daily Note-Current Subjective Pt in recliner upon arrival and agrees to PT. Says he continues to get better everyday. Mental Status Patient Orientation: Person, Place, Time, Situation Transfers SCALE: Activities may be completed with or without assistive devices. 9-Imaroxswqg-zsbvebj completes the activity by him/herself with no assistance from a helper. 5-Set-up or Clean-up Assistance-helper sets up or cleans up; patient completes activity. [place] assists only prior to or following the activity. 4-Supervision or Touching Assistance-helper provides verbal cues and/or touching/steadying and/or contact guard assistance as patient completes activity. Assistance may be provided throughout the activity or intermittently. 3-Partial/Moderate Assistance-helper does LESS THAN HALF the effort. [place] lifts, holds or supports trunk or limbs, but provides less than half the effort. 2-Substantial/Maximal Assistance-helper does MORE THAN HALF the effort. [place] lifts or holds trunk or limbs and provides more than half the effort. 4-Keukxuvpc-xfrgol does ALL the effort. Patient does none of the effort to complete the activity. Or, the assistance of 2 or more helpers is required for the patient to complete the activity. If activity was not attempted, code reason: 7-Patient Refused. 9-Not Applicable-not attempted and the patient did not perform the activity before the current illness, exacerbation or injury. 10-Not Attempted due to Environmental Limitations-(lack of equipment, weather restraints, etc.). 88-Not Attempted due to Medical Conditions or Safety Concerns. Sit to Stand (QC): 4 Weight Bearing Full Weight Bearing Full Weight Bearing Gait Training Does the Patient Walk?: Yes Distance: 150' x 1 250' x 2 Walk 10 feet (QC): 5 Walk 50 ft with 2 Turns(QC): 4 Walk 150 ft (QC): 4 Gait Persons Needed: 1 Gait Assistive Device: Cane Single Point Exercises Seated Therapy Exercises: Ankle pumps, Long arc quads, Hip flexion, Hamstring Curls, Hip abd/add Seated Reps: 30 Standing: Sit to Stand Standing Reps: 10 NuStep Minutes: 15 NuStep Workload: 5 Treatments Pt TFs to therapy gym and TFs to nustep and then following nustep pt amb in [facility] and then needs rest and performs seated exs. Pt then amb back to room and TFs back to recliner w/ all needs met and call light nearby. Assessment Current Status: Good Progress Pt requires cues in order to not drag feet and in order to perform TFs correctly. PT Short Term Goals Short Term Goals Time Frame: Jun 04, 2022 Roll Left & Right: 6 Sit to lyin Lying to sitting on side of be: 6 Sit to stand: 3 Chair/dff-tz-yeyxp transfer: 4 (CGA) Walk 10 feet: 4 (CGA) Walk 50 feet with two turns: 4 (CGA) PT Care Home Goals Care Home Goals PT Stripper Cutter Machine Goals Time Frame: Jun 18, 2022 Roll Left & Right (QC): 6 Sit to Lying (QC): 6 Lying-Sitting on Side/Bed(QC): 6 Sit to Stand (QC): 4 (SBA) Chair/Cec-ez-Yovwd Xfer(QC): 4 (SBA) Toilet Transfer (QC): 4 (SBA) Car Transfer (QC): 4 (SBA) Does the Patient Walk: Yes Walk 10 feet (QC): 4 (SBA) Walk 50ft with 2 Turns (QC): 4 (SBA) Walk 150 ft (QC): 4 (SBA) Walking 10ft on Uneven Surface: 4 (SBA) 1 Step (curb) (QC): 4 (CGA) 4 Steps (QC): 4 (CGA) 12 Steps (QC): 88 Picking up an Object (QC): 4 (SBA with manager transition) Wheel 50 feet with 2 turns (QC: 9 Wheel 150 feet: 9 PT Plan Problem List Problem List: Activity Tolerance, Safety Treatment/Plan Treatment Plan: Continue Plan of Care Treatment Plan: Bed Mobility, Education, Functional Activity Heath, Functional Strength, Group Therapy, Gait, Safety, Therapeutic Exercise, Transfers Treatment Duration: Jun 18, 2022 Frequency: At least 5 of 7 days/Wk (IRF) Estimated Hrs Per Day: 1.5 hours per day Patient and/or Family Agrees t: Yes Time/GCodes Time In: 0900 Time Out: 1000 Total Billed Treatment Time: 60 Total Billed Treatment 1, Ex x 2 (30min), GT x 2 (30min) FLAVIO DING DADO OPERATOR Jun 05, 2022 10:02
[2022-06-05] MEDS: CLOPIDOGREL 75 MG (PLAVIX) TABLET PO SCH (10:16)
[2022-06-05] MEDS: PANTOPRAZOLE 40 MG (PROTONIX) TAB PO SCH (10:16)
[2022-06-05] MEDS: polyethylene glycoL POWDER 17 GM (MIRALAX) PACK PO SCH ×2 (10:16→20:16)
[2022-06-05] MEDS: DOCUSATE SODIUM 100 MG (COLACE) CAP PO SCH ×2 (10:16→20:16)
[2022-06-05] MEDS: ASPIRIN 81 MG CHEW (CHILDREN'S ASA) PO SCH (10:16)
[2022-06-05] MEDS: SENNA W/DOCUSATE (SENOKOT S) TABLET PO SCH ×2 (10:17→20:17)
--- NOTE | 2022-06-05 12:55 | Occupational Ther Daily Note ---
OT Current Status-Daily Note Subjective Pt requests to brush his teeth. Appearance Pt returned to sitting in recliner, all needs within reach at OT departure. Mental Status/Objective Patient Orientation: Person, Place, Situation ADL-Treatment Therapy Code Descriptions/Definitions Functional [place] Measure: 0=Not Assessed/NA 4=Minimal Assistance 1=Total Assistance 5=Supervision or Setup 2=Maximal Assistance 6=Modified [place] 3=Moderate Assistance 7=Complete IndependenceSCALE: Activities may be completed with or without assistive devices. 1-Kpmqigdheg-njdlczb completes the activity by him/herself with no assistance from a helper. 5-Set-up or Clean-up Assistance-helper sets up or cleans up; patient completes activity. [place] assists only prior to or following the activity. 4-Supervision or Touching Assistance-helper provides verbal cues and/or touching/steadying and/or contact guard assistance as patient completes activity . Assistance may be provided throughout the activity or intermittently. 3-Partial/Moderate Assistance-helper does LESS THAN HALF the effort. [place] lifts, holds or supports trunk or limbs, but provides less than half the effort. 2-Substantial/Maximal Assistance-helper does MORE THAN HALF the effort. [place] lifts or holds trunk or limbs and provides more than half the effort. 9-Qlegjhbtf-nehdea does ALL the effort. Patient does none of the effort to complete the activity. Or, the assistance of 2 or more helpers is required for the patient to complete the activity. If activity was not attempted, code reason: 7-Patient Refused. 9-Not Applicable-not attempted and the patient did not perform the activity before the current illness, exacerbation or injury. 10-Not Attempted due to Environmental Limitations-(lack of equipment, weather restraints, etc.). 88-Not Attempted due to Medical Conditions or Safety Concerns. Oral Hygiene (QC): 6 Pt requests to brush his teeth. He stood and ambulated into bathroom with walker, no unsteadiness observed. He stood to complete oral care, indep. Education OT Patient Education: Progress toward Goal/Update tx plan Teaching Recipient: Patient Teaching Methods: Discussion Response to Teaching: Verbalize Understanding OT Short Term Goals Short Term Goals Time Frame: Jun 07, 2022 Eatin Oral hygiene: 5 Toileting hygiene: 3 Shower/bathe self: 3 Upper body dressin Lower body dressin Putting on/taking off footwear: 3 OT Halfway Goals Halfway Goals Time Frame: Jun 21, 2022 Eating (QC): 6 Oral Hygiene (QC): 6 Toileting Hygiene (QC): 6 Shower/Bathe Self (QC): 5 Upper Body Dressing (QC): 5 Lower Body Dressing (QC): 5 On/Off Footwear (QC): 5 1=Demonstrate adherence to instructed precautions during ADL tasks. 2=Patient will verbalize/demonstrate understanding of assistive devices/modifications for ADL. 3=Patient will improve strength/tolerance for activity to enable patient to perform ADL's. OT Education/Plan Problem List/Assessment Assessment: Decreased Activ Tolerance, Impaired I ADL's Discharge Recommendations Plan/Recommendations: Continue POC Treatment Plan/Plan of Care Treatment,Training & Education: Yes Patient would benefit from OT for education, treatment and training to promote independence in ADL's, mobility, safety and/or upper extremity function for ADL's. Plan of Care: ADL Retraining, Cognitive Retraining, Functional Mobility, Group Exercise/Act as Ind, UE Funct Exercise/Act Treatment Duration: Jun 21, 2022 Frequency: At least 5 of 7 days/Wk (IRF) Estimated Hrs Per Day: 1.5 hours per day (75-90 min/day) Agreement: Yes Rehab Potential: Fair Time/GCodes Start Time: 11:47 Stop Time: 12:00 Total Time Billed (hr/min): 13 Billed Treatment Time 1 visit Cate Patrick OT Jun 05, 2022 12:55
--- NOTE | 2022-06-05 14:40 | Physical Therapy Daily Note ---
PT Daily Note-Current Subjective Pt in recliner upon arrival and agrees to PT. Mental Status Patient Orientation: Person, Place, Time, Situation Transfers SCALE: Activities may be completed with or without assistive devices. 8-Iuuqnrpwry-yhmyzvc completes the activity by him/herself with no assistance from a helper. 5-Set-up or Clean-up Assistance-helper sets up or cleans up; patient completes activity. [place] assists only prior to or following the activity. 4-Supervision or Touching Assistance-helper provides verbal cues and/or touching/steadying and/or contact guard assistance as patient completes activity. Assistance may be provided throughout the activity or intermittently. 3-Partial/Moderate Assistance-helper does LESS THAN HALF the effort. [place] lifts, holds or supports trunk or limbs, but provides less than half the effort. 2-Substantial/Maximal Assistance-helper does MORE THAN HALF the effort. [place] lifts or holds trunk or limbs and provides more than half the effort. 2-Njphwlhra-ipvtzy does ALL the effort. Patient does none of the effort to complete the activity. Or, the assistance of 2 or more helpers is required for the patient to complete the activity. If activity was not attempted, code reason: 7-Patient Refused. 9-Not Applicable-not attempted and the patient did not perform the activity before the current illness, exacerbation or injury. 10-Not Attempted due to Environmental Limitations-(lack of equipment, weather restraints, etc.). 88-Not Attempted due to Medical Conditions or Safety Concerns. Sit to Stand (QC): 4 Toilet Transfer (QC): 5 Weight Bearing Full Weight Bearing Full Weight Bearing Gait Training Does the Patient Walk?: Yes Distance: 250' x 2 100' x1 Walk 10 feet (QC): 4 Walk 50 ft with 2 Turns(QC): 4 Walk 150 ft (QC): 4 Gait Persons Needed: 1 Gait Assistive Device: Cane Single Point Exercises Performed standing exs in // bars: NBOS, tandem stance x 30" ea Treatments Pt TFs to BR and then amb into [facility] and after rest break pt amb into therapy gym. Pt then performs balance exs in // bars and then takes short rest break and amb back into room. Tfs back to recliner. Call light nearby and all needs met as PT departs. Assessment Current Status: Good Progress Pt continues to require cues in order to perform TFs correctly. PT Short Term Goals Short Term Goals Time Frame: Jun 04, 2022 Roll Left & Right: 6 Sit to lyin Lying to sitting on side of be: 6 Sit to stand: 3 Chair/ccl-bi-pmvqq transfer: 4 (CGA) Walk 10 feet: 4 (CGA) Walk 50 feet with two turns: 4 (CGA) PT Correction Goals Link Trainer Mechanic Goals PT Link Trainer Mechanic Goals Time Frame: Jun 18, 2022 Roll Left & Right (QC): 6 Sit to Lying (QC): 6 Lying-Sitting on Side/Bed(QC): 6 Sit to Stand (QC): 4 (SBA) Chair/Buu-ab-Unzqf Xfer(QC): 4 (SBA) Toilet Transfer (QC): 4 (SBA) Car Transfer (QC): 4 (SBA) Does the Patient Walk: Yes Walk 10 feet (QC): 4 (SBA) Walk 50ft with 2 Turns (QC): 4 (SBA) Walk 150 ft (QC): 4 (SBA) Walking 10ft on Uneven Surface: 4 (SBA) 1 Step (curb) (QC): 4 (CGA) 4 Steps (QC): 4 (CGA) 12 Steps (QC): 88 Picking up an Object (QC): 4 (SBA with pens and pencils repairer) Wheel 50 feet with 2 turns (QC: 9 Wheel 150 feet: 9 PT Plan Problem List Problem List: Activity Tolerance, Functional Strength Treatment/Plan Treatment Plan: Continue Plan of Care Treatment Plan: Bed Mobility, Education, Functional Activity Heath, Functional Strength, Group Therapy, Gait, Safety, Therapeutic Exercise, Transfers Treatment Duration: Jun 18, 2022 Frequency: At least 5 of 7 days/Wk (IRF) Estimated Hrs Per Day: 1.5 hours per day Patient and/or Family Agrees t: Yes Safety Risks/Education Patient Education: Transfer Techniques, Correct Positioning Teaching Recipient: Patient Teaching Methods: Discussion Response to Teaching: Return Demonstration Time/GCodes Time In: 1330 Time Out: 1400 Total Billed Treatment Time: 30 Total Billed Treatment 1, GT x 2 FLAVIO DING PTA Jun 05, 2022 14:40
[2022-06-05] MEDS: ACETAMINOPHEN 325 MG TABLET PO PRN (14:41)
[2022-06-05] MEDS: TAMSULOSIN 0.4 MG (FLOMAX) CAP PO SCH (17:33)
[2022-06-05 20:17] VITALS: BP 108/59
--- NOTE | 2022-06-06 05:41 | PM&R Progress Note ---
Subjective HPI/CC On Admission Date Seen by Provider: Jun 06, 2022 Time Seen by Provider: 12:00 Subjective/Events-last exam 06/06/2022: Patient doing much better Discharge plan for tomorrow 06/05/2022: No major issues Walking with a walking stick now 06/04/2022: No complaints reported Working out with therapy Supportive care will continue 06/03/2022: Pt is doing well Working with therapy No other concerns Monitoring closely 06/02/2022: Doing well Family visits No pain reported 06/01/2022: Going for a day past today to celebrate the fourth anniversary of his 's No pain is reported Ambulating well 05/31/2022: Pt is doing really well Family wants a day pass tomorrow to celebrate the fourth year of his passing Overall functioning very well 05/30/2022: Doing well Improved leg strength No falls 05/29/2022: Doing better No pain Legs are improved No falls BM+ 05/28/2022: Doing better No test result confirms an infection This appears to be a gradual decline in function due to advanced age No falls No pain Increased strength in legs noted Review of Systems General: Fatigue, Malaise Objective Exam Vital Signs Vital Signs Date Time Temp Pulse Resp B/P (MAP) Pulse Ox O2 Delivery O2 Flow Rate FiO2 06/06/22 09:10 Room Air 06/06/22 07:29 36.9 64 18 119/70 (86) 94 Capillary Refill : General Appearance: No Apparent Distress, WD/WN, Chronically ill HEENT: PERRL/EOMI, Normal ENT Inspection, Pharynx Normal Neck: Full Range of Motion, Normal Inspection, Non Tender, Supple, Carotid Bruit Respiratory: Chest Non Tender, Lungs Clear, Normal Breath Sounds, No Accessory Muscle Use, No Respiratory Distress Cardiovascular: Regular Rate, Rhythm, No Edema, No Gallop, No JVD, No Murmur, Normal Peripheral Pulses Gastrointestinal: Normal Bowel Sounds, No Organomegaly, No Pulsatile Mass, Non Tender, Soft Back: Normal Inspection, No CVA Tenderness, No Vertebral Tenderness Extremity: Normal Capillary Refill, Normal Inspection, Normal Range of Motion, Non Tender, No Calf Tenderness, No Pedal Edema Neurologic/Psychiatric: Alert, Oriented x3, Normal Mood/Affect, lamination machine operator II-XII Norm as Tested, Abnormal Gait, Motor Weakness (legs 3/5 arms 4/5) Skin: Normal Color, Warm/Dry Lymphatic: No Adenopathy Results/Procedures Lab Patient resulted labs reviewed. [facility]IM Transfers Therapy Code Descriptions/Definitions Functional [place] Measure: 0=Not Assessed/NA 4=Minimal Assistance 1=Total Assistance 5=Supervision or Setup 2=Maximal Assistance 6=Modified [place] 3=Moderate Assistance 7=Complete IndependenceSCALE: Activities may be completed with or without assistive devices. 2-Ycpmqtupnv-orizwky completes the activity by him/herself with no assistance from a helper. 5-Set-up or Clean-up Assistance-helper sets up or cleans up; patient completes activity. [place] assists only prior to or following the activity. 4-Supervision or Touching Assistance-helper provides verbal cues and/or touching/steadying and/or contact guard assistance as patient completes activity. Assistance may be provided throughout the activity or intermittently. 3-Partial/Moderate Assistance-helper does LESS THAN HALF the effort. [place] lifts, holds or supports trunk or limbs, but provides less than half the effort. 2-Substantial/Maximal Assistance-helper does MORE THAN HALF the effort. [place] lifts or holds trunk or limbs and provides more than half the effort. 4-Nijlaraaa-sxtkql does ALL the effort. Patient does none of the effort to complete the activity. Or, the assistance of 2 or more helpers is required for the patient to complete the activity. If activity was not attempted, code reason: 7-Patient Refused. 9-Not Applicable-not attempted and the patient did not perform the activity before the current illness, exacerbation or injury. 10-Not Attempted due to Environmental Limitations-(lack of equipment, weather restraints, etc.). 88-Not Attempted due to Medical Conditions or Safety Concerns. Roll Left to Right (QC): 6 Sit to Lying (QC): 6 Sit to Stand (QC): 4 Chair/Nom-lk-Aabye Xfer(QC): 6 Car Transfer (QC): 3 Gait Training Does the Patient Walk?: Yes Distance: 250' x 2 100' x1 Walk 10 feet (QC): 4 Walk 50 ft with 2 Turns(QC): 4 Walk 150 ft (QC): 4 Walking 10ft/uneven surface-QC: 4 Gait Persons Needed: 1 Gait Assistive Device: Cane Single Point Wheelchair Training Does the Pt Use a Wheelchair?: Yes Wheel 50 ft with 2 turns (QC): 5 Wheel 150 ft (QC): 5 Type of Wheelchair: Manual Stair Training Stair Training: Handrails/: 2 handrails #of Steps: 4 1 Step (curb) (QC): 4 4 Steps (QC): 4 12 Steps (QC): 4 Stairs: Pattern: Step to Balance Picking up an Object (QC): 88 ADL-Treatment Eating (QC): 6 Oral Hygiene (QC): 6 Shower/Bathe Self (QC): 5 Upper Body Dressing (QC): 6 Lower Body Dressing (QC): 6 On/Off Footwear (QC): 5 (Set up for zhane hose only) Toileting Hygiene (QC): 6 Toilet Transfer (QC): 6 Assessment/Plan Assessment and Plan Assess & Plan/Chief Complaint Assessment: Debility CAD Prior UTI Fall at home Advanced age Plan: IRF protocol Monitor pain Home meds 05/28/2022: Continue therapy Increase ambulation 05/29/2022: Monitor weakness Improved status 05/30/2022: Improved 05/31/2022: Continue aggressive therapy 06/01/2022: Supportive care Increase independence 06/02/2022: Increase independence 06/03/2022: Monitor closely 06/04/2022: Supportive care 06/05/2022: No issues 06/06/2022: Discharge home tomorrow (1) Debility Status: Acute (2) Generalized weakness Status: Acute (3) Weakness generalized Status: Acute (4) CAD (coronary artery disease) RYAN PINEDA DO Jun 06, 2022 05:41
[2022-06-06 07:29] VITALS: BP 119/70
--- NOTE | 2022-06-06 08:59 | Physical Therapy Daily Note ---
PT Daily Note-Current Subjective Pt. and daughter present in room. Pt. agrees to Rx, states his right knee is giving him trouble today. Pt. prefers to use his walking stick but this DIRECTOR OF PHOTOGRAPHY shared with pt and daughter today that it would be safer to use FWW on days when his knee feels painful and unstable. Pt. agrees Pain Numeric Pain Scale: 5-Moderate Pain Location: Right Location Body Site: Knee Pain Description: Ache Mental Status Patient Orientation: Normal For Age Transfers SCALE: Activities may be completed with or without assistive devices. 5-Zszcppisgf-djxzxsc completes the activity by him/herself with no assistance from a helper. 5-Set-up or Clean-up Assistance-helper sets up or cleans up; patient completes activity. [place] assists only prior to or following the activity. 4-Supervision or Touching Assistance-helper provides verbal cues and/or touching/steadying and/or contact guard assistance as patient completes activity. Assistance may be provided throughout the activity or intermittently. 3-Partial/Moderate Assistance-helper does LESS THAN HALF the effort. [place] lifts, holds or supports trunk or limbs, but provides less than half the effort. 2-Substantial/Maximal Assistance-helper does MORE THAN HALF the effort. [place] lifts or holds trunk or limbs and provides more than half the effort. 0-Qadugmcwi-yuahjd does ALL the effort. Patient does none of the effort to complete the activity. Or, the assistance of 2 or more helpers is required for the patient to complete the activity. If activity was not attempted, code reason: 7-Patient Refused. 9-Not Applicable-not attempted and the patient did not perform the activity before the current illness, exacerbation or injury. 10-Not Attempted due to Environmental Limitations-(lack of equipment, weather restraints, etc.). 88-Not Attempted due to Medical Conditions or Safety Concerns. Roll Left & Right (QC): 6 Sit to Lying (QC): 6 Lying to Sitting/Side of Bed(Q: 6 Sit to Stand (QC): 6 Chair/Keg-ug-Laath Xfer(QC): 6 Toilet Transfer (QC): 6 Car Transfer (QC): 6 Weight Bearing Full Weight Bearing Full Weight Bearing Gait Training Does the Patient Walk?: Yes Walk 10 feet (QC): 6 Walk 50 ft with 2 Turns(QC): 6 Walk 150 ft (QC): 6 Walking 10ft/uneven surface-QC: 6 Gait Persons Needed: 0 Gait Assistive Device: FWW pt. ambulated with FWW 200 ft , 150 ft, with no asst, with walking stick pt walked 200 ft and 50 and required CGA to SBA as his knee hurt during a turn and pt. had an unstable instance but did not have LOB Wheelchair Training Does the Pt Use a Wheelchair?: No Stair Training Stair Training: Handrails/: 2 handrails #of Steps: 12 1 Step (curb) (QC): 4 4 Steps (QC): 4 12 Steps (QC): 4 Stairs: Pattern: Reciprocal no LOB Balance Picking up an Object (QC): 6 Special Test Comments pt. holds to near by stable object while retrieving object from floor Treatments pt. donned TEDs and socks and boot indep, long discussion with dtr regarding safety at home and DC arrangements for tomorrow Assessment Current Status: Good Progress meets goals PT Short Term Goals Short Term Goals Time Frame: Jun 04, 2022 Roll Left & Right: 6 Sit to lyin Lying to sitting on side of be: 6 Sit to stand: 3 Chair/faj-kx-wlyez transfer: 4 (CGA) Walk 10 feet: 4 (CGA) Walk 50 feet with two turns: 4 (CGA) PT Care Home Goals Syrup Machine Laborer Goals PT Syrup Machine Laborer Goals Time Frame: Jun 18, 2022 Roll Left & Right (QC): 6 Sit to Lying (QC): 6 Lying-Sitting on Side/Bed(QC): 6 Sit to Stand (QC): 4 (SBA) Chair/Gcf-cx-Dohup Xfer(QC): 4 (SBA) Toilet Transfer (QC): 4 (SBA) Car Transfer (QC): 4 (SBA) Does the Patient Walk: Yes Walk 10 feet (QC): 4 (SBA) Walk 50ft with 2 Turns (QC): 4 (SBA) Walk 150 ft (QC): 4 (SBA) Walking 10ft on Uneven Surface: 4 (SBA) 1 Step (curb) (QC): 4 (CGA) 4 Steps (QC): 4 (CGA) 12 Steps (QC): 88 Picking up an Object (QC): 4 (SBA with casino runner) Wheel 50 feet with 2 turns (QC: 9 Wheel 150 feet: 9 PT Plan Treatment/Plan Treatment Plan: Continue Plan of Care Treatment Plan: Bed Mobility, Education, Functional Activity Heath, Functional Strength, Group Therapy, Gait, Safety, Therapeutic Exercise, Transfers Treatment Duration: Jun 18, 2022 Frequency: At least 5 of 7 days/Wk (IRF) Estimated Hrs Per Day: 1.5 hours per day Patient and/or Family Agrees t: Yes Safety Risks/Education Patient Education: Gait Training, Transfer Techniques, Steps, Correct Positioning, Disease Process, Safety Issues Teaching Recipient: Patient Teaching Methods: Demonstration, Discussion Response to Teaching: Verbalize Understanding, Return Demonstration, Reinforcement Needed Time/GCodes Time In: 800 Time Out: 900 Total Billed Treatment Time: 60 Total Billed Treatment 1,FA35m,GT25m DOTTY HICKMAN DIRECTOR OF PHOTOGRAPHY Jun 06, 2022 08:59
[2022-06-06] MEDS: PANTOPRAZOLE 40 MG (PROTONIX) TAB PO SCH (09:08)
[2022-06-06] MEDS: ASPIRIN 81 MG CHEW (CHILDREN'S ASA) PO SCH (09:08)
[2022-06-06] MEDS: CLOPIDOGREL 75 MG (PLAVIX) TABLET PO SCH (09:08)
[2022-06-06] MEDS: polyethylene glycoL POWDER 17 GM (MIRALAX) PACK PO SCH ×2 (09:08→20:30)
[2022-06-06] MEDS: DOCUSATE SODIUM 100 MG (COLACE) CAP PO SCH ×2 (09:09→20:30)
[2022-06-06] MEDS: SENNA W/DOCUSATE (SENOKOT S) TABLET PO SCH ×2 (09:09→20:30)
--- NOTE | 2022-06-06 10:44 | Occupational Ther Daily Note ---
OT Current Status-Daily Note Subjective Pt denies pain, requesting rematch game of Comply Serve Appearance Pt left sitting in recliner, all needs within reach. Mental Status/Objective Patient Orientation: Person, Place, Situation ADL-Treatment Therapy Code Descriptions/Definitions Functional [place] Measure: 0=Not Assessed/NA 4=Minimal Assistance 1=Total Assistance 5=Supervision or Setup 2=Maximal Assistance 6=Modified Dickenson 3=Moderate Assistance 7=Complete IndependenceSCALE: Activities may be completed with or without assistive devices. 8-Fgnqvsxzbg-sqserbw completes the activity by him/herself with no assistance from a helper. 5-Set-up or Clean-up Assistance-helper sets up or cleans up; patient completes activity. [place] assists only prior to or following the activity. 4-Supervision or Touching Assistance-helper provides verbal cues and/or touching/steadying and/or contact guard assistance as patient completes activity. Assistance may be provided throughout the activity or intermittently. 3-Partial/Moderate Assistance-helper does LESS THAN HALF the effort. [place] lifts, holds or supports trunk or limbs, but provides less than half the effort. 2-Substantial/Maximal Assistance-helper does MORE THAN HALF the effort. [place] lifts or holds trunk or limbs and provides more than half the effort. 6-Oqrjpfvwp-azwuur does ALL the effort. Patient does none of the effort to complete the activity. Or, the assistance of 2 or more helpers is required for the patient to complete the activity. If activity was not attempted, code reason: 7-Patient Refused. 9-Not Applicable-not attempted and the patient did not perform the activity before the current illness, exacerbation or injury. 10-Not Attempted due to Environmental Limitations-(lack of equipment, weather restraints, etc.). 88-Not Attempted due to Medical Conditions or Safety Concerns. Eating (QC): 6 Oral Hygiene (QC): 6 On/Off Footwear: 6 Toileting Hygiene (QC): 6 Toilet Transfer (QC): 6 Pt already dressed this date. He stood at sink to complete grooming task, independently. Good tolerance and posture. Other Treatment Pt requesting rematch of RummikMedine. Activity performed 1/2 in standing and 1/2 in sitting. Focus on improving standing posture, balance, functional reaching, attention, memory and problem solving skills needed for functional tasks. Impr gregorio standing tolerance and balance. No cues needed this date for upright posture with prolonged standing. No LOB when reaching slightly out of ANDRE. Pt also performed UE exercises with 4# dowel leonel. Focus on improving strength and endurance for adls and functional mobility. Improved coordination observed yet still needed min tactile cues for correct technique. Appears to tolerate well. Reps increased from 10 to 12 reps. Education OT Patient Education: Correct positioning, Energy conservation, Exercise program, Progress toward Goal/Update tx plan, Purpose of tx/functional activities, Safety issues Teaching Recipient: Patient Teaching Methods: Demonstration, Discussion Response to Teaching: Verbalize Understanding, Return Demonstration, Reinforcement Needed OT Short Term Goals Short Term Goals Time Frame: Jun 07, 2022 Eatin Oral hygiene: 5 Toileting hygiene: 3 Shower/bathe self: 3 Upper body dressin Lower body dressin Putting on/taking off footwear: 3 OT Director Of Planning Goals Prison Goals Time Frame: Jun 21, 2022 Eating (QC): 6 Oral Hygiene (QC): 6 Toileting Hygiene (QC): 6 Shower/Bathe Self (QC): 5 Upper Body Dressing (QC): 5 Lower Body Dressing (QC): 5 On/Off Footwear (QC): 5 1=Demonstrate adherence to instructed precautions during ADL tasks. 2=Patient will verbalize/demonstrate understanding of assistive devices/modifications for ADL. 3=Patient will improve strength/tolerance for activity to enable patient to perform ADL's. OT Education/Plan Problem List/Assessment Assessment: Decreased UE Strength, Impaired Cognition, Impaired I ADL's Discharge Recommendations Plan/Recommendations: Continue POC Therapy Discharge Recommendati: Post Acute OT (Home health OT) Treatment Plan/Plan of Care Treatment,Training & Education: Yes Patient would benefit from OT for education, treatment and training to promote independence in ADL's, mobility, safety and/or upper extremity function for ADL's. Plan of Care: ADL Retraining, Cognitive Retraining, Functional Mobility, Group Exercise/Act as Ind, UE Funct Exercise/Act Treatment Duration: Jun 21, 2022 Frequency: At least 5 of 7 days/Wk (IRF) Estimated Hrs Per Day: 1.5 hours per day (75-90 min/day) Agreement: Yes Rehab Potential: Fair Time/GCodes Start Time: 09:15 Stop Time: 10:45 Total Time Billed (hr/min): 90 Billed Treatment Time 1 visit ADL x2 (25 min) EX x2 (30 min) FA x2 (35 min) Cate Walls OT Jun 06, 2022 10:44
--- NOTE | 2022-06-06 14:32 | Physical Therapy Daily Note ---
PT Daily Note-Current Subjective Pt. agrees to Rx, loves to visit and share life stories. Feels ready to go home tomorrow Pain Location: No Pain Reported Mental Status Patient Orientation: Normal For Age Transfers SCALE: Activities may be completed with or without assistive devices. 2-Aeuqainyib-pvfqaqn completes the activity by him/herself with no assistance f rom a helper. 5-Set-up or Clean-up Assistance-helper sets up or cleans up; patient completes activity. [place] assists only prior to or following the activity. 4-Supervision or Touching Assistance-helper provides verbal cues and/or touching/steadying and/or contact guard assistance as patient completes activity. Assistance may be provided throughout the activity or intermittently. 3-Partial/Moderate Assistance-helper does LESS THAN HALF the effort. [place] lifts, holds or supports trunk or limbs, but provides less than half the effort. 2-Substantial/Maximal Assistance-helper does MORE THAN HALF the effort. [place] lifts or holds trunk or limbs and provides more than half the effort. 6-Jptlqagsj-btdydb does ALL the effort. Patient does none of the effort to complete the activity. Or, the assistance of 2 or more helpers is required for the patient to complete the activity. If activity was not attempted, code reason: 7-Patient Refused. 9-Not Applicable-not attempted and the patient did not perform the activity before the current illness, exacerbation or injury. 10-Not Attempted due to Environmental Limitations-(lack of equipment, weather restraints, etc.). 88-Not Attempted due to Medical Conditions or Safety Concerns. all TRFs Mod I Weight Bearing Full Weight Bearing Full Weight Bearing Gait Training Gait Assistive Device: FWW [id number] SBA to Mod I, this asst device is recommended for pt. as his right knee is frequently unstable during gait Exercises Seated Therapy Exercises: Ankle pumps, Sit to stand, Long arc quads, Hip flex ion, Hip abd/add Seated Reps: 12 NuStep Minutes: 10 NuStep Workload: 3 Treatments gait , TRFs, Nustep, seated LE ex, leg press on Nustep Assessment Current Status: Good Progress PT Short Term Goals Short Term Goals Time Frame: Jun 04, 2022 Roll Left & Right: 6 Sit to lyin Lying to sitting on side of be: 6 Sit to stand: 3 Chair/pcc-yn-bqbwe transfer: 4 (CGA) Walk 10 feet: 4 (CGA) Walk 50 feet with two turns: 4 (CGA) PT [employer] Goals Usp Goals PT [employer] Goals Time Frame: Jun 18, 2022 Roll Left & Right (QC): 6 Sit to Lying (QC): 6 Lying-Sitting on Side/Bed(QC): 6 Sit to Stand (QC): 4 (SBA) Chair/Euf-hm-Bdlaa Xfer(QC): 4 (SBA) Toilet Transfer (QC): 4 (SBA) Car Transfer (QC): 4 (SBA) Does the Patient Walk: Yes Walk 10 feet (QC): 4 (SBA) Walk 50ft with 2 Turns (QC): 4 (SBA) Walk 150 ft (QC): 4 (SBA) Walking 10ft on Uneven Surface: 4 (SBA) 1 Step (curb) (QC): 4 (CGA) 4 Steps (QC): 4 (CGA) 12 Steps (QC): 88 Picking up an Object (QC): 4 (SBA with digital marketing lead) Wheel 50 feet with 2 turns (QC: 9 Wheel 150 feet: 9 PT Plan Treatment/Plan Treatment Plan: Continue Plan of Care Treatment Plan: Bed Mobility, Education, Functional Activity Heath, Functional Strength, Group Therapy, Gait, Safety, Therapeutic Exercise, Transfers Treatment Duration: Jun 18, 2022 Frequency: At least 5 of 7 days/Wk (IRF) Estimated Hrs Per Day: 1.5 hours per day Patient and/or Family Agrees t: Yes Safety Risks/Education Patient Education: Gait Training, Transfer Techniques, Correct Positioning, Safety Issues Teaching Recipient: Patient Teaching Methods: Demonstration, Discussion Response to Teaching: Verbalize Understanding, Return Demonstration, Reinforcement Needed Time/GCodes Time In: 1330 Time Out: 1400 Total Billed Treatment Time: 30 Total Billed Treatment 1,GT15m,EX15m DOTTY HICKMAN HUMAN RESOURCES SPECIALIST Jun 06, 2022 14:32
[2022-06-06] MEDS: TAMSULOSIN 0.4 MG (FLOMAX) CAP PO SCH (18:20)
[2022-06-06 20:00] VITALS: BP 133/58
[2022-06-07 07:13] VITALS: BP 119/74
[2022-06-07] MEDS: CLOPIDOGREL 75 MG (PLAVIX) TABLET PO SCH (08:08)
[2022-06-07] MEDS: DOCUSATE SODIUM 100 MG (COLACE) CAP PO SCH (08:08)
[2022-06-07] MEDS: SENNA W/DOCUSATE (SENOKOT S) TABLET PO SCH (08:09)
[2022-06-07] MEDS: PANTOPRAZOLE 40 MG (PROTONIX) TAB PO SCH (08:09)
[2022-06-07] MEDS: ASPIRIN 81 MG CHEW (CHILDREN'S ASA) PO SCH (08:09)
[2022-06-07] MEDS: polyethylene glycoL POWDER 17 GM (MIRALAX) PACK PO SCH (08:10)
--- NOTE | 2022-06-07 08:20 | D/C HH Face to Face Order ---
D/C Face to Face Orders Reconcile Patient Problems Problems Reviewed?: Yes Instructions for Patient Via [facility], Patient Instructions/FollowUp: clyde 1 week Physician to follow Patient: clyde Discharge Diet for Home: No Restrictions Patient Problems: debility Patient Data-Allergies,Ht & Wt Patient Allergies: Coded Allergies: No Known Drug Allergies (Unverified , 12/06/15) Height (Feet): 6 Height (Inches): 1.00 Weight (Pounds): 172 Weight (Ounces): 10.0 Home Health Need/Face to Face Date of Face to Face: Jun 07, 2022 Clinical Findings: Generalized weakness and fatigue, Muscle weakness I have seen Pt lxqt-ny-trcq: Yes Discharged To: Home Diagnosis/Conditions: debility Patient is Homebound due to: Tia fall risk due to instabilty, Muscle weakness Homebound Status Due to the above stated illness, injury or surgical procedure (medical condition or diagnosis) and associated clinical findings, the patient is homebound because of his/her inability to leave home except with aid of a supportive device and/or person AND leaving the home requires a considerable and taxing effort or is medically contraindicated. Pt req the following assistanc: Walker Home Health Nursing Orders Home Health Services Order: Nursing Services, [place]-Evaluate & Treat, Physical Therapy-Evaluate & Treat Certify Stmt I certify that this patient is under my care and that I, a nurse practitioner or a physician; a evaluation assistant working with me, had a face to face encounter that - meets the physician face to face encounter requirements with this patient as dated. RYAN PINEDA DO Jun 07, 2022 08:20
--- NOTE | 2022-06-07 08:21 | Discharge Summary ---
Diagnosis/Chief Complaint Date of Admission May 27, 2022 at 16:57 Date of Discharge Discharge Date: Jun 07, 2022 Discharge Diagnosis Assessment: Debility CAD Prior UTI Fall at home Advanced age Plan: IRF protocol Monitor pain Home meds 05/28/2022: Continue therapy Increase ambulation 05/29/2022: Monitor weakness Improved status 05/30/2022: Improved 05/31/2022: Continue aggressive therapy 06/01/2022: Supportive care Increase independence 06/02/2022: Increase independence 06/03/2022: Monitor closely 06/04/2022: Supportive care 06/05/2022: No issues 06/06/2022: Discharge home tomorrow (1) Debility Status: Acute (2) Generalized weakness Status: Acute (3) Weakness generalized Status: Acute (4) CAD (coronary artery disease) Discharge Summary Discharge Physical Examination Allergies: Coded Allergies: No Known Drug Allergies (Unverified , 12/06/15) Vitals & I&Os Vital Signs Date Time Temp Pulse Resp B/P (MAP) Pulse Ox O2 Delivery O2 Flow Rate FiO2 06/07/22 10:19 36.2 68 20 119/74 97 Room Air General Appearance: Alert, Oriented X3, Cooperative Respiratory: Clear to Auscultation Cardiovascular: Regular Rate Neuro: Normal Gait, Normal Speech, Strength at 5/5 X4 Ext Psych/Mental Status: Mental Status NL Hospital Course Was the Problem List Reviewed?: Yes Pt had a lengthy hospital course for 12 days after he was admitted for in-patie nt rehab after severe debility. He responded to aggressive therapy. Labs remained stable. Bowels regimen maintained. He was discharged in improved condition. Labs (last 24 hrs) Laboratory Tests 05/28/22 05:21: White Blood Count 6.9, Red Blood Count 4.22L, Hemoglobin 13.1L, Hematocrit 39L, Mean Corpuscular Volume 92, Mean Corpuscular Hemoglobin 31, Mean Corpuscular Hemoglobin Concent 34, Red Cell Distribution Width 12.5, Platelet Count 149, Mean Platelet Volume 9.2, Immature Granulocyte % (Auto) 0, Neutrophils (%) (Auto) 69, Lymphocytes (%) (Auto) 16, Monocytes (%) (Auto) 14H, Eosinophils (%) (Auto) 0, Basophils (%) (Auto) 0, Neutrophils # (Auto) 4.7, Lymphocytes # (Auto) 1.1, Monocytes # (Auto) 1.0, Eosinophils # (Auto) 0.0, Basophils # (Auto) 0.0, Immature Granulocyte # (Auto) 0.0, Percent Immature Platelet Fraction 1.7, Sodium Level 137, Potassium Level 4.2, Chloride Level 106, Carbon Dioxide Level 20L, Anion Gap 11, Blood Urea Nitrogen 12, Creatinine 0.84, Estimat Glomerular Filtration Rate 85, BUN/Creatinine Ratio 14, Glucose Level 91, Calcium Level 8.6, Corrected Calcium 8.9, Total Bilirubin 1.0, Aspartate Amino Transf (AST/SGOT) 16, Alanine Aminotransferase (ALT/SGPT) 22, Alkaline Phosphatase 52, Total Protein 5.9L, Albumin 3.6, Procalcitonin 0.04 06/03/22 05:08: White Blood Count 5.7, Red Blood Count 4.15L, Hemoglobin 12.9L, Hematocrit 38L, Mean Corpuscular Volume 91, Mean Corpuscular Hemoglobin 31, Mean Corpuscular Hemoglobin Concent 34, Red Cell Distribution Width 12.4, Platelet Count 161, Mean Platelet Volume 9.4, Immature Granulocyte % (Auto) 1, Neutrophils (%) (Auto) 58, Lymphocytes (%) (Auto) 27, Monocytes (%) (Auto) 11, Eosinophils (%) (Auto) 4, Basophils (%) (Auto) 1, Neutrophils # (Auto) 3.3, Lymphocytes # (Auto) 1.5, Monocytes # (Auto) 0.6, Eosinophils # (Auto) 0.2, Basophils # (Auto) 0.0, Immature Granulocyte # (Auto) 0.0, Sodium Level 142, Potassium Level 4.2, Chloride Level 110H, Carbon Dioxide Level 21, Anion Gap 11, Blood Urea Nitrogen 15, Creatinine 0.88, Estimat Glomerular Filtration Rate 84, BUN/Creatinine Ratio 17, Glucose Level 86, Calcium Level 8.4L, Corrected Calcium 9.0, Total Bilirubin 0.5, Aspartate Amino Transf (AST/SGOT) 14, Alanine Aminotransferase (ALT/SGPT) 23, Alkaline Phosphatase 53, Total Protein 5.5L, Albumin 3.2 Pending Labs Laboratory Tests 05/28/22 05:21: White Blood Count 6.9, Red Blood Count 4.22, Hemoglobin 13.1, Hematocrit 39, Mean Corpuscular Volume 92, Mean Corpuscular Hemoglobin 31, Mean Corpuscular Hemoglobin Concent 34, Red Cell Distribution Width 12.5, Platelet Count 149, Mean Platelet Volume 9.2, Immature Granulocyte % (Auto) 0, Neutrophils (%) (Auto) 69, Lymphocytes (%) (Auto) 16, Monocytes (%) (Auto) 14, Eosinophils (%) (Auto) 0, Basophils (%) (Auto) 0, Neutrophils # (Auto) 4.7, Lymphocytes # (Auto) 1.1, Monocytes # (Auto) 1.0, Eosinophils # (Auto) 0.0, Basophils # (Auto) 0.0, Immature Granulocyte # (Auto) 0.0, Percent Immature Platelet Fraction 1.7, Sodium Level 137, Potassium Level 4.2, Chloride Level 106, Carbon Dioxide Level 20, Anion Gap 11, Blood Urea Nitrogen 12, Creatinine 0.84, Estimat Glomerular Filtration Rate 85, BUN/Creatinine Ratio 14, Glucose Level 91, Calcium Level 8.6, Corrected Calcium 8.9, Total Bilirubin 1.0, Aspartate Amino Transf (AST/SGOT) 16, Alanine Aminotransferase (ALT/SGPT) 22, Alkaline Phosphatase 52, Total Protein 5.9, Albumin 3.6, Procalcitonin 0.04 06/03/22 05:08: White Blood Count 5.7, Red Blood Count 4.15, Hemoglobin 12.9, Hematocrit 38, Mean Corpuscular Volume 91, Mean Corpuscular Hemoglobin 31, Mean Corpuscular Hemoglobin Concent 34, Red Cell Distribution Width 12.4, Platelet Count 161, Mean Platelet Volume 9.4, Immature Granulocyte % (Auto) 1, Neutrophils (%) (Auto) 58, Lymphocytes (%) (Auto) 27, Monocytes (%) (Auto) 11, Eosinophils (%) (Auto) 4, Basophils (%) (Auto) 1, Neutrophils # (Auto) 3.3, Lymphocytes # (Auto) 1.5, Monocytes # (Auto) 0.6, Eosinophils # (Auto) 0.2, Basophils # (Auto) 0.0, Immature Granulocyte # (Auto) 0.0, Sodium Level 142, Potassium Level 4.2, Chloride Level 110, Carbon Dioxide Level 21, Anion Gap 11, Blood Urea Nitrogen 15, Creatinine 0.88, Estimat Glomerular Filtration Rate 84, BUN/Creatinine Ratio 17, Glucose Level 86, Calcium Level 8.4, Corrected Calcium 9.0, Total Bilirubin 0.5, Aspartate Amino Transf (AST/SGOT) 14, Alanine Aminotransferase (ALT/SGPT) 23, Alkaline Phosphatase 53, Total Protein 5.5, Albumin 3.2 Discharge Home Medications: Active Scripts Active Flomax (Tamsulosin HCl) 0.4 Mg Cap 0.4 Mg PO DAILY@1800 Metoprolol Tartrate 25 Mg Tablet 12.5 Mg PO BID Children's Aspirin (Aspirin) 81 Mg Tab.chew 81 Mg PO DAILY Lipitor (Atorvastatin Calcium) 40 Mg Tablet 40 Mg PO HS Clopidogrel (Clopidogrel Bisulfate) 75 Mg Tablet 75 Mg PO DAILY Reported Pantoprazole Sodium 40 Mg Tablet.dr 40 Mg PO DAILY Daily Lynne (Multivitamin) 1 Each Tablet 1 Each PO DAILY Instructions to patient/family Please see electronic discharge instructions given to patient. Diagnosis/Problems Diagnosis/Problems (1) Debility Status: Acute (2) Generalized weakness Status: Acute (3) Weakness generalized Status: Acute (4) CAD (coronary artery disease) RYAN PINEDA DO Jun 07, 2022 08:20
[2022-06-07 10:19] VITALS: BP 119/74
--- NOTE | 2022-06-07 11:25 | Therapy Team Discharge Summary ---
Therapy Discharge Summary Discharge Recommendations Date of Discharge Jun 07, 2022 at 10:15 Physical Therapy Patient came to rehab with debility. Upon evaluation patient performs rolling with independence, supine <-> sit SBA, sit <-> stand and transfers mod assist, car transfer mod assist, ambulate 15' with a rolling walker with min assist, and propelled a manual WC 150' with min assist. Patient has been performing bed mobility and transfer training, balance and endurance training, functional strengthening, stair training, gait training, and education. Patient has made good progress and has met all of his senior living goals. Now, patient performs rolling and supine <-> sit with independence, sit <-> stand and transfers with independence, car transfer independent, ambulates 200' with a rolling walker with independence (including 50' with at least 2 turns of 90 degrees), can go up and down 12 steps using 2 handrails with SBA/CGA, and can picker and packer an object from the floor with independence. Patient is being discharged from this facility today and will be discharged from PT at this time. Roll Left to Right (QC): 6 Sit to Lying (QC): 6 Lying to Sitting/Side of Bed(Q: 6 Sit to Stand (QC): 6 Chair/Abz-zj-Cstkg Xfer(QC): 6 Toilet Transfer (QC): 6 Car Transfer (QC): 6 Does the Patient Walk: Yes Mode of Locomotion: Walk Anticipated Mode of Locomotion: Walk Walk 10 feet (QC): 6 Walk 50 ft with 2 Turns(QC): 6 Walk 150 ft (QC): 6 Walking 10ft on uneven surface: 6 Distance: 15' Gait Assistive Device: FWW Does the Pt Use a Wheelchair: No Wheel 50 ft with 2 turns (QC): 5 Wheel 150 ft (QC): 5 Type of Wheelchair: Manual #of Steps: 12 1 Step (curb) (QC): 4 4 Steps (QC): 4 12 Steps (QC): 4 Balance Sitting Static: Fair Balance Sitting Dynamic: Fair Balance-Standing Static: Poor Picking up an Object (QC): 6 Occupational Therapy Decreased UE Strength, Impaired Cognition, Impaired I ADL's Eating (QC): 6 Oral Hygiene (QC): 6 Shower/Bathe Self (QC): 5 Upper Body Dressing (QC): 6 Lower Body Dressing (QC): 6 On/Off Footwear (QC): 6 Toileting Hygiene (QC): 6 PT Branch Services Manager Goals Intermediate Goals PT Branch Services Manager Goals Time Frame: Jun 18, 2022 Roll Left to Right (QC): 6 Sit to Lying (QC): 6 Lying-Sitting on Side/Bed(QC): 6 Sit to Stand (QC): 4 (SBA) Chair/Hjm-dl-Mfuer Xfer(QC): 4 (SBA) Car Transfer (QC): 4 (SBA) Does the Patient Walk: Yes Walk 10 feet (QC): 4 (SBA) Walk 10ft-Uneven Surface(QC): 4 (SBA) Walk 50ft with 2 Turns (QC): 4 (SBA) Walk 150 ft (QC): 4 (SBA) Wheel 50 feet with 2 turns (QC: 9 1 Step (curb) (QC): 4 (CGA) 4 Steps (QC): 4 (CGA) 12 Steps (QC): 88 Picking up an Object (QC): 4 (SBA with glaciologist) OT Intermediate Goals Intermediate Goals Time Frame: Jun 21, 2022 Eating (QC): 6 Oral Hygiene (QC): 6 Shower/Bathe Self (QC): 5 Upper Body Dressing (QC): 5 Lower Body Dressing (QC): 5 On/Off Footwear (QC): 5 Toileting Hygiene (QC): 6 Toilet/Commode Transfer (QC): 4 (SBA) 1=Demonstrate adherence to instructed precautions during ADL tasks. 2=Patient will verbalize/demonstrate understanding of assistive devices/modifications for ADL. 3=Patient will improve strength/tolerance for activity to enable patient to pe rform ADL's. NEELAM COLE PT Jun 07, 2022 11:25
--- NOTE | 2022-06-10 09:14 | Therapy Team Discharge Summary ---
Therapy Discharge Summary Discharge Recommendations Date of Discharge Jun 07, 2022 at 10:15 Therapy D/C Recommendations: Home w/ Family Support, Occupational Therapy Home Care Physical Therapy Roll Left to Right (QC): 6 Sit to Lying (QC): 6 Lying to Sitting/Side of Bed(Q: 6 Sit to Stand (QC): 6 Chair/Gga-sh-Rcylt Xfer(QC): 6 Toilet Transfer (QC): 6 Car Transfer (QC): 6 Does the Patient Walk: Yes Mode of Locomotion: Walk Anticipated Mode of Locomotion: Walk Walk 10 feet (QC): 6 Walk 50 ft with 2 Turns(QC): 6 Walk 150 ft (QC): 6 Walking 10ft on uneven surface: 6 Distance: 15' Gait Assistive Device: FWW Does the Pt Use a Wheelchair: No Wheel 50 ft with 2 turns (QC): 5 Wheel 150 ft (QC): 5 Type of Wheelchair: Manual #of Steps: 12 1 Step (curb) (QC): 4 4 Steps (QC): 4 12 Steps (QC): 4 Balance Sitting Static: Fair Balance Sitting Dynamic: Fair Balance-Standing Static: Poor Picking up an Object (QC): 6 Occupational Therapy Pt admitted to ARU with debility. At time of evaluation, he was dependent for footwear, LB dressing, and bathing, max a for toileting, mod a for upper body dressing, sba for oral care and set up for eating. During his rehab stay, OT focused on memory, problem solving, attention, balance, endurance, UE strength, safety, and energy conservation strategies in order to promote increased performance and independence in adls and functional mobility. Pt made good progress and met all of his assisted goals. See below for current levels of assist. Pt is currently discharged from this facility and will be discharged from OT at this time. Decreased UE Strength, Impaired Cognition, Impaired I ADL's Eating (QC): 6 Oral Hygiene (QC): 6 Shower/Bathe Self (QC): 5 Upper Body Dressing (QC): 6 Lower Body Dressing (QC): 6 On/Off Footwear (QC): 6 Toileting Hygiene (QC): 6 PT Merchandise Carrier Goals Mcfp Goals PT Mcfp Goals Time Frame: Jun 18, 2022 Roll Left to Right (QC): 6 Sit to Lying (QC): 6 Lying-Sitting on Side/Bed(QC): 6 Sit to Stand (QC): 4 (SBA) Chair/Lbb-od-Jodgb Xfer(QC): 4 (SBA) Car Transfer (QC): 4 (SBA) Does the Patient Walk: Yes Walk 10 feet (QC): 4 (SBA) Walk 10ft-Uneven Surface(QC): 4 (SBA) Walk 50ft with 2 Turns (QC): 4 (SBA) Walk 150 ft (QC): 4 (SBA) Wheel 50 feet with 2 turns (QC: 9 1 Step (curb) (QC): 4 (CGA) 4 Steps (QC): 4 (CGA) 12 Steps (QC): 88 Picking up an Object (QC): 4 (SBA with web offset press feeder) OT Mcfp Goals Merchandise Carrier Goals Time Frame: Jun 21, 2022 Eating (QC): 6 (met) Oral Hygiene (QC): 6 (met) Shower/Bathe Self (QC): 5 (met) Upper Body Dressing (QC): 5 (met) Lower Body Dressing (QC): 5 (met) On/Off Footwear (QC): 5 (met) Toileting Hygiene (QC): 6 (met) Toilet/Commode Transfer (QC): 4 (met) 1=Demonstrate adherence to instructed precautions during ADL tasks. 2=Patient will verbalize/demonstrate understanding of assistive devices/modifications for ADL. 3=Patient will improve strength/tolerance for activity to enable patient to perform ADL's. Cate Walls OT Jun 10, 2022 09:14
== END 2022-06-07 10:15 | disposition home health service (06) | DRG 948 ==
PROVIDERS: ADMIT Internal Medicine; ATTEND Internal Medicine
DX: R53.1 Weakness (principal); I25.110 Atherosclerotic heart disease of native coronary artery with unstable angina pectoris; K21.9 Gastro-esophageal reflux disease without esophagitis; H35.30 Unspecified macular degeneration; H91.90 Unspecified hearing loss, unspecified ear; Z66 Do not resuscitate; Z60.2 Problems related to living alone; Z97.4 Presence of external hearing-aid; Z79.82 Long term (current) use of aspirin; Z79.899 Other long term (current) drug therapy; Z91.81 History of falling; Z86.16 Personal history of COVID-19; Z95.5 Presence of coronary angioplasty implant and graft; Z87.19 Personal history of other diseases of the digestive system; Z87.440 Personal history of urinary (tract) infections
CPT/HCPCS: 36415; 80053; 84145; 85025

== ENCOUNTER 2022-10-31 16:48 | Inpatient (IN) | payer MEDICARE, OTHER ==
[~2022-10-31] VITALS: Ht 185.4 cm; Wt 73.1 kg
[2022-10-31 16:50] VITALS: BP 112/68
[2022-10-31] MEDS ORDERED: MELATONIN 3 MG TABLET PO PRN (17:15)
[2022-10-31] MEDS ORDERED: guaiFENesin/CODEINE (ROBITUSSIN AC) 10ML UDC PO PRN (17:15)
[2022-10-31] MEDS ORDERED: ACETAMINOPHEN 325 MG TABLET PO PRN (17:15)
[2022-10-31] MEDS ORDERED: LOPERAMIDE 2 MG (IMODIUM) TABLET PO PRN (17:15)
[2022-10-31] MEDS ORDERED: diphenhydrAMINE 25 MG TAB (BENADRYL) PO PRN (17:15)
[2022-10-31] MEDS ORDERED: FLEET ENEMA ADULT 1 EA BTL PR PRN (17:15)
[2022-10-31] MEDS ORDERED: ONDANSETRON 4 MG (ZOFRAN) ORAL DISSOLVE TAB PO PRN (17:15)
[2022-10-31] MEDS ORDERED: ALPRAZolam 0.25 MG (XANAX) TAB PO PRN (17:15)
[2022-10-31] MEDS ORDERED: LACTULOSE SYRUP 10GM/15ML (ENULOSE) 30ML UDC PO PRN (17:15)
[2022-10-31] MEDS ORDERED: DOCUSATE SODIUM 100 MG (COLACE) CAP PO PRN (17:15)
[2022-10-31] MEDS ORDERED: BISACODYL 10 MG SUPP (DULCOLAX) PR PRN (17:15)
[2022-10-31] MEDS ORDERED: CALCIUM CARBONATE 500 MG (TUMS) TAB.CHEW PO PRN (17:15)
--- NOTE | 2022-10-31 18:03 | PM&R Post Admission Assessment ---
PM&R Date of Visit: Oct 31, 2022 Time of Visit: 18:00 History of Present Illness CC: Debility following flu A HPI: This is an 87yoWM clinic patient of Dr Huynh who presented as a direct admit from Dr Huynh's office due to to continued weakness following influenza A. Apparently his family has been staying with him / since Flu A diagnosed and they have him increasing his fluids and just need strengthening in order to regain enough function to return home. PLOF is independent with use of a walker. Patient had an inpatient rehab stay earlier this year. Past Rzrlbsg-Zeqzhg-Kfbqxc Hx Past Med/Social Hx: Reviewed Nursing Past Med/Soc Hx, Reviewed and Corrections made Patient Social History Marrital Status: Employed/Student: retired Alcohol Use: Denies Use Smoking Status: Never a Smoker Former Smoker, Quit: Feb 17, 1957 2nd Hand Smoke Exposure: No Recent Hopitalizations: No Immunizations Up To Date Pediatric: No Seasonal Allergies Seasonal Allergies: No Past Medical History Surgeries: Abdominal, Appendectomy, Gallbladder, Orthopedic, Tonsillectomy Cardiac: Coronary Artery Disease Reproductive: No Gastrointestinal: Gastroesophageal Reflux, Gall Bladder Disease HEENT: Macular Degeneration Hearing Impairment: Hard of Hearing, Hearing Aide Right, Hearing Aide Left History of Blood Disorders: No Family History Cardiovascular disease 19 FATHER Dementia G8 SISTER Neoplasm 19 MOTHER (lymphoma) G8 SISTER (lymphoma) Cancer, Hypertension Occupation: [employer] PM[employer]R Allergy/Meds/Data Review Allergies Coded Allergies: No Known Drug Allergies (Unverified , 12/06/15) Home Medications Scheduled Aspirin (Children's Aspirin), 81 MG PO DAILY Clopidogrel Bisulfate (Clopidogrel), 75 MG PO DAILY Metoprolol Tartrate (Metoprolol Tartrate), 12.5 MG PO BID Multivitamin (Daily Lynne), 1 EACH PO DAILY, (Reported) Pantoprazole Sodium (Pantoprazole Sodium), 40 MG PO DAILY, (Reported) Tamsulosin HCl (Flomax), 0.4 MG PO DAILY@1800 Discontinued Medications Atorvastatin Calcium (Lipitor), 40 MG PO HS Discontinued Reason: No Longer Taking Current Medications Current Medications Reviewed Review of Systems Constitutional: see HPI, dizziness, malaise, weakness EENTM: no symptoms reported Respiratory: no symptoms reported Cardiovascular: no symptoms reported Gastrointestinal: no symptoms reported Genitourinary: no symptoms reported Musculoskeletal: back pain, joint pain Skin: no symptoms reported Psychiatric/Neurological: No Symptoms Reported All Other Systems Reviewed Negative Unless Noted: Yes Physical Exam Physical Exam Vital Signs Capillary Refill : Height, Weight, BMI Height: 6'1.00" Weight: 172lbs. 10.0oz. 78.683278gs; 21.15 BMI Method:Stated General Appearance: No Apparent Distress, WD/WN, Chronically ill Eyes: Bilateral Eye Normal Inspection, Bilateral Eye PERRL HEENT: PERRL/EOMI, Normal ENT Inspection, Pharynx Normal Neck: Full Range of Motion, Normal Inspection, Non Tender, Supple, Carotid Bruit Respiratory: Chest Non Tender, Lungs Clear, Normal Breath Sounds, No Accessory Muscle Use, No Respiratory Distress Cardiovascular: Regular Rate, Rhythm, No Edema, No Gallop, No JVD, No Murmur, Normal Peripheral Pulses Gastrointestinal: Normal Bowel Sounds, No Organomegaly, No Pulsatile Mass, Non Tender, Soft Back: Normal Inspection, No CVA Tenderness, No Vertebral Tenderness Extremity: Normal Capillary Refill, Normal Inspection, Normal Range of Motion, Non Tender, No Calf Tenderness, No Pedal Edema Neurologic/Psychiatric: Alert, Oriented x3, No Motor/Sensory Deficits, 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 Norm as Tested, Abnormal Gait, Depressed Affect, Motor Weakness (generalized) Skin: Normal Color, Warm/Dry Lymphatic: No Adenopathy PM&R Medical Assessment & Plan REHAB/MEDICAL ASSESSMENT AND PLAN: REHAB IMPAIRMENT GROUP: Debility ETIOLOGIC DIAGNOSIS: Debility The comorbidities that impact the patients function and/or functional outcome by: advanced age, fall risk, recent Flu A, severe weakness REHAB PLAN: The patient is being admitted to our comprehensive inpatient rehabilitation facility and can tolerate the intensity of service consisting of at least: 180 minutes of therapy a day, 5 out of 7 days a week Rehab treatment will consist of: PT OT will focus on regaining function in order to return home with independent function with use of AD and increasing stamina of ambulation The patient/family has a good understanding of our discharge process and will benefit from an interdisciplinary inpatient rehabilitation program. The patient has potential to make improvement and is in need of at least two of the following multidisciplinary therapies including but not limited to physical, occupational, speech, and prosthetics and orthotics. Additionally the patient will need services from respiratory, nutritional services, wound care, psychology, etc. (Customize this to each patient). Given the patients complex condition and risk of further medical complications, rehabilitation services cannot be safely or effectively provided at a lower level of care such as a [place] [facility] facility. BARRIERS TO DISCHARGE: [ ] ESTIMATED LOS: [ ] DISPOSITION: [ ] RELEVANT CHANGES SINCE PREADMISSION SCREENING: I have compared the patients medical and functional status at the time of the preadmission screening and there are: [no changes] [changes as follows: (if there is a discrepancy between the IGC/Etiologic stated on the PAS, address/clarify this as well) ] PROGNOSIS: [ ] REHABILITATION GOALS: 1. [ (specific to the patient) ] All the above goals were reviewed with the patient and he/she is in agreement. By signing this document, I acknowledge that I have personally performed a full physical examination on this patient within 24 hours of admission to this inpatient rehabilitation facility and have determined the patient to be able to tolerate the above course of treatment at an intensive level for a reasonable period of time. I will be completing a detailed individualized Plan of Care for this patient by day #4 of the patients stay based upon the Preadmission Screen, the Post-Admission Evaluation, and the therapy evaluations. Admission Dx/Comorbidities: (1) Debility Status: Acute ICD Codes: R53.81 - Other malaise (2) CAD (coronary artery disease) ICD Codes: I25.10 - Atherosclerotic heart disease of [place] coronary artery without angina pectoris (3) Generalized weakness Status: Acute ICD Codes: R53.1 - Weakness (4) Anemia ICD Codes: D64.9 - Anemia, unspecified Assessment/Plan Assessment and Plan Assess & Plan/Chief Complaint Assessment: Debility Advanced age Recent Flu A Anemia eval for GI Bleed? Fall risk Presbycusis h/o UTI's Plan: Check labs Eval anemia Increase PO fluids PT OT RYAN PINEDA DO Oct 31, 2022 18:03
[2022-10-31] MEDS: TAMSULOSIN 0.4 MG (FLOMAX) CAP PO SCH (18:21)
[2022-10-31] MEDS ORDERED: FLU QUAD HIGH DOSE 240 MCG/0.7 ML 2022-23 (FLUZONE) IM ONE (19:15)
[2022-10-31 20:08] VITALS: BP 119/72
[2022-10-31] MEDS: meTOprolol TARTRATE 25 MG (LOPRESSOR) TABLET PO SCH (20:35)
[2022-10-31] MEDS: SENNA W/DOCUSATE (SENOKOT S) TABLET PO SCH (20:50)
[2022-10-31] MEDS: polyethylene glycoL POWDER 17 GM (MIRALAX) PACK PO SCH (20:50)
[2022-10-31] MEDS: DOCUSATE SODIUM 100 MG (COLACE) CAP PO SCH (20:50)
--- NOTE | 2022-11-01 05:25 | PM&R Progress Note ---
Subjective HPI/CC On Admission Date Seen by Provider: Nov 01, 2022 Time Seen by Provider: 12:30 Subjective/Events-last exam 11/01/2022: Patient settling in well Eating well so appetite is improved Reviewed meds and labs No falls Bowels were loose last week so we will monitor closely Review of Systems General: Fatigue, Malaise Objective Exam Vital Signs Vital Signs Date Time Temp Pulse Resp B/P (MAP) Pulse Ox O2 Delivery O2 Flow Rate FiO2 11/01/22 20:24 36.8 68 20 110/67 (81) 95 Room Air Capillary Refill : General Appearance: No Apparent Distress, WD/WN, Chronically ill HEENT: PERRL/EOMI, Normal ENT Inspection, Pharynx Normal Neck: Full Range of Motion, Normal Inspection, Non Tender, Supple, Carotid Bruit Respiratory: Chest Non Tender, Lungs Clear, Normal Breath Sounds, No Accessory Muscle Use, No Respiratory Distress Cardiovascular: Regular Rate, Rhythm, No Edema, No Gallop, No JVD, No Murmur, Normal Peripheral Pulses Gastrointestinal: Normal Bowel Sounds, No Organomegaly, No Pulsatile Mass, Non Tender, Soft Back: Normal Inspection, No CVA Tenderness, No Vertebral Tenderness Extremity: Normal Capillary Refill, Normal Inspection, Normal Range of Motion, Non Tender, No Calf Tenderness, No Pedal Edema Neurologic/Psychiatric: Alert, Oriented x3, No Motor/Sensory 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 FIM Transfers Therapy Code Descriptions/Definitions Functional [place] Measure: 0=Not Assessed/NA 4=Minimal Assistance 1=Total Assistance 5=Supervision or Setup 2=Maximal Assistance 6=Modified [place] 3=Moderate Assistance 7=Complete IndependenceSCALE: Activities may be completed with or without assistive devices. 8-Gdndmrtmwa-fqhvduo completes the activity by him/herself with no assistance from a helper. 5-Set-up or Clean-up Assistance-helper sets up or cleans up; patient completes activity. [place] assists only prior to or following the activity. 4-Supervision or Touching Assistance-helper provides verbal cues and/or touching/steadying and/or contact guard assistance as patient completes activity. Assistance may be provided throughout the activity or intermittently. 3-Partial/Moderate Assistance-helper does LESS THAN HALF the effort. Branch lifts, holds or supports trunk or limbs, but provides less than half the effort. 2-Substantial/Maximal Assistance-helper does MORE THAN HALF the effort. Branch lifts or holds trunk or limbs and provides more than half the effort. 7-Mlymzbnqw-xiwwmh does ALL the effort. Patient does none of the effort to com plete the activity. Or, the assistance of 2 or more helpers is required for the patient to complete the activity. If activity was not attempted, code reason: 7-Patient Refused. 9-Not Applicable-not attempted and the patient did not perform the activity before the current illness, exacerbation or injury. 10-Not Attempted due to Environmental Limitations-(lack of equipment, weather restraints, etc.). 88-Not Attempted due to Medical Conditions or Safety Concerns. Assessment/Plan Assessment and Plan Assess & Plan/Chief Complaint Assessment: Debility Advanced age Recent Flu A Anemia Fall risk Presbycusis h/o UTI's Plan: Check labs Eval anemia Increase PO fluids PT OT 11/01/2022: Supportive care Monitor closely (1) Debility Status: Acute (2) CAD (coronary artery disease) (3) Generalized weakness Status: Acute (4) Anemia RYAN PINEDA DO Nov 01, 2022 05:24
[2022-11-01 05:28] LABS: BASOPHILS % (AUTO) 1 % (0-10); EOSINOPHILS # (AUTO) 0.2 10^3/uL (0.0-0.3); EOSINOPHILS % (AUTO) 2 % (0-10); HEMATOCRIT 35 % (40-54); HEMOGLOBIN 12.2 g/dL (13.3-17.7); LYMPHOCYTES # (AUTO) 1.8 10^3/uL (1.0-4.0); LYMPHOCYTES % (AUTO) 24 % (12-44); MEAN CORPUSCULAR HEMOGLOBIN 31 pg (25-34); MEAN CORPUSCULAR HGB CONC 35 g/dL (32-36); MEAN CORPUSCULAR VOLUME 89 fL (80-99); MEAN PLATELET VOLUME 8.7 fL (9.0-12.2); MONOCYTES # (AUTO) 0.8 10^3/uL (0.0-1.0); MONOCYTES % (AUTO) 11 % (0-12); NEUTROPHILS # (AUTO) 4.7 10^3/uL (1.8-7.8); NEUTROPHILS % (AUTO) 62 % (42-75); PLATELET COUNT 193 10^3/uL (130-400); WHITE BLOOD COUNT 7.5 10^3/uL (4.3-11.0)
[2022-11-01 06:02] LABS: ALBUMIN 3.1 GM/DL (3.2-4.5); BILIRUBIN,TOTAL 0.5 MG/DL (0.1-1.0); CALCIUM 8.5 MG/DL (8.5-10.1); CREATININE SERUM 0.86 MG/DL (0.60-1.30); POTASSIUM 3.4 MMOL/L (3.6-5.0); TOTAL PROTEIN 5.8 GM/DL (6.4-8.2)
[2022-11-01] MEDS: MULTIVIT W/MINERALS TAB (THERAGRAN M) PO SCH (06:08)
[2022-11-01 07:50] VITALS: BP 129/83
[2022-11-01 07:51] VITALS: BP 116/75
--- NOTE | 2022-11-01 08:50 | ST Cognitive Linguistic Eval ---
Speech Evaluation-General Medical Diagnosis Debility Onset Date: Oct 31, 2022 Therapy Diagnosis Therapy Diagnosis: Intact (Baseline) Cognition Precautions Precautions: Fall Precautions/Isolations: Fall Prevention, Standard Precautions Referral Referring Physician: Dr. Devika Moreno Reason for Referral: Evaluation/Treatment Medical History Pertinent Medical History: CAD, GERD, Macular Degenertion Current History The patient is an 87 year-old male, who was a direct admit to the acute rehabilitation unit from Dr. Huynh's office secondary to continued weakness following Flu A. Reviewed History: Yes Speech PLF-Current Status Prior Level of Function The patient reported he is currently functioning at his baseline cognitive, speech, and language level. The patient is known to the clinician and throughout informal conversational interactions appears to communicate at his prior level of function. Subjective The patient was seated upright in his recliner, awake and alert, upon entrance to his room by the clinician. The patient greeted the clinician appropriately and was agreeable to participation in the cognitive linguistic assessment. The patient remains pleasant and cooperative throughout the evaluation. Language Eval: Auditory Comprehends Simple Yes/No Ques: Functional Indent/Objects Multiple Brown: Functional Ident/Pics in Multiple Brown: Functional Follows 1-Step Commands: Functional Follows General Conversations: Functional Language Eval: Verbal Language Completes Spontaneous Greeting: Functional Produces Auto, Serial Info: Functional Word Finding: Functional Requests Basic Needs: Functional States Basic Personal Info: Functional Expresses Complex Ideas: Functional Language Evaluation: Reading Follows Simple Written Direct: Functional Language Evaluation: Writing Writes to Simple Dictation: Functional Cognitive Patient Orientation The patient is independently oriented to self, location, month, day of the week, date, and year. Objective Cognitive Domain Attention: WNL Memory: WNL (Suspected a minimal impairment with novel information.) Problem Solving: Functional Visuospatial Skills: WNL Composite Severity Rating: WNL (Baseline) Clock Drawing Severity Rating: WNL (With mild verbal cueing.) Objective Formal/Standardized Tests [facility] Mental Status Exam (UMS) Results The patient displayed a result of +27/30 on the SLUMS which correlates to score within normal limits. Oral Motor/Speech Production The patient does not display dysarthria or apraxia of speech. The patient is 100% intelligible in known and unknown contexts. Impression The patient displays cognitive linguistic function within normal limits and at reported baseline. Speech-Plan Treatment Plan Speech Therapy Treatment Plan: Discontinue ST Treatment Duration: Nov 01, 2022 Frequency: 1 time per week Estimated Hrs Per Day: .5 hour per day Rehab Potential: Good Pt/Family Agrees to Plan: Yes Safety Risks/Education Teaching Recipient: Patient Teaching Methods: Discussion Response to Teaching: Verbalize Understanding Education Topics Provided: Results, Recommendations, Plan of Care Time Speech Therapy Time In: 08:15 Speech Therapy Time Out: 08:45 DATE: Nov 01, 2022 Total Billed Time: 30 Billed Treatment Time 1, CHELSEA TAY [facility] ST Nov 01, 2022 08:50
[2022-11-01] MEDS: ENOXAPARIN 40 MG/0.4 ML (LOVENOX) SYR SC SCH (09:00)
[2022-11-01] MEDS ORDERED: NON-FORMULARY MEDICATION 1 EA EA (Multivitamin (Daily Vite) 1 EACH) PO SCH (09:00)
[2022-11-01] MEDS: DOCUSATE SODIUM 100 MG (COLACE) CAP PO SCH ×2 (09:00→20:14)
[2022-11-01] MEDS: ASPIRIN 81 MG CHEW (CHILDREN'S ASA) PO SCH (09:00)
[2022-11-01] MEDS: PANTOPRAZOLE 40 MG (PROTONIX) TAB PO SCH (09:01)
[2022-11-01] MEDS: meTOprolol TARTRATE 25 MG (LOPRESSOR) TABLET PO SCH ×2 (09:01→20:14)
[2022-11-01] MEDS: SENNA W/DOCUSATE (SENOKOT S) TABLET PO SCH ×2 (09:01→20:14)
[2022-11-01] MEDS: CLOPIDOGREL 75 MG (PLAVIX) TABLET PO SCH (09:01)
[2022-11-01] MEDS: polyethylene glycoL POWDER 17 GM (MIRALAX) PACK PO SCH ×2 (09:15→20:18)
--- NOTE | 2022-11-01 09:56 | Physical Therapy Evaluation ---
PT Evaluation-General Medical Diagnosis Admission Date Oct 31, 2022 at 16:48 Medical Diagnosis: debility Onset Date: Oct 31, 2022 Therapy Diagnosis Therapy Diagnosis: impaired mobility and strength Height/Weight Height (Feet): 6 Height (Inches): 1.00 Weight (Pounds): 172 Weight (Ounces): 10.0 Precautions Precautions/Isolations: Fall Prevention, Standard Precautions Referral Physician: Devika Moreno DO Reason for Referral: Evaluation/Treatment Medical History Pertinent Medical History: CAD, GERD, Macular Degenertion Additional Medical History Past Medical History Surgeries: Abdominal, Appendectomy, Gallbladder, Orthopedic, Tonsillectomy Cardiac: Coronary Artery Disease Reproductive: No Gastrointestinal: Gastroesophageal Reflux, Gall Bladder Disease HEENT: Macular Degeneration Hearing Impairment: Hard of Hearing, Hearing Aide Right, Hearing Aide Left History of Blood Disorders: No Reviewed History: Yes Social History Home: Single Level Current Living Status: Alone Entry Into Home: Stairs With Railing PT Steps Into Home: 3 Prior Prior Level of Function SCALE: Activities may be completed with or without assistive devices. 5-Bjmghlypzq-pqykrxl completes the activity by him/herself with no assistance from a helper. 5-Set-up or Clean-up Assistance-helper sets up or cleans up; patient completes activity. [place] assists only prior to or following the activity. 4-Supervision or Touching Assistance-helper provides verbal cues and/or touching/steadying and/or contact guard assistance as patient completes activity. Assistance may be provided throughout the activity or intermittently. 3-Partial/Moderate Assistance-helper does LESS THAN HALF the effort. [place] lifts, holds or supports trunk or limbs, but provides less than half the effort. 2-Substantial/Maximal Assistance-helper does MORE THAN HALF the effort. [place] lifts or holds trunk or limbs and provides more than half the effort. 8-Tyyuwukvm-fcmtvc does ALL the effort. Patient does none of the effort to complete the activity. Or, the assistance of 2 or more helpers is required for the patient to complete the activity. If activity was not attempted, code reason: 7-Patient Refused. 9-Not Applicable-not attempted and the patient did not perform the activity be fore the current illness, exacerbation or injury. 10-Not Attempted due to Environmental Limitations-(lack of equipment, weather restraints, etc.). 88-Not Attempted due to Medical Conditions or Safety Concerns. Bed Mobility: 6 Transfers (B,C,W/C): 6 Gait: 6 Indoor Mobility (Ambulation): Independent Prior Devices Use: Walker PT Evaluation-Current Subjective Patient in recliner pre tx, agrees to PT, has unrated pain in left hip from an old injury. Pain Section J - Health Conditions 1. Rarely or not at all 2. Occasionally 3. Frequently 4. Almost constantly 8. Unable to answer Pain Effect on Sleep: 2 Pain Interference with Therapy: 2 Pain Interference w/Day-to-Day: 2 Pt/Family Goals to be independent at home Objective Patient Orientation: Person, Place, Situation ROM/Strength ROM Lower Extremities WNL Strength Lower Extremities LLE (hip flexion 3+/5, knee flexion 4/5, knee extension 4/5, dorsiflexion 4/5), RLE (hip flexion 4-/5, knee flexion 4/5, knee extension 4/5, dorsiflexion 4/5) Sensory Vision: Wears Glasses Sensation Right Lower Extremit: Intact Sensation Left Lower Extremity: Intact Transfers Roll Left & Right (QC): 4 Sit to Lying (QC): 4 Lying to Sitting/Side of Bed(Q: 4 Sit to Stand (QC): 4 Chair/Bsj-wi-Vjign Xfer(QC): 4 Toilet Transfer (QC): 4 Car Transfer (QC): 4 Patient performs rolling and supine <-> sit with SBA, sit <-> stand and transfers CGA, car transfer CGA, patient needs occasional cues for hand placement and safety Gait Walk 10 feet (QC): 4 Walk 50 ft with 2 Turns(QC): 4 Walk 150 ft (QC): 4 Walking 10ft/uneven surface-QC: 4 Distance: 150', 100' Gait Assistive Device: Walker Standard Comments/Gait Description Patient can ambulate 150' with a standard walker with CGA (including 50' with at least 2 turns of 90 degrees and 10' over an uneven surface), patient ambulates slowly, has occasional unsteadiness but no LOB Wheelchair Training Wheel 50 ft with 2 turns (QC): 9 Wheel 150 ft (QC): 9 Stairs #of Steps: 4 1 Step (curb) (QC): 4 4 Steps (QC): 4 12 Steps (QC): 88 Patient can go up and down 4 steps using 2 handrails with CGA, cues for safety Balance Sitting Static: Normal Sitting Dynamic: Normal Standing Static: Fair Standing Dynamic: Fair Picking up an Object (QC): 4 (CGA using a supervisor of guidance and testing) Treatment NuStep level 5 for 10 min Assessment/Needs Patient in recliner post tx with nurse call, phone, tray, all needs met. Patient has impaired mobility and strength. Just CGA with transfers and ambulation, has occasional unsteadiness during ambulation. Rehab Potential: Fair PT Short Term Goals Short Term Goals Time Frame: Nov 08, 2022 Sit to stand: 4 Chair/hgz-pp-xzvzf transfer: 4 Walk 10 feet: 4 Walk 50 feet with two turns: 4 Walk 150 feet: 4 SBA for all PT Usp Goals Animal Tech Goals PT Usp Goals Time Frame: Nov 15, 2022 Roll Left to Right (QC): 6 Sit to Lying (QC): 6 Lying-Sitting on Side/Bed(QC): 6 Sit to Stand (QC): 6 Chair/Fpd-hb-Qjedh Xfer(QC): 6 Toilet/Commode Transfer (QC): 6 Car Transfer (QC): 6 Walk 10 feet (QC): 6 Walk 10ft-Uneven Surface(QC): 6 Walk 50ft with 2 Turns (QC): 6 Walk 150 ft (QC): 6 Wheel 50 feet with 2 turns (QC: 9 Wheel 150 feet: 9 1 Step (curb) (QC): 4 (SBA) 4 Steps (QC): 4 (SBA) 12 Steps (QC): 4 (SBA) Picking up an Object (QC): 6 PT Plan Problem List Problem List: Activity Tolerance, Functional Strength, Safety, Balance, Gait, Transfer, Bed Mobility, ROM Treatment/Plan Treatment Plan: Continue Plan of Care Treatment Plan: Bed Mobility, Education, Functional Activity Heath, Functional Strength, Group Therapy, Gait, Safety, Therapeutic Exercise, Transfers Treatment Duration: Nov 15, 2022 Frequency: At least 5 of 7 days/Wk (IRF) Estimated Hrs Per Day: 1.5 hours per day Patient and/or Family Agrees t: Yes Safety Risks/Education Patient Education: Gait Training, Transfer Techniques, Steps, Correct Positioning, Safety Issues Teaching Recipient: Patient Teaching Methods: Demonstration, Discussion Response to Teaching: Reinforcement Needed Discharge Recommendations Plan Patient will perform bed mobility and transfer training, balance and endurance training, functional strengthening, stair training, gait training, and education, to improve functional mobility and independence at home. Therapy Discharge Recommendati: Home & Family, Post Acute PT Time Time In: 0900 Time Out: 1000 DATE: Nov 01, 2022 Total Billed Treatment Time: 60 Total Billed Treatment 1 visit EVM 15' EX 10' FA 35' NEELAM COLE PT Nov 01, 2022 09:56
--- NOTE | 2022-11-01 11:05 | Occupational Therapy Eval ---
OT Evaluation-General/PLF Medical Diagnosis Admission Date Oct 31, 2022 at 16:48 Medical Diagnosis: debility Onset Date: Oct 31, 2022 Therapy Diagnosis Therapy Diagnosis: decreased ADL status and decreased activity tolerance. Height/Weight Height (Feet): 6 Height (Inches): 1.00 Weight (Pounds): 172 Weight (Ounces): 10.0 Precautions Precautions/Isolations: Fall Prevention, Standard Precautions Referral Physician: Devika Moreno DO Medical History Pertinent Medical History: CAD, GERD, Macular Degenertion Additional Medical History CAD, GERD, macular degeneration, [place] Current History Direct admit to ARU from Dr. Huynh's office due to continued weakness following flu A Social History Home: Single Level Current Living Status: Alone Entry Into Home: Stairs With Railing Steps Into Home: 3 ADL-Prior Level of Function SCALE: Activities may be completed with or without assistive devices. 2-Rpfqzivgnu-ouzaizu completes the activity by him/herself with no assistance from a helper. 5-Set-up or Clean-up Assistance-helper sets up or cleans up; patient completes activity. [place] assists only prior to or following the activity. 4-Supervision or Touching Assistance-helper provides verbal cues and/or touching/steadying and/or contact guard assistance as patient completes activity. Assistance may be provided throughout the activity or intermittently. 3-Partial/Moderate Assistance-helper does LESS THAN HALF the effort. [place] lifts, holds or supports trunk or limbs, but provides less than half the effort. 2-Substantial/Maximal Assistance-helper does MORE THAN HALF the effort. [place] lifts or holds trunk or limbs and provides more than half the effort. 0-Xjpmlzwal-uogidu does ALL the effort. Patient does none of the effort to complete the activity. Or, the assistance of 2 or more helpers is required for the patient to complete the activity. If activity was not attempted, code reason: 7-Patient Refused. 9-Not Applicable-not attempted and the patient did not perform the activity before the current illness, exacerbation or injury. 10-Not Attempted due to Environmental Limitations-(lack of equipment, weather restraints, etc.). 88-Not Attempted due to Medical Conditions or Safety Concerns. ADL PLOF Comments Pt's daughter indicates pt has required some assistance with ADLS recently, up until yesterday (day of admission). Yesterday, pt was able to shower himself and dress himself without assistance. Pt used FWW for functional mobility. Self Care: Needed Some Help Functional Cognition: Independent DME/Equipment: Bath Chair, Tub/Shower OT Current Status Subjective Pt in recliner, agreeable to OT Tx. Pt often talked about various topics, requiring redirection to task/conversation. Mental Status/Objective Patient Orientation: Person, Place, Situation Current Upper Extremity ROM WFL Upper Extremity Strength grossly 4/5 ADL-Treatment Eating (QC): 6 Oral Hygiene (QC): 4 (SBA) Shower/Bathe Self (QC): 4 (SBA, pt completed majority of task standing. ) Upper Body Dressing (QC): 3 (Min A with jacket) Lower Body Dressing (QC): 4 (SBA) On/Off Footwear (QC): 3 (min A with donning ) Toileting Hygiene (QC): 4 (SBA, 1 VC to doff underwear prior to sitting.) Other Treatments Pt in recliner, provided information about PLOF and home set up. Pt used FWW to transfer into bathroom and onto toilet, SBA. Pt completed toileting, then transferred to AL. Pt completed showering and dressing, then returned to recliner. Post tx, pt in recliner, call light in reach and all needs met. Education OT Patient Education: Correct positioning, Energy conservation, Modified ADL techniques, Progress toward Goal/Update tx plan, Purpose of tx/functional activities, Rehab process Teaching Recipient: Patient Teaching Methods: Discussion Response to Teaching: Verbalize Understanding BIMS CAM BIMS Expression of Ideas and Wants: Without Difficulty Understanding Verbal Content: Understands Brief Interview/Mental Status: Yes IRF JEMMA BIMS: IRF JEMMA BIMS Response (Comments) Value Repitition of Three Words Three 3 Recalls Socks Yes, No Cue Required 2 Recalls Blue Yes, No Cue Required 2 Recalls Bed Yes, After Cueing 1 Year Correct 3 Month Accurate Within 5 Days 2 Day Incorrect or No Answer 0 Total 13 CAM Mental Status Change/Baseline: 0 Inattention: 0 Disorganized thinkin Altered level of consciousness: 0 OT Short Term Goals Short Term Goals Time Frame: Nov 08, 2022 Upper body dressin Putting on/taking off footwear: 4 OT Fdc Goals Weaver Apprentice Goals Time Frame: Nov 22, 2022 Acute change in mental status: 0 Inattention: 0 Disorganized thinkin Altered level of consciousness: 0 Eating (QC): 6 Oral Hygiene (QC): 6 Toileting Hygiene (QC): 6 Shower/Bathe Self (QC): 6 Upper Body Dressing (QC): 6 Lower Body Dressing (QC): 6 On/Off Footwear (QC): 6 Additional Goals: 1-Demonstrate ADL Tasks, 2-Verbalize Understanding, 3- ImproveStrength/Heath 1=Demonstrate adherence to instructed precautions during ADL tasks. 2=Patient will verbalize/demonstrate understanding of assistive devices/modifications for ADL. 3=Patient will improve strength/tolerance for activity to enable patient to perform ADL's. OT Education/Plan Problem List/Assessment Assessment: Decreased Activ Tolerance, Decreased UE Strength, Impaired Funct Balance, Impaired I ADL's, Impaired Self-Care Skills Discharge Recommendations Plan/Recommendations: Continue POC Treatment Plan/Plan of Care Patient would benefit from OT for education, treatment and training to promote independence in ADL's, mobility, safety and/or upper extremity function for ADL's. Plan of Care: ADL Retraining, Functional Mobility, Group Exercise/Act as Ind, UE Funct Exercise/Act Treatment Duration: Nov 22, 2022 Frequency: At least 5 of 7 days/Wk (IRF) Estimated Hrs Per Day: 1.5 hours per day Rehab Potential: Fair Time Start Time: 10:00 Stop Time: 11:00 DATE: Nov 01, 2022 Total Time Billed (hr/min): 60 Billed Treatment Time 1, EVL (10'), ADL 3 (50') ROHINI CARPENTER OT Nov 01, 2022 11:05
--- NOTE | 2022-11-01 11:25 | Physical Therapy Daily Note ---
PT Daily Note-Current Subjective Patient in recliner pre tx, agrees to exercises in chair, says he is too fatigued to do any ambulation, no complaints of pain. Pain Section J - Health Conditions 1. Rarely or not at all 2. Occasionally 3. Frequently 4. Almost constantly 8. Unable to answer Pain Effect on Sleep: 2 Pain Interference with Therapy: 2 Pain Interference w/Day-to-Day: 2 Appearance Patient in recliner post tx with nurse call, phone, tray, all needs met. Mental Status Patient Orientation: Person, Place, Situation Transfers SCALE: Activities may be completed with or without assistive devices. 2-Dzeduvgtwk-inlxhiq completes the activity by him/herself with no assistance f rom a helper. 5-Set-up or Clean-up Assistance-helper sets up or cleans up; patient completes activity. [place] assists only prior to or following the activity. 4-Supervision or Touching Assistance-helper provides verbal cues and/or touching/steadying and/or contact guard assistance as patient completes activity. Assistance may be provided throughout the activity or intermittently. 3-Partial/Moderate Assistance-helper does LESS THAN HALF the effort. [place] lifts, holds or supports trunk or limbs, but provides less than half the effort. 2-Substantial/Maximal Assistance-helper does MORE THAN HALF the effort. [place] lifts or holds trunk or limbs and provides more than half the effort. 9-Sqjkvvoxd-ogpxwj does ALL the effort. Patient does none of the effort to complete the activity. Or, the assistance of 2 or more helpers is required for the patient to complete the activity. If activity was not attempted, code reason: 7-Patient Refused. 9-Not Applicable-not attempted and the patient did not perform the activity before the current illness, exacerbation or injury. 10-Not Attempted due to Environmental Limitations-(lack of equipment, weather restraints, etc.). 88-Not Attempted due to Medical Conditions or Safety Concerns. Exercises Seated Therapy Exercises: Ankle pumps, Long arc quads (alternating for 5 min), Hip flexion, Hip abd/add (with pillow and manual resist) Seated Reps: 20 Treatments LE strengthening/ROM Assessment Current Status: Fair Progress patient was very fatigued from therapy and activity this morning PT Short Term Goals Short Term Goals Time Frame: Nov 08, 2022 Sit to stand: 4 Chair/tni-nm-dwrmw transfer: 4 Walk 10 feet: 4 Walk 50 feet with two turns: 4 Walk 150 feet: 4 PT Correction Goals Correction Goals PT Drawbridge Operator Goals Time Frame: Nov 15, 2022 Roll Left & Right (QC): 6 Sit to Lying (QC): 6 Lying-Sitting on Side/Bed(QC): 6 Sit to Stand (QC): 6 Chair/Nhy-il-Ujkfq Xfer(QC): 6 Toilet Transfer (QC): 6 Car Transfer (QC): 6 Does the Patient Walk: Yes Walk 10 feet (QC): 6 Walk 50ft with 2 Turns (QC): 6 Walk 150 ft (QC): 6 Walking 10ft on Uneven Surface: 6 1 Step (curb) (QC): 4 (SBA) 4 Steps (QC): 4 (SBA) 12 Steps (QC): 4 (SBA) Picking up an Object (QC): 6 Wheel 50 feet with 2 turns (QC: 9 Wheel 150 feet: 9 PT Plan Problem List Problem List: Activity Tolerance, Functional Strength, Safety, Balance, Gait, Transfer, Bed Mobility, ROM Treatment/Plan Treatment Plan: Continue Plan of Care Treatment Plan: Bed Mobility, Education, Functional Activity Heath, Functional Strength, Group Therapy, Gait, Safety, Therapeutic Exercise, Transfers Treatment Duration: Nov 15, 2022 Frequency: At least 5 of 7 days/Wk (IRF) Estimated Hrs Per Day: 1.5 hours per day Patient and/or Family Agrees t: Yes Safety Risks/Education Patient Education: Correct Positioning, Safety Issues Teaching Recipient: Patient Teaching Methods: Demonstration, Discussion Response to Teaching: Reinforcement Needed Time Time In: 1110 Time Out: 1125 DATE: Nov 01, 2022 Total Billed Treatment Time: 15 Total Billed Treatment 1 visit EX NEELAM SHETTY PT Nov 01, 2022 11:25
--- NOTE | 2022-11-01 14:03 | Occupational Ther Daily Note ---
OT Current Status-Daily Note Subjective Pt agreeable to OT Tx. ADL-Treatment Therapy Code Descriptions/Definitions Functional [place] Measure: 0=Not Assessed/NA 4=Minimal Assistance 1=Total Assistance 5=Supervision or Setup 2=Maximal Assistance 6=Modified [place] 3=Moderate Assistance 7=Complete IndependenceSCALE: Activities may be completed with or without assistive devices. 9-Vhe[place]-taxefpj completes the activity by him/herself with no assistance from a helper. 5-Set-up or Clean-up Assistance-helper sets up or cleans up; patient completes activity. [place] assists only prior to or following the activity. 4-Supervision or Touching Assistance-helper provides verbal cues and/or touching/steadying and/or contact guard assistance as patient completes activity. Assistance may be provided throughout the activity or intermittently. 3-Partial/Moderate Assistance-helper does LESS THAN HALF the effort. [place] lifts, holds or supports trunk or limbs, but provides less than half the effort. 2-Substantial/Maximal Assistance-helper does MORE THAN HALF the effort. [place] lifts or holds trunk or limbs and provides more than half the effort. 9-Xhbitwxme-iqoivb does ALL the effort. Patient does none of the effort to complete the activity. Or, the assistance of 2 or more helpers is required for the patient to complete the activity. If activity was not attempted, code reason: 7-Patient Refused. 9-Not Applicable-not attempted and the patient did not perform the activity before the current illness, exacerbation or injury. 10-Not Attempted due to Environmental Limitations-(lack of equipment, weather restraints, etc.). 88-Not Attempted due to Medical Conditions or Safety Concerns. Toileting Hygiene (QC): 4 (CGA-SBA) Toilet Transfer (QC): 4 (CGA) Other Treatment Pt in bed, transferred supine to sit EOB independently. Pt used FWW to transfer into bathroom and onto BSC over toilet, CGA-SBA due to pt just waking up from nap and slight unsteadiness reported by pt. Pt completed toileting, stood at sink to wash hands (SBA), then transferred to recliner. Post tx, pt in recliner, call light in reach and all needs met. OT Short Term Goals Short Term Goals Time Frame: Nov 08, 2022 Upper body dressin Putting on/taking off footwear: 4 OT Penitentiary Goals Penitentiary Goals Time Frame: Nov 22, 2022 Acute change in mental status: 0 Inattention: 0 Disorganized thinkin Altered level of consciousness: 0 Eating (QC): 6 Oral Hygiene (QC): 6 Toileting Hygiene (QC): 6 Shower/Bathe Self (QC): 6 Upper Body Dressing (QC): 6 Lower Body Dressing (QC): 6 On/Off Footwear (QC): 6 Additional Goals: 1-Demonstrate ADL Tasks, 2-Verbalize Understanding, 3- ImproveStrength/Heath 1=Demonstrate adherence to instructed precautions during ADL tasks. 2=Patient will verbalize/demonstrate understanding of assistive devices/m odifications for ADL. 3=Patient will improve strength/tolerance for activity to enable patient to perform ADL's. OT Education/Plan Problem List/Assessment Assessment: Decreased Activ Tolerance, Decreased UE Strength, Impaired Funct Balance, Impaired I ADL's, Impaired Self-Care Skills Discharge Recommendations Plan/Recommendations: Continue POC Treatment Plan/Plan of Care Patient would benefit from OT for education, treatment and training to promote independence in ADL's, mobility, safety and/or upper extremity function for ADL's. Plan of Care: ADL Retraining, Functional Mobility, Group Exercise/Act as Ind, UE Funct Exercise/Act Treatment Duration: Nov 22, 2022 Frequency: At least 5 of 7 days/Wk (IRF) Estimated Hrs Per Day: 1.5 hours per day Rehab Potential: Good Time Start Time: 13:50 Stop Time: 14:05 DATE: Nov 01, 2022 Total Time Billed (hr/min): 15 Billed Treatment Time 1, ADL ROHINI CARPENTER OT Nov 01, 2022 14:03
[2022-11-01] MEDS: TAMSULOSIN 0.4 MG (FLOMAX) CAP PO SCH (17:07)
[2022-11-01 20:24] VITALS: BP 110/67
[2022-11-02] MEDS: MULTIVIT W/MINERALS TAB (THERAGRAN M) PO SCH (06:28)
[2022-11-02 07:06] VITALS: BP 92/59
--- NOTE | 2022-11-02 07:06 | PM&R Progress Note ---
Subjective HPI/CC On Admission Date Seen by Provider: Nov 02, 2022 Time Seen by Provider: 11:00 Subjective/Events-last exam 11/02/2022: Patient getting stronger Family pleased with his progress Denies any pain Loose stools so we will hold Colace 11/01/2022: Patient settling in well Eating well so appetite is improved Reviewed meds and labs No falls Bowels were loose last week so we will monitor closely Review of Systems General: Fatigue, Malaise Objective Exam Vital Signs Vital Signs Date Time Temp Pulse Resp B/P (MAP) Pulse Ox O2 Delivery O2 Flow Rate FiO2 11/02/22 10:03 Room Air 11/02/22 09:17 78 110/69 (83) 11/02/22 07:06 18 94 11/01/22 20:24 36.8 Capillary Refill : General Appearance: No Apparent Distress, WD/WN, Chronically ill HEENT: PERRL/EOMI, Normal ENT Inspection, Pharynx Normal Neck: Full Range of Motion, Normal Inspection, Non Tender, Supple, Carotid Br uit Respiratory: Chest Non Tender, Lungs Clear, Normal Breath Sounds, No Accessory Muscle Use, No Respiratory Distress Cardiovascular: Regular Rate, Rhythm, No Edema, No Gallop, No JVD, No Murmur, Normal Peripheral Pulses Gastrointestinal: Normal Bowel Sounds, No Organomegaly, No Pulsatile Mass, Non Tender, Soft Back: Normal Inspection, No CVA Tenderness, No Vertebral Tenderness Extremity: Normal Capillary Refill, Normal Inspection, Normal Range of Motion, Non Tender, No Calf Tenderness, No Pedal Edema Neurologic/Psychiatric: Alert, Oriented x3, No Motor/Sensory Deficits, hotel operation manager II- XII Norm as Tested, Abnormal Gait, Depressed Affect, Motor Weakness (generalized) Skin: Normal Color, Warm/Dry Lymphatic: No Adenopathy Results/Procedures Lab Patient resulted labs reviewed. FIM Transfers Therapy Code Descriptions/Definitions Functional [place] Measure: 0=Not Assessed/NA 4=Minimal Assistance 1=Total Assistance 5=Supervision or Setup 2=Maximal Assistance 6=Modified [place] 3=Moderate Assistance 7=Complete IndependenceSCALE: Activities may be completed with or without assistive devices. 7-Rfbgffxalx-jxmuwdf completes the activity by him/herself with no assistance from a helper. 5-Set-up or Clean-up Assistance-helper sets up or cleans up; patient completes activity. [place] assists only prior to or following the activity. 4-Supervision or Touching Assistance-helper provides verbal cues and/or touching/steadying and/or contact guard assistance as patient completes activity. Assistance may be provided throughout the activity or intermittently. 3-Partial/Moderate Assistance-helper does LESS THAN HALF the effort. [place] lifts, holds or supports trunk or limbs, but provides less than half the effort. 2-Substantial/Maximal Assistance-helper does MORE THAN HALF the effort. [place] lifts or holds trunk or limbs and provides more than half the effort. 0-Ktojsuygq-tttxlv does ALL the effort. Patient does none of the effort to complete the activity. Or, the assistance of 2 or more helpers is required for the patient to complete the activity. If activity was not attempted, code reason: 7-Patient Refused. 9-Not Applicable-not attempted and the patient did not perform the activity befo re the current illness, exacerbation or injury. 10-Not Attempted due to Environmental Limitations-(lack of equipment, weather re straints, etc.). 88-Not Attempted due to Medical Conditions or Safety Concerns. Roll Left to Right (QC): 4 Sit to Lying (QC): 4 Sit to Stand (QC): 4 Chair/Xeu-pd-Irbvy Xfer(QC): 4 Car Transfer (QC): 4 Gait Training Walk 10 feet (QC): 4 Walk 50 ft with 2 Turns(QC): 4 Walk 150 ft (QC): 4 Walking 10ft/uneven surface-QC: 4 Gait Assistive Device: Walker Standard Wheelchair Training Wheel 50 ft with 2 turns (QC): 9 Wheel 150 ft (QC): 9 Stair Training #of Steps: 4 1 Step (curb) (QC): 4 4 Steps (QC): 4 12 Steps (QC): 88 Balance Picking up an Object (QC): 4 (CGA using a softwood faller) ADL-Treatment Eating (QC): 6 Oral Hygiene (QC): 4 (SBA) Shower/Bathe Self (QC): 4 (SBA, pt completed majority of task standing. ) Upper Body Dressing (QC): 3 (Min A with jacket) Lower Body Dressing (QC): 4 (SBA) On/Off Footwear (QC): 3 (min A with donning ) Toileting Hygiene (QC): 4 (CGA-SBA) Toilet Transfer (QC): 4 (CGA) Assessment/Plan Assessment and Plan Assess & Plan/Chief Complaint Assessment: Debility Advanced age Recent Flu A Anemia Fall risk Presbycusis h/o UTI's Plan: Check labs Eval anemia Increase PO fluids PT OT 11/01/2022: Supportive care Monitor closely 11/02/2022: Doing much better Supportive care (1) Debility Status: Acute (2) CAD (coronary artery disease) (3) Generalized weakness Status: Acute (4) Anemia RYAN PINEDA DO Nov 02, 2022 07:06
--- NOTE | 2022-11-02 07:06 | Individualized Plan of Care ---
Individualized Plan of Care Rehab Nursing IPOC Order Admission Date Oct 31, 2022 at 16:48 Current Orders Orders General/Regular (10/31/22 Dinner) Ensure Plus [place] (10/31/22 16:57) Admission Order(Inpt,Obs,Sdc) (10/31/22 17:15) Vital Signs: Per Unit Policy ( 08,16,00 (10/31/22 17:15) Benjamin Hose 09,21 (10/31/22 17:15) Sequential Compression Device (10/31/22 17:15) Costumed Character Entertainer-Inpt Rehab Con (10/31/22 17:15) Rehab Nursing Orders-Ipoc (10/31/22 17:15) Physical Therapy Rehab Orders (10/31/22 17:15) Occupational Therapy Rehab Ord (10/31/22 17:15) Speech Therapy Rehab Orders (10/31/22 17:15) Cbc With Automated Diff (11/01/22 06:00) Comprehensive Metabolic Panel (11/01/22 06:00) Precautions (Aru) (10/31/22 17:15) Weekly Weight WEEK (10/31/22 17:15) Rehab-Intensity Of Therapy (10/31/22 17:15) Initiate Admission Nursing Pro .admission (10/31/22 17:15) Alprazolam Tablet (Xanax Tablet) (10/31/22 17:15) Calcium Carbonate Chew Tablet (Antacid C (10/31/22 17:15) Diphenhydramine Tablet (Benadryl Tablet) (10/31/22 17:15) Docusate Sodium Capsule (Colace Capsule) (10/31/22 21:00) Docusate Sodium Capsule (Colace Capsule) (10/31/22 17:15) Bisacodyl Suppository (Dulcolax Supposit (10/31/22 17:15) Lactulose Oral Solution (Enulose Oral So (10/31/22 17:15) Na Phos/Na Biphos Enema (Fleet Enema Gerald (10/31/22 17:15) Guaifenesin/Codeine Syrup (Robitussin Ac (10/31/22 17:15) Loperamide Tablet (Imodium Tablet) (10/31/22 17:15) Enoxaparin Injection (Lovenox Injection) (11/01/22 08:00) Melatonin Tablet (Melatonin Tablet) (10/31/22 17:15) Polyethylene Glycol Powder Pkt (Miralax (10/31/22 21:00) Ondansetron Oral Dissolve Tab (Zofran (10/31/22 17:15) Senna S Tablet (Senokot S Tablet) (10/31/22 21:00) Acetaminophen Tablet/Caplet (Tylenol T (10/31/22 17:15) Code/Resuscitation (10/31/22 17:15) Ambulate 08,12,20 (10/31/22 17:15) Sequential Compression Device ONCE (10/31/22 17:15) Isolation Central Supply Req (10/31/22 17:15) Aspirin Chewable Tablet (Baby Aspirin Ch (11/01/22 09:00) Clopidogrel Tablet (Plavix Tablet) (11/01/22 09:00) Metoprolol Tartrate (Ir) Tab (Lopressor (10/31/22 21:00) Pantoprazole Tablet (Protonix Tablet) (11/01/22 09:00) Tamsulosin Capsule (Flomax Capsule) (10/31/22 18:00) (Nf) Multivitamin (Daily Lynne) (11/01/22 09:00) Therapeutic Multivitamin Tab (Vitamins, (11/01/22 07:00) Flu High Dose Quad [id number] (Fluzone Hi (10/31/22 19:15) Patient Visit (11/01/22 ) Treat. Speech/Lang/Voice (11/01/22 ) Speech Sound Lang Comp (11/01/22 ) Patient Visit (11/01/22 ) Pt Eval Moderate Complexity (11/01/22 ) Exercise Therap, Ea 15 Min (11/01/22 ) Functional Activities, Ea 15 (11/01/22 ) Patient Visit (11/01/22 ) Exercise Therap, Ea 15 Min (11/01/22 ) Ensure Plus Variety DAILY (11/01/22 11:59) Rehab Nursing Orders: Ongoing Assess. of Cognitive Status, Ongoing Assess. of Function Status, Bladder Management, Bladder Scan, Bladder Training, Bowel Management, Bowel Training, Disease Management & Educaiton, DVT Prophylaxis, Fall Prevention, Fluid/Electrolyte/Nutrition Mgmt, Infection Prevention, Medication Management & Education, Management of Risks & Complications, Management of Skin Intergrity, Nutrition Management, Pain Management, Patient/Family Support, Safety Management Intensity of Therapy to be met Patient to be seen: Min.3h per day/5 of 7d PT IPOC Problem List: Activity Tolerance, Functional Strength, Safety, Balance, Gait, Transfer, Bed Mobility, ROM Treatment Plan: Continue Plan of Care Bed Mobility, Education, Functional Activity Heath, Functional Strength, Group Therapy, Gait, Safety, Therapeutic Exercise, Transfers Treatment Duration: Nov 15, 2022 Frequency: At least 5 of 7 days/Wk (IRF) Estimated Hrs Per Day: 1.5 hours per day OT IPOC Problems: Decreased Activ Tolerance, Decreased UE Strength, Impaired Funct Balance, Impaired I ADL's, Impaired Self-Care Skills OT Treatment, Training and Edu: Yes Plan of Care: ADL Retraining, Functional Mobility, Group Exercise/Act as Ind, UE Funct Exercise/Act Treatment Duration: Nov 22, 2022 Frequency: At least 5 of 7 days/Wk (IRF) Estimated Hrs Per Day: 1.[address] IPOC Speech Therapy Treatment Plan: Continue Plan of Care Treatment Duration: Nov 01, 2022 Frequency: 1 time per week Estimated Hrs Per Day: .5 hour per day Costumed Character Entertainer/Case Mgmt Costumed Character Entertainer/Case Managemen: Discharge Planning Dietitian/Ore Smelter Dietitian/Ore Smelter to monitor nutritional status and make changes and/or recommendations as needed and work with speech pathology on dietary upgrades as the occur. Physician IPOC Medical Issues being managed closely and that require the 24 hour availability of a physician: Recent influenza A with residual weakness with loose stools will require close monitoring for any decompensation due to severe weakness Medical Issues: Bowel/Bladder Function, DVT Prophylaxis, Falls Precautions, Fluid/Electrolyte/Nutrition Balance, Infection Protection, Pain Management Brief Synthesis of Preadmission Screen, Post-Admission Evaluation, and Therapy Evaluations: PT and OT will focus on regaining function with use of assistive devices in order to gain strength with physical therapy and Occupational Therapy techniques in order to return back home to independent living Medical Prognosis: Good Anticipated Length of Stay: 7 days RYAN PINEDA DO Nov 02, 2022 07:06
--- NOTE | 2022-11-02 08:17 | Occupational Ther Daily Note ---
OT Current Status-Daily Note Subjective Pt alert, sitting in recliner. Pt agrees to therapy. Pt is hyperverbal which requires cues to stay focused on tasks. Mental Status/Objective Patient Orientation: Person, Place, Time, Situation ADL-Treatment Independent with eating. Set up for upper body dressing. Threads feet into pants by self after set up then SBA to hike over hips due to LOB with dynamic standing without stability of external assist (CGA or FWW). SBA for toilet transfer and toileting. After session, pt sitting in recliner with call light/phone in reach. All needs met in room. Therapy Code Descriptions/Definitions Functional [place] Measure: 0=Not Assessed/NA 4=Minimal Assistance 1=Total Assistance 5=Supervision or Setup 2=Maximal Assistance 6=Modified [place] 3=Moderate Assistance 7=Complete IndependenceSCALE: Activities may be completed with or without assistive devices. 9-Urzlwnrvqv-gwfipeb completes the activity by him/herself with no assistance from a helper. 5-Set-up or Clean-up Assistance-helper sets up or cleans up; patient completes activity. [place] assists only prior to or following the activity. 4-Supervision or Touching Assistance-helper provides verbal cues and/or touching/steadying and/or contact guard assistance as patient completes activity. Assistance may be provided throughout the activity or intermittently. 3-Partial/Moderate Assistance-helper does LESS THAN HALF the effort. [place] lifts, holds or supports trunk or limbs, but provides less than half the effort. 2-Substantial/Maximal Assistance-helper does MORE THAN HALF the effort. [place] lifts or holds trunk or limbs and provides more than half the effort. 8-Uztezjrzi-anjtyl does ALL the effort. Patient does none of the effort to complete the activity. Or, the assistance of 2 or more helpers is required for the patient to complete the activity. If activity was not attempted, code reason: 7-Patient Refused. 9-Not Applicable-not attempted and the patient did not perform the activity before the current illness, exacerbation or injury. 10-Not Attempted due to Environmental Limitations-(lack of equipment, weather restraints, etc.). 88-Not Attempted due to Medical Conditions or Safety Concerns. Eating (QC): 6 Upper Body Dressing (QC): 5 Lower Body Dressing (QC): 4 On/Off Footwear: 5 Toileting Hygiene (QC): 4 Toilet Transfer (QC): 4 OT Short Term Goals Short Term Goals Time Frame: Nov 08, 2022 Upper body dressin Putting on/taking off footwear: 4 OT Cancer Registry Manager Goals Cancer Registry Manager Goals Time Frame: Nov 22, 2022 Eating (QC): 6 Oral Hygiene (QC): 6 Toileting Hygiene (QC): 6 Shower/Bathe Self (QC): 6 Upper Body Dressing (QC): 6 Lower Body Dressing (QC): 6 On/Off Footwear (QC): 6 Additional Goals: 1-Demonstrate ADL Tasks, 2-Verbalize Understanding, 3- ImproveStrength/Heath 1=Demonstrate adherence to instructed precautions during ADL tasks. 2=Patient will verbalize/demonstrate understanding of assistive devices/modifications for ADL. 3=Patient will improve strength/tolerance for activity to enable patient to perform ADL's. OT Education/Plan Problem List/Assessment Assessment: Decreased Activ Tolerance, Impaired Funct Balance Discharge Recommendations Plan/Recommendations: Continue POC Treatment Plan/Plan of Care Patient would benefit from OT for education, treatment and training to promote independence in ADL's, mobility, safety and/or upper extremity function for ADL's. Plan of Care: ADL Retraining, Functional Mobility, Group Exercise/Act as Ind, UE Funct Exercise/Act Treatment Duration: Nov 22, 2022 Frequency: At least 5 of 7 days/Wk (IRF) Estimated Hrs Per Day: 1.5 hours per day Rehab Potential: Good Time Start Time: 06:45 Stop Time: 08:15 DATE: Nov 02, 2022 Total Time Billed (hr/min): 90 Billed Treatment Time 1 visit-ADL 6 (90 min) SINTIA SANDRA Nov 02, 2022 08:17
[2022-11-02] MEDS: PANTOPRAZOLE 40 MG (PROTONIX) TAB PO SCH (09:03)
[2022-11-02] MEDS: ASPIRIN 81 MG CHEW (CHILDREN'S ASA) PO SCH (09:03)
[2022-11-02] MEDS: CLOPIDOGREL 75 MG (PLAVIX) TABLET PO SCH (09:03)
[2022-11-02] MEDS: meTOprolol TARTRATE 25 MG (LOPRESSOR) TABLET PO SCH ×2 (09:04→19:56)
[2022-11-02] MEDS: ENOXAPARIN 40 MG/0.4 ML (LOVENOX) SYR SC SCH (09:04)
[2022-11-02] MEDS: SENNA W/DOCUSATE (SENOKOT S) TABLET PO SCH ×2 (09:16→19:26)
[2022-11-02] MEDS: DOCUSATE SODIUM 100 MG (COLACE) CAP PO SCH ×2 (09:16→19:26)
[2022-11-02] MEDS: polyethylene glycoL POWDER 17 GM (MIRALAX) PACK PO SCH ×2 (09:16→19:26)
[2022-11-02 09:17] VITALS: BP 110/69
--- NOTE | 2022-11-02 10:07 | Physical Therapy Daily Note ---
PT Daily Note-Current Subjective Pt in BR upon arrival. Pt agrees to PT but reports needing to finish in BR. Pain Location: No Pain Reported Section J - Health Conditions 1. Rarely or not at all 2. Occasionally 3. Frequently 4. Almost constantly 8. Unable to answer Pain Effect on Sleep: 2 Pain Interference with Therapy: 2 Pain Interference w/Day-to-Day: 2 Mental Status Patient Orientation: Person, Place, Situation Transfers SCALE: Activities may be completed with or without assistive devices. 8-Upyypyfdyu-nyiwjvz completes the activity by him/herself with no assistance from a helper. 5-Set-up or Clean-up Assistance-helper sets up or cleans up; patient completes activity. [place] assists only prior to or following the activity. 4-Supervision or Touching Assistance-helper provides verbal cues and/or touching/steadying and/or contact guard assistance as patient completes activity. Assistance may be provided throughout the activity or intermittently. 3-Partial/Moderate Assistance-helper does LESS THAN HALF the effort. [place] lifts, holds or supports trunk or limbs, but provides less than half the effort. 2-Substantial/Maximal Assistance-helper does MORE THAN HALF the effort. [place] lifts or holds trunk or limbs and provides more than half the effort. 0-Dfhwehqzy-fcnrcq does ALL the effort. Patient does none of the effort to complete the activity. Or, the assistance of 2 or more helpers is required for the patient to complete the activity. If activity was not attempted, code reason: 7-Patient Refused. 9-Not Applicable-not attempted and the patient did not perform the activity before the current illness, exacerbation or injury. 10-Not Attempted due to Environmental Limitations-(lack of equipment, weather restraints, etc.). 88-Not Attempted due to Medical Conditions or Safety Concerns. Sit to Stand (QC): 4 Toilet Transfer (QC): 4 Weight Bearing Full Weight Bearing Full Weight Bearing Gait Training Does the Patient Walk?: Yes Distance: 15' Walk 10 feet (QC): 4 Gait Persons Needed: 1 Gait Assistive Device: FWW Treatments Pt finishes in BR and reports fatigue. Pt able to complete pericare and wash hands at CGA for steadiness. Pt returns to EOB to change UB dressing and requests to lay down due to fatigue. Pt TF to Supine, repositioned to comfort. All needs met, call light in hand. Assessment Current Status: Fair Progress Pt completes tasks well but fatigues easily and needs RB. PT Short Term Goals Short Term Goals Time Frame: Nov 08, 2022 Sit to stand: 4 Chair/eie-di-jkowp transfer: 4 Walk 10 feet: 4 Walk 50 feet with two turns: 4 Walk 150 feet: 4 PT Inspector Experimental Assembly Goals Inspector Experimental Assembly Goals PT Senior Care Goals Time Frame: Nov 15, 2022 Roll Left & Right (QC): 6 Sit to Lying (QC): 6 Lying-Sitting on Side/Bed(QC): 6 Sit to Stand (QC): 6 Chair/Aps-op-Wygxj Xfer(QC): 6 Toilet Transfer (QC): 6 Car Transfer (QC): 6 Does the Patient Walk: Yes Walk 10 feet (QC): 6 Walk 50ft with 2 Turns (QC): 6 Walk 150 ft (QC): 6 Walking 10ft on Uneven Surface: 6 1 Step (curb) (QC): 4 (SBA) 4 Steps (QC): 4 (SBA) 12 Steps (QC): 4 (SBA) Picking up an Object (QC): 6 Wheel 50 feet with 2 turns (QC: 9 Wheel 150 feet: 9 PT Plan Problem List Problem List: Activity Tolerance Treatment/Plan Treatment Plan: Continue Plan of Care Treatment Plan: Bed Mobility, Education, Functional Activity Heath, Functional Strength, Group Therapy, Gait, Safety, Therapeutic Exercise, Transfers Treatment Duration: Nov 15, 2022 Frequency: At least 5 of 7 days/Wk (IRF) Estimated Hrs Per Day: 1.5 hours per day Patient and/or Family Agrees t: Yes Safety Risks/Education Patient Education: Transfer Techniques, Safety Issues Teaching Recipient: Patient Teaching Methods: Discussion Response to Teaching: Verbalize Understanding Time Time In: 835 Time Out: 850 DATE: Nov 02, 2022 Total Billed Treatment Time: 15 Total Billed Treatment 1, FA (15m) MYKE CONTRERAS PTA Nov 02, 2022 10:07
[2022-11-02] MEDS: TAMSULOSIN 0.4 MG (FLOMAX) CAP PO SCH (17:00)
[2022-11-02 20:23] VITALS: BP 105/68
[2022-11-03] MEDS: MULTIVIT W/MINERALS TAB (THERAGRAN M) PO SCH (06:04)
--- NOTE | 2022-11-03 06:54 | PM&R Progress Note ---
Subjective HPI/CC On Admission Date Seen by Provider: Nov 03, 2022 Time Seen by Provider: 15:00 Subjective/Events-last exam 11/03/2022: Patient doing very well Gaining strength Started potassium Loose stools are improved 11/02/2022: Patient getting stronger Family pleased with his progress Denies any pain Loose stools so we will hold Colace 11/01/2022: Patient settling in well Eating well so appetite is improved Reviewed meds and labs No falls Bowels were loose last week so we will monitor closely Review of Systems General: Fatigue, Malaise Objective Exam Vital Signs Vital Signs Date Time Temp Pulse Resp B/P (MAP) Pulse Ox O2 Delivery O2 Flow Rate FiO2 11/03/22 10:18 60 95/68 (77) 11/03/22 09:21 Room Air 11/03/22 07:01 36.4 20 96 Capillary Refill : General Appearance: No Apparent Distress, WD/WN, Chronically ill HEENT: PERRL/EOMI, Normal ENT Inspection, Pharynx Normal Neck: Full Range of Motion, Normal Inspection, Non Tender, Supple, Carotid Bruit Respiratory: Chest Non Tender, Lungs Clear, Normal Breath Sounds, No Accessory Muscle Use, No Respiratory Distress Cardiovascular: Regular Rate, Rhythm, No Edema, No Gallop, No JVD, No Murmur, Normal Peripheral Pulses Gastrointestinal: Normal Bowel Sounds, No Organomegaly, No Pulsatile Mass, Non Tender, Soft Back: Normal Inspection, No CVA Tenderness, No Vertebral Tenderness Extremity: Normal Capillary Refill, Normal Inspection, Normal Range of Motion, Non Tender, No Calf Tenderness, No Pedal Edema Neurologic/Psychiatric: Alert, Oriented x3, No Motor/Sensory Deficits, 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 FIM Transfers Therapy Code Descriptions/Definitions Functional [place] Measure: 0=Not Assessed/NA 4=Minimal Assistance 1=Total Assistance 5=Supervision or Setup 2=Maximal Assistance 6=Modified [place] 3=Moderate Assistance 7=Complete IndependenceSCALE: Activities may be completed with or without assistive devices. 8-Voblzsxfix-gikremu completes the activity by him/herself with no assistance from a helper. 5-Set-up or Clean-up Assistance-helper sets up or cleans up; patient completes activity. [place] assists only prior to or following the activity. 4-Supervision or Touching Assistance-helper provides verbal cues and/or touching/steadying and/or contact guard assistance as patient completes activity. Assistance may be provided throughout the activity or intermittently. 3-Partial/Moderate Assistance-helper does LESS THAN HALF the effort. [place] lifts, holds or supports trunk or limbs, but provides less than half the effort. 2-Substantial/Maximal Assistance-helper does MORE THAN HALF the effort. [place] lifts or holds trunk or limbs and provides more than half the effort. 1-Vkbmauphx-bzrtlu does ALL the effort. Patient does none of the effort to complete the activity. Or, the assistance of 2 or more helpers is required for the patient to complete the activity. If activity was not attempted, code reason: 7-Patient Refused. 9-Not Applicable-not attempted and the patient did not perform the activity before the current illness, exacerbation or injury. 10-Not Attempted due to Environmental Limitations-(lack of equipment, weather restraints, etc.). 88-Not Attempted due to Medical Conditions or Safety Concerns. Roll Left to Right (QC): 4 Sit to Lying (QC): 4 Sit to Stand (QC): 4 Chair/Hln-pc-Xyfig Xfer(QC): 4 Car Transfer (QC): 4 Gait Training Does the Patient Walk?: Yes Distance: 15' Walk 10 feet (QC): 4 Walk 50 ft with 2 Turns(QC): 4 Walk 150 ft (QC): 4 Walking 10ft/uneven surface-QC: 4 Gait Persons Needed: 1 Gait Assistive Device: FWW Wheelchair Training Wheel 50 ft with 2 turns (QC): 9 Wheel 150 ft (QC): 9 Stair Training #of Steps: 4 1 Step (curb) (QC): 4 4 Steps (QC): 4 12 Steps (QC): 88 Balance Picking up an Object (QC): 4 (CGA using a patent prosecution paralegal) ADL-Treatment Eating (QC): 6 Oral Hygiene (QC): 4 (SBA) Shower/Bathe Self (QC): 4 (SBA, pt completed majority of task standing. ) Upper Body Dressing (QC): 5 Lower Body Dressing (QC): 4 On/Off Footwear (QC): 5 Toileting Hygiene (QC): 4 Toilet Transfer (QC): 4 Assessment/Plan Assessment and Plan Assess & Plan/Chief Complaint Assessment: Debility Advanced age Recent Flu A Anemia Fall risk Presbycusis h/o UTI's Hypokalemia Plan: Check labs Eval anemia Increase PO fluids PT OT 11/01/2022: Supportive care Monitor closely 11/02/2022: Doing much better Supportive care 11/03/2022: Check labs in morning Much improved status (1) Debility Status: Acute (2) CAD (coronary artery disease) (3) Generalized weakness Status: Acute (4) Anemia RYAN PINEDA DO Nov 03, 2022 06:54
[2022-11-03 07:01] VITALS: BP 101/65
[2022-11-03] MEDS ORDERED: KCL 10 MEQ TAB (MICRO K) PO SCH (09:00)
[2022-11-03] MEDS: CLOPIDOGREL 75 MG (PLAVIX) TABLET PO SCH (09:01)
[2022-11-03] MEDS: PANTOPRAZOLE 40 MG (PROTONIX) TAB PO SCH (09:01)
[2022-11-03] MEDS: ASPIRIN 81 MG CHEW (CHILDREN'S ASA) PO SCH (09:01)
[2022-11-03] MEDS: polyethylene glycoL POWDER 17 GM (MIRALAX) PACK PO SCH ×2 (09:03→19:34)
[2022-11-03] MEDS: DOCUSATE SODIUM 100 MG (COLACE) CAP PO SCH ×2 (09:03→19:34)
[2022-11-03] MEDS: SENNA W/DOCUSATE (SENOKOT S) TABLET PO SCH ×2 (09:03→19:35)
[2022-11-03] MEDS: ENOXAPARIN 40 MG/0.4 ML (LOVENOX) SYR SC SCH (09:03)
[2022-11-03 09:06] VITALS: BP 96/64
[2022-11-03 10:18] VITALS: BP 95/68
[2022-11-03] MEDS: meTOprolol TARTRATE 25 MG (LOPRESSOR) TABLET PO SCH ×2 (10:23→20:07)
[2022-11-03] MEDS: TAMSULOSIN 0.4 MG (FLOMAX) CAP PO SCH (17:02)
[2022-11-03 20:05] VITALS: BP 104/53
[2022-11-04] MEDS: MULTIVIT W/MINERALS TAB (THERAGRAN M) PO SCH (05:28)
[2022-11-04 05:34] LABS: BASOPHILS % (AUTO) 1 % (0-10); EOSINOPHILS # (AUTO) 0.3 10^3/uL (0.0-0.3); EOSINOPHILS % (AUTO) 3 % (0-10); HEMATOCRIT 36 % (40-54); HEMOGLOBIN 11.9 g/dL (13.3-17.7); LYMPHOCYTES # (AUTO) 1.9 10^3/uL (1.0-4.0); LYMPHOCYTES % (AUTO) 24 % (12-44); MEAN CORPUSCULAR HEMOGLOBIN 30 pg (25-34); MEAN CORPUSCULAR HGB CONC 33 g/dL (32-36); MEAN CORPUSCULAR VOLUME 91 fL (80-99); MONOCYTES # (AUTO) 0.7 10^3/uL (0.0-1.0); MONOCYTES % (AUTO) 9 % (0-12); NEUTROPHILS # (AUTO) 4.8 10^3/uL (1.8-7.8); NEUTROPHILS % (AUTO) 61 % (42-75); PLATELET COUNT 255 10^3/uL (130-400); WHITE BLOOD COUNT 7.9 10^3/uL (4.3-11.0)
--- NOTE | 2022-11-04 05:37 | PM&R Progress Note ---
Subjective HPI/CC On Admission Date Seen by Provider: Nov 04, 2022 Time Seen by Provider: 08:30 Subjective/Events-last exam 11/04/2021: Pt is doing really well Potassium is 4.1 Bowels are moving okay Slept okay 11/03/2022: Patient doing very well Gaining strength Started potassium Loose stools are improved 11/02/2022: Patient getting stronger Family pleased with his progress Denies any pain Loose stools so we will hold Colace 11/01/2022: Patient settling in well Eating well so appetite is improved Reviewed meds and labs No falls Bowels were loose last week so we will monitor closely Review of Systems General: Fatigue, Malaise Objective Exam Vital Signs Vital Signs Date Time Temp Pulse Resp B/P (MAP) Pulse Ox O2 Delivery O2 Flow Rate FiO2 11/04/22 19:57 36.4 67 18 108/60 (76) 95 Room Air Capillary Refill : General Appearance: No Apparent Distress, WD/WN, Chronically ill HEENT: PERRL/EOMI, Normal ENT Inspection, Pharynx Normal Neck: Full Range of Motion, Normal Inspection, Non Tender, Supple, Carotid Bruit Respiratory: Chest Non Tender, Lungs Clear, Normal Breath Sounds, No Accessory Muscle Use, No Respiratory Distress Cardiovascular: Regular Rate, Rhythm, No Edema, No Gallop, No JVD, No Murmur, Normal Peripheral Pulses Gastrointestinal: Normal Bowel Sounds, No Organomegaly, No Pulsatile Mass, Non Tender, Soft Back: Normal Inspection, No CVA Tenderness, No Vertebral Tenderness Extremity: Normal Capillary Refill, Normal Inspection, Normal Range of Motion, Non Tender, No Calf Tenderness, No Pedal Edema Neurologic/Psychiatric: Alert, Oriented x3, No Motor/Sensory Deficits, fuse cutter II- XII Norm as Tested, Abnormal Gait, Depressed Affect, Motor Weakness (generalized) Skin: Normal Color, Warm/Dry Lymphatic: No Adenopathy Results/Procedures Lab Laboratory Tests 11/04/22 05:02 Patient resulted labs reviewed. FIM Transfers Therapy Code Descriptions/Definitions Functional [place] Measure: 0=Not Assessed/NA 4=Minimal Assistance 1=Total Assistance 5=Supervision or Setup 2=Maximal Assistance 6=Modified [place] 3=Moderate Assistance 7=Complete IndependenceSCALE: Activities may be completed with or without assistive devices. 5-Eogoexjjyx-dywppae completes the activity by him/herself with no assistance from a helper. 5-Set-up or Clean-up Assistance-helper sets up or cleans up; patient completes activity. [place] assists only prior to or following the activity. 4-Supervision or Touching Assistance-helper provides verbal cues and/or touching/steadying and/or contact guard assistance as patient completes activity. Assistance may be provided throughout the activity or intermittently. 3-Partial/Moderate Assistance-helper does LESS THAN HALF the effort. [place] li fts, holds or supports trunk or limbs, but provides less than half the effort. 2-Substantial/Maximal Assistance-helper does MORE THAN HALF the effort. [place] lifts or holds trunk or limbs and provides more than half the effort. 1-Kviwalcuu-xjayfg does ALL the effort. Patient does none of the effort to complete the activity. Or, the assistance of 2 or more helpers is required for the patient to complete the activity. If activity was not attempted, code reason: 7-Patient Refused. 9-Not Applicable-not attempted and the patient did not perform the activity before the current illness, exacerbation or injury. 10-Not Attempted due to Environmental Limitations-(lack of equipment, weather restraints, etc.). 88-Not Attempted due to Medical Conditions or Safety Concerns. Roll Left to Right (QC): 4 Sit to Lying (QC): 4 Sit to Stand (QC): 4 Chair/Goe-tj-Mejuu Xfer(QC): 4 Car Transfer (QC): 4 Gait Training Does the Patient Walk?: Yes Distance: 15' Walk 10 feet (QC): 4 Walk 50 ft with 2 Turns(QC): 4 Walk 150 ft (QC): 4 Walking 10ft/uneven surface-QC: 4 Gait Persons Needed: 1 Gait Assistive Device: FWW Wheelchair Training Wheel 50 ft with 2 turns (QC): 9 Wheel 150 ft (QC): 9 Stair Training #of Steps: 4 1 Step (curb) (QC): 4 4 Steps (QC): 4 12 Steps (QC): 88 Balance Picking up an Object (QC): 4 (CGA using a upper cutter) ADL-Treatment Eating (QC): 6 Oral Hygiene (QC): 4 (SBA) Shower/Bathe Self (QC): 4 (SBA, pt completed majority of task standing. ) Upper Body Dressing (QC): 5 Lower Body Dressing (QC): 4 On/Off Footwear (QC): 5 Toileting Hygiene (QC): 4 Toilet Transfer (QC): 4 Assessment/Plan Assessment and Plan Assess & Plan/Chief Complaint Assessment: Debility Advanced age Recent Flu A Anemia Fall risk Presbycusis h/o UTI's Hypokalemia CAD previous stents Plan: Check labs Eval anemia Increase PO fluids PT OT 11/01/2022: Supportive care Monitor closely 11/02/2022: Doing much better Supportive care 11/03/2022: Check labs in morning Much improved status 11/04/2021: Supportive care Monitor closely (1) Debility Status: Acute (2) CAD (coronary artery disease) (3) Generalized weakness Status: Acute (4) Anemia RYAN PINEDA DO Nov 04, 2022 05:37
[2022-11-04 05:58] LABS: ALBUMIN 3.1 GM/DL (3.2-4.5); BILIRUBIN,TOTAL 0.5 MG/DL (0.1-1.0); CALCIUM 8.4 MG/DL (8.5-10.1); CREATININE SERUM 0.98 MG/DL (0.60-1.30); POTASSIUM 4.1 MMOL/L (3.6-5.0); TOTAL PROTEIN 5.7 GM/DL (6.4-8.2)
[2022-11-04 07:28] VITALS: BP 108/69
[2022-11-04] MEDS: DOCUSATE SODIUM 100 MG (COLACE) CAP PO SCH ×2 (08:59→20:20)
[2022-11-04] MEDS: meTOprolol TARTRATE 25 MG (LOPRESSOR) TABLET PO SCH ×2 (08:59→20:20)
[2022-11-04] MEDS: ENOXAPARIN 40 MG/0.4 ML (LOVENOX) SYR SC SCH (08:59)
[2022-11-04] MEDS: CLOPIDOGREL 75 MG (PLAVIX) TABLET PO SCH (08:59)
[2022-11-04] MEDS: ASPIRIN 81 MG CHEW (CHILDREN'S ASA) PO SCH (08:59)
[2022-11-04] MEDS: SENNA W/DOCUSATE (SENOKOT S) TABLET PO SCH ×2 (08:59→20:20)
[2022-11-04] MEDS: PANTOPRAZOLE 40 MG (PROTONIX) TAB PO SCH (09:01)
[2022-11-04] MEDS: polyethylene glycoL POWDER 17 GM (MIRALAX) PACK PO SCH ×2 (09:01→20:20)
--- NOTE | 2022-11-04 11:29 | Occupational Ther Daily Note ---
OT Current Status-Daily Note Subjective Pt alert, sitting in recliner. Pt agrees to therapy. No c/o pain. Mental Status/Objective Patient Orientation: Person, Place, Time, Situation ADL-Treatment Pt agrees to therapy. Pt takes increased time to complete all tasks due to hyperverbal and recovery break from feeling weak. Pt ambulated to bathroom using AD with SBA. Completed shower with set up for water temp due to distance from shower bench, completed shower by self. Set up for upper/lower body and footwear dressing. Independent standing at sink to complete oral care and grooming. Therapy Code Descriptions/Definitions Functional [place] Measure: 0=Not Assessed/NA 4=Minimal Assistance 1=Total Assistance 5=Supervision or Setup 2=Maximal Assistance 6=Modified [place] 3=Moderate Assistance 7=Complete IndependenceSCALE: Activities may be completed with or without assistive devices. 6-Wglmducjef-jeneiug completes the activity by him/herself with no assistance from a helper. 5-Set-up or Clean-up Assistance-helper sets up or cleans up; patient completes activity. [place] assists only prior to or following the activity. 4-Supervision or Touching Assistance-helper provides verbal cues and/or touching/steadying and/or contact guard assistance as patient completes activity. Assistance may be provided throughout the activity or intermittently. 3-Partial/Moderate Assistance-helper does LESS THAN HALF the effort. [place] lifts, holds or supports trunk or limbs, but provides less than half the effort. 2-Substantial/Maximal Assistance-helper does MORE THAN HALF the effort. [place] lifts or holds trunk or limbs and provides more than half the effort. 0-Chyhemioz-pnchxx does ALL the effort. Patient does none of the effort to complete the activity. Or, the assistance of 2 or more helpers is required for the patient to complete the activity. If activity was not attempted, code reason: 7-Patient Refused. 9-Not Applicable-not attempted and the patient did not perform the activity before the current illness, exacerbation or injury. 10-Not Attempted due to Environmental Limitations-(lack of equipment, weather restraints, etc.). 88-Not Attempted due to Medical Conditions or Safety Concerns. Oral Hygiene (QC): 6 Shower/Bathe Self (QC): 5 Upper Body Dressing (QC): 5 Lower Body Dressing (QC): 5 On/Off Footwear: 5 Toileting Hygiene (QC): 6 Toilet Transfer (QC): 6 Other Treatment Pt completed 1 set 15 reps of 2 B UE exercises using medium resistance theraband to increase strength for daily functional tasks. Skilled instruction for co rrect technique. After session, pt sitting in recliner with call light/phone in reach. All needs met in room. OT Short Term Goals Short Term Goals Time Frame: Nov 08, 2022 Upper body dressin Putting on/taking off footwear: 4 OT Group Home Goals Group Home Goals Time Frame: Nov 22, 2022 Acute change in mental status: 0 Inattention: 0 Disorganized thinkin Altered level of consciousness: 0 Eating (QC): 6 Oral Hygiene (QC): 6 Toileting Hygiene (QC): 6 Shower/Bathe Self (QC): 6 Upper Body Dressing (QC): 6 Lower Body Dressing (QC): 6 On/Off Footwear (QC): 6 Additional Goals: 1-Demonstrate ADL Tasks, 2-Verbalize Understanding, 3- ImproveStrength/Heath 1=Demonstrate adherence to instructed precautions during ADL tasks. 2=Patient will verbalize/demonstrate understanding of assistive devices/modifications for ADL. 3=Patient will improve strength/tolerance for activity to enable patient to perform ADL's. OT Education/Plan Problem List/Assessment Assessment: Decreased UE Strength, Impaired Self-Care Skills Discharge Recommendations Plan/Recommendations: Continue POC Treatment Plan/Plan of Care Patient would benefit from OT for education, treatment and training to promote independence in ADL's, mobility, safety and/or upper extremity function for ADL's. Plan of Care: ADL Retraining, Functional Mobility, Group Exercise/Act as Ind, UE Funct Exercise/Act Treatment Duration: Nov 22, 2022 Frequency: At least 5 of 7 days/Wk (IRF) Estimated Hrs Per Day: 1.5 hours per day Rehab Potential: Good Time Start Time: 10:00 Stop Time: 11:30 DATE: Nov 04, 2022 Total Time Billed (hr/min): 90 Billed Treatment Time 1 visit-ADL 5 (75 min) EX 1 (15 min) SINTIA SANDRA Nov 04, 2022 11:29
--- NOTE | 2022-11-04 11:57 | Physical Therapy Daily Note ---
PT Daily Note-Current Subjective Pt sitting in recliner upon arrival. Pt agrees to PT. Pain Location: No Pain Reported Section J - Health Conditions 1. Rarely or not at all 2. Occasionally 3. Frequently 4. Almost constantly 8. Unable to answer Pain Effect on Sleep: 2 Pain Interference with Therapy: 2 Pain Interference w/Day-to-Day: 2 Mental Status Patient Orientation: Person, Place, Situation Transfers SCALE: Activities may be completed with or without assistive devices. 5-Erqmoqouhj-qjwomuv completes the activity by him/herself with no assistance from a helper. 5-Set-up or Clean-up Assistance-helper sets up or cleans up; patient completes activity. [place] assists only prior to or following the activity. 4-Supervision or Touching Assistance-helper provides verbal cues and/or touching/steadying and/or contact guard assistance as patient completes activity. Assistance may be provided throughout the activity or intermittently. 3-Partial/Moderate Assistance-helper does LESS THAN HALF the effort. [place] lifts, holds or supports trunk or limbs, but provides less than half the effort. 2-Substantial/Maximal Assistance-helper does MORE THAN HALF the effort. [place] lifts or holds trunk or limbs and provides more than half the effort. 9-Ihoehdjjj-rguagr does ALL the effort. Patient does none of the effort to complete the activity. Or, the assistance of 2 or more helpers is required for the patient to complete the activity. If activity was not attempted, code reason: 7-Patient Refused. 9-Not Applicable-not attempted and the patient did not perform the activity before the current illness, exacerbation or injury. 10-Not Attempted due to Environmental Limitations-(lack of equipment, weather restraints, etc.). 88-Not Attempted due to Medical Conditions or Safety Concerns. Sit to Stand (QC): 5 Toilet Transfer (QC): 5 Weight Bearing Full Weight Bearing Full Weight Bearing Gait Training Does the Patient Walk?: Yes Distance: 250' Walk 10 feet (QC): 5 Walk 50 ft with 2 Turns(QC): 5 Walk 150 ft (QC): 5 Gait Assistive Device: FWW Exercises Seated Therapy Exercises: Ankle pumps, Long arc quads, Hip flexion, Hip abd/add, Glut set Treatments TF to standing and amb. to BR. Pt is able to complete pericare and wash hands. Pt amb. in hallway using FWW. Pt also completes Seated EX before returning to r oom to rest in recliner at end of tx. All needs met, call light in hand. Assessment Current Status: Good Progress Pt has improved w/TF and amb. but needs occasional RB for fatigue. PT Short Term Goals Short Term Goals Time Frame: Nov 08, 2022 Sit to stand: 4 Chair/fmf-ql-lqjkf transfer: 4 Walk 10 feet: 4 Walk 50 feet with two turns: 4 Walk 150 feet: 4 PT Printed Circuit Boards Solder Leveler Goals Printed Circuit Boards Solder Leveler Goals PT Skilled Nursing Goals Time Frame: Nov 15, 2022 Roll Left & Right (QC): 6 Sit to Lying (QC): 6 Lying-Sitting on Side/Bed(QC): 6 Sit to Stand (QC): 6 Chair/Eod-mj-Fdedr Xfer(QC): 6 Toilet Transfer (QC): 6 Car Transfer (QC): 6 Does the Patient Walk: Yes Walk 10 feet (QC): 6 Walk 50ft with 2 Turns (QC): 6 Walk 150 ft (QC): 6 Walking 10ft on Uneven Surface: 6 1 Step (curb) (QC): 4 (SBA) 4 Steps (QC): 4 (SBA) 12 Steps (QC): 4 (SBA) Picking up an Object (QC): 6 Wheel 50 feet with 2 turns (QC: 9 Wheel 150 feet: 9 PT Plan Treatment/Plan Treatment Plan: Continue Plan of Care Treatment Plan: Bed Mobility, Education, Functional Activity Heath, Functional Strength, Group Therapy, Gait, Safety, Therapeutic Exercise, Transfers Treatment Duration: Nov 15, 2022 Frequency: At least 5 of 7 days/Wk (IRF) Estimated Hrs Per Day: 1.5 hours per day Patient and/or Family Agrees t: Yes Time Time In: 900 Time Out: 1000 DATE: Nov 04, 2022 Total Billed Treatment Time: 60 Total Billed Treatment 1, FA (15m), & GT x2 (25m) & EX (20m) MYKE CONTRERAS SUPERVISOR DETASSELING CREW Nov 04, 2022 11:57
--- NOTE | 2022-11-04 15:40 | Physical Therapy Daily Note ---
PT Daily Note-Current Subjective Pt sitting in recliner upon arrival. Pt agrees to PT. Pain Location: No Pain Reported Section J - Health Conditions 1. Rarely or not at all 2. Occasionally 3. Frequently 4. Almost constantly 8. Unable to answer Pain Effect on Sleep: 2 Pain Interference with Therapy: 2 Pain Interference w/Day-to-Day: 2 Mental Status Patient Orientation: Person, Place, Time, Situation Transfers SCALE: Activities may be completed with or without assistive devices. 3-Vwtktekxjf-zkwdpuw completes the activity by him/herself with no assistance from a helper. 5-Set-up or Clean-up Assistance-helper sets up or cleans up; patient completes activity. [place] assists only prior to or following the activity. 4-Supervision or Touching Assistance-helper provides verbal cues and/or touching/steadying and/or contact guard assistance as patient completes activity. Assistance may be provided throughout the activity or intermittently. 3-Partial/Moderate Assistance-helper does LESS THAN HALF the effort. [place] lifts, holds or supports trunk or limbs, but provides less than half the effort. 2-Substantial/Maximal Assistance-helper does MORE THAN HALF the effort. [place] lifts or holds trunk or limbs and provides more than half the effort. 0-Nmwrytizc-eukmhh does ALL the effort. Patient does none of the effort to complete the activity. Or, the assistance of 2 or more helpers is required for the patient to complete the activity. If activity was not attempted, code reason: 7-Patient Refused. 9-Not Applicable-not attempted and the patient did not perform the activity before the current illness, exacerbation or injury. 10-Not Attempted due to Environmental Limitations-(lack of equipment, weather restraints, etc.). 88-Not Attempted due to Medical Conditions or Safety Concerns. Sit to Stand (QC): 5 Toilet Transfer (QC): 5 Weight Bearing Full Weight Bearing Full Weight Bearing Gait Training Does the Patient Walk?: Yes Distance: 150' Walk 10 feet (QC): 5 Walk 50 ft with 2 Turns(QC): 4 Walk 150 ft (QC): 4 Pt uses personal walking stick that pt has been used to using at home. Wheelchair Training Does the Pt Use a Wheelchair?: No Treatments TF to standing and uses BR. Pt amb. in hallway using walking stick before returning to room to rest in recliner w/all needs met, call light in hand. Assessment Current Status: Good Progress Pt is improving w/balance and asked to progress to more challenging AD for amb. PT Short Term Goals Short Term Goals Time Frame: Nov 08, 2022 Sit to stand: 4 Chair/lir-to-mpuko transfer: 4 Walk 10 feet: 4 Walk 50 feet with two turns: 4 Walk 150 feet: 4 PT Half-Way Goals Fingernail Sculptor Goals PT Fingernail Sculptor Goals Time Frame: Nov 15, 2022 Roll Left & Right (QC): 6 Sit to Lying (QC): 6 Lying-Sitting on Side/Bed(QC): 6 Sit to Stand (QC): 6 Chair/Scj-gr-Gvyty Xfer(QC): 6 Toilet Transfer (QC): 6 Car Transfer (QC): 6 Does the Patient Walk: Yes Walk 10 feet (QC): 6 Walk 50ft with 2 Turns (QC): 6 Walk 150 ft (QC): 6 Walking 10ft on Uneven Surface: 6 1 Step (curb) (QC): 4 (SBA) 4 Steps (QC): 4 (SBA) 12 Steps (QC): 4 (SBA) Picking up an Object (QC): 6 Wheel 50 feet with 2 turns (QC: 9 Wheel 150 feet: 9 PT Plan Problem List Problem List: Balance Treatment/Plan Treatment Plan: Continue Plan of Care Treatment Plan: Bed Mobility, Education, Functional Activity Heath, Functional Strength, Group Therapy, Gait, Safety, Therapeutic Exercise, Transfers Treatment Duration: Nov 15, 2022 Frequency: At least 5 of 7 days/Wk (IRF) Estimated Hrs Per Day: 1.5 hours per day Patient and/or Family Agrees t: Yes Safety Risks/Education Patient Education: Gait Training, Correct Positioning, Safety Issues Teaching Recipient: Patient Teaching Methods: Discussion Response to Teaching: Verbalize Understanding Time Time In: 1400 Time Out: 1430 DATE: Nov 04, 2022 Total Billed Treatment Time: 30 Total Billed Treatment 1, FA (10m) & GT (20m) MYKE CONTRERAS CRANK HAND Nov 04, 2022 15:39
[2022-11-04] MEDS: TAMSULOSIN 0.4 MG (FLOMAX) CAP PO SCH (18:47)
[2022-11-04 19:57] VITALS: BP 108/60
--- NOTE | 2022-11-05 05:18 | PM&R Progress Note ---
Subjective HPI/CC On Admission Date Seen by Provider: Nov 05, 2022 Time Seen by Provider: 08:30 Subjective/Events-last exam 11/05/2022: Pt is doing well Having some urinary incontinence issues so will check UA Checked meds and labs No falls 11/04/2022: Pt is doing really well Potassium is 4.1 Bowels are moving okay Slept okay 11/03/2022: Patient doing very well Gaining strength Started potassium Loose stools are improved 11/02/2022: Patient getting stronger Family pleased with his progress Denies any pain Loose stools so we will hold Colace 11/01/2022: Patient settling in well Eating well so appetite is improved Reviewed meds and labs No falls Bowels were loose last week so we will monitor closely Review of Systems General: Fatigue, Malaise Genitourinary: Incontinence Objective Exam Vital Signs Vital Signs Date Time Temp Pulse Resp B/P (MAP) Pulse Ox O2 Delivery O2 Flow Rate FiO2 11/05/22 20:00 Room Air 11/05/22 19:32 36.1 72 16 117/76 (90) 95 Capillary Refill : General Appearance: No Apparent Distress, WD/WN, Chronically ill HEENT: PERRL/EOMI, Normal ENT Inspection, Pharynx Normal Neck: Full Range of Motion, Normal Inspection, Non Tender, Supple, Carotid Bruit Respiratory: Chest Non Tender, Lungs Clear, Normal Breath Sounds, No Accessory Muscle Use, No Respiratory Distress Cardiovascular: Regular Rate, Rhythm, No Edema, No Gallop, No JVD, No Murmur, Normal Peripheral Pulses Gastrointestinal: Normal Bowel Sounds, No Organomegaly, No Pulsatile Mass, Non Tender, Soft Back: Normal Inspection, No CVA Tenderness, No Vertebral Tenderness Extremity: Normal Capillary Refill, Normal Inspection, Normal Range of Motion, Non Tender, No Calf Tenderness, No Pedal Edema Neurologic/Psychiatric: Alert, Oriented x3, No Motor/Sensory Deficits, gas examiner II- XII Norm as Tested, Abnormal Gait, Depressed Affect, Motor Weakness (generalized) Skin: Normal Color, Warm/Dry Lymphatic: No Adenopathy Results/Procedures Lab Patient resulted labs reviewed. FIM Transfers Therapy Code Descriptions/Definitions Functional [place] Measure: 0=Not Assessed/NA 4=Minimal Assistance 1=Total Assistance 5=Supervision or Setup 2=Maximal Assistance 6=Modified [place] 3=Moderate Assistance 7=Complete IndependenceSCALE: Activities may be completed with or without assistive devices. 0-Sanxuqtlqm-jczypxw completes the activity by him/herself with no assistance from a helper. 5-Set-up or Clean-up Assistance-helper sets up or cleans up; patient completes a ctivity. [place] assists only prior to or following the activity. 4-Supervision or Touching Assistance-helper provides verbal cues and/or touching/steadying and/or contact guard assistance as patient completes activity. Assistance may be provided throughout the activity or intermittently. 3-Partial/Moderate Assistance-helper does LESS THAN HALF the effort. [place] lifts, holds or supports trunk or limbs, but provides less than half the effort. 2-Substantial/Maximal Assistance-helper does MORE THAN HALF the effort. [place] lifts or holds trunk or limbs and provides more than half the effort. 9-Tnnohkjqa-isjigk does ALL the effort. Patient does none of the effort to complete the activity. Or, the assistance of 2 or more helpers is required for the patient to complete the activity. If activity was not attempted, code reason: 7-Patient Refused. 9-Not Applicable-not attempted and the patient did not perform the activity before the current illness, exacerbation or injury. 10-Not Attempted due to Environmental Limitations-(lack of equipment, weather restraints, etc.). 88-Not Attempted due to Medical Conditions or Safety Concerns. Roll Left to Right (QC): 4 Sit to Lying (QC): 4 Sit to Stand (QC): 5 Chair/Mbk-pv-Snmsb Xfer(QC): 4 Car Transfer (QC): 4 Gait Training Does the Patient Walk?: Yes Distance: 150' Walk 10 feet (QC): 5 Walk 50 ft with 2 Turns(QC): 4 Walk 150 ft (QC): 4 Walking 10ft/uneven surface-QC: 4 Gait Persons Needed: 1 Gait Assistive Device: FWW Wheelchair Training Does the Pt Use a Wheelchair?: No Wheel 50 ft with 2 turns (QC): 9 Wheel 150 ft (QC): 9 Stair Training #of Steps: 4 1 Step (curb) (QC): 4 4 Steps (QC): 4 12 Steps (QC): 88 Balance Picking up an Object (QC): 4 (CGA using a circulator) ADL-Treatment Eating (QC): 6 Oral Hygiene (QC): 6 Shower/Bathe Self (QC): 5 Upper Body Dressing (QC): 5 Lower Body Dressing (QC): 5 On/Off Footwear (QC): 5 Toileting Hygiene (QC): 6 Toilet Transfer (QC): 6 Assessment/Plan Assessment and Plan Assess & Plan/Chief Complaint Assessment: Debility Advanced age Recent Flu A Anemia Fall risk Presbycusis h/o UTI's Hypokalemia CAD previous stents Plan: Check labs Eval anemia Increase PO fluids PT OT 11/01/2022: Supportive care Monitor closely 11/02/2022: Doing much better Supportive care 11/03/2022: Check labs in morning Much improved status 11/04/2022: Supportive care Monitor closely 11/05/2022: Check UA DC tomorrow (1) Debility Status: Acute (2) CAD (coronary artery disease) (3) Generalized weakness Status: Acute (4) Anemia RYAN PINEDA DO Nov 05, 2022 05:18
[2022-11-05] MEDS: MULTIVIT W/MINERALS TAB (THERAGRAN M) PO SCH (06:12)
[2022-11-05 07:21] VITALS: BP 100/66
[2022-11-05 07:55] VITALS: BP 150/84
--- NOTE | 2022-11-05 09:02 | Occupational Ther Daily Note ---
OT Current Status-Daily Note Subjective Pt alert, sitting in recliner. Pt agrees to therapy. No c/o pain. Daughter present in room. Mental Status/Objective Patient Orientation: Person, Place, Time, Situation ADL-Treatment Pt declines showering today, will complete tomorrow. Independent with eating. Independent with toileting. Independent standing at sink to complete oral care and grooming. Pt does have tendency to 'sink' when standing though will straighten legs without cues. Therapy Code Descriptions/Definitions Functional [place] Measure: 0=Not Assessed/NA 4=Minimal Assistance 1=Total Assistance 5=Supervision or Setup 2=Maximal Assistance 6=Modified [place] 3=Moderate Assistance 7=Complete IndependenceSCALE: Activities may be completed with or without assistive devices. 1-Viaaekwilb-qvfeemj completes the activity by him/herself with no assistance from a helper. 5-Set-up or Clean-up Assistance-helper sets up or cleans up; patient completes activity. [place] assists only prior to or following the activity. 4-Supervision or Touching Assistance-helper provides verbal cues and/or touching/steadying and/or contact guard assistance as patient completes activity. Assistance may be provided throughout the activity or intermittently. 3-Partial/Moderate Assistance-helper does LESS THAN HALF the effort. [place] lifts, holds or supports trunk or limbs, but provides less than half the effort. 2-Substantial/Maximal Assistance-helper does MORE THAN HALF the effort. [place] lifts or holds trunk or limbs and provides more than half the effort. 4-Sxjldgoto-nbekgx does ALL the effort. Patient does none of the effort to complete the activity. Or, the assistance of 2 or more helpers is required for the patient to complete the activity. If activity was not attempted, code reason: 7-Patient Refused. 9-Not Applicable-not attempted and the patient did not perform the activity before the current illness, exacerbation or injury. 10-Not Attempted due to Environmental Limitations-(lack of equipment, weather restraints, etc.). 88-Not Attempted due to Medical Conditions or Safety Concerns. Eating (QC): 6 Oral Hygiene (QC): 6 Upper Body Dressing (QC): 5 (Set up and completes by self.) Toileting Hygiene (QC): 6 Toilet Transfer (QC): 6 Other Treatment Pt ambulates to therapy gym with 1 recovery breaks. Pt completes B UE exercises to increase strength for daily functional tasks. After therapy, pt lying in bed with call light/phone in reach. All needs met in room. OT Short Term Goals Short Term Goals Time Frame: Nov 08, 2022 Upper body dressin Putting on/taking off footwear: 4 OT Technical Programs Manager Goals Custodial Goals Time Frame: Nov 22, 2022 Acute change in mental status: 0 Inattention: 0 Disorganized thinkin Altered level of consciousness: 0 Eating (QC): 6 Oral Hygiene (QC): 6 Toileting Hygiene (QC): 6 Shower/Bathe Self (QC): 6 Upper Body Dressing (QC): 6 Lower Body Dressing (QC): 6 On/Off Footwear (QC): 6 Additional Goals: 1-Demonstrate ADL Tasks, 2-Verbalize Understanding, 3- ImproveStrength/Heath 1=Demonstrate adherence to instructed precautions during ADL tasks. 2=Patient will verbalize/demonstrate understanding of assistive devices/modifications for ADL. 3=Patient will improve strength/tolerance for activity to enable patient to perform ADL's. OT Education/Plan Problem List/Assessment Assessment: Decreased Activ Tolerance Discharge Recommendations Plan/Recommendations: Continue POC Treatment Plan/Plan of Care Patient would benefit from OT for education, treatment and training to promote independence in ADL's, mobility, safety and/or upper extremity function for ADL's. Plan of Care: ADL Retraining, Functional Mobility, Group Exercise/Act as Ind, UE Funct Exercise/Act Treatment Duration: Nov 22, 2022 Frequency: At least 5 of 7 days/Wk (IRF) Estimated Hrs Per Day: 1.5 hours per day Rehab Potential: Good Time Start Time: 07:30 Stop Time: 09:00 DATE: Nov 05, 2022 Total Time Billed (hr/min): 90 Billed Treatment Time 1 visit-ADL 3 (45 min) FA 1 (15 min) EX 2 (30 min) SINTIA SANDRA Nov 05, 2022 09:02
[2022-11-05] MEDS: CLOPIDOGREL 75 MG (PLAVIX) TABLET PO SCH (09:18)
[2022-11-05] MEDS: polyethylene glycoL POWDER 17 GM (MIRALAX) PACK PO SCH ×2 (09:18→19:36)
[2022-11-05] MEDS: meTOprolol TARTRATE 25 MG (LOPRESSOR) TABLET PO SCH ×2 (09:18→20:07)
[2022-11-05] MEDS: ASPIRIN 81 MG CHEW (CHILDREN'S ASA) PO SCH (09:18)
[2022-11-05] MEDS: SENNA W/DOCUSATE (SENOKOT S) TABLET PO SCH ×2 (09:18→20:13)
[2022-11-05] MEDS: DOCUSATE SODIUM 100 MG (COLACE) CAP PO SCH ×2 (09:18→20:13)
[2022-11-05] MEDS: ENOXAPARIN 40 MG/0.4 ML (LOVENOX) SYR SC SCH (09:18)
[2022-11-05] MEDS: PANTOPRAZOLE 40 MG (PROTONIX) TAB PO SCH (09:18)
--- NOTE | 2022-11-05 12:16 | Physical Therapy Daily Note ---
PT Daily Note-Current Subjective Pt sitting at EOB upon arrival. Pt asked to take used urinal to BR. and wash hands. Pt agrees to PT. Pain Location: No Pain Reported Section J - Health Conditions 1. Rarely or not at all 2. Occasionally 3. Frequently 4. Almost constantly 8. Unable to answer Pain Effect on Sleep: 2 Pain Interference with Therapy: 2 Pain Interference w/Day-to-Day: 2 Mental Status Patient Orientation: Person, Place, Time, Situation Transfers SCALE: Activities may be completed with or without assistive devices. 9-Wghwuqcscn-jmjqllr completes the activity by him/herself with no assistance from a helper. 5-Set-up or Clean-up Assistance-helper sets up or cleans up; patient completes activity. [place] assists only prior to or following the activity. 4-Supervision or Touching Assistance-helper provides verbal cues and/or touching/steadying and/or contact guard assistance as patient completes activity. Assistance may be provided throughout the activity or intermittently. 3-Partial/Moderate Assistance-helper does LESS THAN HALF the effort. [place] lifts, holds or supports trunk or limbs, but provides less than half the effort. 2-Substantial/Maximal Assistance-helper does MORE THAN HALF the effort. [place] lifts or holds trunk or limbs and provides more than half the effort. 8-Wmqrofnbm-onqgoi does ALL the effort. Patient does none of the effort to complete the activity. Or, the assistance of 2 or more helpers is required for the patient to complete the activity. If activity was not attempted, code reason: 7-Patient Refused. 9-Not Applicable-not attempted and the patient did not perform the activity before the current illness, exacerbation or injury. 10-Not Attempted due to Environmental Limitations-(lack of equipment, weather restraints, etc.). 88-Not Attempted due to Medical Conditions or Safety Concerns. Sit to Stand (QC): 5 Weight Bearing Full Weight Bearing Full Weight Bearing Gait Training Does the Patient Walk?: Yes Distance: 250' x2 Walk 10 feet (QC): 5 Walk 50 ft with 2 Turns(QC): 5 Walk 150 ft (QC): 5 Gait Assistive Device: Cane Single Point Uses personal walking stick for amb. Pt fatigues and loses a little stability. Suggested upright walker vs FWW vs walking stick due to improved posture and stability. Wheelchair Training Does the Pt Use a Wheelchair?: No Stair Training Stair Training: Handrails/: 1 handrail, uses cane #of Steps: 4 1 Step (curb) (QC): 5 4 Steps (QC): 5 Stairs: Pattern: Step to Exercises Seated Therapy Exercises: Ankle pumps, Long arc quads, Hip flexion, Hip abd/add, Glut set Seated Reps: 15 Treatments TF to standing and amb. to BR. Pt amb. in hallway takes RB as needed. Pt completes Seated EX then amb. in hallway returning to room to rest in recliner for lunch. All needs met, call light in hand. Assessment Current Status: Good Progress Pt is improving with mobility but still fatigues at times needing rest break. PT Short Term Goals Short Term Goals Time Frame: Nov 08, 2022 Sit to stand: 4 Chair/eus-eq-teduu transfer: 4 Walk 10 feet: 4 Walk 50 feet with two turns: 4 Walk 150 feet: 4 PT Metal Engraver Goals Correction Goals PT Metal Engraver Goals Time Frame: Nov 15, 2022 Roll Left & Right (QC): 6 Sit to Lying (QC): 6 Lying-Sitting on Side/Bed(QC): 6 Sit to Stand (QC): 6 Chair/Eti-iu-Ajucd Xfer(QC): 6 Toilet Transfer (QC): 6 Car Transfer (QC): 6 Does the Patient Walk: Yes Walk 10 feet (QC): 6 Walk 50ft with 2 Turns (QC): 6 Walk 150 ft (QC): 6 Walking 10ft on Uneven Surface: 6 1 Step (curb) (QC): 4 (SBA) 4 Steps (QC): 4 (SBA) 12 Steps (QC): 4 (SBA) Picking up an Object (QC): 6 Wheel 50 feet with 2 turns (QC: 9 Wheel 150 feet: 9 PT Plan Problem List Problem List: Activity Tolerance Treatment/Plan Treatment Plan: Continue Plan of Care Treatment Plan: Bed Mobility, Education, Functional Activity Heath, Functional Strength, Group Therapy, Gait, Safety, Therapeutic Exercise, Transfers Treatment Duration: Nov 15, 2022 Frequency: At least 5 of 7 days/Wk (IRF) Estimated Hrs Per Day: 1.5 hours per day Patient and/or Family Agrees t: Yes Safety Risks/Education Patient Education: Gait Training, Correct Positioning Teaching Recipient: Patient Teaching Methods: Discussion Response to Teaching: Verbalize Understanding Time Time In: 1100 Time Out: 1200 DATE: Nov 05, 2022 Total Billed Treatment Time: 60 Total Billed Treatment 1, GT x2 (30m), FA (15m) & EX (15m) MYKE CONTRERAS QUANTITATIVE ANALYST DEVELOPER Nov 05, 2022 12:16
--- NOTE | 2022-11-05 15:45 | Physical Therapy Daily Note ---
PT Daily Note-Current Subjective Pt laying Supine in bed upon arrival. Pt agrees to PT. Pain Location: No Pain Reported Section J - Health Conditions 1. Rarely or not at all 2. Occasionally 3. Frequently 4. Almost constantly 8. Unable to answer Pain Effect on Sleep: 2 Pain Interference with Therapy: 2 Pain Interference w/Day-to-Day: 2 Mental Status Patient Orientation: Person, Place, Time, Situation Transfers SCALE: Activities may be completed with or without assistive devices. 9-Ihtpofpdzb-lwuxvsh completes the activity by him/herself with no assistance from a helper. 5-Set-up or Clean-up Assistance-helper sets up or cleans up; patient completes activity. [place] assists only prior to or following the activity. 4-Supervision or Touching Assistance-helper provides verbal cues and/or touching/steadying and/or contact guard assistance as patient completes activity. Assistance may be provided throughout the activity or intermittently. 3-Partial/Moderate Assistance-helper does LESS THAN HALF the effort. [place] lifts, holds or supports trunk or limbs, but provides less than half the effort. 2-Substantial/Maximal Assistance-helper does MORE THAN HALF the effort. [place] lifts or holds trunk or limbs and provides more than half the effort. 3-Hmfgjpkvk-rwylnb does ALL the effort. Patient does none of the effort to complete the activity. Or, the assistance of 2 or more helpers is required for the patient to complete the activity. If activity was not attempted, code reason: 7-Patient Refused. 9-Not Applicable-not attempted and the patient did not perform the activity before the current illness, exacerbation or injury. 10-Not Attempted due to Environmental Limitations-(lack of equipment, weather restraints, etc.). 88-Not Attempted due to Medical Conditions or Safety Concerns. Lying to Sitting/Side of Bed(Q: 5 Sit to Stand (QC): 5 Weight Bearing Full Weight Bearing Full Weight Bearing Gait Training Does the Patient Walk?: Yes Distance: 5 Gait Assistive Device: FWW Wheelchair Training Does the Pt Use a Wheelchair?: No Treatments Pt completes bed mobility and sits at EOB. Pt TF to recliner using FWW and repositions to comfort. Pt is able to complete sit to stands and Seated EX at recliner. All needs met, call light in hand. Assessment Current Status: Good Progress Pt has improved on TF and mobility. PT Short Term Goals Short Term Goals Time Frame: Nov 08, 2022 Sit to stand: 4 Chair/ozd-ah-hyqvs transfer: 4 Walk 10 feet: 4 Walk 50 feet with two turns: 4 Walk 150 feet: 4 PT Drying Oven Tender Goals Drying Oven Tender Goals PT Chcf Goals Time Frame: Nov 15, 2022 Roll Left & Right (QC): 6 Sit to Lying (QC): 6 Lying-Sitting on Side/Bed(QC): 6 Sit to Stand (QC): 6 Chair/Nng-eq-Mozsi Xfer(QC): 6 Toilet Transfer (QC): 6 Car Transfer (QC): 6 Does the Patient Walk: Yes Walk 10 feet (QC): 6 Walk 50ft with 2 Turns (QC): 6 Walk 150 ft (QC): 6 Walking 10ft on Uneven Surface: 6 1 Step (curb) (QC): 4 (SBA) 4 Steps (QC): 4 (SBA) 12 Steps (QC): 4 (SBA) Picking up an Object (QC): 6 Wheel 50 feet with 2 turns (QC: 9 Wheel 150 feet: 9 PT Plan Treatment/Plan Treatment Plan: Continue Plan of Care Treatment Plan: Bed Mobility, Education, Functional Activity Heath, Functional Strength, Group Therapy, Gait, Safety, Therapeutic Exercise, Transfers Treatment Duration: Nov 15, 2022 Frequency: At least 5 of 7 days/Wk (IRF) Estimated Hrs Per Day: 1.5 hours per day Patient and/or Family Agrees t: Yes Time Time In: 1430 Time Out: 1500 DATE: Nov 05, 2022 Total Billed Treatment Time: 30 Total Billed Treatment 1, FA (15m) & EX (15m) MYKE CONTRERAS PTA Nov 05, 2022 15:45
[2022-11-05] MEDS: TAMSULOSIN 0.4 MG (FLOMAX) CAP PO SCH (17:50)
[2022-11-05 19:14] LABS: BILIRUBIN,URINE NEGATIVE (NEGATIVE); CLARITY,URINE CLEAR; COLOR,URINE YELLOW; GLUCOSE, URINE (UA) NEGATIVE (NEGATIVE); KETONES,URINE NEGATIVE (NEGATIVE); LEUKOCYTE ESTERASE ,URINE NEGATIVE (NEGATIVE); NITRITE,URINE NEGATIVE (NEGATIVE); PROTEIN,URINE NEGATIVE (NEGATIVE)
[2022-11-05 19:22] LABS: BACTERIA,URINE NEGATIVE /HPF; WBC,URINE RARE /HPF
[2022-11-05 19:32] VITALS: BP 117/76
[2022-11-06] MEDS: MULTIVIT W/MINERALS TAB (THERAGRAN M) PO SCH (05:24)
--- NOTE | 2022-11-06 06:29 | PM&R Progress Note ---
Subjective HPI/CC On Admission Date Seen by Provider: Nov 06, 2022 Time Seen by Provider: 08:30 Subjective/Events-last exam 11/06/2022: Pt is doing really well Discharge planned for Friday Flu shot will be given No urinary incontinence 11/05/2022: Pt is doing well Having some urinary incontinence issues so will check UA Checked meds and labs No falls 11/04/2022: Pt is doing really well Potassium is 4.1 Bowels are moving okay Slept okay 11/03/2022: Patient doing very well Gaining strength Started potassium Loose stools are improved 11/02/2022: Patient getting stronger Family pleased with his progress Denies any pain Loose stools so we will hold Colace 11/01/2022: Patient settling in well Eating well so appetite is improved Reviewed meds and labs No falls Bowels were loose last week so we will monitor closely Review of Systems General: Fatigue, Malaise Objective Exam Vital Signs Vital Signs Date Time Temp Pulse Resp B/P (MAP) Pulse Ox O2 Delivery O2 Flow Rate FiO2 11/06/22 20:46 36.3 68 18 117/67 (84) 94 Room Air Capillary Refill : General Appearance: No Apparent Distress, WD/WN, Chronically ill HEENT: PERRL/EOMI, Normal ENT Inspection, Pharynx Normal Neck: Full Range of Motion, Normal Inspection, Non Tender, Supple, Carotid Bruit Respiratory: Chest Non Tender, Lungs Clear, Normal Breath Sounds, No Accessory Muscle Use, No Respiratory Distress Cardiovascular: Regular Rate, Rhythm, No Edema, No Gallop, No JVD, No Murmur, Normal Peripheral Pulses Gastrointestinal: Normal Bowel Sounds, No Organomegaly, No Pulsatile Mass, Non Tender, Soft Back: Normal Inspection, No CVA Tenderness, No Vertebral Tenderness Extremity: Normal Capillary Refill, Normal Inspection, Normal Range of Motion, Non Tender, No Calf Tenderness, No Pedal Edema Neurologic/Psychiatric: Alert, Oriented x3, No Motor/Sensory Deficits, intellectual property counsel II- XII Norm as Tested, Abnormal Gait, Depressed Affect, Motor Weakness (generalized) Skin: Normal Color, Warm/Dry Lymphatic: No Adenopathy Results/Procedures Lab Patient resulted labs reviewed. FIM Transfers Therapy Code Descriptions/Definitions Functional [place] Measure: 0=Not Assessed/NA 4=Minimal Assistance 1=Total Assistance 5=Supervision or Setup 2=Maximal Assistance 6=Modified [place] 3=Moderate Assistance 7=Complete IndependenceSCALE: Activities may be completed with or without assistive devices. 1-Arodgsgwxw-rqtobyl completes the activity by him/herself with no assistance from a helper. 5-Set-up or Clean-up Assistance-helper sets up or cleans up; patient completes activity. [place] assists only prior to or following the activity. 4-Supervision or Touching Assistance-helper provides verbal cues and/or touching/steadying and/or contact guard assistance as patient completes ac tivity. Assistance may be provided throughout the activity or intermittently. 3-Partial/Moderate Assistance-helper does LESS THAN HALF the effort. [place] lifts, holds or supports trunk or limbs, but provides less than half the effort. 2-Substantial/Maximal Assistance-helper does MORE THAN HALF the effort. [place] lifts or holds trunk or limbs and provides more than half the effort. 2-Dgckvneec-unekoa does ALL the effort. Patient does none of the effort to complete the activity. Or, the assistance of 2 or more helpers is required for the patient to complete the activity. If activity was not attempted, code reason: 7-Patient Refused. 9-Not Applicable-not attempted and the patient did not perform the activity before the current illness, exacerbation or injury. 10-Not Attempted due to Environmental Limitations-(lack of equipment, weather restraints, etc.). 88-Not Attempted due to Medical Conditions or Safety Concerns. Roll Left to Right (QC): 4 Sit to Lying (QC): 4 Sit to Stand (QC): 5 Chair/Hqu-gt-Quroh Xfer(QC): 4 Car Transfer (QC): 4 Gait Training Does the Patient Walk?: Yes Distance: 5 Walk 10 feet (QC): 5 Walk 50 ft with 2 Turns(QC): 5 Walk 150 ft (QC): 5 Walking 10ft/uneven surface-QC: 4 Gait Persons Needed: 1 Gait Assistive Device: FWW Wheelchair Training Does the Pt Use a Wheelchair?: No Wheel 50 ft with 2 turns (QC): 9 Wheel 150 ft (QC): 9 Stair Training Stair Training: Handrails/: 1 handrail, uses cane #of Steps: 4 1 Step (curb) (QC): 5 4 Steps (QC): 5 12 Steps (QC): 88 Stairs: Pattern: Step to Balance Picking up an Object (QC): 4 (CGA using a boilermaker central steam plant) ADL-Treatment Eating (QC): 6 Oral Hygiene (QC): 6 Shower/Bathe Self (QC): 5 Upper Body Dressing (QC): 5 (Set up and completes by self.) Lower Body Dressing (QC): 5 On/Off Footwear (QC): 5 Toileting Hygiene (QC): 6 Toilet Transfer (QC): 6 Assessment/Plan Assessment and Plan Assess & Plan/Chief Complaint Assessment: Debility Advanced age Recent Flu A Anemia Fall risk Presbycusis h/o UTI's Hypokalemia CAD previous stents Plan: Check labs Eval anemia Increase PO fluids PT OT 11/01/2022: Supportive care Monitor closely 11/02/2022: Doing much better Supportive care 11/03/2022: Check labs in morning Much improved status 11/04/2022: Supportive care Monitor closely 11/05/2022: Check UA DC tomorrow 11/06/2022: DC Friday (1) Debility Status: Acute (2) CAD (coronary artery disease) (3) Generalized weakness Status: Acute (4) Anemia RYAN PINEDA DO Nov 06, 2022 06:29
[2022-11-06 08:00] VITALS: BP 106/74
[2022-11-06] MEDS: DOCUSATE SODIUM 100 MG (COLACE) CAP PO SCH ×2 (08:23→19:40)
[2022-11-06] MEDS: CLOPIDOGREL 75 MG (PLAVIX) TABLET PO SCH (08:23)
[2022-11-06] MEDS: polyethylene glycoL POWDER 17 GM (MIRALAX) PACK PO SCH ×2 (08:23→19:41)
[2022-11-06] MEDS: ASPIRIN 81 MG CHEW (CHILDREN'S ASA) PO SCH (08:23)
[2022-11-06] MEDS: SENNA W/DOCUSATE (SENOKOT S) TABLET PO SCH ×2 (08:23→19:41)
[2022-11-06] MEDS: meTOprolol TARTRATE 25 MG (LOPRESSOR) TABLET PO SCH ×2 (08:23→20:39)
[2022-11-06] MEDS: ENOXAPARIN 40 MG/0.4 ML (LOVENOX) SYR SC SCH (08:23)
[2022-11-06] MEDS: PANTOPRAZOLE 40 MG (PROTONIX) TAB PO SCH (08:23)
--- NOTE | 2022-11-06 10:41 | Occupational Ther Daily Note ---
OT Current Status-Daily Note Subjective Pt alert, sitting in recliner. Pt agrees to therapy. No c/o pain at this time. Pt's daughter in room. Mental Status/Objective Patient Orientation: Person, Place, Time, Situation ADL-Treatment Independent with eating. Independent standing at sink to complete oral care. Independent with toileting. Independent with showering using grabbars, hand held shower and shower seat. Using FWW, pt able to gather clothing and dress self independently. Independent with footwear. After therapy, pt sitting in recliner with call light/phone in reach. Nrsg in room. All needs met. Therapy Code Descriptions/Definitions Functional Devol Measure: 0=Not Assessed/NA 4=Minimal Assistance 1=Total Assistance 5=Supervision or Setup 2=Maximal Assistance 6=Modified Devol 3=Moderate Assistance 7=Complete IndependenceSCALE: Activities may be completed with or without assistive devices. 8-Kigttdwzhw-pebdbmb completes the activity by him/herself with no assistance from a helper. 5-Set-up or Clean-up Assistance-helper sets up or cleans up; patient completes activity. [place] assists only prior to or following the activity. 4-Supervision or Touching Assistance-helper provides verbal cues and/or touching/steadying and/or contact guard assistance as patient completes activity. Assistance may be provided throughout the activity or intermittently. 3-Partial/Moderate Assistance-helper does LESS THAN HALF the effort. [place] lifts, holds or supports trunk or limbs, but provides less than half the effort. 2-Substantial/Maximal Assistance-helper does MORE THAN HALF the effort. [place] lifts or holds trunk or limbs and provides more than half the effort. 8-Fjdaqxxkf-xlxeje does ALL the effort. Patient does none of the effort to complete the activity. Or, the assistance of 2 or more helpers is required for the patient to complete the activity. If activity was not attempted, code reason: 7-Patient Refused. 9-Not Applicable-not attempted and the patient did not perform the activity before the current illness, exacerbation or injury. 10-Not Attempted due to Environmental Limitations-(lack of equipment, weather restraints, etc.). 88-Not Attempted due to Medical Conditions or Safety Concerns. Eating (QC): 6 Oral Hygiene (QC): 6 Shower/Bathe Self (QC): 6 Upper Body Dressing (QC): 6 Lower Body Dressing (QC): 6 On/Off Footwear: 6 Toileting Hygiene (QC): 6 Toilet Transfer (QC): 6 BIMS CAM BIMS Expression of Ideas and Wants: Without Difficulty Understanding Verbal Content: Understands Brief Interview/Mental Status: Yes IRF JEMMA BIMS: IRF JEMMA BIMS Response (Comments) Value Repitition of Three Words Three 3 Recalls Socks Yes, No Cue Required 2 Recalls Blue Yes, No Cue Required 2 Recalls Bed Yes, No Cue Required 2 Year Correct 3 Month Accurate Within 5 Days 2 Day Correct 1 Total 15 Patient Normally Able to Recal: Current Session, Location of own room, Staff Names and faces, That he/she in a hsp Should Staff Asses. Mental St.: No OT Short Term Goals Short Term Goals Time Frame: Nov 08, 2022 Upper body dressin Putting on/taking off footwear: 4 OT Residential Goals Dried Fruit Washer Goals Time Frame: Nov 22, 2022 Acute change in mental status: 0 Inattention: 0 Disorganized thinkin Altered level of consciousness: 0 Eating (QC): 6 (met) Oral Hygiene (QC): 6 (met) Toileting Hygiene (QC): 6 (met) Shower/Bathe Self (QC): 6 (met) Upper Body Dressing (QC): 6 (met) Lower Body Dressing (QC): 6 (met) On/Off Footwear (QC): 6 (met) Additional Goals: 1-Demonstrate ADL Tasks, 2-Verbalize Understanding, 3- ImproveStrength/Heath 1=Demonstrate adherence to instructed precautions during ADL tasks. 2=Patient will verbalize/demonstrate understanding of assistive devices/modifications for ADL. 3=Patient will improve strength/tolerance for activity to enable patient to perform ADL's. OT Education/Plan Problem List/Assessment Assessment: Decreased Activ Tolerance Discharge Recommendations Plan/Recommendations: Continue POC Therapy Discharge Recommendati: Post Acute PT Treatment Plan/Plan of Care Patient would benefit from OT for education, treatment and training to promote independence in ADL's, mobility, safety and/or upper extremity function for ADL's. Plan of Care: ADL Retraining, Functional Mobility, Group Exercise/Act as Ind, UE Funct Exercise/Act Treatment Duration: Nov 22, 2022 Frequency: At least 5 of 7 days/Wk (IRF) Estimated Hrs Per Day: 1.5 hours per day Rehab Potential: Good Time Start Time: 08:15 Stop Time: 09:15 DATE: Nov 06, 2022 Total Time Billed (hr/min): 60 Billed Treatment Time 1 visit-ADL 4 (60 min) SINTIA SANDRA Nov 06, 2022 10:41
--- NOTE | 2022-11-06 12:12 | Physical Therapy Daily Note ---
PT Daily Note-Current Subjective Pt sitting in recliner upon arrival. Pt agrees to PT as pt is supposed to d/c tomorrow (11/07/21). Nurse informs pt & MANAGER GENERATION shortly after tx starts that pt will d/c on Friday (11/08/21) instead. Pain Location: No Pain Reported Section J - Health Conditions 1. Rarely or not at all 2. Occasionally 3. Frequently 4. Almost constantly 8. Unable to answer Pain Effect on Sleep: 2 Pain Interference with Therapy: 2 Pain Interference w/Day-to-Day: 2 Mental Status Patient Orientation: Person, Place, Time, Situation Transfers SCALE: Activities may be completed with or without assistive devices. 7-Mymymesnml-onhodwm completes the activity by him/herself with no assistance from a helper. 5-Set-up or Clean-up Assistance-helper sets up or cleans up; patient completes activity. [place] assists only prior to or following the activity. 4-Supervision or Touching Assistance-helper provides verbal cues and/or touching/steadying and/or contact guard assistance as patient completes activity. Assistance may be provided throughout the activity or intermittently. 3-Partial/Moderate Assistance-helper does LESS THAN HALF the effort. [place] lifts, holds or supports trunk or limbs, but provides less than half the effort. 2-Substantial/Maximal Assistance-helper does MORE THAN HALF the effort. [place] lifts or holds trunk or limbs and provides more than half the effort. 9-Ndotsdsnv-ksfmej does ALL the effort. Patient does none of the effort to complete the activity. Or, the assistance of 2 or more helpers is required for the patient to complete the activity. If activity was not attempted, code reason: 7-Patient Refused. 9-Not Applicable-not attempted and the patient did not perform the activity before the current illness, exacerbation or injury. 10-Not Attempted due to Environmental Limitations-(lack of equipment, weather restraints, etc.). 88-Not Attempted due to Medical Conditions or Safety Concerns. Sit to Stand (QC): 6 Toilet Transfer (QC): 6 Weight Bearing Full Weight Bearing Full Weight Bearing Gait Training Does the Patient Walk?: Yes Distance: 400', 150' Walk 10 feet (QC): 6 Walk 50 ft with 2 Turns(QC): 6 Walk 150 ft (QC): 5 Gait Assistive Device: Cane Single Point Wheelchair Training Does the Pt Use a Wheelchair?: No Treatments TF to standing and amb. in hallway. Pt walks extended distance in hallway before RB. Pt completes Seated EX and amb. in hallway returning back to room. Pt uses BR before visiting w/SW. All needs met, call light in hand. Assessment Current Status: Good Progress Pt horacio. tx well. Daughter was on ARU this morning and visited w/MANAGER GENERATION about Upright Walker purchase. MANAGER GENERATION informed daughter about pt's indep. of amb, stairs, toileting, etc for home. PT Short Term Goals Short Term Goals Time Frame: Nov 08, 2022 Sit to stand: 4 Chair/vnf-qn-fyong transfer: 4 Walk 10 feet: 4 Walk 50 feet with two turns: 4 Walk 150 feet: 4 PT Quality Intern Goals Quality Intern Goals PT Quality Intern Goals Time Frame: Nov 15, 2022 Roll Left & Right (QC): 6 Sit to Lying (QC): 6 Lying-Sitting on Side/Bed(QC): 6 Sit to Stand (QC): 6 Chair/Chy-ji-Eiyge Xfer(QC): 6 Toilet Transfer (QC): 6 Car Transfer (QC): 6 Does the Patient Walk: Yes Walk 10 feet (QC): 6 Walk 50ft with 2 Turns (QC): 6 Walk 150 ft (QC): 6 Walking 10ft on Uneven Surface: 6 1 Step (curb) (QC): 4 (SBA) 4 Steps (QC): 4 (SBA) 12 Steps (QC): 4 (SBA) Picking up an Object (QC): 6 Wheel 50 feet with 2 turns (QC: 9 Wheel 150 feet: 9 PT Plan Treatment/Plan Treatment Plan: Continue Plan of Care Treatment Plan: Bed Mobility, Education, Functional Activity Heath, Functional Strength, Group Therapy, Gait, Safety, Therapeutic Exercise, Transfers Treatment Duration: Nov 15, 2022 Frequency: At least 5 of 7 days/Wk (IRF) Estimated Hrs Per Day: 1.5 hours per day Patient and/or Family Agrees t: Yes Time Time In: 1015 Time Out: 1115 DATE: Nov 06, 2022 Total Billed Treatment Time: 60 Total Billed Treatment 1, FA (10m), GT x2 (35m) & EX (15m) MYKE CONTRERAS MANAGER GENERATION Nov 06, 2022 12:12
--- NOTE | 2022-11-06 14:43 | Therapy Group Daily Note ---
Therapy Daily Group Note Patient Education Topic Other List Below (Proper Transfer Techniques) Exercises LE Seated Exercise, UE Exercise Session Ratio (pt:therapist): 4:1 Goal of Session: Education on ARU Expectations, Home Safety Strategies, UE/LE Strengthing, Safety with Transfers Goal Met for this Session: Yes Pt Benefit of Group: Contributions to Others, F/U Use of Strategies @Home, Increased Functional Safety, Increased Functional Strength, Improved Cognition, Recognition of Peers, Socialization Other/Notes Pt ambulates to PT Group in Therapy Commons Area. Group consists of Intr oductions(Name, Where From & Favorite Childhood Memory), Socialization, Seated UE & LE Exercises, ARU Expectations and Review of Proper Transfer Techniques. Pt actively participated in Group by completing Exercises as well as listening and answering questions pertaining to car transfers, sit to stand transfers and transfers from Supine in bed. Pt were also instructed on ARU Expectations. Pt returned to room at end of Group with all needs met. Start Time: 13:00 Stop Time: 14:00 Total Billed Treatment Time: 60 Total Billed Treatment 1, [facility] MYKE CONTRERAS PLASTIC AND RECONSTRUCTIVE SURGEON Nov 06, 2022 14:43
[2022-11-06] MEDS: TAMSULOSIN 0.4 MG (FLOMAX) CAP PO SCH (18:00)
[2022-11-06 20:46] VITALS: BP 117/67
--- NOTE | 2022-11-07 05:18 | PM&R Progress Note ---
Subjective HPI/CC On Admission Date Seen by Provider: Nov 07, 2022 Time Seen by Provider: 12:00 Subjective/Events-last exam 11/07/2022: No major events Discharge plan for tomorrow 11/06/2022: Pt is doing really well Discharge planned for Friday Flu shot will be given No urinary incontinence 11/05/2022: Pt is doing well Having some urinary incontinence issues so will check UA Checked meds and labs No falls 11/04/2022: Pt is doing really well Potassium is 4.1 Bowels are moving okay Slept okay 11/03/2022: Patient doing very well Gaining strength Started potassium Loose stools are improved 11/02/2022: Patient getting stronger Family pleased with his progress Denies any pain Loose stools so we will hold Colace 11/01/2022: Patient settling in well Eating well so appetite is improved Reviewed meds and labs No falls Bowels were loose last week so we will monitor closely Review of Systems General: Fatigue, Malaise Objective Exam Vital Signs Vital Signs Date Time Temp Pulse Resp B/P (MAP) Pulse Ox O2 Delivery O2 Flow Rate FiO2 11/07/22 20:49 Room Air 11/07/22 19:54 36.6 60 18 124/63 (83) 97 Capillary Refill : General Appearance: No Apparent Distress, WD/WN, Chronically ill HEENT: PERRL/EOMI, Normal ENT Inspection, Pharynx Normal Neck: Full Range of Motion, Normal Inspection, Non Tender, Supple, Carotid Bruit Respiratory: Chest Non Tender, Lungs Clear, Normal Breath Sounds, No Accessory Muscle Use, No Respiratory Distress Cardiovascular: Regular Rate, Rhythm, No Edema, No Gallop, No JVD, No Murmur, Normal Peripheral Pulses Gastrointestinal: Normal Bowel Sounds, No Organomegaly, No Pulsatile Mass, Non Tender, Soft Back: Normal Inspection, No CVA Tenderness, No Vertebral Tenderness Extremity: Normal Capillary Refill, Normal Inspection, Normal Range of Motion, Non Tender, No Calf Tenderness, No Pedal Edema Neurologic/Psychiatric: Alert, Oriented x3, No Motor/Sensory Deficits, 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 FIM Transfers Therapy Code Descriptions/Definitions Functional [place] Measure: 0=Not Assessed/NA 4=Minimal Assistance 1=Total Assistance 5=Supervision or Setup 2=Maximal Assistance 6=Modified [place] 3=Moderate Assistance 7=Complete IndependenceSCALE: Activities may be completed with or without assistive devices. 0-Bhkfpnfxit-wrsqlva completes the activity by him/herself with no assistance from a helper. 5-Set-up or Clean-up Assistance-helper sets up or cleans up; patient completes activity. [place] assists only prior to or following the activity. 4-Supervision or Touching Assistance-helper provides verbal cues and/or touching/steadying and/or contact guard assistance as patient completes activity. Assistance may be provided throughout the activity or intermittently. 3-Partial/Moderate Assistance-helper does LESS THAN HALF the effort. [place] lifts, holds or supports trunk or limbs, but provides less than half the effort. 2-Substantial/Maximal Assistance-helper does MORE THAN HALF the effort. [place] lifts or holds trunk or limbs and provides more than half the effort. 4-Hjvzlenyz-kkbsuv does ALL the effort. Patient does none of the effort to complete the activity. Or, the assistance of 2 or more helpers is required for the patient to complete the activity. If activity was not attempted, code reason: 7-Patient Refused. 9-Not Applicable-not attempted and the patient did not perform the activity before the current illness, exacerbation or injury. 10-Not Attempted due to Environmental Limitations-(lack of equipment, weather restraints, etc.). 88-Not Attempted due to Medical Conditions or Safety Concerns. Roll Left to Right (QC): 4 Sit to Lying (QC): 4 Sit to Stand (QC): 6 Chair/Acf-su-Ekxny Xfer(QC): 4 Car Transfer (QC): 4 Gait Training Does the Patient Walk?: Yes Distance: 400', 150' Walk 10 feet (QC): 6 Walk 50 ft with 2 Turns(QC): 6 Walk 150 ft (QC): 5 Walking 10ft/uneven surface-QC: 4 Gait Persons Needed: 1 Gait Assistive Device: Cane Single Point Wheelchair Training Does the Pt Use a Wheelchair?: No Wheel 50 ft with 2 turns (QC): 9 Wheel 150 ft (QC): 9 Stair Training Stair Training: Handrails/: 1 handrail, uses cane #of Steps: 4 1 Step (curb) (QC): 5 4 Steps (QC): 5 12 Steps (QC): 88 Stairs: Pattern: Step to Balance Picking up an Object (QC): 4 (CGA using a independent freight agent) ADL-Treatment Eating (QC): 6 Oral Hygiene (QC): 6 Shower/Bathe Self (QC): 6 Upper Body Dressing (QC): 6 Lower Body Dressing (QC): 6 On/Off Footwear (QC): 6 Toileting Hygiene (QC): 6 Toilet Transfer (QC): 6 Assessment/Plan Assessment and Plan Assess & Plan/Chief Complaint Assessment: Debility Advanced age Recent Flu A Anemia Fall risk Presbycusis h/o UTI's Hypokalemia CAD previous stents Plan: Check labs Eval anemia Increase PO fluids PT OT 11/01/2022: Supportive care Monitor closely 11/02/2022: Doing much better Supportive care 11/03/2022: Check labs in morning Much improved status 11/04/2022: Supportive care Monitor closely 11/05/2022: Check UA DC tomorrow 11/06/2022: DC Friday11/07/2022: Discharge tomorrow (1) Debility Status: Acute (2) CAD (coronary artery disease) (3) Generalized weakness Status: Acute (4) Anemia RYAN PINEDA DO Nov 07, 2022 05:18
[2022-11-07] MEDS: MULTIVIT W/MINERALS TAB (THERAGRAN M) PO SCH (06:32)
[2022-11-07 07:02] VITALS: BP 109/70
--- NOTE | 2022-11-07 08:10 | Occupational Ther Daily Note ---
OT Current Status-Daily Note Subjective Pt alert, sitting in recliner.. Pt's daughter present in room. Pt agrees to therapy. Mental Status/Objective Patient Orientation: Person, Place, Time, Situation ADL-Treatment Independent eating. Declines shower at this time, will complete sponge bath. Independent with toileting. Independent with dressing and footwear. Therapy Code Descriptions/Definitions Functional [place] Measure: 0=Not Assessed/NA 4=Minimal Assistance 1=Total Assistance 5=Supervision or Setup 2=Maximal Assistance 6=Modified [place] 3=Moderate Assistance 7=Complete IndependenceSCALE: Activities may be completed with or without assistive devices. 6-Tsxusgyrtu-hxdejzb completes the activity by him/herself with no assistance from a helper. 5-Set-up or Clean-up Assistance-helper sets up or cleans up; patient completes activity. [place] assists only prior to or following the activity. 4-Supervision or Touching Assistance-helper provides verbal cues and/or touching/steadying and/or contact guard assistance as patient completes activity. Assistance may be provided throughout the activity or intermittently. 3-Partial/Moderate Assistance-helper does LESS THAN HALF the effort. [place] lifts, holds or supports trunk or limbs, but provides less than half the effort. 2-Substantial/Maximal Assistance-helper does MORE THAN HALF the effort. [place] lifts or holds trunk or limbs and provides more than half the effort. 2-Uibgiyygi-jlgghb does ALL the effort. Patient does none of the effort to complete the activity. Or, the assistance of 2 or more helpers is required for the patient to complete the activity. If activity was not attempted, code reason: 7-Patient Refused. 9-Not Applicable-not attempted and the patient did not perform the activity before the current illness, exacerbation or injury. 10-Not Attempted due to Environmental Limitations-(lack of equipment, weather restraints, etc.). 88-Not Attempted due to Medical Conditions or Safety Concerns. Eating (QC): 6 Upper Body Dressing (QC): 6 Lower Body Dressing (QC): 6 On/Off Footwear: 6 Toileting Hygiene (QC): 6 Toilet Transfer (QC): 6 Other Treatment Pt completed B UE strengthening tasks to increase strength and stamina for daily functional tasks. Completed standing tasks to work on balance, no LOB noted during tasks. After therapy, PT took over care of pt. All needs met in room. OT Short Term Goals Short Term Goals Time Frame: Nov 08, 2022 Upper body dressin Putting on/taking off footwear: 4 OT Counselor Dormitory Goals Counselor Dormitory Goals Time Frame: Nov 22, 2022 Acute change in mental status: 0 Inattention: 0 Disorganized thinkin Altered level of consciousness: 0 Eating (QC): 6 (met) Oral Hygiene (QC): 6 (met) Toileting Hygiene (QC): 6 (met) Shower/Bathe Self (QC): 6 (met) Upper Body Dressing (QC): 6 (met) Lower Body Dressing (QC): 6 (met) On/Off Footwear (QC): 6 (met) Additional Goals: 1-Demonstrate ADL Tasks, 2-Verbalize Understanding, 3-Im proveStrength/Heath 1=Demonstrate adherence to instructed precautions during ADL tasks. 2=Patient will verbalize/demonstrate understanding of assistive devices/modifications for ADL. 3=Patient will improve strength/tolerance for activity to enable patient to perform ADL's. OT Education/Plan Problem List/Assessment Assessment: Decreased Activ Tolerance, Decreased UE Strength, Impaired Self- Care Skills Discharge Recommendations Plan/Recommendations: Continue POC Treatment Plan/Plan of Care Patient would benefit from OT for education, treatment and training to promote independence in ADL's, mobility, safety and/or upper extremity function for ADL's. Plan of Care: ADL Retraining, Functional Mobility, Group Exercise/Act as Ind, UE Funct Exercise/Act Treatment Duration: Nov 22, 2022 Frequency: At least 5 of 7 days/Wk (IRF) Estimated Hrs Per Day: 1.5 hours per day Rehab Potential: Good Time Start Time: 07:30 Stop Time: 09:00 DATE: Nov 07, 2022 Total Time Billed (hr/min): 90 Billed Treatment Time 1 visit-ADL 4 (60 min) EX 2 (30 min) SINTIA SANDRA Nov 07, 2022 08:10
[2022-11-07] MEDS: ASPIRIN 81 MG CHEW (CHILDREN'S ASA) PO SCH (09:24)
[2022-11-07] MEDS: PANTOPRAZOLE 40 MG (PROTONIX) TAB PO SCH (09:25)
[2022-11-07] MEDS: CLOPIDOGREL 75 MG (PLAVIX) TABLET PO SCH (09:25)
[2022-11-07] MEDS: ENOXAPARIN 40 MG/0.4 ML (LOVENOX) SYR SC SCH (09:25)
[2022-11-07 09:54] VITALS: BP 121/76
--- NOTE | 2022-11-07 09:58 | Physical Therapy Daily Note ---
PT Daily Note-Current Subjective Patient in therapy gym pre tx, agrees to PT, has no complaints of pain. Pain Section J - Health Conditions 1. Rarely or not at all 2. Occasionally 3. Frequently 4. Almost constantly 8. Unable to answer Pain Effect on Sleep: 2 Pain Interference with Therapy: 2 Pain Interference w/Day-to-Day: 2 Appearance patient in recliner post tx with nurse call, phone, tray, all needs met. Mental Status Patient Orientation: Person, Place, Situation Transfers SCALE: Activities may be completed with or without assistive devices. 3-Kqneobnsqb-dhqpdld completes the activity by him/herself with no assistance from a helper. 5-Set-up or Clean-up Assistance-helper sets up or cleans up; patient completes activity. [place] assists only prior to or following the activity. 4-Supervision or Touching Assistance-helper provides verbal cues and/or touching/steadying and/or contact guard assistance as patient completes ac tivity. Assistance may be provided throughout the activity or intermittently. 3-Partial/Moderate Assistance-helper does LESS THAN HALF the effort. [place] lifts, holds or supports trunk or limbs, but provides less than half the effort. 2-Substantial/Maximal Assistance-helper does MORE THAN HALF the effort. [place] lifts or holds trunk or limbs and provides more than half the effort. 0-Pchitjicv-nbjzgl does ALL the effort. Patient does none of the effort to complete the activity. Or, the assistance of 2 or more helpers is required for the patient to complete the activity. If activity was not attempted, code reason: 7-Patient Refused. 9-Not Applicable-not attempted and the patient did not perform the activity before the current illness, exacerbation or injury. 10-Not Attempted due to Environmental Limitations-(lack of equipment, weather restraints, etc.). 88-Not Attempted due to Medical Conditions or Safety Concerns. Roll Left & Right (QC): 6 Sit to Lying (QC): 6 Lying to Sitting/Side of Bed(Q: 6 Sit to Stand (QC): 4 Chair/Tod-ct-Sskac Xfer(QC): 4 Toilet Transfer (QC): 4 Car Transfer (QC): 4 Patient performs rolling and supine <-> sit with independence, sit <-> stand and transfers SBA, car transfer SBA. Needs occasional cues for hand placement and safety. Weight Bearing Full Weight Bearing Full Weight Bearing Gait Training Does the Patient Walk?: Yes Distance: 300', 100' Walk 10 feet (QC): 4 Walk 50 ft with 2 Turns(QC): 4 Walk 150 ft (QC): 4 Walking 10ft/uneven surface-QC: 4 Gait Persons Needed: 1 Patient ambulates 300' with a walking stick with SBA (including 50' with at least 2 turns of 90 degrees but needs CGA for 10' over an uneven surface). Patient ambulates slowly, slightly flexed knees, decreased step length. Wheelchair Training Wheel 50 ft with 2 turns (QC): 9 Wheel 150 ft (QC): 9 Stair Training Stair Training: Handrails/: 2 handrails #of Steps: 12 1 Step (curb) (QC): 4 4 Steps (QC): 4 12 Steps (QC): 4 Stairs: Pattern: Reciprocal SBA Balance Picking up an Object (QC): 4 (using detailer school photographs) Exercises NuStep Minutes: 15 NuStep Workload: 5 Treatments bed mobility and transfers, ambulation, stair training, strengthening, patient also was toileted (was able to wipe and manage pants on his own) Assessment Current Status: Fair Progress Patient would probably benefit from a rolling walker or 4 wheeled walker with a seat. PT Short Term Goals Short Term Goals Time Frame: Nov 08, 2022 Sit to stand: 4 Chair/lpj-lx-gkgyq transfer: 4 Walk 10 feet: 4 Walk 50 feet with two turns: 4 Walk 150 feet: 4 PT Half-Way Goals Laborer/Grade Check Goals PT Laborer/Grade Check Goals Time Frame: Nov 15, 2022 Roll Left & Right (QC): 6 Sit to Lying (QC): 6 Lying-Sitting on Side/Bed(QC): 6 Sit to Stand (QC): 6 Chair/Sna-qe-Ylcic Xfer(QC): 6 Toilet Transfer (QC): 6 Car Transfer (QC): 6 Does the Patient Walk: Yes Walk 10 feet (QC): 6 Walk 50ft with 2 Turns (QC): 6 Walk 150 ft (QC): 6 Walking 10ft on Uneven Surface: 6 1 Step (curb) (QC): 4 (SBA) 4 Steps (QC): 4 (SBA) 12 Steps (QC): 4 (SBA) Picking up an Object (QC): 6 Wheel 50 feet with 2 turns (QC: 9 Wheel 150 feet: 9 PT Plan Problem List Problem List: Activity Tolerance, Functional Strength, Safety, Balance, Gait, Transfer, Bed Mobility, ROM Treatment/Plan Treatment Plan: Continue Plan of Care Treatment Plan: Bed Mobility, Education, Functional Activity Heath, Functional Strength, Group Therapy, Gait, Safety, Therapeutic Exercise, Transfers Treatment Duration: Nov 15, 2022 Frequency: At least 5 of 7 days/Wk (IRF) Estimated Hrs Per Day: 1.5 hours per day Patient and/or Family Agrees t: Yes Safety Risks/Education Patient Education: Gait Training, Transfer Techniques, Steps, Correct Positioning, Safety Issues Teaching Recipient: Patient Teaching Methods: Demonstration, Discussion Response to Teaching: Reinforcement Needed Time Time In: 0900 Time Out: 1000 DATE: Nov 07, 2022 Total Billed Treatment Time: 60 Total Billed Treatment 1 visit EX 15' FA 45' NEELAM COLE PT Nov 07, 2022 09:58
[2022-11-07] MEDS: meTOprolol TARTRATE 25 MG (LOPRESSOR) TABLET PO SCH ×2 (09:59→20:17)
[2022-11-07] MEDS: SENNA W/DOCUSATE (SENOKOT S) TABLET PO SCH ×2 (10:19→20:18)
[2022-11-07] MEDS: polyethylene glycoL POWDER 17 GM (MIRALAX) PACK PO SCH ×2 (10:19→20:18)
[2022-11-07] MEDS: DOCUSATE SODIUM 100 MG (COLACE) CAP PO SCH ×2 (10:19→20:17)
--- NOTE | 2022-11-07 11:24 | Physical Therapy Daily Note ---
PT Daily Note-Current Subjective Patient in recliner pre tx, agrees to PT, has no complaints of pain. Pain Section J - Health Conditions 1. Rarely or not at all 2. Occasionally 3. Frequently 4. Almost constantly 8. Unable to answer Pain Effect on Sleep: 2 Pain Interference with Therapy: 2 Pain Interference w/Day-to-Day: 2 Appearance Patient in recliner post tx with nurse call, phone, tray, all needs met. Mental Status Patient Orientation: Person, Place, Situation Transfers SCALE: Activities may be completed with or without assistive devices. 0-Qmxeywgile-mjusywe completes the activity by him/herself with no assistance from a helper. 5-Set-up or Clean-up Assistance-helper sets up or cleans up; patient completes activity. [place] assists only prior to or following the activity. 4-Supervision or Touching Assistance-helper provides verbal cues and/or touching/steadying and/or contact guard assistance as patient completes activ ity. Assistance may be provided throughout the activity or intermittently. 3-Partial/Moderate Assistance-helper does LESS THAN HALF the effort. [place] lifts, holds or supports trunk or limbs, but provides less than half the effort. 2-Substantial/Maximal Assistance-helper does MORE THAN HALF the effort. [place] lifts or holds trunk or limbs and provides more than half the effort. 0-Jpqrakttg-jtryhw does ALL the effort. Patient does none of the effort to complete the activity. Or, the assistance of 2 or more helpers is required for the patient to complete the activity. If activity was not attempted, code reason: 7-Patient Refused. 9-Not Applicable-not attempted and the patient did not perform the activity before the current illness, exacerbation or injury. 10-Not Attempted due to Environmental Limitations-(lack of equipment, weather restraints, etc.). 88-Not Attempted due to Medical Conditions or Safety Concerns. Sit to Stand (QC): 4 Chair/Qhz-xl-Mbryf Xfer(QC): 4 SBA, occasional cues for hand placement and safety Weight Bearing Full Weight Bearing Full Weight Bearing Gait Training Distance: 100'x2 Walk 10 feet (QC): 4 Walk 50 ft with 2 Turns(QC): 4 Gait Persons Needed: 1 SBA, patient uses a walking stick, stooped posture with slightly bent knees, decreased step length Exercises Standing: Hip Abduction, Hamstring curls, Heel/toe raises, Marching, Mini squats Standing Reps: 15 Treatments transfers, ambulation, LE strengthening Assessment Current Status: Fair Progress patient still needs somebody with him for safety during transfers and ambulation PT Short Term Goals Short Term Goals Time Frame: Nov 08, 2022 Sit to stand: 4 Chair/eri-vn-cpktk transfer: 4 Walk 10 feet: 4 Walk 50 feet with two turns: 4 Walk 150 feet: 4 PT Automobile Dealer Goals Senior Care Goals PT Automobile Dealer Goals Time Frame: Nov 15, 2022 Roll Left & Right (QC): 6 Sit to Lying (QC): 6 Lying-Sitting on Side/Bed(QC): 6 Sit to Stand (QC): 6 Chair/Mlt-jr-Pdmoq Xfer(QC): 6 Toilet Transfer (QC): 6 Car Transfer (QC): 6 Does the Patient Walk: Yes Walk 10 feet (QC): 6 Walk 50ft with 2 Turns (QC): 6 Walk 150 ft (QC): 6 Walking 10ft on Uneven Surface: 6 1 Step (curb) (QC): 4 (SBA) 4 Steps (QC): 4 (SBA) 12 Steps (QC): 4 (SBA) Picking up an Object (QC): 6 Wheel 50 feet with 2 turns (QC: 9 Wheel 150 feet: 9 PT Plan Problem List Problem List: Activity Tolerance, Functional Strength, Safety, Balance, Gait, Transfer, Bed Mobility, ROM Treatment/Plan Treatment Plan: Continue Plan of Care Treatment Plan: Bed Mobility, Education, Functional Activity Heath, Functional Strength, Group Therapy, Gait, Safety, Therapeutic Exercise, Transfers Treatment Duration: Nov 15, 2022 Frequency: At least 5 of 7 days/Wk (IRF) Estimated Hrs Per Day: 1.5 hours per day Patient and/or Family Agrees t: Yes Safety Risks/Education Patient Education: Gait Training, Transfer Techniques, Correct Positioning, Safety Issues Teaching Recipient: Patient Teaching Methods: Demonstration, Discussion Response to Teaching: Reinforcement Needed Time Time In: 1100 Time Out: 1130 DATE: Nov 07, 2022 Total Billed Treatment Time: 30 Total Billed Treatment 1 visit FA 15' EX 15' NEELAM COLE PT Nov 07, 2022 11:24
[2022-11-07] MEDS: TAMSULOSIN 0.4 MG (FLOMAX) CAP PO SCH (18:58)
[2022-11-07 19:54] VITALS: BP 124/63
[2022-11-08] MEDS ORDERED: CLOP75TA28 PO (05:57)
[2022-11-08] MEDS ORDERED: PANT40TA52 PO (05:57)
[2022-11-08] MEDS ORDERED: METO-333 PO (05:57)
[2022-11-08] MEDS ORDERED: TMSL.4C PO (05:57)
[2022-11-08] MEDS ORDERED: ASPI81TA64 PO (05:57)
--- NOTE | 2022-11-08 05:58 | D/C HH Face to Face Order ---
D/C Face to Face Orders Reconcile Patient Problems Problems Reviewed?: Yes Instructions for Patient Via [facility], Patient Instructions/FollowUp: pcp 1 week Physician to follow Patient: Amina Discharge Diet for Home: No Restrictions Patient Problems: Debility Patient Data-Allergies,Ht & Wt Patient Allergies: Coded Allergies: No Known Drug Allergies (Unverified , 12/06/15) Height (Feet): 6 Height (Inches): 1.00 Weight (Pounds): 172 Weight (Ounces): 10.0 Home Health Need/Face to Face Date of Face to Face: Nov 08, 2022 Clinical Findings: Generalized weakness and fatigue, Instability, Muscle weakness I have seen Pt bavp-ig-kwmi: Yes Discharged To: Home Diagnosis/Conditions: Debility Patient is Homebound due to: Tia fall risk due to instabilty, Muscle weakness Homebound Status Due to the above stated illness, injury or surgical procedure (medical condition or diagnosis) and associated clinical findings, the patient is homebound because of his/her inability to leave home except with aid of a supportive device and/or person AND leaving the home requires a considerable and taxing effort or is medically contraindicated. Pt req the following assistanc: Walker Home Health Nursing Orders Home Health Services Order: Nursing Services, Plasterer Rough-Evaluate & Treat, Physical Therapy-Evaluate & Treat Certify Stmt I certify that this patient is under my care and that I, a nurse practitioner or a physician; a financial assistant working with me, had a face to face encounter that - meets the physician face to face encounter requirements with this patient as dated. RYAN PINEDA DO Nov 08, 2022 05:57
--- NOTE | 2022-11-08 05:58 | Discharge Summary ---
Diagnosis/Chief Complaint Date of Admission Oct 31, 2022 at 16:48 Date of Discharge Discharge Date: Nov 08, 2022 Discharge Diagnosis Assessment: Debility Advanced age Recent Flu A Anemia Fall risk Presbycusis h/o UTI's Hypokalemia CAD previous stents Plan: Check labs Eval anemia Increase PO fluids PT OT 11/01/2022: Supportive care Monitor closely 11/02/2022: Doing much better Supportive care 11/03/2022: Check labs in morning Much improved status 11/04/2022: Supportive care Monitor closely 11/05/2022: Check UA DC tomorrow 11/06/2022: DC Friday11/07/2022: Discharge tomorrow (1) Debility Status: Acute (2) CAD (coronary artery disease) (3) Generalized weakness Status: Acute (4) Anemia Discharge Summary Discharge Physical Examination Allergies: Coded Allergies: No Known Drug Allergies (Unverified , 12/06/15) Vitals & I&Os Vital Signs Date Time Temp Pulse Resp B/P (MAP) Pulse Ox O2 Delivery O2 Flow Rate FiO2 11/08/22 13:00 36.5 70 18 102/58 94 Room Air General Appearance: Alert, Oriented X3, Cooperative Respiratory: Clear to Auscultation Cardiovascular: Regular Rate Psych/Mental Status: Mental Status NL Hospital Course Was the Problem List Reviewed?: Yes Uncomplicated hospital course after admitted from Dr Huynh's office for weakness and general debility following Flu A. Patient had an uncomplicated hospital course and was able to strengthen and regain function in order to go home with home health and his family to take care of him. He had no decompensation during hospital course. Labs (last 24 hrs) Laboratory Tests 11/01/22 05:17: White Blood Count 7.5, Red Blood Count 3.98L, Hemoglobin 12.2L, Hematocrit 35L, Mean Corpuscular Volume 89, Mean Corpuscular Hemoglobin 31, Mean Corpuscular Hemoglobin Concent 35, Red Cell Distribution Width 11.9, Platelet Count 193, Mean Platelet Volume 8.7L, Immature Granulocyte % (Auto) 1, Neutrophils (%) (Auto) 62, Lymphocytes (%) (Auto) 24, Monocytes (%) (Auto) 11, Eosinophils (%) (Auto) 2, Basophils (%) (Auto) 1, Neutrophils # (Auto) 4.7, Lymphocytes # (Auto) 1.8, Monocytes # (Auto) 0.8, Eosinophils # (Auto) 0.2, Basophils # (Auto) 0.0, Immature Granulocyte # (Auto) 0.1, Sodium Level 137, Potassium Level 3.4L, Chloride Level 106, Carbon Dioxide Level 23, Anion Gap 8, Blood Urea Nitrogen 14, Creatinine 0.86, Estimat Glomerular Filtration Rate 84, BUN/Creatinine Ratio 16, Glucose Level 92, Calcium Level 8.5, Corrected Calcium 9.2, Total Bilirubin 0.5, Aspartate Amino Transf (AST/SGOT) 41H, Alanine Aminotransferase (ALT/SGPT) 45, Alkaline Phosphatase 53, Total Protein 5.8L, Albumin 3.1L 11/04/22 05:02: White Blood Count 7.9, Red Blood Count 3.94L, Hemoglobin 11.9L, Hematocrit 36L, Mean Corpuscular Volume 91, Mean Corpuscular Hemoglobin 30, Mean Corpuscular Hemoglobin Concent 33, Red Cell Distribution Width 12.1, Platelet Count 255, Mean Platelet Volume 9.0, Immature Granulocyte % (Auto) 2, Neutrophils (%) (Auto) 61, Lymphocytes (%) (Auto) 24, Monocytes (%) (Auto) 9, Eosinophils (%) (Auto) 3, Basophils (%) (Auto) 1, Neutrophils # (Auto) 4.8, Lymphocytes # (Auto) 1.9, Monocytes # (Auto) 0.7, Eosinophils # (Auto) 0.3, Basophils # (Auto) 0.0, Immature Granulocyte # (Auto) 0.2H, Sodium Level 137, Potassium Level 4.1, Chloride Level 107, Carbon Dioxide Level 24, Anion Gap 6, Blood Urea Nitrogen 13, Creatinine 0.98, Estimat Glomerular Filtration Rate 75, BUN/Creatinine Ratio 13, Glucose Level 93, Calcium Level 8.4L, Corrected Calcium 9.1, Total Bilirubin 0.5, Aspartate Amino Transf (AST/SGOT) 27, Alanine Aminotransferase (ALT/SGPT) 42, Alkaline Phosphatase 52, Total Protein 5.7L, Albumin 3.1L 11/05/22 18:50: Urine Color YELLOW, Urine Clarity CLEAR, Urine pH 6.0, Urine Specific [place] >=1.030, Urine Protein NEGATIVE, Urine Glucose (UA) NEGATIVE, Urine Ketones NEGATIVE, Urine Nitrite NEGATIVE, Urine Bilirubin NEGATIVE, Urine Urobilinogen 0.2, Urine Leukocyte Esterase NEGATIVE, Urine RBC (Auto) NEGATIVE, Urine RBC NONE, Urine WBC RARE, Urine Crystals NONE, Urine Bacteria NEGATIVE, Urine Casts NONE, Urine Mucus SMALLH, Urine Culture Indicated NO Pending Labs Laboratory Tests 11/01/22 05:17: White Blood Count 7.5, Red Blood Count 3.98, Hemoglobin 12.2, Hematocrit 35, Mean Corpuscular Volume 89, Mean Corpuscular Hemoglobin 31, Mean Corpuscular Hemoglobin Concent 35, Red Cell Distribution Width 11.9, Platelet Count 193, Mean Platelet Volume 8.7, Immature Granulocyte % (Auto) 1, Neutrophils (%) (Auto) 62, Lymphocytes (%) (Auto) 24, Monocytes (%) (Auto) 11, Eosinophils (%) (Auto) 2, Basophils (%) (Auto) 1, Neutrophils # (Auto) 4.7, Lymphocytes # (Auto) 1.8, Monocytes # (Auto) 0.8, Eosinophils # (Auto) 0.2, Basophils # (Auto) 0.0, Immature Granulocyte # (Auto) 0.1, Sodium Level 137, Potassium Level 3.4, C hloride Level 106, Carbon Dioxide Level 23, Anion Gap 8, Blood Urea Nitrogen 14, Creatinine 0.86, Estimat Glomerular Filtration Rate 84, BUN/Creatinine Ratio 16, Glucose Level 92, Calcium Level 8.5, Corrected Calcium 9.2, Total Bilirubin 0.5, Aspartate Amino Transf (AST/SGOT) 41, Alanine Aminotransferase (ALT/SGPT) 45, Alkaline Phosphatase 53, Total Protein 5.8, Albumin 3.1 11/04/22 05:02: White Blood Count 7.9, Red Blood Count 3.94, Hemoglobin 11.9, Hematocrit 36, Mean Corpuscular Volume 91, Mean Corpuscular Hemoglobin 30, Mean Corpuscular Hemoglobin Concent 33, Red Cell Distribution Width 12.1, Platelet Count 255, Mean Platelet Volume 9.0, Immature Granulocyte % (Auto) 2, Neutrophils (%) (Auto) 61, Lymphocytes (%) (Auto) 24, Monocytes (%) (Auto) 9, Eosinophils (%) (Auto) 3, Basophils (%) (Auto) 1, Neutrophils # (Auto) 4.8, Lymphocytes # (Auto) 1.9, Monocytes # (Auto) 0.7, Eosinophils # (Auto) 0.3, Basophils # (Auto) 0.0, Immature Granulocyte # (Auto) 0.2, Sodium Level 137, Potassium Level 4.1, Chloride Level 107, Carbon Dioxide Level 24, Anion Gap 6, Blood Urea Nitrogen 13, Creatinine 0.98, Estimat Glomerular Filtration Rate 75, BUN/Creatinine Ratio 13, Glucose Level 93, Calcium Level 8.4, Corrected Calcium 9.1, Total Bilirubin 0.5, Aspartate Amino Transf (AST/SGOT) 27, Alanine Aminotransferase (ALT/SGPT) 42, Alkaline Phosphatase 52, Total Protein 5.7, Albumin 3.1 11/05/22 18:50: Urine Color YELLOW, Urine Clarity CLEAR, Urine pH 6.0, Urine Specific [place] >=1.030, Urine Protein NEGATIVE, Urine Glucose (UA) NEGATIVE, Urine Ketones NEGATIVE, Urine Nitrite NEGATIVE, Urine Bilirubin NEGATIVE, Urine Urobilinogen 0.2, Urine Leukocyte Esterase NEGATIVE, Urine RBC (Auto) NEGATIVE, Urine RBC NONE, Urine WBC RARE, Urine Crystals NONE, Urine Bacteria NEGATIVE, Urine Casts NONE, Urine Mucus SMALL, Urine Culture Indicated NO Discharge Home Medications: Active Scripts Active Flomax (Tamsulosin HCl) 0.4 Mg Cap 0.4 Mg PO DAILY@1800 Pantoprazole Sodium 40 Mg Tablet.dr 40 Mg PO DAILY Metoprolol Tartrate 25 Mg Tablet 12.5 Mg PO BID Children's Aspirin (Aspirin) 81 Mg Tab.chew 81 Mg PO DAILY Clopidogrel (Clopidogrel Bisulfate) 75 Mg Tablet 75 Mg PO DAILY Reported Daily Lynne (Multivitamin) 1 Each Tablet 1 Each PO DAILY Instructions to patient/family Please see electronic discharge instructions given to patient. Diagnosis/Problems Diagnosis/Problems (1) Debility Status: Acute (2) CAD (coronary artery disease) (3) Generalized weakness Status: Acute (4) Anemia RYAN PINEDA DO Nov 08, 2022 05:58
[2022-11-08] MEDS: MULTIVIT W/MINERALS TAB (THERAGRAN M) PO SCH (06:25)
[2022-11-08 07:30] VITALS: BP 102/58
[2022-11-08] MEDS: meTOprolol TARTRATE 25 MG (LOPRESSOR) TABLET PO SCH (08:36)
[2022-11-08] MEDS: PANTOPRAZOLE 40 MG (PROTONIX) TAB PO SCH (08:36)
[2022-11-08] MEDS: ASPIRIN 81 MG CHEW (CHILDREN'S ASA) PO SCH (08:36)
[2022-11-08] MEDS: CLOPIDOGREL 75 MG (PLAVIX) TABLET PO SCH (08:36)
[2022-11-08] MEDS: ENOXAPARIN 40 MG/0.4 ML (LOVENOX) SYR SC SCH (08:45)
--- NOTE | 2022-11-08 09:49 | Therapy Team Discharge Summary ---
Therapy Discharge Summary Discharge Recommendations Date of Discharge Physical Therapy Patient came to rehab with debility. Upon evaluation patient performs rolling and supine <-> sit with SBA, sit <-> stand and transfers CGA, car transfer CGA, ambulate 150' with a standard walker with CGA (including 50' with at least 2 turns of 90 degrees and 10' over an uneven surface), up and down 4 steps using 2 handrails with CGA, and picked up an object from the floor using a head sampler with CGA. Patient has been performing bed mobility and transfer training, balance and endurance training, functional strengthening, stair training, gait training, and education. 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 Now, patient performs rolling and supine <-> sit with independence, sit <-> stand and transfers SBA, car transfer SBA, ambulates 300' with a walking stick with SBA (including 50' with at least 2 turn s of 90 degrees but needs CGA for 10' over an uneven surface), can go up and down 12 steps using 2 handrails with SBA, and can waste picker an object from the floor using a head sampler with SBA. Patient is being discharged from this facility today and will be discharged from PT at this time. Roll Left to Right (QC): 6 Sit to Lying (QC): 6 Lying to Sitting/Side of Bed(Q: 6 Sit to Stand (QC): 4 Chair/Rtc-gu-Iyxjk Xfer(QC): 4 Toilet Transfer (QC): 5 Car Transfer (QC): 4 Does the Patient Walk: Yes Walk 10 feet (QC): 4 Walk 50 ft with 2 Turns(QC): 4 Walk 150 ft (QC): 4 Walking 10ft on uneven surface: 4 Distance: 150', 100' Gait Assistive Device: Cane Single Point Does the Pt Use a Wheelchair: No Wheel 50 ft with 2 turns (QC): 9 Wheel 150 ft (QC): 9 #of Steps: 12 1 Step (curb) (QC): 4 4 Steps (QC): 4 12 Steps (QC): 4 Balance Sitting Static: Normal Balance Sitting Dynamic: Normal Balance-Standing Static: Fair Picking up an Object (QC): 4 (using head sampler) Occupational Therapy Decreased Activ Tolerance, Decreased UE Strength, Impaired Self-Care Skills Eating (QC): 6 Oral Hygiene (QC): 6 Shower/Bathe Self (QC): 6 Upper Body Dressing (QC): 6 Lower Body Dressing (QC): 6 On/Off Footwear (QC): 6 Toileting Hygiene (QC): 6 PT Assisted Goals Assisted Goals PT [place]eler Goals Time Frame: Nov 15, 2022 Roll Left to Right (QC): 6 Sit to Lying (QC): 6 Lying-Sitting on Side/Bed(QC): 6 Sit to Stand (QC): 6 Chair/Vzu-hm-Sbbzf Xfer(QC): 6 Toilet/Commode Transfer (QC): 6 Car Transfer (QC): 6 Does the Patient Walk: Yes Walk 10 feet (QC): 6 Walk 10ft-Uneven Surface(QC): 6 Walk 50ft with 2 Turns (QC): 6 Walk 150 ft (QC): 6 Wheel 50 feet with 2 turns (QC: 9 Wheel 150 feet: 9 1 Step (curb) (QC): 4 (SBA) 4 Steps (QC): 4 (SBA) 12 Steps (QC): 4 (SBA) Picking up an Object (QC): 6 OT Assisted Goals Assisted Goals Time Frame: Nov 22, 2022 Acute change in mental status: 0 Inattention: 0 Disorganized thinkin Altered level of consciousness: 0 Eating (QC): 6 (met) Oral Hygiene (QC): 6 (met) Toileting Hygiene (QC): 6 (met) Shower/Bathe Self (QC): 6 (met) Upper Body Dressing (QC): 6 (met) Lower Body Dressing (QC): 6 (met) On/Off Footwear (QC): 6 (met) Additional Goals: 1-Demonstrate ADL Tasks, 2-Verbalize Understanding, 3-ImproveStrength/Heath 1=Demonstrate adherence to instructed precautions during ADL tasks. 2=Patient will verbalize/demonstrate understanding of assistive devices/modifications for ADL. 3=Patient will improve strength/tolerance for activity to enable patient to perform ADL's. NEELAM COLE PT Nov 08, 2022 09:48
[2022-11-08] MEDS: DOCUSATE SODIUM 100 MG (COLACE) CAP PO SCH (09:59)
[2022-11-08] MEDS: polyethylene glycoL POWDER 17 GM (MIRALAX) PACK PO SCH (09:59)
[2022-11-08] MEDS: SENNA W/DOCUSATE (SENOKOT S) TABLET PO SCH (09:59)
--- NOTE | 2022-11-08 11:54 | Therapy Team Discharge Summary ---
Therapy Discharge Summary Discharge Recommendations Date of Discharge Physical Therapy Roll Left to Right (QC): 6 Sit to Lying (QC): 6 Lying to Sitting/Side of Bed(Q: 6 Sit to Stand (QC): 4 Chair/[id number]-Zhfkx Xfer(QC): 4 Toilet Transfer (QC): 5 Car Transfer (QC): 4 Does the Patient Walk: Yes Walk 10 feet (QC): 4 Walk 50 ft with 2 Turns(QC): 4 Walk 150 ft (QC): 4 Walking 10ft on uneven surface: 4 Distance: 150', 100' Gait Assistive Device: Cane Single Point Does the Pt Use a Wheelchair: No Wheel 50 ft with 2 turns (QC): 9 Wheel 150 ft (QC): 9 #of Steps: 12 1 Step (curb) (QC): 4 4 Steps (QC): 4 12 Steps (QC): 4 Balance Sitting Static: Normal Balance Sitting Dynamic: Normal Balance-Standing Static: Fair Picking up an Object (QC): 4 (using dictaphone technician) Occupational Therapy Pt admitted to ARU with debility. At [facility], pt was typically independent with ADLS and functional mobility using FWW. Prior to admission, he has required some assistance with ADLs. Upon initial evaluation, pt was independent with eating, required SBA with oral care, showering, LE dressing and toileting, and min A with UE dressing and footwear. OT tx focused on increasing BUE Strength and activity tolerance, and increasing safety and independence with ADLS. Pt made good progress, attaining IND level with all ADLS and meeting all goals. Pt discharging from facility, d/c from OT. Decreased Activ Tolerance, Decreased UE Strength, Impaired Self-Care Skills Eating (QC): 6 Oral Hygiene (QC): 6 Shower/Bathe Self (QC): 6 Upper Body Dressing (QC): 6 Lower Body Dressing (QC): 6 On/Off Footwear (QC): 6 Toileting Hygiene (QC): 6 PT District Associate Judge Goals Halfway Goals PT Halfway Goals Time Frame: Nov 15, 2022 Roll Left to Right (QC): 6 Sit to Lying (QC): 6 Lying-Sitting on Side/Bed(QC): 6 Sit to Stand (QC): 6 Chair/Vav-gz-Exyox Xfer(QC): 6 Toilet/Commode Transfer (QC): 6 Car Transfer (QC): 6 Does the Patient Walk: Yes Walk 10 feet (QC): 6 Walk 10ft-Uneven Surface(QC): 6 Walk 50ft with 2 Turns (QC): 6 Walk 150 ft (QC): 6 Wheel 50 feet with 2 turns (QC: 9 Wheel 150 feet: 9 1 Step (curb) (QC): 4 (SBA) 4 Steps (QC): 4 (SBA) 12 Steps (QC): 4 (SBA) Picking up an Object (QC): 6 OT District Associate Judge Goals District Associate Judge Goals Time Frame: Nov 22, 2022 Acute change in mental status: 0 Inattention: 0 Disorganized thinkin Altered level of consciousness: 0 Eating (QC): 6 (met) Oral Hygiene (QC): 6 (met) Toileting Hygiene (QC): 6 (met) Shower/Bathe Self (QC): 6 (met) Upper Body Dressing (QC): 6 (met) Lower Body Dressing (QC): 6 (met) On/Off Footwear (QC): 6 (met) Additional Goals: 1-Demonstrate ADL Tasks, 2-Verbalize Understanding, 3- ImproveStrength/Heath 1=Demonstrate adherence to instructed precautions during ADL tasks. 2=Patient will verbalize/demonstrate understanding of assistive devices/modifications for ADL. 3=Patient will improve strength/tolerance for activity to enable patient to perform ADL's. ROHINI CARPENTER OT Nov 08, 2022 11:54
[2022-11-08 13:00] VITALS: BP 102/58
== END 2022-11-08 13:00 | disposition home health service (06) | DRG 948 ==
LOC: UNDODISIN 11-01 09:10
PROVIDERS: ADMIT Internal Medicine; ATTEND Internal Medicine
DX: R53.1 Weakness (principal); R53.83 Other fatigue; Z91.81 History of falling; I25.10 Atherosclerotic heart disease of native coronary artery without angina pectoris; K21.9 Gastro-esophageal reflux disease without esophagitis; H35.30 Unspecified macular degeneration; H91.13 Presbycusis, bilateral; D64.9 Anemia, unspecified; R19.7 Diarrhea, unspecified; E87.6 Hypokalemia; R32 Unspecified urinary incontinence; Z66 Do not resuscitate; Z97.4 Presence of external hearing-aid; Z87.891 Personal history of nicotine dependence; Z79.82 Long term (current) use of aspirin; Z95.5 Presence of coronary angioplasty implant and graft
CPT/HCPCS: 36415; 80053; 81000; 85025